=== PATIENT | male | born 1950 | race Caucasian/White ===

== ENCOUNTER 2016-08-21 05:50 | Inpatient (IN) | payer OTHER, MEDICARE ==
[2016-08-21] MEDS ORDERED: LIDOCAINE 1% 5 ML SDV ID PRN ×2 (06:00→06:50)
[2016-08-21] MEDS ORDERED: CITRATE DEXTROSE SOLN 500 ML BAG MISC ONE (06:00)
[2016-08-21] MEDS ORDERED: MUPIROCIN 2% 22 GM OINT NS ONE (06:00)
[2016-08-21] MEDS ORDERED: INSULIN REGULAR HUMAN 100 UNIT in NS 100 ML IV ONE (06:00)
[2016-08-21] MEDS ORDERED: VERAPAMIL 5 MG, NITROGLYCERIN 2.5 MG, HEPARIN 500 UNIT, SODIUM BICARBONATE 0.2 MEQ in L... MISC ONE (06:00)
[2016-08-21] MEDS ORDERED: NS 1,000 ML IV ONE (06:00)
[2016-08-21] MEDS ORDERED: PHENYLEPHRINE HCL 50 MG in NS 250 ML IV ONE (06:00)
[2016-08-21] MEDS ORDERED: AMINOCAPROIC ACID 5 GM/20 ML VIAL IV ONE (06:00)
[2016-08-21] MEDS ORDERED: SODIUM BICARBONATE 20 MEQ, LIDOCAINE 1% 10 ML in NORMOSOL-R 1,000 ML MISC ONE (06:00)
[2016-08-21] MEDS ORDERED: MANNITOL 25% 12.5 GM/50 ML VIAL IV ONE (06:00)
[2016-08-21] MEDS ORDERED: ceFAZolin 2 GM/DEXTROSE 100 ML IV ONE (06:00)
[2016-08-21] MEDS ORDERED: NOREPINEPHRINE BITARTRATE 16 MG in NS 250 ML IV ONE (06:00)
[2016-08-21] MEDS ORDERED: niCARdipine/NACL 200 ML IV SCH (06:00)
[2016-08-21] MEDS ORDERED: LIDOCAINE 1% 5 ML SDV ONE (06:35)
[2016-08-21] MEDS ORDERED: ALBUMIN 5% 250 ML BOTTLE IV ONE (06:36)
[2016-08-21] MEDS ORDERED: MILRINONE/DEXTROSE/100 ML BAG IV ONE (06:36)
[2016-08-21] MEDS ORDERED: CALCIUM CHLORIDE 1 GM/10 ML INJ ONE (06:36)
[2016-08-21] MEDS ORDERED: DOPamine/DEXTROSE/250 ML BAG IV ONE (06:37)
[2016-08-21] MEDS ORDERED: AMINOCAPROIC ACID 5 GM/20 ML VIAL ONE (06:37)
[2016-08-21] MEDS ORDERED: AMIODARONE HCL 150 MG/3 ML VIAL ONE (06:37)
[2016-08-21] MEDS ORDERED: NA BICARBONATE 50 MEQ/50 ML VIAL ONE ×2 (06:37→14:16)
[2016-08-21] MEDS ORDERED: ADENOSINE 6 MG/2 ML VIAL ONE (06:37)
[2016-08-21] MEDS ORDERED: niCARdipine/NACL/200 ML BAG IV ONE (06:37)
[2016-08-21] MEDS ORDERED: LIDOCAINE 2% 100 MG/5 ML SYR IVP ONE (06:37)
[2016-08-21] MEDS ORDERED: POTASSIUM Cl (KCl) 20 MEQ/50 ML BAG IV ONE (06:37)
[2016-08-21] MEDS ORDERED: methylPREDNISolone SOD SUCC 1 GM/8 ML VIAL ONE (06:38)
[2016-08-21] MEDS ORDERED: ceFAZolin 1 GM VIAL ONE (06:38)
[2016-08-21] MEDS ORDERED: PROTAMINE SULFATE 50 MG/5 ML VIAL IVP ONE (06:38)
[2016-08-21] MEDS ORDERED: HEPARIN 10,000 UNIT/10 ML MDV ONE (06:38)
[2016-08-21] MEDS ORDERED: MAGNESIUM SULFATE 1 GM/2 ML VIAL ONE (06:38)
[2016-08-21] MEDS ORDERED: LR 1,000 ML IV ONE (06:50)
[2016-08-21] MEDS ORDERED: PROPOFOL/EMULSION 500 MG/50 ML BOTTLE IV ONE (07:02)
[2016-08-21] MEDS ORDERED: fentaNYL 250 MCG/5 ML INJ ONE ×2 (07:02)
[2016-08-21] MEDS ORDERED: MIDAZOLAM 2 MG/2 ML VIAL ONE (07:05)
[2016-08-21] MEDS ORDERED: VERAPAMIL 5 MG/2 ML VIAL ONE (08:04)
[2016-08-21] MEDS ORDERED: PAPAVERINE HCL 60 MG/2 ML SDV ONE (08:04)
[2016-08-21] MEDS ORDERED: MAGNESIUM SULF 2 GM/WATER 50 ML BAG IV ONE (12:09)
[2016-08-21] MEDS ORDERED: SKIN ADHESIVE (DERMABOND) 1 EACH TP ONE ×2 (12:57→13:10)
[2016-08-21] MEDS ORDERED: HYDROmorphONE/DILAUDID 2 MG/ML SYR ONE (12:59)
[2016-08-21] MEDS ORDERED: ACETAMINOPHEN 325 MG TAB PO PRN (13:12)
[2016-08-21] MEDS ORDERED: PANTOPRAZOLE SODIUM 40 MG in NS 100 ML IV ONE (13:12)
[2016-08-21] MEDS ORDERED: MAGNESIUM HYDROXIDE 30 ML UDCUP PO PRN (13:12)
[2016-08-21] MEDS ORDERED: LACTULOSE 20 GM/30 ML UDCUP PO PRN (13:12)
[2016-08-21] MEDS ORDERED: BISACODYL 10 MG SUPP PR PRN (13:12)
[2016-08-21] MEDS ORDERED: POLYETHYLENE GLYCOL 3350 17 GM PKT PO PRN (13:12)
[2016-08-21] MEDS ORDERED: ONDANSETRON DISINTEGRATING 4 MG TAB PO PRN (13:12)
[2016-08-21] MEDS ORDERED: MEPERIDINE 25 MG/ML SYR IVP PRN (13:12)
[2016-08-21] MEDS ORDERED: fentaNYL 100 MCG/2 ML INJ IVP PRN (13:12)
[2016-08-21] MEDS ORDERED: CEPACOL LOZENGE PO PRN (13:12)
[2016-08-21] MEDS ORDERED: MAGNESIUM SULF 2 GM/WATER 50 ML IV ONE (13:12)
[2016-08-21] MEDS ORDERED: POTASSIUM Cl (KCl) 50 ML IV PRN (13:12)
[2016-08-21] MEDS ORDERED: ACETAMINOPHEN 650 MG SUPP PR PRN (13:12)
[2016-08-21] MEDS ORDERED: SODIUM CL NASAL 45 ML BTL EACHNARE PRN (13:12)
[2016-08-21] MEDS ORDERED: D50W 25 GM/50 ML SYR IVP PRN (13:12)
[2016-08-21] MEDS ORDERED: NS 1,000 ML IV SCH (13:15)
[2016-08-21] MEDS ORDERED: OXYCODONE/APAP 5/325 TAB PO PRN (13:18)
--- NOTE | 2016-08-21 13:21 | POSTOPPROG ---
Post Op Note Date of Operation: 08/21/16 Surgeon: Marv Thayer Paper Machine Tender: Navneet Winn Anesthesiologist: Berhane Anesthesia: GET(General Endotracheal) Pre-op Diagnosis: ASHD LPAF Procedure: CAB 5 Gaspar- Lcx, Keeley=Dg1, Svg LAD<PDAseqPLRCA CMIV Inf/Abcess present in the surg proc area at time of surgery?: No EBL: 100-500 Drains: Other (3 blakes)
[2016-08-21] MEDS ORDERED: INSULIN REGULAR HUMAN 100 UNIT in NS 100 ML IV SCH (13:30)
--- NOTE | 2016-08-21 13:49 | CPEKG ---
Heart Rate: 80 RR Interval: 750 P-R Interval: 162 QRSD Interval: 110 QT Interval: 424 QTC Interval: 490 QRS [place]: 65 T Wave [place]: 20 EKG Severity - ABNORMAL ECG - EKG Impression: ATRIAL-PACED RHYTHM EKG Impression: INCOMPLETE RIGHT BUNDLE BRANCH BLOCK EKG Impression: BORDERLINE INFERIOR Q WAVES Electronically Signed By: Raoul Awad 21-Aug-2016 18:15:07
[2016-08-21] MEDS ORDERED: LORazepam 2 MG/ML INJ ONE ×2 (13:56→14:00)
[2016-08-21] MEDS ORDERED: fentanYL/NACL/100 ML BAG IV ONE (13:59)
[2016-08-21 14:07] LABS: BICARBONATE 18 mEq/L (22-26); MEASURED OXYGEN SATURATION 91 % (92-95); PCO2 51 mmHg (34-38); PO2 76 mmHg (65-75); TCO2 20 mEq/L (23-27)
[2016-08-21] MEDS ORDERED: LORazepam 2 MG/ML INJ IVP ONE (14:30)
[2016-08-21 14:48] LABS: BASE EXCESS -4.2 mEq/L (-2.5-2.5); BICARBONATE 23 mEq/L (22-26); MEASURED OXYGEN SATURATION 96 % (92-95); PCO2 50 mmHg (34-38); PO2 94 mmHg (65-75); TCO2 24 mEq/L (23-27)
--- NOTE | 2016-08-21 14:54 | GOP ---
[f rep st] OPERATIVE REPORT DATE OF OPERATION: 08/21/2016 SURGEON: Marv Thayer DO SITE OPERATIONS MANAGER: FAIZAN Kebede. ANESTHESIOLOGIST: Camilo Last MD. PREOPERATIVE DIAGNOSIS: 1. Crescendo angina with severe 3-vessel disease and moderate left ventricular dysfunction. 2. Longstanding persistent atrial fibrillation. POSTOPERATIVE DIAGNOSIS: 1. Crescendo angina with severe 3-vessel disease and moderate left ventricular dysfunction. 2. Longstanding persistent atrial fibrillation. PROCEDURE PERFORMED: 1. Coronary artery bypass grafting x5 with left internal mammary artery to the lateral circumflex, r ight internal mammary artery via the transverse sinus to the 1st diagonal, saphenous vein graft to th e distal LAD, saphenous vein graft to the PDA, sequential posterolateral right. 2. Padilla-Maze IV utilizing cryo and radiofrequency both left and right sides performed with sensing. 3. Endoscopic vein harvesting, left greater saphenous vein. FINDINGS: Patient presented with crescendo angina with a history of multiple prior stents and noncom pliance with medication. 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 He has also had a history of multiple episodes of paroxysmal atrial fibrillation requiring intervention with a burden on Holter of greater than 50%. DESCRIPTION OF PROCEDURE: He was consented for surgery. He was brought to the operating room, intub ated, and monitoring lines were placed. He was prepped and draped in the sterile classical manner. Transesophageal echo revealed an ejection fraction of about 40% to 45% with inferior wall akinesis. Sternotomy was performed. Both mammaries were harvested. The mammaries had brisk flow but were only 1.25 mm in maximum diameter. Vein graft was harvested endoscopically from the left leg by FAIZAN Jorgensen, without difficulty. It was a good quality 3.5 mm vessel. He was then heparinized, cannulat ed with bicaval cannulas and an aortic cannula, as well as antegrade cardioplegic catheter. We then performed sensing for exit block on superior and inferior pulmonary veins bilaterally, as well as the bifurcation, which showed a conduction of the atrial impulse. We then tested the left side for gang lionic plexus, both left and right sides were tested on pump and none were found. We then went on ca rdiopulmonary bypass and encompassed both pulmonary vein antra and performed 10 multiple placed lesio n sets with radiofrequency on both pulmonary veins. We then used cryoablation on the coronary sinus at the terminus of the left and right vessels and marked it with methylene blue. We then exposed the left atrium through the right superior pulmonary vein, taking care to incise where the radiofrequenc y ablation line was. We then performed the roof and floor lesions, connecting it to the left pulmon tara vein antrum with overlap of 6-7 lesion sets performed at each site. We then used cryoablation to perform the isthmus lesion, making sure that it was in line with the previously placed coronary sinu s lesion. Left atrium was closed. CO2 had been infused throughout the procedure. We then began grafting. Initially we exposed the lateral circumflex, which was a 1.2 mm vessel deep in the AV groove. Because of its small size, I felt that the only conduit that would likely stay ope n would be a mammary, and since the mammary was quite small and the LAD was actually a large vessel, I placed the left internal mammary artery to the lateral circumflex, tacking it to the epicardium. I then brought the right internal mammary artery through a pericardial incision on the right pleura be low the aorta and transverse sinus and grafted that to a 1.5 mm 1st diagonal. Again, the right inter nal mammary artery had brisk flow but I did not think it was suitable for placing on an LAD or a larg e right coronary system. These were tacked to the epicardium. I then performed grafting to the dist al LAD. It was a heavily calcified, diffusely diseased vessel. In the distal 3rd, there was a soft area on the anterior surface measuring 3 mm in diameter once opened. I then grafted a good quality v ein graft to that, bringing it off the ascending aorta with a cross-clamp on. Rewarming was begun wh ile I sequentially grafted a large PDA and a moderate-sized posterolateral branch with good quality v ein, again bringing off the ascending aorta. The patient was then placed in Trendelenburg, cross-clamp was removed, ascending aortic vent suctioni ng was performed, as well as aspiration of the LV apex until no further air was aspirated. With hear t empty, we then secured caval tapes and opened the right atrium longitudinally beginning at the AV g roove, down to the septum. I then performed free wall superior and inferior vena cava lines with 3-4 lesions burned on each 1. We then used cryo to ablate the isthmus lesion connecting it to the verti fredrick incision. The incision was closed in a 2-layer fashion. Patient continued to be de-aired. When no further air was identified, he was easily weaned from bypass. The heparin was reversed with prot amine. Cannula was removed and oversewn. It should be noted that we also did the ablation line with radiofrequency from the left atrial appendage down to the left superior pulmonary vein, overlapping the antrum ablation line. This was closed with an AtriClip without difficulty. Heparin was reversed with protamine. The cannula was removed and oversewn for pacing wires. 2 pleur al and 1 mediastinal drains were placed. The thymic fat and pericardium were closed. Chest was clos ed in standard fashion. The patient was returned to ICU in stable condition. /[id number]/MODL
[2016-08-21] MEDS ORDERED: NA BICARBONATE 50 MEQ/50 ML VIAL IV ONE ×2 (15:00→16:30)
[2016-08-21] MEDS ORDERED: CALCIUM CHLORIDE 1 GM/10 ML INJ IV ONE (15:00)
[2016-08-21] MEDS ORDERED: FUROSEMIDE 20 MG/2 ML VIAL ONE (15:08)
[2016-08-21] MEDS ORDERED: FUROSEMIDE 20 MG/2 ML VIAL IVP ONE (15:14)
[2016-08-21] MEDS: ceFAZolin 2 GM/DEXTROSE 100 ML IV SCH ×2 (15:22→22:10)
--- NOTE | 2016-08-21 15:30 | DX ---
Portable chest x-ray 1515 hours. History: Postop open-heart surgery. Findings: Comparison to August 13, 2016. ET tube, central line, bilateral chest tubes, and mediastinal tube are in place. Sternotomy wires are present along with mediastinal clips. There is a clamp across the left atrial appendage noted. Heart size appears be normal. Pulmonary vasculature is mildly prominent centrally. There is no new co nsolidation, effusion, or pneumothorax. There is mild decreased inspiration. Impression: 1. Postoperative changes related to recent open-heart surgery with interventional tubes in place. 2. Mild prominence of the pulmonary vasculature with mild decreased inspiration. Rule out mild fluid overload.
[2016-08-21 15:50] LABS: BASE EXCESS -5.8 mEq/L (-2.5-2.5); BICARBONATE 21 mEq/L (22-26); MEASURED OXYGEN SATURATION 88 % (92-95); PCO2 48 mmHg (34-38); PO2 67 mmHg (65-75); TCO2 22 mEq/L (23-27)
[2016-08-21 15:52] LABS: O2 CONCENTRATIION 40 % (0-100); P/F RATIO 167 RATIO; SIMV YES
[2016-08-21] MEDS ORDERED: NOREPINEPHRINE BITARTRATE 16 MG in NS 250 ML IV SCH (16:00)
[2016-08-21] MEDS: DEXMEDETOMIDINE HCL 400 MCG in NS 100 ML IV SCH ×3 (16:26→23:38)
[2016-08-21] MEDS ORDERED: SUCCINYLCHOLINE CHLORIDE 200 MG/10 ML VIAL IVP ONE (16:30)
[2016-08-21] MEDS ORDERED: ROCURONIUM 50 MG/5 ML VIAL IVP ONE (16:30)
[2016-08-21] MEDS ORDERED: ALBUMIN 5% 250 ML IV ONE (16:30)
[2016-08-21] MEDS ORDERED: VECURONIUM BROMIDE 10 MG VIAL ONE (17:20)
[2016-08-21] MEDS ORDERED: VECURONIUM BROMIDE 10 MG VIAL IVP PRN (17:25)
[2016-08-21 18:29] LABS: BASE EXCESS -2.8 mEq/L (-2.5-2.5); BICARBONATE 22 mEq/L (22-26); MEASURED OXYGEN SATURATION 94 % (92-95); PCO2 41 mmHg (34-38); PO2 79 mmHg (65-75); TCO2 23 mEq/L (23-27)
[2016-08-21 18:30] LABS: O2 CONCENTRATIION 40 % (0-100); P/F RATIO 197 RATIO; PRESSURE SUPPORT 7; SIMV YES
[2016-08-21] MEDS: fentaNYL/NACL 100 ML IV SCH ×2 (18:45→21:10)
[2016-08-21] MEDS: CHLORHEXIDINE GLUCONATE 15 ML UDL PO SCH (20:11)
[2016-08-21] MEDS: ALBUMIN 5% 250 ML IV PRN ×2 (20:54→23:06)
[2016-08-21] MEDS ORDERED: FAMOTIDINE 20 MG/NACL 50 ML IV SCH (21:00)
[2016-08-21] MEDS: MUPIROCIN 2% 22 GM OINT NS SCH (21:12)
[2016-08-22] MEDS: DEXMEDETOMIDINE HCL 400 MCG in NS 100 ML IV SCH ×3 (03:19→22:06)
[2016-08-22 03:51] LABS: % IMMATURE GRANULYOCYTES 0.4 % (0.0-1.1); ABSOLUTE IMMATURE GRANULOCYTES 0.09 10^3/uL (0.00-0.10); ADD DIFF? NO; ADD MORPH? NO; ADD SCAN? NO; ATYPICAL LYMPHOCYTE FLAG 0 (0-99); BICARBONATE 22 mEq/L (22-26); FRAGMENT RBC FLAG 0 (0-99); HEMATOCRIT 30.3 % (40.0-51.0); HEMOGLOBIN 10.6 g/dL (13.7-17.5); LEFT SHIFT FLG 0 (0-99); LIPEMIA HEMOLYSIS FLAG 90 (0-99); MEAN CELL HEMOGLOBIN 33.7 pg (27.9-34.1); MEAN CELL VOLUME 96.2 fL (81.5-99.8); MEAN PLATELET VOLUME 9.7 fL (8.7-11.7); MEASURED OXYGEN SATURATION 97 % (92-95); PCO2 41 mmHg (34-38); PLATELET CLUMPS FLAG 10 (0-99); PLATELET COUNT 136 10^3/uL (150-400); PO2 101 mmHg (65-75); RED BLOOD CELL COUNT 3.15 10^6/uL (4.40-6.38); RED CELL DISTRIBUTION WIDTH 12.7 % (11.5-15.2); TCO2 23 mEq/L (23-27)
[2016-08-22 03:54] LABS: O2 CONCENTRATIION 40 % (0-100); P/F RATIO 252 RATIO; PATIENT RATE 18; PRESSURE SUPPORT 7; SIMV YES
[2016-08-22 04:02] LABS: ALANINE AMINOTRANSFERASE 114 IU/L (21-72); ALKALINE PHOSPHATASE 24 IU/L (38-126); ANION GAP 12 mEq/L (8-20); ASPARTATE AMINOTRANSFERASE 412 IU/L (17-59); BILIRUBIN,TOTAL 0.9 mg/dL (0.1-1.4); BILIRUBIN-CONJUGATED 0.4 mg/dL (0.0-0.5); BILIRUBIN-UNCONJUGATED 0.5 mg/dL (0.0-1.1); CALCIUM 8.1 mg/dL (8.5-10.4); CARBON DIOXIDE 25 mEq/l (22-31); CHLORIDE 113 mEq/L (97-110); CREATININE 1.1 mg/dL (0.7-1.3); GLOMERULAR FILTRATION RATE > 60; GLUCOSE 80 mg/dL (70-100); SODIUM 145 mEq/L (134-144); TOTAL PROTEIN 4.8 g/dL (6.3-8.2)
[2016-08-22] MEDS: ALBUMIN 5% 250 ML IV PRN ×2 (04:26→04:32)
[2016-08-22] MEDS: ceFAZolin 2 GM/DEXTROSE 100 ML IV SCH ×3 (06:05→22:06)
--- NOTE | 2016-08-22 07:31 | PDINTPN ---
Figure Clerk Progress Note Assessment/Plan: Assessment: #CABG X 5 and MAZE post op day 1. He was reintubated yesterday for agitation but is calm this AM. Hemodynamics generally good with episode of BP into the 70 's on levophed. CVP 9-12 and he had 1,250ml of albumin overnight. Paced. #Respiratory failure, on CPAP with a spontaneous rate of 36. CXR OK. #Agitation, much improved. He is calm and nods and shakes his head Plan: Trial of precedex to see if it calms his RR so he can be extubated. Taper levophed as possible Chest tubes with minimal drainage 08/22/16 07:25 Subjective: Some sternal pain as expected with the chest tubes. Objective: Vital Signs Temp Pulse Resp BP Pulse Ox 37.9 C 86 29 H 83/49 L 98 08/22/16 07:00 08/22/16 07:00 08/22/16 07:00 08/22/16 07:00 08/22/16 07:00 Laboratory Results 08/22/16 03:40 08/22/16 03:40 08/21/16 08/22/16 08/23/16 05:59 05:59 05:59 Intake Total 2638.3 Output Total 2400 55 Balance 238.3 -55 Physical Exam - Physical Exam General Appearance: alert, mild distress EENT: ET tube Neck: non-tender Respiratory: lungs clear Cardiac/Chest: regular rate, rhythm Abdomen: non-tender, soft Back: Normal inspection Skin: warm/dry Lymphatic: no adenopathy Extremities: non-tender, No pedal edema Neuro/Psych: alert ICD10 Worksheet Patient Problems: Problems Problem Status Diagnosed Acute blood loss anemia Acute S/P CABG x 5 Acute S/P Maze operation for atrial fibrillation Acute Coronary arteriosclerosis Acute
--- NOTE | 2016-08-22 07:44 | SOAPPROG ---
SOAP Progress Note Assessment/Plan: POD#1: CABGx5 (GANN-LAD, EBONY-D1, SVG-LAD, Sequential SVG-PDA-PL), Padilla-Maze IV Left/Right lesions Active Drips: - Levophed 9 mcgs Unstable angina, severe 3VD s/p CABGx5 - ASA/Plavix/Statin when taking PO and BB when appropriate - AL/FC to remain Long-standing persistent atrial fibrillation s/p Padilla-Maze IV - Intrinsic SR, will continue to atrial pace as better hemodynamics - Will need long-term anticoagulation but patient has been resistant to treatment in the past - ASA/Plavix may suffice ICM with inferior wall hypokinesis and EF of 40-45% as per ECHO - Lasix prn - ACEi when appropriate Acute blood loss anemia - Initial dump from chest tube auto-transfused with subsequent thin output - No need for blood product transfusions, H/H trend stable Reintubation secondary to combativeness, now calmer - Urine tox screen negative - Will work on weaning vent with Precedex Objective: Vital Signs Temp Pulse Resp BP Pulse Ox 37.9 C 86 29 H 83/49 L 98 08/22/16 07:00 08/22/16 07:00 08/22/16 07:00 08/22/16 07:00 08/22/16 07:00 Laboratory Results 08/22/16 03:40 08/22/16 03:40 08/21/16 08/22/16 08/23/16 05:59 05:59 05:59 Intake Total 2638.3 Output Total 2400 55 Balance 238.3 -55 Physical Exam - Physical Exam General Appearance: mild distress EENT: No scleral icterus (R), No scleral icterus (L) Neck: normal inspection Respiratory: other (tachypneic on CPAP) Cardiac/Chest: other (Paced atrial rhythm ) Abdomen: soft, No distended Skin: normal color, warm/dry Extremities: No pedal edema Neuro/Psych: other (Follows commandsm, moves all 4 extremities ) ICD10 Worksheet Patient Problems: Problems Problem Status Diagnosed Acute blood loss anemia Acute S/P CABG x 5 Acute S/P Maze operation for atrial fibrillation Acute Coronary arteriosclerosis Acute Coronary arteriosclerosis Acute
[2016-08-22] MEDS: CHLORHEXIDINE GLUCONATE 15 ML UDL PO SCH (08:38)
[2016-08-22] MEDS: MUPIROCIN 2% 22 GM OINT NS SCH ×2 (08:43→22:07)
--- NOTE | 2016-08-22 08:45 | DX ---
Portable Chest August 22, 2016 0626 hours History: Multiple tubes and lines. Comparison: August 21, 2016. Findings: Endotracheal tube 4 cm above the becky. Right chest tube in the right midlung field. Chest tube in the left lung base. Median sternotomy wires and mediastinal clips with a clamp across the le ft atrial appendage again noted. Mild enlargement of the cardiac silhouette. Mild pulmonary venous hy pertension. Minimal left apical pneumothorax. Right internal jugular line in the superior vena cava. Impression: 1. Multiple tubes and lines with stable minimal left apical pneumothorax. 2. Mild pulmonary venous hypertension.
[2016-08-22] MEDS: ASPIRIN 81 MG CHEWABLE TAB PO SCH (08:53)
[2016-08-22] MEDS: CLOPIDOGREL BISULFATE 75 MG TAB PO SCH (08:54)
[2016-08-22] MEDS: PANTOPRAZOLE SODIUM 40 MG TAB PO SCH (08:54)
[2016-08-22 09:50] LABS: BASE EXCESS -4.2 mEq/L (-2.5-2.5); BICARBONATE 19 mEq/L (22-26); MEASURED OXYGEN SATURATION 94 % (92-95); PCO2 34 mmHg (34-38); PO2 81 mmHg (65-75); TCO2 20 mEq/L (23-27)
[2016-08-22 09:51] LABS: CPAP YES; O2 CONCENTRATIION 40 % (0-100); P/F RATIO 202 RATIO; PATIENT RATE 45
[2016-08-22 09:52] LABS: PRESSURE SUPPORT 7
[2016-08-22 10:09] LABS: ANION GAP 14 mEq/L (8-20); CALCIUM 7.8 mg/dL (8.5-10.4); CARBON DIOXIDE 23 mEq/l (22-31); CHLORIDE 114 mEq/L (97-110); CREATININE 1.1 mg/dL (0.7-1.3); GLOMERULAR FILTRATION RATE > 60; GLUCOSE 103 mg/dL (70-100); POTASSIUM 4.8 mEq/L (3.5-5.2); SODIUM 146 mEq/L (134-144)
[2016-08-22] MEDS ORDERED: ALBUMIN 5% 500 ML IV ONE (11:12)
[2016-08-22] MEDS ORDERED: ALBUMIN 5% 500 ML BOTTLE IV ONE (11:23)
[2016-08-22] MEDS ORDERED: FLU VACC TS 2016-17(65YR+)/PF 0.5 ML SYR (FLUZONE HIGH DOSE) IM ONE (12:31)
[2016-08-22] MEDS ORDERED: PNEUMOC 13-VAL CONJ-DIP CRM/PF 0.5 ML SYR IM ONE (12:31)
[2016-08-22 18:08] LABS: POTASSIUM 4.6 mEq/L (3.5-5.2)
[2016-08-22] MEDS ORDERED: ALBUMIN 5% 250 ML IV ONE (19:00)
[2016-08-22] MEDS: SENNOSIDES/DOCUSATE SODIUM TAB PO SCH (22:07)
[2016-08-23 05:27] LABS: % IMMATURE GRANULYOCYTES 1.1 % (0.0-1.1); ABSOLUTE IMMATURE GRANULOCYTES 0.24 10^3/uL (0.00-0.10); ADD DIFF? NO; ADD MORPH? NO; ADD SCAN? NO; ATYPICAL LYMPHOCYTE FLAG 0 (0-99); FRAGMENT RBC FLAG 0 (0-99); HEMATOCRIT 28.2 % (40.0-51.0); HEMOGLOBIN 9.9 g/dL (13.7-17.5); LEFT SHIFT FLG 10 (0-99); LIPEMIA HEMOLYSIS FLAG 90 (0-99); MEAN CELL HEMOGLOBIN CONCENTR. 35.1 g/dL (32.4-36.7); MEAN CELL VOLUME 96.9 fL (81.5-99.8); MEAN PLATELET VOLUME 10.8 fL (8.7-11.7); PLATELET CLUMPS FLAG 0 (0-99); PLATELET COUNT 84 10^3/uL (150-400); RED BLOOD CELL COUNT 2.91 10^6/uL (4.40-6.38); RED CELL DISTRIBUTION WIDTH 13.3 % (11.5-15.2)
[2016-08-23 05:41] LABS: ANION GAP 15 mEq/L (8-20); CALCIUM 7.7 mg/dL (8.5-10.4); CARBON DIOXIDE 20 mEq/l (22-31); CHLORIDE 114 mEq/L (97-110); CREATININE 1.7 mg/dL (0.7-1.3); GLOMERULAR FILTRATION RATE 41; GLUCOSE 147 mg/dL (70-100); SODIUM 144 mEq/L (134-144)
[2016-08-23] MEDS: HYDROCODONE/APAP 5/325 TAB PO PRN ×2 (06:35→16:14)
[2016-08-23] MEDS: PANTOPRAZOLE SODIUM 40 MG TAB PO SCH (08:51)
[2016-08-23] MEDS: CLOPIDOGREL BISULFATE 75 MG TAB PO SCH (08:51)
[2016-08-23] MEDS: ASPIRIN 81 MG CHEWABLE TAB PO SCH (08:51)
[2016-08-23] MEDS: SENNOSIDES/DOCUSATE SODIUM TAB PO SCH ×2 (08:51→21:39)
[2016-08-23] MEDS: MUPIROCIN 2% 22 GM OINT NS SCH (08:52)
--- NOTE | 2016-08-23 08:55 | SOAPPROG ---
SOAP Progress Note Assessment/Plan: POD#2: CABGx5 (GANN-LAD, EBONY-D1, SVG-LAD, Sequential SVG-PDA-PL), Padilla-Maze IV Left/Right lesions Active Drips: - Levophed 2 mcgs Unstable angina, severe 3VD s/p CABGx5 - ASA/Plavix/Statin when taking PO and BB when appropriate Long-standing persistent atrial fibrillation s/p Padilla-Maze IV - Intrinsic SR, will continue to atrial pace as better hemodynamics - Will need long-term anticoagulation but patient has been resistant to treatment in the past - ASA/Plavix may suffice ICM with inferior wall hypokinesis and EF of 40-45% as per ECHO - Lasix prn - ACEi when appropriate Acute blood loss anemia - H/H stable Reintubation secondary to combativeness, now calmer - Extubated without incident Subjective: Feels better today. Pain controlled. No CP/SOB. Objective: Vital Signs Temp Pulse Resp BP Pulse Ox 37.8 C 86 34 H 100/55 L 94 08/23/16 08:00 08/23/16 08:00 08/23/16 08:00 08/23/16 08:00 08/23/16 08:00 Laboratory Results 08/23/16 05:14 08/23/16 05:14 08/22/16 08/23/16 08/24/16 05:59 05:59 05:59 Intake Total 2638.3 1932.4 100 Output Total 2400 1675 280 Balance 238.3 257.4 -180 Physical Exam - Physical Exam General Appearance: WD/WN, alert, no apparent distress EENT: No scleral icterus (R), No scleral icterus (L) Neck: normal inspection Respiratory: chest non-tender, lungs clear, normal breath sounds, No crackles, No rhonchi, No stridor, No wheezing Cardiac/Chest: regular rate, rhythm, other (A-Paced) Abdomen: non-tender, soft, No distended Skin: normal color, warm/dry Extremities: No pedal edema, No swelling Neuro/Psych: no motor/sensory deficits, alert, normal mood/affect, oriented x 3 ICD10 Worksheet Patient Problems: Problems Problem Status Diagnosed Acute blood loss anemia Acute S/P CABG x 5 Acute S/P Maze operation for atrial fibrillation Acute Coronary arteriosclerosis Acute
--- NOTE | 2016-08-23 09:26 | DX ---
Portable AP Upright Chest August 23, 2016 6:26 a.m. Clinical History: 66-year-old male in the ICU for postop follow up after open heart surgery. Comparison Study: Chest, dated August 22, 2016, at 6:26 a.m. Findings: In the interim, the endotracheal tube has been removed. The numerous other interventional m onitoring devices are similarly positioned. The cardiac silhouette remains mildly enlarged, with a le ft ventricular configuration. There is patchy alveolar opacity in the left midlung lateral to the hil um, as well as some mild airspace disease at the medial lung bases. There is a suspected tiny residua l left apical pneumothorax, less conspicuous than on yesterday's study. There is also a small right a pical pneumothorax which was not apparent on yesterday's study. Impression: 1. Interval extubation in this patient status post open heart surgery, with otherwise stable position ing of interventional devices. 2. Mild stable cardiomegaly. 3. Reduction in the size of a left apical pneumothorax and development of a small right apical pneumo thorax with stable positioning of bilateral chest tubes. 4. Bilateral areas of mild alveolar consolidation.
[2016-08-23] MEDS ORDERED: FUROSEMIDE 40 MG/4 ML VIAL IVP ONE ×3 (10:36→23:30)
--- NOTE | 2016-08-23 11:23 | PDINTPN ---
Delivery Aide Progress Note Assessment/Plan: Assessment: #CABG X 5 and MAZE post op day 2. He was reintubated for agitation but is extubated and calm this AM. Hemodynamics generally good with episode of BP into the 70's on levophed at 3. CVP 9-12. Paced. #Respiratory failure, resolved. #Agitation, much improved. He is calm and nods and shakes his head Plan: Trial of precedex at 1mcg has helped his agitation. He is very anxious at home according to his , and now is very nervous about getting up to the chair and walking Taper levophed as possible Chest tubes with minimal drainage. His pain will likely decrease a lot when the tube comes out. 08/23/16 11:17 Subjective: Some lower chest pain from the tube Objective: Vital Signs Temp Pulse Resp BP Pulse Ox 37.5 C 72 31 H 96/49 L 95 08/23/16 11:00 08/23/16 11:00 08/23/16 11:00 08/23/16 11:00 08/23/16 11:00 Laboratory Results 08/23/16 05:14 08/23/16 05:14 08/22/16 08/23/16 08/24/16 05:59 05:59 05:59 Intake Total 2638.3 1932.4 100 Output Total 2400 1675 583 Balance 238.3 257.4 -483 Physical Exam - Physical Exam General Appearance: mild distress EENT: normal ENT inspection Neck: non-tender Respiratory: lungs clear Cardiac/Chest: regular rate, rhythm Abdomen: non-tender, soft Back: Normal inspection Skin: warm/dry Lymphatic: no adenopathy Extremities: non-tender, No pedal edema Neuro/Psych: alert, oriented x 3 ICD10 Worksheet Patient Problems: Problems Problem Status Diagnosed Acute blood loss anemia Acute S/P CABG x 5 Acute S/P Maze operation for atrial fibrillation Acute Coronary arteriosclerosis Acute
[2016-08-23] MEDS ORDERED: DOPamine/DEXTROSE/250 ML BAG IV ONE (13:04)
[2016-08-23] MEDS ORDERED: FUROSEMIDE 40 MG/4 ML VIAL ONE ×2 (13:31→23:29)
[2016-08-23 14:02] LABS: ANION GAP 22 mEq/L (8-20); CALCIUM 7.7 mg/dL (8.5-10.4); CARBON DIOXIDE 18 mEq/l (22-31); CHLORIDE 109 mEq/L (97-110); CREATININE 2.3 mg/dL (0.7-1.3); GLOMERULAR FILTRATION RATE 29; GLUCOSE 138 mg/dL (70-100); POTASSIUM 4.8 mEq/L (3.5-5.2); SODIUM 144 mEq/L (134-144)
[2016-08-23] MEDS: ONDANSETRON 4 MG/2 ML VIAL IVP PRN (15:01)
--- NOTE | 2016-08-23 15:33 | ECHO ---
[id number] + + [address] : : [place] [address] : : [phone] + + Adult Echocardiographic Report + + :Name: SANIA SCOTT PStudy Date: 08/23/2016 01:34 PM BP: 97/54 mmHg : : Hospital Admission Number: [id number] L ocation: 256: :: 1950 Gender: Male Height: 7 4 in : :Age: 66 yrs Race: WH Weight: 1 80 lb : :Reason For Study: eval LV/RV in post-op CABG : : BSA: 2.1 meters2 : :History: post-op CABG/peterson-Maze; old VT : + + MMode/2D Measurements & Calculations IVSd: 0.97 cm RVDd: 3.7 cm FS: 20.4 % MV Diam: 3.6 cm LVPWd: 0.76 cm LVIDd: 5.3 cm EDV(Teich): 135.7 ml LVIDs: 4.2 cm ESV(Teich): 79.7 ml EF(Teich): 41.2 % LVOT diam: 2.2 cm LVLd ap4: 9.4 cm SV(MOD-sp4): 68.0 ml LVOT area: 3.8 cm2EDV(MOD-sp4): 163.0 ml LVLs ap4: 7.9 cm ESV(MOD-sp4): 95.0 ml EF(MOD-sp4): 41.7 % Normal Measurement Values: + + :LVIDd (3.5-5.7cm) IVSd (0.6-1.1cm) LVPWd (0.6-1.1cm) Aortic Root (2.0-3.7cm)Left Atrium (1.5-4.0cm): :LV Vol(d) (76-115ml) LV Vol(s) (29-48ml) Ejec Fraction (50-65%)PV Bridger (0.6- 1.2m/s) TV Bridger (0.4-1.0m/s) : :MV E Bridger (0.8-1.0m/s)MV A Bridger (0.3-1.0m/s)LVOT Bridger (0.7-1.2m/s) Asc Ao Bridger ( 0.9-1.8m/s) : + + Doppler Measurements & Calculations MV E max bridger: MV V2 max: Ao mean PG: LV V1 mean P.8 cm/sec 71.1 cm/sec 2.9 mmHg 1.5 mmHg MV A max bridger: MV max P.0 mmHg Ao V2 mean: LV V1 mean: 30.1 cm/sec MV V2 mean: 80.0 cm/sec 57.3 cm/sec MV E/A: 3.0 30.4 cm/sec Ao V2 VTI: 15.2 cm LV V1 VTI: MV mean PG: MARCELINA(I,D): 3.5 cm2 14.1 cm 0.52 mmHg MV V2 VTI: 14.0 cm MV area (1 diam): 10.2 cm2 MVA(VTI): 3.8 cm2 MV Flow area(1diam): 10.2 cm2 MR max bridger: MR(RF 1 diam): SV(MV 1 diam): PA V2 max: 464.8 cm/sec 21.2 % 143.2 ml 70.4 cm/sec MR max PG: SI(MV 1 diam): PA max P.4 mmHg 68.9 ml/m2 2.0 mmHg SV(LVOT): 53.5 ml TR max bridger: RF(MV,LVOT)(1diam): 250.0 cm/sec 0.63 TR max P.0 mmHg RAP systole: 5.0 mmHg RVSP(TR): 30.0 mmHg Left Ventricle The left ventricle is mildly dilated. Septal wall is mildly hypertrophied. Ejection Fraction = 40-45%. Diastolic function is indeterminate. Inferolateral and inferior mcclure are thin and akinetic. Right Ventricle The right ventricle is mildly dilated. The right ventricular systolic function is mildly reduced. Atria The left atrial size is normal. The Left Atrial Volume is 22 ml/m2. Right atrial size is normal. Mitral Valve The mitral valve leaflets appear thickened, but open well. The posterio- medial papillary muscle is brightened and scarred. There is no mitral valve stenosis. There is moderate to severe mitral regurgitation. Tricuspid Valve The tricuspid valve is normal in structure and function. There is no tricuspid stenosis. There is moderate tricuspid regurgitation. Right ventricular systolic pressure is 30mmHg. Aortic Valve The aortic valve is trileaflet. There is no aortic stenosis. Trace to mild aortic regurgitation. Pulmonic Valve The pulmonic valve is normal in structure and function. There is no pulmonic valvular regurgitation. Great Vessels The aortic root is normal size. Pericardium/Pleural There is no pericardial effusion. Conclusion A two-dimensional transthoracic echocardiogram with M-mode and Doppler was performed. The left ventricle is mildly dilated. Septal wall is mildly hypertrophied. Ejection Fraction = 40-45%. Diastolic function is indeterminate. Inferolateral and inferior mcclure are thin and akinetic. The right ventricle is mildly dilated. The right ventricular systolic function is mildly reduced. The posterio-medial papillary muscle is brightened and scarred. There is moderate to severe mitral regurgitation. There is moderate tricuspid regurgitation. Right ventricular systolic pressure is 30mmHg. Trace to mild aortic regurgitation. Final Reading Physician: Meryl Sandoval signed on 08/23/2016 03:31 PM Ordering Physician: Wilfrid Winn Performed By: Tatyana Moctezuma
[2016-08-23] MEDS: ALBUMIN 5% 250 ML IV PRN (15:39)
[2016-08-23 15:55] LABS: ANION GAP 18 mEq/L (8-20); CALCIUM 7.7 mg/dL (8.5-10.4); CARBON DIOXIDE 22 mEq/l (22-31); CHLORIDE 108 mEq/L (97-110); CREATININE 2.2 mg/dL (0.7-1.3); GLOMERULAR FILTRATION RATE 30; GLUCOSE 127 mg/dL (70-100); POTASSIUM 4.7 mEq/L (3.5-5.2); SODIUM 143 mEq/L (134-144)
[2016-08-23] MEDS ORDERED: ALBUMIN 5% 250 ML IV ONE (16:00)
[2016-08-23] MEDS ORDERED: NA BICARBONATE 50 MEQ/50 ML VIAL ONE (16:02)
[2016-08-23] MEDS ORDERED: NA BICARBONATE 50 MEQ/50 ML VIAL IV ONE (16:30)
--- NOTE | 2016-08-23 16:31 | SOAPPROG ---
SOAP Progress Note Assessment/Plan: Assessment: 1. Status post coronary artery bypass grafting. 2. mitral regurgitation: Increased since preoperatively. 3. Renal insufficiency query pre renal azotemia 4. Anxiety /pain. 5. Elevation in white count 6. Postoperative anemia Impression: Clinical examination suggests the patient is volume depleted with elevation in creatinine and BUN. His acidosis is improving. LV function today is normal by echo. Degree of regurgitation is increased but the valve appears to be structurally intact. This may be increased secondary to inotropes and dilatation postoperatively. Recommendations: Hydration. Avoid nephrotoxins. Discontinue inotropes as soon as possible. Aggressive pain management with mobilization. I can see no indications for further surgical evaluation at this time. Discussed findings with patient's . 08/23/16 16:27 08/23/16 16:32 Subjective: Patient is somewhat afraid. He is concerned that the surgery is not going well. He is having no chest pain per se. He does have surgical discomfort and is clearly anxious. Objective: Medications Generic Name Dose Route Start Last Admin Trade Name Freq PRN Reason Stop Dose Admin Aspirin 81 mg 08/22/16 09:00 08/23/16 08:51 Aspirin PO 02/18/17 08:59 81 mg DAILY RUSH Clopidogrel Bisulfate 75 mg 08/22/16 09:00 08/23/16 08:51 Plavix PO 02/18/17 08:59 75 mg DAILY RUSH Vital Signs Temp Pulse Resp BP Pulse Ox 37.3 C 88 31 H 98/53 L 92 08/23/16 16:00 08/23/16 16:00 08/23/16 16:00 08/23/16 16:00 08/23/16 16:00 Laboratory Results 08/23/16 05:14 08/23/16 15:30 08/22/16 08/23/16 08/24/16 05:59 05:59 05:59 Intake Total 2638.3 1932.4 107 Output Total 2400 1675 913 Balance 238.3 257.4 -806 Echocardiogram reviewed revealing no pericardial effusion. Preserved LV function with inferior akinesis. Moderate to severe mitral regurgitation. the valve is intact. There is no left atrial dilatation. The right ventricle is iban normally. Physical Exam - Physical Exam General Appearance: mild distress Neck: supple Respiratory: decreased breath sounds, crackles, pain on movement Cardiac/Chest: regular rate, rhythm Abdomen: soft, distended Skin: pallor Lymphatic: no adenopathy Extremities: non-tender Neuro/Psych: alert ICD10 Worksheet Patient Problems: Problems Problem Status Diagnosed Acute blood loss anemia Acute S/P CABG x 5 Acute S/P Maze operation for atrial fibrillation Acute Coronary arteriosclerosis Acute Review of Systems - Review of Systems Constitutional: denies: chills, fever Respiratory: hurts to breath Cardiac: chest pain. denies: palpitations Gastrointestinal/Abdominal: no symptoms reported Genitourinary: no symptoms
--- NOTE | 2016-08-23 16:57 | DX ---
Abdomen Single View History: Acidosis of uncertain etiology. Findings: Nonspecific bowel gas pattern. Coil from prior hernia repair suggested in the right pelvis. Degenerative change is seen in the lumbar spine. Mild stool is seen in the colon. Impression: Nonobstructive bowel gas pattern.
[2016-08-23 23:23] LABS: ANION GAP 13 mEq/L (8-20); CALCIUM 7.4 mg/dL (8.5-10.4); CARBON DIOXIDE 26 mEq/l (22-31); CHLORIDE 107 mEq/L (97-110); CREATININE 1.9 mg/dL (0.7-1.3); GLOMERULAR FILTRATION RATE 36; GLUCOSE 127 mg/dL (70-100); POTASSIUM 4.6 mEq/L (3.5-5.2); SODIUM 141 mEq/L (134-144)
[2016-08-23] MEDS ORDERED: NS 1,000 ML IV SCH (23:30)
[2016-08-24 03:35] LABS: HEMATOCRIT 26.9 % (40.0-51.0); HEMOGLOBIN 9.3 g/dL (13.7-17.5); MEAN CELL HEMOGLOBIN 33.9 pg (27.9-34.1); MEAN CELL HEMOGLOBIN CONCENTR. 34.6 g/dL (32.4-36.7); MEAN CELL VOLUME 98.2 fL (81.5-99.8); RED BLOOD CELL COUNT 2.74 10^6/uL (4.40-6.38); RED CELL DISTRIBUTION WIDTH 13.6 % (11.5-15.2)
[2016-08-24 03:58] LABS: ANION GAP 14 mEq/L (8-20); CALCIUM 7.5 mg/dL (8.5-10.4); CARBON DIOXIDE 27 mEq/l (22-31); CHLORIDE 109 mEq/L (97-110); CREATININE 1.7 mg/dL (0.7-1.3); GLOMERULAR FILTRATION RATE 41; GLUCOSE 122 mg/dL (70-100); POTASSIUM 4.5 mEq/L (3.5-5.2); SODIUM 145 mEq/L (134-144)
[2016-08-24] MEDS: HYDROCODONE/APAP 5/325 TAB PO PRN ×3 (06:38→22:33)
[2016-08-24] MEDS: SENNOSIDES/DOCUSATE SODIUM TAB PO SCH ×2 (08:39→21:16)
[2016-08-24] MEDS: ASPIRIN 81 MG CHEWABLE TAB PO SCH (08:39)
[2016-08-24] MEDS: CLOPIDOGREL BISULFATE 75 MG TAB PO SCH (08:39)
[2016-08-24] MEDS: PANTOPRAZOLE SODIUM 40 MG TAB PO SCH (08:40)
--- NOTE | 2016-08-24 08:59 | SOAPPROG ---
SOAP Progress Note Assessment/Plan: POD#3: CABGx5 (GANN-LAD, EBONY-D1, SVG-LAD, Sequential SVG-PDA-PL), Padilla-Maze IV Left/Right lesions Unstable angina, severe 3VD s/p CABGx5 - ASA/Plavix/Statin and BB when appropriate Long-standing persistent atrial fibrillation s/p Padilla-Maze IV - Intrinsic JR/SR, will continue to atrial pace as better hemodynamics - Will need long-term anticoagulation but patient has been resistant to treatment in the past - ASA/Plavix as per CABG may suffice RAHEL - Cr trending down - Continue higher perfusion pressures with use of IVF at 50 cc/h and dopamine ( will wean to 3 mcgs this AM) Post-op moderate-severe MR with structurally intact valve - Likely secondarily to post-op dilatation and use of inotropes - No need for surgical repair at this time - Will repeat ECHO friday Acute blood loss anemia - H/H stable Reintubation secondary to combativeness, now calmer - Extubated without incident ICM with inferior wall hypokinesis and EF of 40-45% - Lasix prn - ACEi when appropriate Subjective: Still worried about prognosis. Pain well-controlled. Objective: Vital Signs Temp Pulse Resp BP Pulse Ox 37.2 C 90 28 H 104/62 93 08/24/16 08:00 08/24/16 08:00 08/24/16 08:00 08/24/16 08:00 08/24/16 08:00 Laboratory Results 08/24/16 03:15 08/24/16 03:15 08/23/16 08/24/16 08/25/16 05:59 05:59 05:59 Intake Total 1932.4 3036.4 Output Total 1675 2903 350 Balance 257.4 133.4 -350 Physical Exam - Physical Exam General Appearance: WD/WN, alert, no apparent distress EENT: No scleral icterus (R), No scleral icterus (L) Neck: normal inspection Respiratory: lungs clear, normal breath sounds, No crackles, No rales, No stridor, No wheezing, No retractions Cardiac/Chest: other (JR, A-paced) Abdomen: non-tender, soft, No distended Skin: normal color, warm/dry Neuro/Psych: no motor/sensory deficits, alert, normal mood/affect, oriented x 3 ICD10 Worksheet Patient Problems: Problems Problem Status Diagnosed Acute blood loss anemia Acute S/P CABG x 5 Acute S/P Maze operation for atrial fibrillation Acute Coronary arteriosclerosis Acute
--- NOTE | 2016-08-24 09:06 | DX ---
Portable Chest August 24, 2016 at 0612 Hours History: Status post coronary artery bypass. Chest tubes. Comparison: August 23, 2016. Findings: Mediastinal drain midthoracic region. Chest tubes in the left lung base and in the right mi dlung field. Median sternotomy wires, mediastinal clips, and atrial appendage clip noted. Right inter nal jugular line in the superior vena cava. Small right apical pneumothorax appears smaller since yes terday. Mild pulmonary venous hypertension. Mild atelectasis of bilateral lower lobes again noted. No definite left pneumothorax. Impressions: 1. Multiple tubes and lines. 2. Decreasing small right apical pneumothorax. 3. No definite left apical pneumothorax. 4. Bibasilar patchy atelectasis.
--- NOTE | 2016-08-24 11:56 | PDINTPN ---
Health Science Specialist Progress Note Assessment/Plan: Assessment: #CABG X 5 and MAZE post op day 2. He was reintubated for agitation but is extubated and calm this AM. Hemodynamics generally good with episode of BP into the 70's on levophed at 3. CVP 9-12. Paced. #Respiratory failure, resolved. #Agitation, much improved. He is calm and nods and shakes his head #RAHEL with creatinine 2.3 to 1.7 #Mitral regurg post op, probably from LV dilitation post op, hopefully will resolve Plan: He is very anxious at home according to his , and now is very nervous about getting up to the chair and walking but he did it Taper dopamine as possible APaced 08/24/16 11:53 Subjective: mild sternal pain Objective: Vital Signs Temp Pulse Resp BP Pulse Ox 37.1 C 90 17 103/63 93 08/24/16 11:00 08/24/16 11:00 08/24/16 11:00 08/24/16 11:00 08/24/16 11:00 Laboratory Results 08/24/16 03:15 08/24/16 03:15 08/23/16 08/24/16 08/25/16 05:59 05:59 05:59 Intake Total 1932.4 3036.4 610 Output Total 1675 2903 445 Balance 257.4 133.4 165 Physical Exam - Physical Exam General Appearance: alert, mild distress EENT: normal ENT inspection Neck: non-tender Respiratory: lungs clear Cardiac/Chest: regular rate, rhythm, other (paced) Abdomen: non-tender, soft Back: Normal inspection Skin: warm/dry Lymphatic: no adenopathy Extremities: non-tender Neuro/Psych: alert ICD10 Worksheet Patient Problems: Problems Problem Status Diagnosed Acute blood loss anemia Acute S/P CABG x 5 Acute S/P Maze operation for atrial fibrillation Acute Coronary arteriosclerosis Acute
[2016-08-25 04:29] LABS: ABSOLUTE NRBC COUNT 0.22 10^3/uL (0-0.01); ADD DIFF? YES; ADD MORPH? YES; ADD SCAN? NO; ATYPICAL LYMPHOCYTE FLAG 10 (0-99); FRAGMENT RBC FLAG 0 (0-99); HEMATOCRIT 27.2 % (40.0-51.0); HEMOGLOBIN 8.9 g/dL (13.7-17.5); LEFT SHIFT FLG 10 (0-99); LIPEMIA HEMOLYSIS FLAG 80 (0-99); MEAN CELL HEMOGLOBIN CONCENTR. 32.7 g/dL (32.4-36.7); MEAN CELL VOLUME 97.8 fL (81.5-99.8); MEAN PLATELET VOLUME 12.2 fL (8.7-11.7); PLATELET CLUMPS FLAG 0 (0-99); PLATELET COUNT 71 10^3/uL (150-400); RED BLOOD CELL COUNT 2.78 10^6/uL (4.40-6.38); RED CELL DISTRIBUTION WIDTH 13.5 % (11.5-15.2)
[2016-08-25 04:50] LABS: NRBC-AUTO% 1.2 % (0.0-0.2)
[2016-08-25 04:56] LABS: MACROCYTES 1+; PLATELET ESTIMATE DECREASED (ADEQ)
[2016-08-25 05:11] LABS: ANION GAP 12 mEq/L (8-20); CALCIUM 7.6 mg/dL (8.5-10.4); CARBON DIOXIDE 24 mEq/l (22-31); CHLORIDE 106 mEq/L (97-110); CREATININE 1.2 mg/dL (0.7-1.3); GLOMERULAR FILTRATION RATE > 60; GLUCOSE 116 mg/dL (70-100); POTASSIUM 4.3 mEq/L (3.5-5.2); SODIUM 138 mEq/L (134-144)
[2016-08-25] MEDS ORDERED: ALBUMIN 5% 500 ML BOTTLE IV ONE (05:21)
[2016-08-25] MEDS ORDERED: ALBUMIN 5% 500 ML IV ONE (06:00)
--- NOTE | 2016-08-25 08:06 | PDINTPN ---
Cellular Biologist Progress Note Assessment/Plan: Assessment: #CABG X 5 and MAZE. He was reintubated for agitation but is extubated and calm this AM. Hemodynamics generally good with episode of BP in the low 110's on dopamine at 3. CVP 9-12. Paced. He walked in the [place] this AM. #Respiratory failure, resolved but still with BB rales on exam. #Agitation, much improved. He is calm and nods and shakes his head #RAHEL with creatinine 2.3 to 1.2 #Mitral regurg post op, probably from LV dilitation post op, hopefully will resolve Plan: He is very anxious at home according to his , and now is very nervous about getting up to the chair and walking but he did it Taper dopamine as possible APaced Work on deep coughing 08/25/16 08:05 Subjective: He is tired and groans when he walks Objective: Vital Signs Temp Pulse Resp BP Pulse Ox 36.6 C 90 25 H 111/59 L 93 08/25/16 06:00 08/25/16 06:00 08/25/16 06:00 08/25/16 06:00 08/25/16 06:00 Laboratory Results 08/25/16 04:20 08/25/16 04:20 08/24/16 08/25/16 08/26/16 05:59 05:59 05:59 Intake Total 3036.4 2720 500 Output Total 2903 1975 Balance 133.4 745 500 Physical Exam - Physical Exam General Appearance: alert, mild distress EENT: normal ENT inspection Neck: non-tender Respiratory: crackles Cardiac/Chest: regular rate, rhythm, other (Apaced) Abdomen: non-tender, soft Skin: warm/dry Lymphatic: no adenopathy Extremities: non-tender Neuro/Psych: alert, oriented x 3 ICD10 Worksheet Patient Problems: Problems Problem Status Diagnosed Acute blood loss anemia Acute S/P CABG x 5 Acute S/P Maze operation for atrial fibrillation Acute Coronary arteriosclerosis Acute
--- NOTE | 2016-08-25 09:08 | SOAPPROG ---
SOAP Progress Note Assessment/Plan: POD#4: CABGx5 (GANN-LAD, EBONY-D1, SVG-LAD, Sequential SVG-PDA-PL), Padilla-Maze IV Left/Right lesions Unstable angina, severe 3VD s/p CABGx5 - ASA/Plavix/Statin and BB when appropriate Long-standing persistent atrial fibrillation s/p Padilla-Maze IV - Intrinsic JR, will continue to atrial pace as better hemodynamics - Will need long-term anticoagulation but patient has been resistant to treatment in the past - ASA/Plavix as per CABG may suffice RAHEL - Cr normalized, BUN still elevated (69) - Continue higher perfusion pressures with use of IVF at 50 cc/h and dopamine Post-op moderate-severe MR with structurally intact valve - Likely secondarily to post-op dilatation and use of inotropes - No need for surgical repair at this time - Will repeat ECHO tomorrow Acute blood loss anemia - H/H stable Reintubation secondary to combativeness - Extubated without incident ICM with inferior wall hypokinesis and EF of 40-45% - Lasix prn - ACEi when appropriate 08/25/16 09:00 Subjective: Feels better although still reports not feeling well. Objective: Vital Signs Temp Pulse Resp BP Pulse Ox 36.6 C 90 25 H 106/52 L 93 08/25/16 08:00 08/25/16 08:00 08/25/16 08:00 08/25/16 08:00 08/25/16 08:00 Laboratory Results 08/25/16 04:20 08/25/16 04:20 08/24/16 08/25/16 08/26/16 05:59 05:59 05:59 Intake Total 3036.4 2720 500 Output Total 2903 1975 430 Balance 133.4 745 70 Physical Exam - Physical Exam General Appearance: WD/WN, alert, thin EENT: No scleral icterus (R), No scleral icterus (L) Neck: normal inspection Respiratory: lungs clear, No respiratory distress, No crackles, No rhonchi, No wheezing Cardiac/Chest: other (JR) Abdomen: non-tender, soft, No distended Skin: normal color, warm/dry Extremities: pedal edema (+1 B/L) Neuro/Psych: no motor/sensory deficits, alert, normal mood/affect, oriented x 3 ICD10 Worksheet Patient Problems: Problems Problem Status Diagnosed Acute blood loss anemia Acute S/P CABG x 5 Acute S/P Maze operation for atrial fibrillation Acute Coronary arteriosclerosis Acute
[2016-08-25] MEDS: SENNOSIDES/DOCUSATE SODIUM TAB PO SCH ×2 (09:27→20:49)
[2016-08-25] MEDS: HYDROCODONE/APAP 5/325 TAB PO PRN ×2 (09:27→20:49)
[2016-08-25] MEDS: CLOPIDOGREL BISULFATE 75 MG TAB PO SCH (09:28)
[2016-08-25] MEDS: PANTOPRAZOLE SODIUM 40 MG TAB PO SCH (09:28)
[2016-08-25] MEDS: ASPIRIN 81 MG CHEWABLE TAB PO SCH (09:28)
[2016-08-25] MEDS ORDERED: FUROSEMIDE 20 MG/2 ML VIAL IVP ONE (10:02)
[2016-08-25 13:25] LABS: ALANINE AMINOTRANSFERASE 505 IU/L (21-72); ALBUMIN 3.5 g/dL (3.5-5.0); ALKALINE PHOSPHATASE 153 IU/L (38-126); ANION GAP 18 mEq/L (8-20); ASPARTATE AMINOTRANSFERASE 486 IU/L (17-59); CALCIUM 7.4 mg/dL (8.5-10.4); CARBON DIOXIDE 22 mEq/l (22-31); CHLORIDE 103 mEq/L (97-110); CREATININE 1.4 mg/dL (0.7-1.3); GLOMERULAR FILTRATION RATE 51; GLUCOSE 146 mg/dL (70-100); POTASSIUM 4.1 mEq/L (3.5-5.2); SODIUM 139 mEq/L (134-144); TOTAL PROTEIN 5.3 g/dL (6.3-8.2)
[2016-08-25] MEDS ORDERED: NOREPINEPHRINE BITARTRATE 4 MG in D5W 500 ML IV SCH (13:30)
[2016-08-25] MEDS: ALBUMIN 5% 250 ML IV PRN (14:12)
[2016-08-25] MEDS ORDERED: ALBUTEROL 3 ML DEYVIAL ONE (15:53)
[2016-08-25 16:16] LABS: BASE EXCESS -5.2 mEq/L (-2.5-2.5); BICARBONATE 18 mEq/L (22-26); MEASURED OXYGEN SATURATION 92 % (92-95); PCO2 27 mmHg (34-38); PO2 69 mmHg (65-75); TCO2 19 mEq/L (23-27)
[2016-08-25] MEDS ORDERED: FUROSEMIDE 40 MG/4 ML VIAL ONE (16:43)
[2016-08-25] MEDS ORDERED: LORazepam 2 MG/ML INJ ONE (16:55)
[2016-08-25] MEDS ORDERED: LORazepam 2 MG/ML INJ IVP ONE (17:00)
[2016-08-25] MEDS ORDERED: FUROSEMIDE 40 MG/4 ML VIAL IVP ONE (17:00)
[2016-08-25] MEDS ORDERED: ALBUTEROL 3 ML DEYVIAL IH ONE (17:30)
--- NOTE | 2016-08-25 17:54 | DX ---
Portable Chest August 25, 2016 at 1604 Hours History: Hypoxia. Comparison: August 24, 2016. Findings: Right internal jugular line in the superior vena cava. Mediastinal drain midthoracic region . Median sternotomy wires. Chest tubes in the right midlung field and left lung base. No significant change in minimal right apical pneumothorax. No definite left pneumothorax. Slight improvement in pul monary venous hypertension. Slight worsening in the left lower lobe alveolar opacity. Impressions: 1. Multiple tubes and lines. 2. Minimal residual right apical pneumothorax. 3. Left lower lobe increasing pneumonitis versus atelectasis.
[2016-08-25] MEDS: LORazepam 2 MG/ML INJ IV PRN (20:49)
[2016-08-26] MEDS: LORazepam 2 MG/ML INJ IV PRN (00:05)
[2016-08-26] MEDS ORDERED: DEXMEDETOMIDINE HCL 400 MCG in NS 100 ML IV SCH (01:00)
[2016-08-26] MEDS ORDERED: MIDAZOLAM 2 MG/2 ML VIAL IVP ONE (01:00)
[2016-08-26] MEDS ORDERED: ETOMIDATE 40 MG/20 ML INJ IV ONE (01:00)
[2016-08-26] MEDS ORDERED: VECURONIUM BROMIDE 10 MG VIAL IV ONE (01:00)
[2016-08-26] MEDS ORDERED: PROPOFOL/EMULSION 1,000 MG/100 ML BOTTLE IV ONE (01:04)
[2016-08-26] MEDS ORDERED: fentanYL/NACL/100 ML BAG IV ONE (01:05)
[2016-08-26] MEDS ORDERED: FUROSEMIDE 40 MG/4 ML VIAL IVP ONE ×4 (01:46→08:33)
[2016-08-26 01:52] LABS: BASE EXCESS -4.2 mEq/L (-2.5-2.5); BICARBONATE 20 mEq/L (22-26); MEASURED OXYGEN SATURATION 95 % (92-95); PCO2 34 mmHg (34-38); PO2 87 mmHg (65-75); TCO2 21 mEq/L (23-27)
[2016-08-26] MEDS ORDERED: FUROSEMIDE 40 MG/4 ML VIAL ONE (01:52)
[2016-08-26 01:53] LABS: END TIDAL CO2 24; O2 CONCENTRATIION 100 % (0-100); P/F RATIO 87 RATIO; SIMV YES
[2016-08-26 01:54] LABS: PATIENT RATE 26; PRESSURE SUPPORT 10
[2016-08-26] MEDS ORDERED: MILRINONE/DEXTROSE 100 ML IV SCH (02:00)
--- NOTE | 2016-08-26 02:00 | SOAPPROG ---
[id number] bed saturations good on bipap w good response to lasix again safest to intubate/done by ER phys in my presence CXR with severe bilateral infiltrates despite diuresis suspect MR is underrlying factor but not certain why. post op RENO w same mild MR and recent echo w/o structural change in appearance of MV and PAs normal returning to OR right now seems prohibitive given critical nature but may be only thing to offer at present will try diuresing over night and reconsider options mitraclip seems a bit of a stretch but if oxygenation doesnt improve may be only option advised 08/26/16 09:40 better today but critically ill. Inotropes weaning will get RHC and RENO, IABP possible, reop for new MR possible updated Objective: Vital Signs Temp Pulse Resp BP Pulse Ox 37.1 C 116 H 21 H 121/73 H 99 08/25/16 22:00 08/25/16 23:00 08/25/16 23:00 08/25/16 23:00 08/25/16 23:00 Laboratory Results 08/25/16 04:20 08/25/16 13:00 08/24/16 08/25/16 08/26/16 05:59 05:59 05:59 Intake Total 3036.4 2720 970 Output Total 2903 1975 2960 Balance 133.4 745 -1990 ICD10 Worksheet Patient Problems: Problems Problem Status Diagnosed Acute blood loss anemia Acute S/P CABG x 5 Acute S/P Maze operation for atrial fibrillation Acute Coronary arteriosclerosis Acute
[2016-08-26 02:41] LABS: POTASSIUM 4.4 mEq/L (3.5-5.2)
--- NOTE | 2016-08-26 02:48 | EDPHY ---
Inpatient Procedure Narrative: 1:30am- I was called to the patient's bedside to perform intubation. The patient is hypoxic and delirious. His sats were not improving with face mask. INTUBATION Procedure: Rapid sequence intubation. Indication for the procedure was performed for hypoxia. The patient was preoxygenated with 100% oxygen by face mask. The patient was given the following IV medications: Etomidate, vecuronium. The patient was orally endotracheally intubated using the glide scope with a 8.0 ETT. Tracheal intubation was confirmed with misting on the tube; breath sounds were auscultated equally bilaterally; appropriate color change with [place] Tidal CO2 detector. Chest X-ray shows ETT in good position. The procedure was performed by myself.
[2016-08-26] MEDS ORDERED: NOREPINEPHRINE BITARTRATE 16 MG in NS 250 ML IV SCH (03:00)
[2016-08-26] MEDS ORDERED: VECURONIUM BROMIDE 50 MG in D5W 50 ML IV SCH ×2 (03:30→19:00)
[2016-08-26 05:29] LABS: HEMATOCRIT 29.5 % (40.0-51.0); MEAN CELL HEMOGLOBIN 32.5 pg (27.9-34.1); MEAN CELL HEMOGLOBIN CONCENTR. 33.9 g/dL (32.4-36.7); MEAN CELL VOLUME 95.8 fL (81.5-99.8); RED BLOOD CELL COUNT 3.08 10^6/uL (4.40-6.38); RED CELL DISTRIBUTION WIDTH 13.5 % (11.5-15.2)
[2016-08-26 05:45] LABS: ALANINE AMINOTRANSFERASE 410 IU/L (21-72); ALBUMIN 3.2 g/dL (3.5-5.0); ALKALINE PHOSPHATASE 130 IU/L (38-126); ANION GAP 13 mEq/L (8-20); ASPARTATE AMINOTRANSFERASE 299 IU/L (17-59); BILIRUBIN,TOTAL 1.1 mg/dL (0.1-1.4); CALCIUM 7.1 mg/dL (8.5-10.4); CARBON DIOXIDE 25 mEq/l (22-31); CHLORIDE 105 mEq/L (97-110); CREATININE 1.2 mg/dL (0.7-1.3); GLOMERULAR FILTRATION RATE > 60; GLUCOSE 126 mg/dL (70-100); POTASSIUM 4.3 mEq/L (3.5-5.2); SODIUM 139 mEq/L (134-144)
[2016-08-26] MEDS ORDERED: PETROLAT,WHT/MIN OIL/SOD CHL 3.5 GM OPHT.OINT EACHEYE PRN (05:46)
--- NOTE | 2016-08-26 08:04 | ECHO ---
[id number] + + [address] : : [facility] [id number] : : [phone] + + Adult Echocardiographic Report + + :Name: SANIA SCOTT PStudy Date: 08/25/2016 05:43 PM : : Hospital Admission Number: [id number] L ocation: 256: :: 1950 Gender: Male : :Age: 66 yrs Race: WH : :Reason For Study: Hemodynamic instability post op : :History: S/P CABG/Padilla-maze : + + Left Ventricle Ejection Fraction = 40-45%. Mitral Valve There is severe mitral regurgitation. Pericardium/Pleural There is no pericardial effusion. Conclusion Limited 2-D echo. The study was technically limited. Limited views were obtained. Ejection Fraction = 40-45%. There is severe mitral regurgitation. There is no pericardial effusion. Limited views were obtained. Final Reading Physician: Meryl Curtis signed on 08/26/2016 08:03 AM Ordering Physician: Marv Thayer Performed By: Jessie Boyce, BARBIECS
--- NOTE | 2016-08-26 08:21 | DX ---
Single Portable Chest AP August 26, 2016 0117 hours Clinical Indications: Intubation. Comparison: August 25, 2016, 1604 hours. Findings: The central line, bilateral chest tubes, and mediastinal tube all remain in good position. The small apical pneumothorax on the right has resolved. Mediastinal and sternal wires are unchanged. There is a new endotracheal tube that is 4.8 cm above the becky. Bilateral pulmonary infiltrates ar e slightly worse than prior examination. Impression: 1. Interval intubation. Endotracheal tube appears in good position. Bilateral interstitial infiltrate s are slightly worse than prior examination. 2. Mediastinal tube, chest tubes, central line, mediastinal wires and clips are unchanged in good pos ition.
--- NOTE | 2016-08-26 08:37 | DX ---
Portable Chest, Single View August 26, 2016 8:17 a.m. Indication: ICU patient. Findings: Since 7 hours prior, diffuse mild interstitial edema has improved. The ET tube, right IJ ce ntral venous line, bilateral chest tubes, mediastinal drain, left atrial clip, and midline sternal wi res are unchanged. Small bilateral apical pneumothoraces are partially obscured. Impression: 1. Improving interstitial pulmonary edema. 2. Well-positioned support devices. 3. Tiny bilateral apical pneumothoraces.
[2016-08-26] MEDS: ASPIRIN 81 MG CHEWABLE TAB PO SCH ×2 (09:07→22:03)
[2016-08-26] MEDS: PANTOPRAZOLE SODIUM 40 MG TAB PO SCH ×2 (09:07→22:03)
[2016-08-26] MEDS: SENNOSIDES/DOCUSATE SODIUM TAB PO SCH ×2 (09:07→22:04)
--- NOTE | 2016-08-26 10:00 | PDINTPN ---
Fagot Heater Progress Note Assessment/Plan: Assessment: #CABG X 5 and MAZE. He was reintubated for agitation, respiratory failure likely due to MR. Atrial Paced. #RAHEL with creatinine improved from 2.3 to 1.2. Fairly good urine output with lasix. #Mitral regurg post op, severe. Likely the cause of his acute respiratory failure. Respiratory Failure: Stable on vent. FI02 down to 60%. Hypotension: Improved with norepinephrine. Also on milrinone. Has some evidence of ischemia to feet, but no necrosis/demarcation. Elevated LFTs: Likely due to shock. Improving. Elevated WBC: Up today. No signs of active infection. Afebrile Thrombocytopenia: Improved. Plan: To photofinishing laboratory worker for RENO/RHC, ? IABP. Atrial Paced Continue mechanical vent. Decrease FIO2 as tolerated Diuresis as tolerated and directed by RHC. Follow LFTs D/W Dr. Thayer, RN, RT, family 40 min CC time 08/26/16 12:04 Subjective: Intubated, sedated, unable to respond. Objective: Vital Signs Temp Pulse Resp BP Pulse Ox 37.2 C 90 26 H 120/62 99 08/26/16 09:30 08/26/16 09:30 08/26/16 09:30 08/26/16 09:30 08/26/16 09:30 Laboratory Results 08/26/16 05:20 08/26/16 05:20 08/25/16 08/26/16 08/27/16 05:59 05:59 05:59 Intake Total 2720 1690 Output Total 1975 4015 120 Balance 745 -2325 -120 Laboratory Tests 08/26/16 01:51 pCO2 34 pO2 87 H Total CO2 21 L ABG pH 7.38 O2 Concentration % 100 Actual Respiration Rate 26 SIMV YES Tidal Volume 600 PEEP 10 CXR: Improved interstitial edema, some increased left focal alveolar infiltrate. Laboratory Tests 08/25/16 08/26/16 13:00 05:20 AST 486 H 299 H ALT 505 H 410 H Alkaline Phosphatase 153 H 130 H Physical Exam - Physical Exam General Appearance: alert, no apparent distress EENT: PERRL/EOMI, normal ENT inspection Neck: normal inspection, No carotid bruit Respiratory: lungs clear, normal breath sounds, No respiratory distress Cardiac/Chest: regular rate, rhythm, No edema Abdomen: normal bowel sounds, non-tender, soft Skin: No normal color, No warm/dry (feet cool, mottled) Extremities: other (bilateral feet cool, with some mottleing of the toes/soles of feet) ICD10 Worksheet Patient Problems: Problems Problem Status Diagnosed Acute blood loss anemia Acute S/P CABG x 5 Acute S/P Maze operation for atrial fibrillation Acute Coronary arteriosclerosis Acute
[2016-08-26 11:09] LABS: POTASSIUM 4.4 mEq/L (3.5-5.2)
[2016-08-26] MEDS ORDERED: LIDOCAINE 1% 30 ML SDV ONE (13:49)
[2016-08-26] MEDS ORDERED: IOPAMIDOL (ISOVUE 370) 100 ML BTL IV ONE (13:50)
[2016-08-26] MEDS ORDERED: fentaNYL 100 MCG/2 ML INJ ONE (14:16)
[2016-08-26] MEDS ORDERED: NITROGLYCERIN 0.4 MG BTL SL PRN (15:03)
[2016-08-26] MEDS ORDERED: ATROPINE SULFATE 1 MG/10 ML SYR IVP PRN (15:03)
--- NOTE | 2016-08-26 15:07 | PDDXCAT ---
Diagnostic Cath Note - . Date: 08/26/16 Invoice Clerk: Alessandro Indication: other ( intermittent shock in the setting of recent coronary artery bypass grafting and new mitral regurgitation) - Procedure Access: left groin Procedure: left heart catheterization, coronary angiography, right heart catheterization - Materials Left Heart Cath size: 5F Left Heart Cath materials: JR4.0 Right Heart Cath size: 7F Right Heart Cath materials: PWP catheter - Findings-Left Heart Catheterization RCA: widely patent. - Findings-Right Heart Catheterization RA: 10 mm of mercury RV: 32 /mm of mercury PA: 32/16 mm of mercury PAOP: 15 mm of mercury without V-wave Complications: none Estimated blood loss: <50ml Closure method: manual pressure Assessment: 1. moderate to severe mitral regurgitation with centrally directed jet by transesophageal echo. 2. normal right heart hemodynamics. 3. patent [place] right coronary artery. Plan: Etiology likely secondary to metabolic causes possibly from medications. Discussed with . Pharmacy consultation with continued critical care. Patient Problems: Problems Problem Status Diagnosed Acute blood loss anemia Acute S/P CABG x 5 Acute S/P Maze operation for atrial fibrillation Acute Coronary arteriosclerosis Acute
[2016-08-26] MEDS ORDERED: fentaNYL/NACL 100 ML IV SCH (15:11)
[2016-08-26 17:05] LABS: MIXED VENOUS O2 SATURATION 52 % (65-75)
[2016-08-26 17:15] LABS: PLATELET COUNT 112 10^3/uL (150-400)
[2016-08-26 17:21] LABS: INR 1.52 (0.83-1.16); PROTIME(PATIENT) 18.3 SEC (12.0-15.0)
[2016-08-26 17:27] LABS: APTT 34.3 SEC (23.0-38.0)
[2016-08-26] MEDS ORDERED: HALOPERIDOL LACT 5 MG/ML INJ ONE (17:50)
[2016-08-26] MEDS: HALOPERIDOL LACT 5 MG/ML INJ IVP PRN (18:02)
[2016-08-26 18:12] LABS: POTASSIUM 4.1 mEq/L (3.5-5.2)
[2016-08-26] MEDS ORDERED: ALBUMIN 5% 250 ML IV ONE (19:00)
[2016-08-26] MEDS ORDERED: PROPOFOL/EMULSION 50 ML IV SCH (19:00)
[2016-08-26 19:33] LABS: FIBRINOGEN 388 mg/dL (214-456)
[2016-08-26 20:29] LABS: BASE EXCESS -1.2 mEq/L (-2.5-2.5); BICARBONATE 23 mEq/L (22-26); IONIZED CALCIUM 1.11 MMOL/L (1.12-1.30); MEASURED OXYGEN SATURATION 96 % (92-95); PCO2 39 mmHg (34-38); PO2 97 mmHg (65-75); TCO2 24 mEq/L (23-27)
[2016-08-26 20:30] LABS: O2 CONCENTRATIION 60 % (0-100); P/F RATIO 161 RATIO; PATIENT RATE 24; PRESSURE SUPPORT 10
[2016-08-26 20:34] LABS: HEMATOCRIT 28.2 % (40.0-51.0); HEMOGLOBIN 9.7 g/dL (13.7-17.5)
[2016-08-26] MEDS: HYDROCODONE/APAP 5/325 TAB PO PRN (22:03)
[2016-08-26] MEDS: PROPOFOL/EMULSION 100 ML IV SCH (22:04)
[2016-08-26] MEDS: ALBUMIN 5% 250 ML IV PRN (22:24)
[2016-08-27] MEDS: ALBUMIN 5% 250 ML IV PRN ×2 (00:41→05:18)
[2016-08-27 01:19] LABS: POTASSIUM 4.8 mEq/L (3.5-5.2)
[2016-08-27] MEDS: HYDROCODONE/APAP 5/325 TAB PO PRN (03:18)
[2016-08-27 04:20] LABS: BASE EXCESS -1.2 mEq/L (-2.5-2.5); BICARBONATE 22 mEq/L (22-26); END TIDAL CO2 29; MEASURED OXYGEN SATURATION 95 % (92-95); O2 CONCENTRATIION 40 % (0-100); P/F RATIO 207 RATIO; PATIENT RATE 25; PCO2 35 mmHg (34-38); PO2 83 mmHg (65-75); PRESSURE SUPPORT 10; SIMV YES; TCO2 23 mEq/L (23-27)
[2016-08-27 04:24] LABS: HEMATOCRIT 26.3 % (40.0-51.0); HEMOGLOBIN 8.8 g/dL (13.7-17.5); MEAN CELL HEMOGLOBIN 33.2 pg (27.9-34.1); MEAN CELL HEMOGLOBIN CONCENTR. 33.5 g/dL (32.4-36.7); MEAN CELL VOLUME 99.2 fL (81.5-99.8); RED BLOOD CELL COUNT 2.65 10^6/uL (4.40-6.38); RED CELL DISTRIBUTION WIDTH 14.5 % (11.5-15.2)
[2016-08-27 04:29] LABS: MIXED VENOUS O2 SATURATION 82 % (65-75)
[2016-08-27] MEDS: PROPOFOL/EMULSION 100 ML IV SCH (04:32)
[2016-08-27 04:51] LABS: ANION GAP 12 mEq/L (8-20); CALCIUM 8.2 mg/dL (8.5-10.4); CARBON DIOXIDE 26 mEq/l (22-31); CHLORIDE 108 mEq/L (97-110); CREATININE 1.3 mg/dL (0.7-1.3); GLOMERULAR FILTRATION RATE 55; GLUCOSE 107 mg/dL (70-100); POTASSIUM 4.9 mEq/L (3.5-5.2); SODIUM 141 mEq/L (134-144)
--- NOTE | 2016-08-27 08:06 | SOAPPROG ---
SOAP Progress Note Assessment/Plan: Assessment: POD#6 CABGx5 (GANN-LCX, EBONY-D1, SVG-LAD, Sequential SVG-PDA-PLR), Padilla-Maze IV Left/Right lesions Sx CAD with ISCM (EF 40-45%) - s/p CABGx5 with bilateral mammaries. Small and diffusely diseased target vessels. Early postop course complicated by cardiogenic shock with multi-organ dysfx, severe MR, and peripheral vasoconstriction. Hemodynamics stabilized on vasoactive support w gradual improvement in hepatorenal and respiratory function. Recovery of foot perfusion as pressor support lightened. Secondary prevention with DAPT, statin and BB when appropriate. ACEI if sufficient BP and stable renal fx. Long-standing persistent atrial fibrillation - s/p Padilla-Maze IV. Intrinsic rhythm junctional 40s and Apaced for optimized hemodynamics. Antithrombotic prophylaxis with DAPT vs coumadin once further along into recovery. Postoperative respiratory failure - Reintubated twice. Initially for agitation/ combativeness with metabolic acidosis; more recently for pulm edema assoc w MR. Currently stable on vent w/out paralytics. Sedation and wean trials per pulm. Postoperative RAHEL - Secondary to shock. Peak Cr 2.3 on POD#2. Resolving with improved perfusion pressures and careful fluid management. Post-op moderate-severe MR - Functional. Valve structurally intact by serial echos. Cath neg for compromised paras flow or RHF. Surg repair deferred. Congestive hepatopathy - Transaminitis and coagulopathy +/- met acidosis. LFTs normalizing with improved rt heart fx. Care with anticoagulation/sedation. Acute expected blood loss anemia with thrombocytopenia and coagulopathy - Stable s/p 1u PRBC. No evidence active bleeding. Heme to see. No VTE prophylaxis for now. Plan: Supportive care as per multidisciplinary team. Lighten sedation. Vent wean per pulm. Cont Apacing. Levo wean pending extubation progress. 08/27/16 08:05 Subjective: Deeply sedated on vent. Objective: Vital Signs Temp Pulse Resp BP Pulse Ox 37.9 C 90 24 H 103/62 99 08/27/16 07:54 08/27/16 07:54 08/27/16 07:54 08/27/16 07:54 08/27/16 07:54 Laboratory Results 08/27/16 04:12 08/27/16 04:12 08/26/16 08/27/16 08/28/16 05:59 05:59 05:59 Intake Total 1690 1513.8 Output Total 4015 2100 35 Balance -2325 -586.2 -35 PT 18.3 SEC (12.0-15.0) H 08/26/16 17:00 INR 1.52 (0.83-1.16) H 08/26/16 17:00 Milrinone off. Levo stable at 3 mcg. Apaced 90 (underlying remains junct 40s-50s). MAPs > 70. CVP 11-13, PAD 16-19, CI 2.1, SVO2 80s. Vigorous UOP yest, tailing off somewhat but still neg. Cr unchanged. CXR-> improved aeration with decr bilat interstitial infiltrates and well drained pl spaces. CTOP serous. Bulbs holding suction despite tiny apical PTXs. DIC panel yest mildly abnl. AST/ALT cont to fall. Physical Exam - Physical Exam General Appearance: no apparent distress, unresponsive Respiratory: lungs clear (vent), other (Blakes x 3 to bulb suction, clear serous drainage) Cardiac/Chest: regular rate, rhythm (Apaced), other (Sternum grossly stable. Sternotomy and LLE venotomy ok.) Peripheral Pulses: 0: dorsalis-pedis (R) (readily dopplerable PT), dorsalis- pedis (L) (dopplerable DP,PT) Abdomen: soft Skin: warm/dry, other (feet barely mottled) Extremities: swelling (1+ gen) ICD10 Worksheet Patient Problems: Problems Problem Status Diagnosed Acute blood loss anemia Acute S/P CABG x 5 Acute S/P Maze operation for atrial fibrillation Acute Coronary arteriosclerosis Acute
--- NOTE | 2016-08-27 08:42 | DX ---
Portable AP Chest August 27, 2016 6:01 a.m. Clinical History: 66-year-old male in the ICU with respiratory failure and leukocytosis. Follow up ef fusion and atelectasis. Comparison Study: Chest, dated August 26, 2016. Findings: The numerous interventional and monitoring devices are stable in position, with the excepti on that a [place] catheter has been placed (from the groin) and terminates over the proximal left m ain pulmonary artery. The cardiac silhouette remains enlarged. There are small biapical pneumothorace s which are stable, and chest tubes are unchanged in position. There is less pronounced alveolar cons olidation in the left perihilar distribution. A nodular opacity in the left mid-lung near the termina l portion of the left second anterior rib is stable. Impression: Interval placement of [place] catheter and slightly less pronounced left perihilar alve olar consolidation than on August 26, 2016; otherwise, no interval change.
[2016-08-27] MEDS ORDERED: FUROSEMIDE 40 MG/4 ML VIAL ONE ×2 (09:28→22:18)
--- NOTE | 2016-08-27 09:38 | PDINTPN ---
Refueling Rampman Progress Note Assessment/Plan: Assessment: #CABG X 5 and MAZE. Atrial Paced. #RAHEL: Cr Improved Fairly good urine output with lasix. #Mitral regurg post op, moderate-severe. Hemodynamics OK. Likely contributes to his acute respiratory failure. Respiratory Failure: Stable on vent. FI02 down to 40%. He was reintubated for agitation, respiratory failure likely due to MR/agitation. His oxygenation has improved, but his minute ventilation is still quite high. Hypotension: Improved, off pressors. Elevated LFTs: Likely due to shock. Improving. Elevated WBC: Down today. No signs of active infection. Afebrile Thrombocytopenia: Improved. Plan: Dose of lasix. Follow hemodynamics. Try to extubate Haldol, Precedex, Zyprexa, perhaps clonazepam as needed for agitation. Follow LFTs D/W Dr. Thayer, RN, RT, family 50 min CC time 08/27/16 09:50 Subjective: Intubated, sedated, agitated. Objective: Vital Signs Temp Pulse Resp BP Pulse Ox 37.9 C 90 22 H 105/53 L 94 08/27/16 09:00 08/27/16 09:00 08/27/16 09:00 08/27/16 09:00 08/27/16 09:00 Laboratory Results 08/27/16 04:12 08/27/16 04:12 08/26/16 08/27/16 08/28/16 05:59 05:59 05:59 Intake Total 1690 1513.8 Output Total 4015 2100 140 Balance -2325 -586.2 -140 PT 18.3 SEC (12.0-15.0) H 08/26/16 17:00 INR 1.52 (0.83-1.16) H 08/26/16 17:00 Laboratory Tests 08/27/16 04:12 pCO2 35 pO2 83 H Total CO2 23 ABG pH 7.42 O2 Concentration % 40 Actual Respiration Rate 25 SIMV YES Tidal Volume 600 CXR: Improved alveolar infiltrates. Images reviewed Physical Exam - Physical Exam General Appearance: alert, no apparent distress EENT: normal ENT inspection, ET tube Neck: normal inspection Respiratory: lungs clear, normal breath sounds Cardiac/Chest: regular rate, rhythm Abdomen: normal bowel sounds, non-tender, soft Skin: normal color, warm/dry Extremities: normal inspection Neuro/Psych: alert, normal mood/affect, oriented x 3 ICD10 Worksheet Patient Problems: Problems Problem Status Diagnosed Acute blood loss anemia Acute S/P CABG x 5 Acute S/P Maze operation for atrial fibrillation Acute Coronary arteriosclerosis Acute
[2016-08-27] MEDS: SENNOSIDES/DOCUSATE SODIUM TAB PO SCH (09:41)
[2016-08-27] MEDS: PANTOPRAZOLE SODIUM 40 MG TAB PO SCH (09:41)
[2016-08-27] MEDS: ASPIRIN 81 MG CHEWABLE TAB PO SCH (09:41)
[2016-08-27 10:13] LABS: PCO2 VENOUS 30 mmHg (40-44); PH VENOUS BLOOD 7.45 (7.31-7.42); PO2 VENOUS 83 mmHg (35-40); TCO2 VENOUS 21 mEq/L (23-27); VEN MEASURED OXYGEN SATURATION 96 % (65-75)
[2016-08-27] MEDS ORDERED: FUROSEMIDE 40 MG/4 ML VIAL IVP ONE (11:00)
[2016-08-27] MEDS ORDERED: LACTULOSE 20 GM/30 ML UDCUP TUBE PRN (11:06)
[2016-08-27] MEDS ORDERED: HYDROCODONE/APAP 5/325 TAB TUBE PRN (11:06)
[2016-08-27] MEDS ORDERED: ONDANSETRON DISINTEGRATING 4 MG TAB TUBE PRN (11:07)
[2016-08-27] MEDS ORDERED: OXYCODONE/APAP 5/325 TAB TUBE PRN (11:08)
[2016-08-27] MEDS: LANSOPRAZOLE SUSP 30MG/10ML UDSYR (Adult) TUBE SCH (11:10)
--- NOTE | 2016-08-27 12:20 | ECHO ---
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 Mitral Valve There are two jets of moderate mitral regurgitation. No evidence of mitral valve prolapse, ruptured chordae or partially torn valve leaflets. Conclusion A 2D transesophageal echocardiogram with color flow Doppler was performed. Ejection Fraction = 45%. There are two jets of moderate mitral regurgitation. No evidence of mitral valve prolapse, ruptured chordae or partially torn valve leaflets. Final Reading Physician: Meryl Mcfadden signed on 08/27/2016 12:19 PM Ordering Physician: Marv Thayer Performed By: Tomás Francois MD
--- NOTE | 2016-08-27 13:31 | GCON ---
[f rep st] CONSULTATION HEMATOLOGY CONSULTATION. DATE OF CONSULTATION: 08/27/2016 REFERRING PHYSICIAN: Marv Thayer DO REASON FOR CONSULTATION: Thrombocytopenia. RECOMMENDATIONS: 1. At this time, I would monitor his platelet count. In the absence of acute bleeding or a platelet count less than 30,000 in someone who has multiple lines. I would not attempt to transfuse platelet s or take any other interventions. 2. We will check his HIT antibody panel when it is available. 3. I would not use heparin on the patient until his HIT antibody is available. 4. I do not believe he needs a bone marrow biopsy at this time. ASSESSMENT: This 66-year-old white male is currently in the intensive care unit. He has multiple un derlying medical issues. He was just extubated this morning after having a couple episodes of acute respiratory failure. He also has mitral regurgitation and has a history of recent hypotension, altho ugh he is now off pressors. He has also had acute kidney injury. In addition, he has had atrial fib rillation of longstanding duration and had a recent coronary bypass graft x5 and maze procedure. His mild thrombocytopenia has been present only during this recent episode. His platelet count prior to the current multiple medical issues was normal. The likely explanation for his mild thrombocytopenia is underproduction of platelets in the face of i ncreased demand. He could certainly have a heparin-induced antibody but I think this is most likely. I think diagnoses such as ITP and TTP are also less likely. He does not appear to have DIC since h is fibrinogen is normal. His elevated D-dimer is not surprising based on his liver injury, kidney in jury, and overall medical status. We will follow along with you and intervene if appropriate for his low platelets. HISTORY OF PRESENT ILLNESS: Please see Assessment. PAST MEDICAL HISTORY: Remarkable for atrial fibrillation and atrial flutter, congestive heart failur e, coronary artery disease, depression, hypercholesterolemia, hyperlipidemia, hypertension, myocardia l infarction, and prostate cancer. PAST SURGICAL HISTORY: Remarkable for coronary artery stents in addition to the above mentioned surg eries. MEDICATIONS: Prior to admission included baby aspirin 81 mg per day, metoprolol 25 mg, Plavix, simva statin. REVIEW OF SYSTEMS: Not reliably or obtainable at this time. PHYSICAL EXAMINATION: GENERAL: Reveals a critically ill-appearing, white male who has just been ext ubated. He is arousable to voice but is not able to answer questions. SKIN: Shows pallor. He does not appear to have petechiae. His IV sites and areas of venipuncture do not appear to be oozing blo od. Thank you very much for allowing us to follow along with you during this hospitalization and comment on his platelet count. /[id number]/MODL
[2016-08-27 20:20] LABS: HEPARIN INDUCED ANTIBODY Negative (Negative); REACTIVITY 8 % (<20)
[2016-08-27] MEDS: SENNOSIDES 17.6 MG/10 ML UDL TUBE SCH (21:31)
[2016-08-27] MEDS: METOCLOPRAMIDE 10 MG/2 ML VIAL IVP PRN (21:33)
[2016-08-27] MEDS: ONDANSETRON 4 MG/2 ML VIAL IVP PRN (21:33)
[2016-08-27] MEDS: HALOPERIDOL LACT 5 MG/ML INJ IVP PRN (21:49)
--- NOTE | 2016-08-27 22:18 | SOAPPROG ---
SOAP Progress Note Assessment/Plan: Assessment: 1. Status post coronary artery bypass grafting. 2. mitral regurgitation: Increased since preoperatively. 3. Renal insufficiency query pre renal azotemia 4. Anxiety /pain. 5. Elevation in white count 6. Postoperative anemia 08/23/16 16:27 Impression: Clinical examination suggests the patient is volume depleted with elevation in creatinine and BUN. His acidosis is improving. LV function today is normal by echo. Degree of regurgitation is increased but the valve appears to be structurally intact. This may be increased secondary to inotropes and dilatation postoperatively. Recommendations: Hydration. Avoid nephrotoxins. Discontinue inotropes as soon as possible. Aggressive pain management with mobilization. I can see no indications for further surgical evaluation at this time. Discussed findings with patient's . 08/27/16 22:14 Impression: Slowly improving with improved mental status. CV status stable s/p invasive evaluation yesterday with two jets of moderate MR, normal right heart hemodynamics and moapa RCA flow. Continue supportive care. Discussed with Yakov Temple. Discussed with and son. Subjective: Extubated this morning. Responsive. No chest pain. "Thirsty" Objective: Vital Signs Temp Pulse Resp BP Pulse Ox 38 C 90 18 110/59 L 96 08/27/16 22:00 08/27/16 22:00 08/27/16 22:00 08/27/16 22:00 08/27/16 22:00 Laboratory Results 08/27/16 04:12 08/27/16 04:12 08/26/16 08/27/16 08/28/16 05:59 05:59 05:59 Intake Total 1690 1513.8 200 Output Total 4015 2100 1245 Balance -2325 -586.2 -1045 PT 18.3 SEC (12.0-15.0) H 08/26/16 17:00 INR 1.52 (0.83-1.16) H 08/26/16 17:00 - Time Spent With Patient Time Spent With Patient: 30 minutes over the day Physical Exam - Physical Exam General Appearance: mild distress EENT: pale conjunctiva (R), pale conjunctiva (L) Neck: non-tender Respiratory: accessory muscle use, decreased breath sounds, rhonchi Cardiac/Chest: normal peripheral pulses, systolic murmur Abdomen: normal bowel sounds, non-tender Skin: other (mottled feet, improved from yesterday with intact PT) ICD10 Worksheet Patient Problems: Problems Problem Status Diagnosed Acute blood loss anemia Acute S/P CABG x 5 Acute S/P Maze operation for atrial fibrillation Acute Coronary arteriosclerosis Acute
[2016-08-27] MEDS: LORazepam 2 MG/ML INJ IV PRN (22:47)
[2016-08-28 04:50] LABS: HEMATOCRIT 26.8 % (40.0-51.0); HEMOGLOBIN 8.9 g/dL (13.7-17.5); MEAN CELL HEMOGLOBIN 32.7 pg (27.9-34.1); MEAN CELL HEMOGLOBIN CONCENTR. 33.2 g/dL (32.4-36.7); MEAN CELL VOLUME 98.5 fL (81.5-99.8); RED BLOOD CELL COUNT 2.72 10^6/uL (4.40-6.38); RED CELL DISTRIBUTION WIDTH 14.7 % (11.5-15.2)
[2016-08-28 05:17] LABS: ALANINE AMINOTRANSFERASE 305 IU/L (21-72); ALBUMIN 3.3 g/dL (3.5-5.0); ALKALINE PHOSPHATASE 111 IU/L (38-126); ANION GAP 17 mEq/L (8-20); ASPARTATE AMINOTRANSFERASE 230 IU/L (17-59); BILIRUBIN,TOTAL 2.6 mg/dL (0.1-1.4); CARBON DIOXIDE 25 mEq/l (22-31); CHLORIDE 109 mEq/L (97-110); CREATININE 1.8 mg/dL (0.7-1.3); GLOMERULAR FILTRATION RATE 38; GLUCOSE 120 mg/dL (70-100); POTASSIUM 4.7 mEq/L (3.5-5.2); SODIUM 146 mEq/L (134-144); TOTAL PROTEIN 5.4 g/dL (6.3-8.2)
[2016-08-28] MEDS: HALOPERIDOL LACT 5 MG/ML INJ IVP PRN ×2 (05:37→21:16)
[2016-08-28 06:30] LABS: BILIRUBIN-CONJUGATED 1.8 mg/dL (0.0-0.5); BILIRUBIN-UNCONJUGATED 0.8 mg/dL (0.0-1.1)
--- NOTE | 2016-08-28 07:22 | SOAPPROG ---
[id number], EBONY-D1, SVG-LAD, Sequential [id number]), Padilla-Maze IV Left/ Right lesions Unstable angina, severe 3VD s/p CABGx5 with post-operative cardiac shock requiring pressors/inotropes, currently weaned off - LHC on 08/26 showed patent RCA, stable LV function - ASA/Plavix Long-standing persistent atrial fibrillation s/p Padilla-Maze IV - Intrinsic JR, will continue to atrial pace, possible PPM in future - Will need long-term anticoagulation but patient has been resistant to treatment in the past - ASA/Plavix as per CABG may suffice RAHEL with BUN/Cr trending higher - BUN/Cr (87/1.8) this AM - will monitor Post-op moderate-severe MR with structurally intact valve - No need for surgical repair at this time Acute blood loss anemia - H/H drifting lower without signs of bleeding - will continue to monitor Reintubation x2 secondary to combativeness, extubated 08/27 - Continue Haldol prn ICM with inferior wall hypokinesis and EF of 40-45% - Fluids/Lasix prn - ACEi when appropriate Thrombocytopenia - Platelets trending higher - HIT panel pending - will hold heparin SQ as per Hematology Dysphagia - Will start tube feeds today and plan for future swallow study Subjective: Too sedated to communicate Objective: Vital Signs Temp Pulse Resp BP Pulse Ox 38.6 C H 90 15 108/57 L 95 08/28/16 07:00 08/28/16 07:00 08/28/16 07:00 08/28/16 07:00 08/28/16 07:00 Laboratory Results 08/28/16 04:40 08/28/16 04:40 08/27/16 08/28/16 08/29/16 05:59 05:59 05:59 Intake Total 1513.8 200 Output Total 2100 1980 Balance -586.2 -1780 PT 18.3 SEC (12.0-15.0) H 08/26/16 17:00 INR 1.52 (0.83-1.16) H 08/26/16 17:00 Physical Exam - Physical Exam General Appearance: no apparent distress, obtunded EENT: No scleral icterus (R), No scleral icterus (L) Neck: normal inspection Respiratory: other (Mouth breathing / on 100% Hi Flow NC) Cardiac/Chest: other (Intrinsic JR ) Abdomen: non-tender, soft Skin: normal color Extremities: swelling (Trace) ICD10 Worksheet Patient Problems: Problems Problem Status Diagnosed Acute blood loss anemia Acute S/P CABG x 5 Acute S/P Maze operation for atrial fibrillation Acute Coronary arteriosclerosis Acute <JeovanyStephenMarv - Last Filed: 08/28/16 11:48> SOAP Progress Note Assessment/Plan: Assessment: somnolent, back off sedation Plan: 08/28/16 11:45 d/w wfe and son all questions addressed asked "is it possible the surgery was succesful but the pt ", responded that is possible but no where near that discussion and it will be lead by myself and dr yoder Objective: Vital Signs Temp Pulse Resp BP Pulse Ox 38.1 C 90 15 107/60 93 08/28/16 11:00 08/28/16 11:00 08/28/16 11:00 08/28/16 11:00 08/28/16 11:00 Laboratory Results 08/28/16 04:40 08/28/16 04:40 08/27/16 08/28/16 08/29/16 05:59 05:59 05:59 Intake Total 1513.8 200 Output Total 2100 1980 140 Balance -586.2 -1780 -140 PT 18.3 SEC (12.0-15.0) H 08/26/16 17:00 INR 1.52 (0.83-1.16) H 08/26/16 17:00
[2016-08-28] MEDS ORDERED: NS 500 ML IV ONE (09:06)
--- NOTE | 2016-08-28 09:11 | PDINTPN ---
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 Atrial Paced. #RAHEL: Cr Improved Fairly good urine output with lasix. #Mitral regurg post op, moderate-severe. Hemodynamics OK. Likely contributes to his acute respiratory failure. Respiratory Failure: Extubated, on high-flow oxygen. CXR looks worse, Febrile. ? cardiogenic edema vs. pneumonia vs. aspiration Hypotension: Improved, off pressors. CI still a bit low. Filling pressures OK Elevated LFTs: Likely due to shock. Improving. Elevated WBC: Down today. No signs of active infection. Afebrile Thrombocytopenia: Improved. Renal: Cr and Na up, suggesting volume contraction. I+O negative last several days. Right foot ischemia: Plan: Start IVF Reduce morphine D/W Dr. Francois RN, RT, family Check blood cultures, Start InvNicola kelly 40 min CC time 08/28/16 09:23 Subjective: Slept OK. Had some pain for which he received morphine. Currently sedated and denies pain or dyspnea Objective: Vital Signs Temp Pulse Resp BP Pulse Ox 38.6 C H 90 19 107/56 L 95 08/28/16 07:15 08/28/16 07:15 08/28/16 07:15 08/28/16 07:15 08/28/16 07:15 Laboratory Results 08/28/16 04:40 08/28/16 04:40 08/27/16 08/28/16 08/29/16 05:59 05:59 05:59 Intake Total 1513.8 200 Output Total 2100 1980 Balance -586.2 -1780 PT 18.3 SEC (12.0-15.0) H 08/26/16 17:00 INR 1.52 (0.83-1.16) H 08/26/16 17:00 CXR: increased bilateral infiltrates. Images reviewed Laboratory Tests 08/28/16 04:40 AST 230 H ALT 305 H Alkaline Phosphatase 111 Physical Exam - Physical Exam General Appearance: alert, no apparent distress EENT: normal ENT inspection Neck: normal inspection Respiratory: lungs clear, normal breath sounds Cardiac/Chest: regular rate, rhythm, edema Abdomen: normal bowel sounds, non-tender Skin: normal color, warm/dry Extremities: other ( right forefoot cyanotic. Absent DP pulse) Neuro/Psych: alert, normal mood/affect, oriented x 3 ICD10 Worksheet Patient Problems: Problems Problem Status Diagnosed Acute blood loss anemia Acute S/P CABG x 5 Acute S/P Maze operation for atrial fibrillation Acute Coronary arteriosclerosis Acute
[2016-08-28] MEDS ORDERED: 1/2 NS 1,000 ML IV SCH (09:30)
[2016-08-28] MEDS: ERTAPENEM 1 GM in NS 100 ML IV SCH (09:46)
--- NOTE | 2016-08-28 10:31 | DX ---
Portable Chest August 28, 2016 0905 hours Clinical Indications: Weighted feeding tube placement. Findings: Examination is centered over the lower chest to evaluate the feeding tube. Bilateral chest tubes are present. Mediastinal tube is present. The upper lungs are not visualized. There is basilar consolidation. The weighted feeding tube terminates in the upper abdomen and takes a normal course. C entral line is in the mid SVC. A [place] from the groin is seen in the left main pulmonary artery. Multi ple overlying lines and leads are present. Impression: 1. New weighted feeding tube in the upper abdomen in good position. This was discussed with the ICU jameson marin at 10:25 a.m. on August 28, 2016. 2. Multiple other lines and tubes unchanged. 3. Bilateral alveolar consolidation, worse on the left than on the right.
[2016-08-28] MEDS ORDERED: VANCOMYCIN HCL/NORMAL SALINE 250 ML IV SCH (11:00)
--- NOTE | 2016-08-28 11:31 | DX ---
Portal AP Upright Chest - August 28, 2016, at 4:37 a.m. Clinical History: 66-year-old male with pulmonary edema. Comparison Study: Chest, dated August 27, 2016 at 6:01 a.m. Findings: Again noted are small biapical pneumothoraces. There has been interval removal of an esoph agogastric tube since the previous study. The numerous other interventional and monitoring devices ar e similarly-positioned. Postoperative changes following median sternotomy, CABG, and left atrial appe ndage clamping are noted. The cardiac silhouette remains enlarged. There has been some progression in the bilateral interstitial/alveolar infiltrates. The cardiac size remains stable, given the AP techn ique. Impression: Progressive bilateral infiltrates since yesterday morning.
[2016-08-28] MEDS: SENNOSIDES 17.6 MG/10 ML UDL TUBE SCH ×2 (12:33→21:17)
[2016-08-28] MEDS: ASPIRIN 81 MG CHEWABLE TAB TUBE SCH (12:40)
[2016-08-28] MEDS: CLOPIDOGREL BISULFATE 75 MG TAB TUBE SCH (12:40)
[2016-08-28] MEDS: LANSOPRAZOLE SUSP 30MG/10ML UDSYR (Adult) TUBE SCH (12:41)
--- NOTE | 2016-08-28 13:03 | DX ---
Portable Semiupright AP Chest, August 28, 2016, 1205 hours History: Assess new peripherally inserted central catheter. ( The 51 cm long catheter was pulled back 3 cm before obtaining this chest radiograph. ) Findings: Compare August 28, August 27, and August 26, 2016. The new peripherally inserted central catheter of the left arm terminates at the junction of superior vena cava and right atrium. Esophago -enteric tube and transfemoral pulmonary arterial catheter are unchanged. Three chest tubes are prese nt. Sternotomy wires, surgical clips, and left atrial clamp device are unchanged. Epicardial pacer wi res are present. Heart size is unchanged. Lungs are diffusely consolidated, similar to radiographs fr om earlier today, but worse than August 27 and August 26. Impression: 1. New left peripherally inserted central catheter is in good position, and ready to use. 2. No change in other support lines and tubes. 3. Bilateral pulmonary consolidation.
--- NOTE | 2016-08-28 13:18 | IR ---
Ultrasound-Guided Peripherally Inserted Central Catheter History: Coronary bypass grafts, MAZE procedure, history of hypotension. Acute kidney injury. Technique: Procedure was performed with the patient in the hospital bed. Following informed consent, the left arm was prepped and draped in sterile fashion. 1% Xylocaine was used for local anesthetic. All elements of maximal sterile barrier technique including cap, mask, sterile gown, sterile gloves, large sterile sheet, hand hygiene, and 2% chlorhexidine for cutaneous antisepsis, followed. Ultrasou nd transducer was placed in sterile sleeve and used for real-time imaging guidance to enter the basil ic vein. Sterile coupling gel was used. 0.018 measuring wire was passed centrally , and the events intern al jugular vein was assessed sonographically to exclude retrograde malposition . A skin mara with s calpel blade was followed by removing the access needle. A 6.5 Macanese peel-away sheath was followed by a 6 Macanese triple-lumen central catheter, trimmed to 51 cm length. The length of catheter was e stimated from external measurements. The hub of the catheter was fixed to the skin using a sterile St atLock adhesive device, and a sterile dressing was applied. The catheter irrigated easily. A portable chest radiograph was requested and will be reported separately. The catheter was pulled ba ck 3 cm after the initial unprocessed image. A final portable chest x-ray was obtained and placed int o PACS archive. Findings: No sonographic evidence of malposition in the internal jugular vein. Impression: Ultrasound-guided 6 Macanese triple lumen peripherally inserted central catheter; radiogr aphic confirmation is pending. - - - - - - - - - - - - - - - - - - - - - - - - - - - - - - - - - - - - - - - - - - - (Cross-cutting measures: Current medications, including all known prescriptions, [id number] me dications, herbal medications, and nutritional supplements are listed in the medical record. The pat ient does not smoke. )
[2016-08-28] MEDS ORDERED: ALBUMIN 5% 250 ML BOTTLE IV ONE (13:38)
[2016-08-28] MEDS ORDERED: HEPARIN 10,000 UNIT/10 ML MDV IVP ONE (13:40)
[2016-08-28 14:40] LABS: ABSOLUTE NRBC COUNT 0.98 10^3/uL (0-0.01); ADD DIFF? YES; ADD MORPH? YES; ADD SCAN? NO; ATYPICAL LYMPHOCYTE FLAG 40 (0-99); FRAGMENT RBC FLAG 0 (0-99); HEMATOCRIT 27.4 % (40.0-51.0); HEMOGLOBIN 8.9 g/dL (13.7-17.5); LEFT SHIFT FLG 40 (0-99); LIPEMIA HEMOLYSIS FLAG 80 (0-99); MEAN CELL HEMOGLOBIN 32.7 pg (27.9-34.1); MEAN CELL HEMOGLOBIN CONCENTR. 32.5 g/dL (32.4-36.7); MEAN CELL VOLUME 100.7 fL (81.5-99.8); MEAN PLATELET VOLUME 12.7 fL (8.7-11.7); PLATELET CLUMPS FLAG 0 (0-99); PLATELET COUNT 104 10^3/uL (150-400); RED BLOOD CELL COUNT 2.72 10^6/uL (4.40-6.38); RED CELL DISTRIBUTION WIDTH 15.2 % (11.5-15.2)
[2016-08-28 14:50] LABS: INR 1.74 (0.83-1.16); PROTIME(PATIENT) 20.4 SEC (12.0-15.0)
[2016-08-28 14:51] LABS: APTT 36.2 SEC (23.0-38.0)
[2016-08-28 15:42] LABS: POTASSIUM 4.3 mEq/L (3.5-5.2)
[2016-08-28 15:43] LABS: LARGE PLATELETS PRESENT; MACROCYTES 1+; PLATELET ESTIMATE DECREASED (ADEQ); POLYCHROMASIA 3+
[2016-08-28] MEDS ORDERED: ALBUMIN 5% 250 ML IV ONE (16:30)
--- NOTE | 2016-08-28 16:31 | SOAPPROG ---
SOAP Progress Note Assessment/Plan: Assessment: - Thrombocytopenia - stable in the low 100's. HIT antibody is negative. I think it is ok to rechallenge him with heparin if need for his other underlying conditions. Antibody has 90% accuracy. Discussed with patient and family at bedside. Plan: I'll follow with you intermittently. Subjective: Sitting up. Not intubated. Objective: Vital Signs Temp Pulse Resp BP Pulse Ox 38.1 C 90 15 100/60 95 08/28/16 15:01 08/28/16 15:01 08/28/16 15:01 08/28/16 15:01 08/28/16 15:01 Laboratory Results 08/28/16 14:20 08/28/16 14:00 08/26/16 08/27/16 08/28/16 23:59 23:59 23:59 Intake Total 1533.8 900 Output Total 2690 1710 1540 Balance -1156.2 -810 -1540 PT 20.4 SEC (12.0-15.0) H 08/28/16 14:20 INR 1.74 (0.83-1.16) H 08/28/16 14:20 Physical Exam - Physical Exam General Appearance: moderate distress Respiratory: rhonchi (bilateral) Skin: pallor ICD10 Worksheet Patient Problems: Problems Problem Status Diagnosed Acute blood loss anemia Acute S/P CABG x 5 Acute S/P Maze operation for atrial fibrillation Acute Coronary arteriosclerosis Acute
--- NOTE | 2016-08-28 17:37 | SOAPPROG ---
SOAP Progress Note Assessment/Plan: Assessment: 66 MALE WITH SEVERE PEDAL VASOSPASM 2/2 HEART SURGERY AND PRESSORS/ NONDIABETIC FULL MOTOR FUNCTION BUT DECREASED SENSATION BILAT CREAT 1.6 LIMITING OUR ABILITY TO DO ANGIO PROCARDIA MAY NOT BE TOLERATED EITHER BOUNDING POPLITEAL PULSES BILAT Plan: ART STUDIES/ CONSIDER NITROPASTE/ MAY EVENTUALLY NEED ANGIO 08/28/16 17:33 Objective: Vital Signs Temp Pulse Resp BP Pulse Ox 38.1 C 90 17 103/64 92 08/28/16 16:57 08/28/16 16:57 08/28/16 16:57 08/28/16 16:57 08/28/16 16:57 Laboratory Results 08/28/16 14:20 08/28/16 14:00 08/27/16 08/28/16 08/29/16 05:59 05:59 05:59 Intake Total 1513.8 200 Output Total 2100 1980 875 Balance -586.2 -1780 -875 PT 20.4 SEC (12.0-15.0) H 08/28/16 14:20 INR 1.74 (0.83-1.16) H 08/28/16 14:20 ICD10 Worksheet Patient Problems: Problems Problem Status Diagnosed Acute blood loss anemia Acute S/P CABG x 5 Acute S/P Maze operation for atrial fibrillation Acute Coronary arteriosclerosis Acute
[2016-08-28] MEDS ORDERED: LIDOCAINE 2% JELLY 5 ML TUBE ONE (19:21)
[2016-08-28] MEDS ORDERED: BENZOCAINE UNIT DOSE SPRAY HURRICAINE MM ONE (19:21)
[2016-08-28] MEDS ORDERED: PHENYLEPHRINE 1% EACHNARE ONE (19:30)
[2016-08-28] MEDS ORDERED: MELATONIN 3 MG TAB PO SCH (21:00)
[2016-08-28] MEDS: METOCLOPRAMIDE 10 MG/2 ML VIAL IVP PRN (21:16)
[2016-08-28] MEDS: ONDANSETRON 4 MG/2 ML VIAL IVP PRN (21:16)
[2016-08-28] MEDS: ACETAMINOPHEN 325 MG TAB TUBE PRN (21:53)
[2016-08-28] MEDS: HEPARIN 10,000 UNIT/10 ML MDV IVP PRN (22:48)
[2016-08-29] MEDS ORDERED: DOPamine/DEXTROSE/250 ML BAG IV ONE (01:52)
[2016-08-29] MEDS ORDERED: CALCIUM GLUCONATE 50 ML IV ONE (02:00)
[2016-08-29] MEDS ORDERED: FUROSEMIDE 40 MG/4 ML VIAL IVP ONE ×2 (02:30→05:20)
[2016-08-29 04:23] LABS: HEMATOCRIT 28.9 % (40.0-51.0); HEMOGLOBIN 9.6 g/dL (13.7-17.5); MEAN CELL HEMOGLOBIN 33.2 pg (27.9-34.1); MEAN CELL HEMOGLOBIN CONCENTR. 33.2 g/dL (32.4-36.7); RED BLOOD CELL COUNT 2.89 10^6/uL (4.40-6.38); RED CELL DISTRIBUTION WIDTH 15.2 % (11.5-15.2)
[2016-08-29 04:37] LABS: ANION GAP 17 mEq/L (8-20); CALCIUM 8.5 mg/dL (8.5-10.4); CARBON DIOXIDE 23 mEq/l (22-31); CHLORIDE 111 mEq/L (97-110); CREATININE 2.4 mg/dL (0.7-1.3); GLOMERULAR FILTRATION RATE 27; GLUCOSE 142 mg/dL (70-100); MAGNESIUM 3.5 mg/dL (1.6-2.3); POTASSIUM 4.3 mEq/L (3.5-5.2); SODIUM 147 mEq/L (134-144)
[2016-08-29] MEDS: ACETAMINOPHEN 325 MG TAB TUBE PRN ×2 (04:37→22:24)
[2016-08-29 05:09] LABS: BASE EXCESS -4.4 mEq/L (-2.5-2.5); BICARBONATE 19 mEq/L (22-26); MEASURED OXYGEN SATURATION 73 % (92-95); PCO2 32 mmHg (34-38); PO2 47 mmHg (65-75); TCO2 20 mEq/L (23-27)
[2016-08-29 05:12] LABS: O2 CONCENTRATIION 100 % (0-100); P/F RATIO 47 RATIO
[2016-08-29 06:16] LABS: COLOR AMBER; LEUKOCYTE ESTERASE,URINE NEGATIVE (NEGATIVE); NITRITE,URINE NEGATIVE (NEGATIVE)
[2016-08-29 06:18] LABS: BACTERIA TRACE /hpf (NONE SEEN); HYALINE CASTS 25-50 /lpf (0-1); MUCUS TRACE /lpf (NONE-1+); RBC,URINE 15-25 /hpf (0-3)
[2016-08-29] MEDS ORDERED: FUROSEMIDE 100 MG in D5W 100 ML IV SCH (07:00)
[2016-08-29] MEDS: HEPARIN/DEXTROSE 500 ML IV SCH ×2 (08:03→21:57)
--- NOTE | 2016-08-29 08:12 | DX ---
Portable Chest, 7:00 a.m. Clinical Indications: Respiratory distress , followup alveolar infiltrates Findings: Bilateral alveolar infiltrates remain, increasing in the right lower lung zone. The lung a pices remain spared. The costophrenic gutters remain sharp. There is no pneumothorax. Bilateral chest tubes remain in place. A feeding tube is seen coursing through the esophagus into the upper abdomen. A Bernie-Maria Esther catheter from an inferior vena cava approach is seen with tip overlying the proximal le ft pulmonary artery. Median sternotomy wires, CABG clips, an atrial appendage clip and a mediastinal drain remain in place. Impression: Worsening pulmonary edema.
--- NOTE | 2016-08-29 08:22 | PDINTPN ---
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 Atrial Paced. #RAHEL: Cr trending worse, urine output marginal and requiring higher-dose lasix. Suspect ATN. Near baseline weight. Na remains high #Mitral regurg post op, moderate-severe. Hemodynamics OK. Likely contributes to his acute respiratory failure. Respiratory Failure: Extubated, on high-flow oxygen. CXR looks worse, Febrile. ? cardiogenic edema vs. pneumonia vs. aspiration vs. non-cardiogenic edema from SIRS. Hypotension: A bit worse, on DA at 3. CI a bit higher. Filling pressures high- normal Elevated LFTs: Likely due to shock. Improving. Elevated WBC: Down today. No signs of active infection. Continues to have low- grade fever Thrombocytopenia: Improved. Right foot ischemia: Likely due to spasm/embolism/thrombosis at the ankle. On Heparin Plan: Start lasix gtt, stop IVF Stop Vanco (received 1g) Continue BiPAP. Check ABG this afternoon. (Later)- ABG with good acid-base and oxygenation. CXR in AM Intubate if respiratory status deteriorating D/W Dr. Thayer, Dr. Francois, Dr. Moore, RN, RT, family during multiple discussions. 125 min CC time 08/29/16 16:52 Subjective: On BiPAP, not able to converse. Feels dyspneic Objective: Vital Signs Temp Pulse Resp BP Pulse Ox 37.9 C 86 23 H 93/57 L 89 L 08/29/16 06:00 08/29/16 07:00 08/29/16 07:00 08/29/16 07:00 08/29/16 07:00 Laboratory Results 08/29/16 04:15 08/29/16 04:15 08/28/16 08/29/16 08/30/16 05:59 05:59 05:59 Intake Total 200 3590 Output Total 1979 2054 60 Balance -1780 1535 -60 PT 20.4 SEC (12.0-15.0) H 08/28/16 14:20 INR 1.74 (0.83-1.16) H 08/28/16 14:20 Laboratory Tests 08/29/16 05:00 pCO2 32 L pO2 47 L Total CO2 20 L ABG pH 7.40 Total O2 Concentration 40.0 O2 Concentration % 100 CXR: Increased bilateral infiltrates. PAP 30/17, CVP 15, CI 2.4 Laboratory Tests 08/29/16 14:55 pCO2 37 pO2 63 L Total CO2 23 ABG pH 7.39 O2 Concentration % 100 Expiratory Pressure 8 Inspiratory Pressure 16 Mode BiPAP YES ICD10 Worksheet Patient Problems: Problems Problem Status Diagnosed Acute blood loss anemia Acute S/P CABG x 5 Acute S/P Maze operation for atrial fibrillation Acute Coronary arteriosclerosis Acute
--- NOTE | 2016-08-29 09:25 | SOAPPROG ---
SOAP Progress Note Assessment/Plan: Assessment: POD#6 CABGx5 (GANN-LCX, EBONY-D1, SVG-LAD, Sequential SVG-PDA-PLR), Padilla-Maze IV Left/Right lesions Sx CAD with ISCM (EF 40-45%) - s/p CABGx5 with bilateral mammaries. Small and diffusely diseased target vessels. Early postop course complicated by cardiogenic shock with multi-organ dysfx, severe MR, and peripheral vasoconstriction. Hemodynamics stabilized on vasoactive support w temporary improvement in hepatorenal and respiratory function as well as transient recovery of foot perfusion as pressor support lightened. Now appears to be deteriorating w worsening pulm edema, renal fx and pedal ischemia. Long-standing persistent atrial fibrillation - s/p Padilla-Maze IV. Intrinsic rhythm accl junctional 70s-80s and Apaced for optimized hemodynamics. Surgical antithrombotic prophylaxis with IV heparin (for foot ischemia) as of yest. Postoperative respiratory failure - Reintubated twice. Initially for agitation/ combativeness with metabolic acidosis; more recently for pulm edema assoc w MR. Re-extubated 12/. Covered with broad spectrum Abx. Aspiration precautions instituted. Initially stable on high flow O2. BiPAP added last noc for inc WOB with desats. This morning's CXR w worsened interstitial infiltrates. ? SIRS. Avoidance re-intubation unlikely. Postoperative RAHEL - Secondary to shock. Recurrent bump in Cr today w decr UOP. ? ATN (rhabdo) as hemodynamics preserved. Abx adjusted. Renal consult obtained. Post-op moderate-severe MR - Functional. Valve structurally intact by serial echos. Cath neg for compromised paras flow or RHF. Surg repair deferred. Congestive hepatopathy - Transaminitis and coagulopathy +/- met acidosis. LFTs better with improved rt heart fx. Care with anticoagulation/sedation. Acute expected blood loss anemia with thrombocytopenia and coagulopathy - Stable s/p 2u PRBC. No evidence active bleeding. HIT Ab neg. IV hep initiated for worsened foot perfusion, suggestion of thrombosis below ankle level. Heme following. Postoperative pedal ischemia - Vasospasm vs sm vessel thrombosis. IV hep for now. Plan: Supportive care as per multidisciplinary team. Ongoing family counseling per Yakov Mckeon and Alessandro. Limited echo per cards. 08/29/16 08:20 Subjective: Sedated on BiPAP. Groggy opening of eyes. Weak purposeful mvmt of arms. Objective: Vital Signs Temp Pulse Resp BP Pulse Ox 38.0 C 90 24 H 87/54 L 92 08/29/16 08:00 08/29/16 08:00 08/29/16 08:00 08/29/16 08:33 08/29/16 08:00 Laboratory Results 08/29/16 04:15 08/29/16 04:15 08/28/16 08/29/16 08/30/16 05:59 05:59 05:59 Intake Total 200 3590 Output Total 1979 2054 160 Balance -1780 1535 -160 PT 20.4 SEC (12.0-15.0) H 08/28/16 14:20 INR 1.74 (0.83-1.16) H 08/28/16 14:20 Stable PAs, CI, SVO2 on dopa 3mcg. 1 addtl unit PRBC transfused for volume. Intrinsic rhythm junct 70s-80s. Improved BP Apaced 90. CXR -> diffuse bilat interstitial infiltrates. No pl effusions. CTOP serous, quantity remains elev. Physical Exam - Physical Exam General Appearance: mild distress Respiratory: other (BiPAP) Cardiac/Chest: regular rate, rhythm (paced) Abdomen: soft Skin: warm/dry Extremities: swelling (1-2+ dependent), other (Cool mottled feet ) ICD10 Worksheet Patient Problems: Problems Problem Status Diagnosed Acute blood loss anemia Acute S/P CABG x 5 Acute S/P Maze operation for atrial fibrillation Acute Coronary arteriosclerosis Acute
[2016-08-29] MEDS ORDERED: fentaNYL 100 MCG/2 ML INJ ONE (09:33)
[2016-08-29] MEDS ORDERED: fentaNYL 100 MCG/2 ML INJ IVP ONE (10:00)
--- NOTE | 2016-08-29 10:00 | US ---
Bilateral Lower Extremity Duplex Indication: Mottled and cyanotic feet. Technique: Grayscale color and duplex imaging was performed of the bilateral lower extremity arterial system. Findings: Right side: The right common femoral artery exhibits some atherosclerotic disease and mild ectasia to 9.8 mm. There is a multiphasic waveform in the common femoral artery, profunda femoral artery, super ficial femoral artery, popliteal artery, posterior tibial artery, anterior tibial artery, and peronea l artery. The anterior tibial artery and posterior tibial arteries occlude at the level of the ankle. Left side: There is multiphasic waveforms in the left superficial femoral artery. The common femoral artery was not visualized due to bandages. There is multiphasic waveforms with normal velocities in t he popliteal artery, posterior tibial artery proximal and mid, peroneal artery proximal mid and dista l, and anterior tibial artery proximal mid and distal. The posterior tibial and anterior tibial arter ies occlude at the level of the ankle. Impression: Bilateral occlusions of the posterior tibial and anterior tibial arteries at the level of the ankle. Differential is embolic versus thrombotic in a patient with significant PVD. The findings were discussed with Dr. Levy on August 28, 2016 at 2015 hours, and Dr. Thayer on [facility] 2015 at 2045 hours.
--- NOTE | 2016-08-29 10:26 | SOAPPROG ---
IVANA Progress Note Assessment/Plan: Assessment:Plan: ARF-most likely ATN given hospital course -non-oliguric -azotemic -likely will need dialysis if no improvement in the next 24 hours -discussed with Dr. Nagy -D51/2 stopped last night -pulmonary status impaired with increased CHF based on CXR and oxygen requirements -limit fluids at this time -continue with lasix -add zaroxolyn -plan to have dialysis catheter placed today to permit for Hd or CRRT if needed -discussed with CV surgery -they will ask Dr. Levy to place this at bedside today if possible, if unable, will ask IR to place -BP may limit ability to remove fluid easily with dialysis 08/29/16 10:21 Objective: Vital Signs Temp Pulse Resp BP Pulse Ox 37.8 C 90 30 H 96/58 L 91 L 08/29/16 10:00 08/29/16 10:00 08/29/16 10:00 08/29/16 10:00 08/29/16 10:00 Laboratory Results 08/29/16 04:15 08/29/16 04:15 08/28/16 08/29/16 08/30/16 05:59 05:59 05:59 Intake Total 200 3590 Output Total 1979 2054 395 Balance -1780 1535 -395 PT 20.4 SEC (12.0-15.0) H 08/28/16 14:20 INR 1.74 (0.83-1.16) H 08/28/16 14:20 ICD10 Worksheet Patient Problems: Problems Problem Status Diagnosed Acute blood loss anemia Acute S/P CABG x 5 Acute S/P Maze operation for atrial fibrillation Acute Coronary arteriosclerosis Acute
[2016-08-29] MEDS ORDERED: METOLAZONE 5 MG TAB PO SCH (10:30)
[2016-08-29] MEDS: CLOPIDOGREL BISULFATE 75 MG TAB TUBE SCH (11:15)
[2016-08-29] MEDS: ERTAPENEM 1 GM in NS 100 ML IV SCH (11:15)
[2016-08-29] MEDS: ASPIRIN 81 MG CHEWABLE TAB TUBE SCH (11:15)
[2016-08-29] MEDS: LANSOPRAZOLE SUSP 30MG/10ML UDSYR (Adult) TUBE SCH (11:16)
[2016-08-29] MEDS: SENNOSIDES 17.6 MG/10 ML UDL TUBE SCH ×2 (11:16→22:12)
--- NOTE | 2016-08-29 11:23 | GCON ---
[f rep st] CONSULTATION DATE OF CONSULTATION: 08/29/2016 REASON FOR CONSULTATION: Acute renal failure. ASSESSMENT: Acute tubular necrosis. RECOMMENDATIONS: 1. Check urine studies. 2. Check renal ultrasound. 3. Limit IV fluids. 4. Continue IV Lasix. 5. Add Zaroxolyn. 6. Place temporary hemodialysis catheter today in anticipation of need for acute dialysis in the nex t 24-48 hours. 7. Consider CRRT depending on the patient's hemodynamic status. HISTORY: The patient is a 66-year-old gentleman whom I have been asked to consult on by Dr. Nagy. He underwent 5-vessel bypass by Dr. Thayer on 08/21/2016. His immediate postoperative course was comp licated by a need for reintubation and pressors. He was noted to have increased mitral regurgitation postoperatively. His baseline creatinine prior to surgery was at a level of 0.6 to 0.8. His creati nine increased from 1.1 on 08/22 to 1.7 on 08/23. During this time, he had trouble with both blood p ressure and oxygenation. His creatinine peaked at 2.3 later on 08/23, and then went down to 1.2 on 10/26. On 08/26, he continues to have trouble requiring reintubation and he underwent angiography to evaluate his bypass grafts. Minimal amount of contrast was used. The following day, his creatinine remained relatively stable at 1.3, but then has increased from 1.8 yesterday to a level of 2.4 today. With this, he has become increasingly azotemic with a current BUN of 105. The patient since 08/26 has been successfully extubated. He currently is on BiPAP with 100% oxygen. He has been on a Lasix drip to try to manage his fluid status. Because of hypernatremia, he was kristy efly on D5 half normal saline. He has received a dose of vancomycin. He currently is on imipenem. He has received albumin. He is currently receiving blood products. He currently is being maintained on low dose dopamine to help him with his blood pressure. He has developed ischemic changes in his feet bilaterally and has been seen by Dr. Levy. He has not received any additional nephrotoxic agen ts except for a very small volume of contrast associated with his left heart cath. His blood pressure currently has been between 87 and 101 systolic. He is paced. PAST MEDICAL HISTORY: Paroxysmal atrial fibrillation, crescendo angina, congestive heart failure, co ronary artery disease, depression, hypercholesterolemia, hyperlipidemia, hypertension, myocardial inf arction, and history of prostate cancer. He has had previous OH with stents placed in 2006 and 2007. History of tobacco use, now quit about 5 years. No alcohol for last month. PAST SURGICAL HISTORY: Colonoscopy, coronary stent, EGD, hernia repair, prostatectomy and skin graft ing. OUTPATIENT MEDICATIONS: Aspirin 81 mg daily, metoprolol tartrate 25 mg taking 1/2 tablet daily, Plav ix 75 mg daily, simvastatin 40 mg daily. ALLERGIES: No known documented allergies. CURRENT MEDICATIONS: Bisacodyl, metoclopramide, ondansetron, Tylenol, aspirin, Plavix 75 mg daily, d opamine, ertapenem 1 g daily (going to be changed to 500 mg daily), Lasix continuous infusion, Haldol , subcutaneous heparin, lactulose, Prevacid 30 mg daily, melatonin 1.5 mg at bedtime, and Senna. FAMILY HISTORY: Noncontributory. SOCIAL HISTORY: Noncontributory. REVIEW OF SYSTEMS: Limited due to the patient's current level of illness. PHYSICAL EXAMINATION: VITAL SIGNS: Temperature is 38, pulse 90, respirations 24, blood pressure 101 /59. APPEARANCE: Thin, white male, appearing older than his stated age, sitting upright in bed with a BiPAP mask in place. He responds to questions. CVP running between 15 and 18. HEENT: Unremarka ble. NECK: Unremarkable. HEART: Regular, paced. Difficult to auscultate any other heart sounds. LUNGS: Rhonchorous with rales scattered throughout. CHEST: Remarkable for chest tubes in place. ABDOMEN: Positive bowel sounds, nontender, soft. EXTREMITIES: Zero to trace edema. He has ischemi c changes affecting the distal portions of his feet, more prominent on the right than the left with t he right affecting all his toes across the distal ends of the metatarsal with cyanosis. LABORATORY DATA: Sodium 147, potassium 4.3, BUN 105, creatinine 2.4. Blood gas: pH 7.4, pCO2 32, p O2 47. Hematocrit 28. Left heart cath on 08/26 was done with minimal contrast. RCA bypass grafts were open. MR has been n oted to be any where from moderate to severe based on echocardiogram. ASSESSMENT: Acute renal failure. This most likely represents ATN. He looks like he experienced 1 e pisode earlier on in the hospital course and now he has had a repeat episode. He recovered fairly we ll from the initial event with his creatinine coming down to that 1.2 level. Now his creatinine has gone back up in the setting of ongoing difficult postoperative course. At the present, there are no emergency needs for dialysis but I would prepare for that in case he does not improve over the next 2 4-48 hours. I have asked that a temporary dialysis catheter be placed. We may need to use CRRT to a ffectively manage this patient given his tenuous blood pressures. I suspect the same hypoperfusion t hat has affected his feet is affecting his kidneys resulting in the ATN that we see. We will try and improve his lung status gently with diuretics. We will add Zaroxolyn on top of his current and cont inuous Lasix infusion. I would limit IV fluids given his respiratory status. He may require intubat ion. Currently with a CVP of 15 to 18, I think this looks pretty good. His in's and out's showed 3590 in and 2055 out over the last 24 hours with 905 of that being urine output. Intermittent hemodialysis m ay not be well tolerated in the setting. We will have to make that judgment if and when he needs ini tiation of dialysis. He will have blood gases drawn again later this evening. We will check a repeat renal function panel later today in order to be able to make an easier decision with regard to potentially needing dialys is tomorrow or the next day. I think it is unlikely he will need dialysis this evening. His family has stated that he would want intervention with dialysis if needed. I discussed the same concept wit h the patient today and he is in agreement with regard to adding any intervention that may help him r ecover more quickly from this hospital stay. Copy requested to: Dr. Nagy /[id number]/MODL
--- NOTE | 2016-08-29 11:36 | ECHO ---
[id number] + + [address] : : [facility] [address] : : [phone] + + Adult Echocardiographic Report + + :Name: SANIA SCOTT PStudy Date: 08/29/2016 10:59 AM : : Hospital Admission Number: [id number] L ocation: 256: :: 1950 Gender: Male : :Age: 66 yrs Race: WH : :Reason For Study: Follow up MR and LV function : + + Doppler Measurements & Calculations TR max myah: 262.0 cm/sec TR max P.5 mmHg RAP systole: 10.0 mmHg RVSP(TR): 37.5 mmHg Left Ventricle Ejection Fraction = 40-45%. LV mid/basal nferolateral and basal inferior mcclure are akinetic. Right Ventricle There is a pacemaker lead in the right ventricle. Atria The left atrium is severely dilated. Mitral Valve There is severe mitral regurgitation. Conclusion Limited 2-D echo. No change since echo of 08/25/16. Ejection Fraction = 40-45%. There is severe mitral regurgitation. LV mid/basal nferolateral and basal inferior mcclure are akinetic. The left atrium is severely dilated. Final Reading Physician: Meryl Mcfadden signed on 08/29/2016 11:35 AM Ordering Physician: ALEJANDRO CARREON Performed By: Jessie Byoce RDCS
--- NOTE | 2016-08-29 12:10 | SOAPPROG ---
IVANA Progress Note Assessment/Plan: Assessment: - Thrombocytopenia - plts up to 131. No HIT. Assessment is secondary thrombocytopenia. I'll sign off for now. Plan: Please re-consult if we may be of further assistance. Objective: Vital Signs Temp Pulse Resp BP Pulse Ox 37.7 C 10 L 34 H 107/63 98 08/29/16 11:00 08/29/16 11:25 08/29/16 11:00 08/29/16 11:00 08/29/16 11:25 Laboratory Results 08/29/16 04:15 08/29/16 04:15 08/27/16 08/28/16 08/29/16 23:59 23:59 23:59 Intake Total 900 1633 1965 Output Total 1710 2185 1175 Balance -810 -552 790 PT 20.4 SEC (12.0-15.0) H 08/28/16 14:20 INR 1.74 (0.83-1.16) H 08/28/16 14:20 ICD10 Worksheet Patient Problems: Problems Problem Status Diagnosed Acute blood loss anemia Acute S/P CABG x 5 Acute S/P Maze operation for atrial fibrillation Acute Coronary arteriosclerosis Acute
--- NOTE | 2016-08-29 13:11 | SOAPPROG ---
IVANA Progress Note Assessment/Plan: Assessment: somnolent, back off sedation Plan: 08/28/16 11:45 d/w wfe and son all questions addressed asked "is it possible the surgery was succesful but the pt ", responded that is possible but no where near that discussion and it will be lead by myself and dr yoder 08/29/16 13:08 d/w and son not sure reason for poor outcome'reviewed itraop perfusion and anesthesia, saw nothing out of ordinary could be MR as problem but CO and PAs suggested non-hemodynamic, too critically ill to consider repeat MVR at this time poor outcome likely but full support for now all questions addressed Objective: Vital Signs Temp Pulse Resp BP Pulse Ox 37.6 C 104 H 29 H 104/60 90 L 08/29/16 12:00 08/29/16 12:00 08/29/16 12:00 08/29/16 12:00 08/29/16 12:00 Laboratory Results 08/29/16 04:15 08/29/16 04:15 08/28/16 08/29/16 08/30/16 05:59 05:59 05:59 Intake Total 200 3590 8 Output Total 19795 895 Balance -1780 1535 -887 PT 20.4 SEC (12.0-15.0) H 08/28/16 14:20 INR 1.74 (0.83-1.16) H 08/28/16 14:20 ICD10 Worksheet Patient Problems: Problems Problem Status Diagnosed Acute blood loss anemia Acute S/P CABG x 5 Acute S/P Maze operation for atrial fibrillation Acute Coronary arteriosclerosis Acute
--- NOTE | 2016-08-29 13:50 | SOAPPROG ---
SOAP Progress Note Assessment/Plan: Assessment: 1. Status post coronary artery bypass grafting. 2. mitral regurgitation: Increased since preoperatively. Two jets of moderate MR 3. Anxiety /pain. 4. Elevation in white count 5. Postoperative anemia s/p transfusion today ( 2 units) 6. ATN (creat. 2.4 with BUN>100) 08/29/16 13:47 Impression: Critically ill with ATN. Echo today reveals stable LV function. [place] suggests adequate filling pressures. CHest xray with worsening infiltrates. Ventilating adequately. 1. Will increase basal heart rate to 105. 2. Agree with plans for aggressive renal consultation/support. 3. Re-intubation if need be. 08/27/16 22:14 Impression: Slowly improving with improved mental status. CV status stable s/p invasive evaluation yesterday with two jets of moderate MR, normal right heart hemodynamics and [place] RCA flow. Continue supportive care. Discussed with Yakov Temple. Discussed with and son. 08/23/16 16:27 Impression: Clinical examination suggests the patient is volume depleted with elevation in creatinine and BUN. His acidosis is improving. LV function today is normal by echo. Degree of regurgitation is increased but the valve appears to be structurally intact. This may be increased secondary to inotropes and dilatation postoperatively. Recommendations: Hydration. Avoid nephrotoxins. Discontinue inotropes as soon as possible. Aggressive pain management with mobilization. I can see no indications for further surgical evaluation at this time. Discussed findings with patient's . 08/29/16 13:51 Subjective: No pain. Objective: Vital Signs Temp Pulse Resp BP Pulse Ox 37.5 C 104 H 28 H 110/68 91 L 08/29/16 13:00 08/29/16 13:00 08/29/16 13:00 08/29/16 13:00 08/29/16 13:00 Laboratory Results 08/29/16 04:15 08/29/16 04:15 08/28/16 08/29/16 08/30/16 05:59 05:59 05:59 Intake Total 200 3590 14 Output Total 1979 2054 116 Balance -1780 1535 -1146 PT 20.4 SEC (12.0-15.0) H 08/28/16 14:20 INR 1.74 (0.83-1.16) H 08/28/16 14:20 Physical Exam - Physical Exam General Appearance: mild distress, other (sedated) Respiratory: accessory muscle use, decreased breath sounds Cardiac/Chest: regular rate, rhythm Abdomen: soft Skin: other (blue forefoot on right) Neuro/Psych: motor weakness, depressed affect ICD10 Worksheet Patient Problems: Problems Problem Status Diagnosed Acute blood loss anemia Acute S/P CABG x 5 Acute S/P Maze operation for atrial fibrillation Acute Coronary arteriosclerosis Acute
--- NOTE | 2016-08-29 14:20 | US ---
Renal Sonogram Clinical Indications: Acute renal failure. Findings: The right kidney measures 5.2 x 5.4 x 10.4 cm with the cortex measuring 1.1 cm. No masses are identified, and there is no hydronephrosis. There are no pararenal lesions. The left kidney me asures 5.4 x 6.0 x 11.0 cm with the cortex measuring 1.0 cm. No masses are identified, and there is no hydronephrosis. There are no pararenal lesions. The bladder with the Estrada clamped had a volume of 148 mL. With the Estrada unclamped, the bladder was emptied. The bladder is sonographically unremarkable. Trace free fluid is present in the pelvis. Impression: Normal renal sonogram.
[2016-08-29 15:02] LABS: BASE EXCESS -1.9 mEq/L (-2.5-2.5); BICARBONATE 22 mEq/L (22-26); BIPAP YES; EXP PRESSURE 8; INSP PRESSURE 16; MEASURED OXYGEN SATURATION 89 % (92-95); PCO2 37 mmHg (34-38); PO2 63 mmHg (65-75); TCO2 23 mEq/L (23-27)
[2016-08-29 15:03] LABS: O2 CONCENTRATIION 100 % (0-100); P/F RATIO 63 RATIO
[2016-08-29] MEDS ORDERED: LIDOCAINE 1% 30 ML SDV MISC ONE (18:30)
[2016-08-29] MEDS ORDERED: LIDOCAINE 1% 30 ML SDV ONE (18:35)
[2016-08-29] MEDS ORDERED: HEPARIN 50,000 UNIT/10 ML VIAL ONE (18:55)
[2016-08-29 20:36] LABS: ALBUMIN 3.1 g/dL (3.5-5.0); ANION GAP 18 mEq/L (8-20); CALCIUM 7.9 mg/dL (8.5-10.4); CARBON DIOXIDE 26 mEq/l (22-31); CHLORIDE 113 mEq/L (97-110); CREATININE 2.3 mg/dL (0.7-1.3); GLOMERULAR FILTRATION RATE 29; GLUCOSE 126 mg/dL (70-100); SODIUM 153 mEq/L (134-144)
[2016-08-29] MEDS: MELATONIN 3 MG TAB TUBE SCH (21:50)
[2016-08-29] MEDS: ONDANSETRON 4 MG/2 ML VIAL IVP PRN (21:51)
[2016-08-29] MEDS: METOCLOPRAMIDE 10 MG/2 ML VIAL IVP PRN (21:51)
[2016-08-29] MEDS: HALOPERIDOL LACT 5 MG/ML INJ IVP PRN (21:51)
--- NOTE | 2016-08-29 22:28 | POSTOPPROG ---
Post Op Note Date of Operation: 08/29/16 Surgeon: Madi Levy Anesthesia: Local (Specify) Pre-op Diagnosis: renal failure Post-op Diagnosis: same Indication: pending dialysis Procedure: left femoral markurar temp dialysis cath Findings: good flow Inf/Abcess present in the surg proc area at time of surgery?: No Depth: Deep Incisional (Fascial) EBL: Minimal Complications: 0 Specimen(s): 0
--- NOTE | 2016-08-29 22:30 | SOAPPROG ---
SOAP Progress Note Assessment/Plan: Assessment: 66 MALE WITH SEVERE PEDAL VASOSPASM 2/2 HEART SURGERY AND PRESSORS/ NONDIABETIC FULL MOTOR FUNCTION BUT DECREASED SENSATION BILAT CREAT 1.6 LIMITING OUR ABILITY TO DO ANGIO PROCARDIA MAY NOT BE TOLERATED EITHER BOUNDING POPLITEAL PULSES BILAT Plan: ART STUDIES/ CONSIDER NITROPASTE/ MAY EVENTUALLY NEED ANGIO 08/28/16 17:33 08/29/16 22:28 seen this am/ toes still purple with no pedal pulses/ on pressors / creat upto 2.4 prognosis guarded Objective: Vital Signs Temp Pulse Resp BP Pulse Ox 37.9 C 108 H 22 H 99/56 L 99 08/29/16 22:00 08/29/16 22:00 08/29/16 22:00 08/29/16 22:00 08/29/16 22:00 Laboratory Results 08/29/16 04:15 08/29/16 19:25 08/28/16 08/29/16 08/30/16 05:59 05:59 05:59 Intake Total 200 3590 3228 Output Total 1979 2054 3760 Balance -1780 1535 -532 PT 20.4 SEC (12.0-15.0) H 08/28/16 14:20 INR 1.74 (0.83-1.16) H 08/28/16 14:20 ICD10 Worksheet Patient Problems: Problems Problem Status Diagnosed Acute blood loss anemia Acute S/P CABG x 5 Acute S/P Maze operation for atrial fibrillation Acute Coronary arteriosclerosis Acute
[2016-08-30] MEDS ORDERED: FUROSEMIDE 100 MG in D5W 100 ML IV SCH (01:30)
[2016-08-30] MEDS: HALOPERIDOL LACT 5 MG/ML INJ IVP PRN ×2 (02:13→21:43)
[2016-08-30 04:10] LABS: BICARBONATE 24 mEq/L (22-26); MEASURED OXYGEN SATURATION 93 % (92-95); PCO2 38 mmHg (34-38); PO2 74 mmHg (65-75); TCO2 25 mEq/L (23-27)
[2016-08-30 04:14] LABS: BIPAP YES; EXP PRESSURE 8; INSP PRESSURE 16; O2 CONCENTRATIION 65 % (0-100); P/F RATIO 113 RATIO; PATIENT RATE 40
[2016-08-30 05:29] LABS: % IMMATURE GRANULYOCYTES 1.8 % (0.0-1.1); ABSOLUTE NRBC COUNT 0.35 10^3/uL (0-0.01); ADD DIFF? NO; ADD MORPH? YES; ADD SCAN? YES; ATYPICAL LYMPHOCYTE FLAG 20 (0-99); FRAGMENT RBC FLAG 0 (0-99); HEMATOCRIT 33.6 % (40.0-51.0); HEMOGLOBIN 11.2 g/dL (13.7-17.5); LIPEMIA HEMOLYSIS FLAG 80 (0-99); MEAN CELL HEMOGLOBIN 32.4 pg (27.9-34.1); MEAN CELL HEMOGLOBIN CONCENTR. 33.3 g/dL (32.4-36.7); MEAN CELL VOLUME 97.1 fL (81.5-99.8); MEAN PLATELET VOLUME 11.3 fL (8.7-11.7); PLATELET CLUMPS FLAG 10 (0-99); PLATELET COUNT 184 10^3/uL (150-400); RED BLOOD CELL COUNT 3.46 10^6/uL (4.40-6.38); RED CELL DISTRIBUTION WIDTH 16.6 % (11.5-15.2)
[2016-08-30 05:45] LABS: LEFT SHIFT FLG 120 (0-99); NRBC-AUTO% 2.1 % (0.0-0.2)
[2016-08-30 06:12] LABS: ALANINE AMINOTRANSFERASE 205 IU/L (21-72); ALBUMIN 3.1 g/dL (3.5-5.0); ALKALINE PHOSPHATASE 84 IU/L (38-126); ANION GAP 19 mEq/L (8-20); ASPARTATE AMINOTRANSFERASE 135 IU/L (17-59); BILIRUBIN,TOTAL 4.1 mg/dL (0.1-1.4); BILIRUBIN-CONJUGATED 3.3 mg/dL (0.0-0.5); BILIRUBIN-UNCONJUGATED 0.8 mg/dL (0.0-1.1); CALCIUM 7.9 mg/dL (8.5-10.4); CARBON DIOXIDE 28 mEq/l (22-31); CHLORIDE 111 mEq/L (97-110); CREATININE 2.3 mg/dL (0.7-1.3); GLOMERULAR FILTRATION RATE 29; GLUCOSE 154 mg/dL (70-100); MAGNESIUM 3.6 mg/dL (1.6-2.3); POTASSIUM 3.6 mEq/L (3.5-5.2); SODIUM 154 mEq/L (134-144)
[2016-08-30] MEDS: HEPARIN 10,000 UNIT/10 ML MDV IVP PRN (06:35)
[2016-08-30 07:13] LABS: SCAN POSITIVE
[2016-08-30 07:19] LABS: MACROCYTES 1+; PLATELET ESTIMATE ADEQUATE (ADEQ); POLYCHROMASIA 2+
--- NOTE | 2016-08-30 07:22 | SOAPPROG ---
SOAP Progress Note Assessment/Plan: POD#8: CABGx5 (GANN-LAD, EBONY-D1, SVG-LAD, Sequential SVG-PDA-PL), Padilla-Maze IV Left/Right lesions Unstable angina, severe 3VD s/p CABGx5 with post-operative cardiac shock requiring pressors/inotropes - Wean dopamine as tolerated - LHC on 08/26 showed patent RCA, stable LV function - ASA/Plavix when taking PO Long-standing persistent atrial fibrillation s/p Padilla-Maze IV - Intrinsic JR, will continue to atrial pace, possible PPM in future - On heparin gtt for B/L arterial occlusions ARF - Groin HD catheter placed 08/29 for expected HD need - Continue Lasix gtt for now as responding well - Monitor renal function - Minimize intake by concentrating gtts Post-op moderate-severe MR with structurally intact valve - No need for surgical repair at this time Anemia secondary to critical illness - H/H drifting lower without signs of bleeding - will continue to monitor and transfuse as needed Reintubation x2 secondary to combativeness, extubated 08/27, now on BiPAP with reduction in O2 needs - Wean as tolerated ICM with inferior wall hypokinesis and EF of 40-45% - Continue dopamine for inotropic support - Fluids/Lasix prn - ACEi when appropriate Thrombocytopenia - Platelets trending higher - HIT panel negative Dysphagia - Tube feeds / plan for future swallow study Acute B/L anterior and posterior tibial artery occlusions - Continue heparin gtt - Angiogram limited by renal failure 08/30/16 07:33 Subjective: Follows commands. Objective: Vital Signs Temp Pulse Resp BP Pulse Ox 37.8 C 90 30 H 105/61 95 08/30/16 07:00 08/30/16 07:00 08/30/16 07:00 08/30/16 07:00 08/30/16 07:00 Laboratory Results 08/30/16 05:20 08/30/16 05:20 08/29/16 08/30/16 08/31/16 05:59 05:59 05:59 Intake Total 3590 4263 Output Total 4886 2163 125 Balance 1535 -527 -125 PT 20.4 SEC (12.0-15.0) H 08/28/16 14:20 INR 1.74 (0.83-1.16) H 08/28/16 14:20 Physical Exam - Physical Exam General Appearance: mild distress, obtunded Respiratory: respiratory distress Cardiac/Chest: other (JR ) Abdomen: soft Skin: mottled (B/L Feet ) Neuro/Psych: other (Moves all extremities ) ICD10 Worksheet Patient Problems: Problems Problem Status Diagnosed Acute blood loss anemia Acute S/P CABG x 5 Acute S/P Maze operation for atrial fibrillation Acute Coronary arteriosclerosis Acute
--- NOTE | 2016-08-30 08:04 | DX ---
Portable Chest August 30, 2016 0710 hours History: Respiratory distress. Comparison: August 29, 2016. Findings: Bilateral diffuse alveolar opacities with slight improvement in both lungs especially left upper lobe. Heart is normal in size. Feeding tube in the gastric fundus. Chest tube in the right mid thorax. Mediastinal drain mid thoracic region. Left arm PICC in the superior vena cava. Atrial append age clip noted. Mediastinal clips. Median sternotomy wires. Chest tube left lung base. Impression: 1. Multiple tubes and lines without pneumothorax. 2. Improving pulmonary edema pattern.
[2016-08-30] MEDS ORDERED: D5W 1,000 ML IV SCH (08:45)
--- NOTE | 2016-08-30 09:07 | PDINTPN ---
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 Atrial Paced. #RAHEL: Cr stable, urine output improved on lasix gtt. Suspect ATN. Near baseline weight. Na climbing #Mitral regurg post op, moderate-severe. Hemodynamics OK. Likely contributes to his acute respiratory failure. Respiratory Failure: Extubated, on BiPAP for over 24 hours. CXR looks better, Febrile. ? cardiogenic edema vs. pneumonia vs. aspiration vs. non-cardiogenic edema from SIRS. Hypotension: Stable, on DA at 6. CI a bit higher. Filling pressures high-normal Elevated LFTs: Likely due to shock. Improving. Elevated WBC: Back up today. No signs of active infection. Continues to have low -grade fever Thrombocytopenia: Improved. Right foot ischemia: Likely due to spasm/embolism/thrombosis at the ankle. On Heparin Plan: Continue lasix gtt. Started D5 Stop Vanco (received 1g) Continue BiPAP, try Vapotherm. CXR in AM Intubate if respiratory status deteriorating D/W Dr. Thayer, Dr. Francois, Dr. Moore, RN, RT, family during multiple discussions. 45 min CC time 08/30/16 09:16 Subjective: Feels OK on BiPAP, denies pain. Objective: Vital Signs Temp Pulse Resp BP Pulse Ox 37.9 C 90 28 H 99/55 L 95 08/30/16 08:00 08/30/16 08:33 08/30/16 08:33 08/30/16 08:33 08/30/16 08:33 Laboratory Results 08/30/16 05:20 08/30/16 05:20 08/29/16 08/30/16 08/31/16 05:59 05:59 05:59 Intake Total 3590 2140.8 Output Total 2055 4790 225 Balance 1535 -2649.2 -225 PT 20.4 SEC (12.0-15.0) H 08/28/16 14:20 INR 1.74 (0.83-1.16) H 08/28/16 14:20 Laboratory Tests 08/30/16 04:00 pCO2 38 pO2 74 Total CO2 25 ABG pH 7.41 O2 Concentration % 65 Actual Respiration Rate 40 Set Respiration Rate 16 Expiratory Pressure 8 Inspiratory Pressure 16 Mode BiPAP YES CXR: Improved infiltrates. Images reviewed Physical Exam - Physical Exam General Appearance: alert EENT: normal ENT inspection Neck: normal inspection Respiratory: lungs clear, normal breath sounds Cardiac/Chest: regular rate, rhythm, No edema Abdomen: normal bowel sounds, non-tender, soft Skin: normal color, warm/dry Extremities: other (R foot cyanotic, cool) Neuro/Psych: alert, normal mood/affect, oriented x 3 ICD10 Worksheet Patient Problems: Problems Problem Status Diagnosed Acute blood loss anemia Acute S/P CABG x 5 Acute S/P Maze operation for atrial fibrillation Acute Coronary arteriosclerosis Acute
[2016-08-30] MEDS: LANSOPRAZOLE SUSP 30MG/10ML UDSYR (Adult) TUBE SCH (09:09)
[2016-08-30] MEDS: ASPIRIN 81 MG CHEWABLE TAB TUBE SCH (09:09)
[2016-08-30] MEDS: METOLAZONE 5 MG TAB TUBE SCH (09:13)
[2016-08-30] MEDS: CLOPIDOGREL BISULFATE 75 MG TAB TUBE SCH (09:13)
[2016-08-30] MEDS: SENNOSIDES 17.6 MG/10 ML UDL TUBE SCH ×2 (09:13→21:43)
[2016-08-30] MEDS ORDERED: POTASSIUM Cl (KCl) 20 MEQ/50 ML BAG IV ONE (09:23)
[2016-08-30] MEDS ORDERED: ALBUMIN 25% 50 ML IV ONE ×2 (09:26→16:30)
--- NOTE | 2016-08-30 09:33 | SOAPPROG ---
SOAP Progress Note Assessment/Plan: Assessment:Plan: ARF-most likely ATN given hospital course -non-oliguric -urine output increased overnite -suspect this represent a post-ATN diuresis as opposed to some response to his current therapies -I would continue current diuretic therapies -try to keep volume status stable the next 24 hours CV-still on Dopamine -will give albumin 25% x 1 -back off on diuretic therapy if CVP falls too low or if BP does not remain stable -will cap dopamine dose at 6mcg as guide to adjust diuretic or fluid management -discussed wit Dr. Nagy Hypernatremia-add back D5W -repeat labs at 2 pm Potassium-3.6 -will give 20mEq IV and recheck Hypermagnesemia Pulmonary-improved Access-leave lynnette in until it is clear that he will not need dialysis -he is still quite azotemic 08/30/16 09:27 Subjective: improved overnite Objective: Vital Signs Temp Pulse Resp BP Pulse Ox 38 C 90 28 H 103/62 94 08/30/16 09:00 08/30/16 09:00 08/30/16 09:00 08/30/16 09:00 08/30/16 09:00 Laboratory Results 08/30/16 05:20 08/30/16 05:20 08/29/16 08/30/16 08/31/16 05:59 05:59 05:59 Intake Total 3590 2140.8 Output Total 2055 4790 325 Balance 1535 -2649.2 -325 PT 20.4 SEC (12.0-15.0) H 08/28/16 14:20 INR 1.74 (0.83-1.16) H 08/28/16 14:20 Physical Exam - Physical Exam General Appearance: alert, no apparent distress, thin EENT: normal ENT inspection, other (BiPap) Neck: normal inspection Respiratory: decreased breath sounds, crackles, rales Cardiac/Chest: regular rate, rhythm, systolic murmur, friction rub Abdomen: normal bowel sounds Extremities: swelling (trace to 1+) ICD10 Worksheet Patient Problems: Problems Problem Status Diagnosed Acute blood loss anemia Acute S/P CABG x 5 Acute S/P Maze operation for atrial fibrillation Acute Coronary arteriosclerosis Acute
[2016-08-30] MEDS: POTASSIUM Cl (KCl) 100 ML IV SCH ×2 (10:36→23:27)
[2016-08-30] MEDS ORDERED: POTASSIUM Cl (KCl) 50 ML IV ONE (11:00)
--- NOTE | 2016-08-30 11:32 | SOAPPROG ---
SOAP Progress Note Assessment/Plan: Assessment: 66 MALE WITH SEVERE PEDAL VASOSPASM 2/2 HEART SURGERY AND PRESSORS/ NONDIABETIC FULL MOTOR FUNCTION BUT DECREASED SENSATION BILAT CREAT 1.6 LIMITING OUR ABILITY TO DO ANGIO PROCARDIA MAY NOT BE TOLERATED EITHER BOUNDING POPLITEAL PULSES BILAT Plan: ART STUDIES/ CONSIDER NITROPASTE/ MAY EVENTUALLY NEED ANGIO 08/28/16 17:33 08/29/16 22:28 seen this am/ toes still purple with no pedal pulses/ on pressors / creat upto 2.4 prognosis guarded 08/30/16 11:31 STILL WITH PURPLE TOES AND NO DOPPLER PEDAL FLOW/ CXR STILL PULMONARY EDEMA/ NO REAL OPTIONS FOR TOES/ CREAT 2.3 Objective: Vital Signs Temp Pulse Resp BP Pulse Ox 38.1 C 90 24 H 106/59 L 89 L 08/30/16 11:00 08/30/16 11:00 08/30/16 11:00 08/30/16 11:00 08/30/16 11:00 Laboratory Results 08/30/16 05:20 08/30/16 05:20 08/29/16 08/30/16 08/31/16 05:59 05:59 05:59 Intake Total 3590 2140.8 Output Total 3312 0848 655 Balance 1535 -2649.2 -655 PT 20.4 SEC (12.0-15.0) H 08/28/16 14:20 INR 1.74 (0.83-1.16) H 08/28/16 14:20 ICD10 Worksheet Patient Problems: Problems Problem Status Diagnosed Acute blood loss anemia Acute S/P CABG x 5 Acute S/P Maze operation for atrial fibrillation Acute Coronary arteriosclerosis Acute
[2016-08-30] MEDS: ERTAPENEM 0.5 GM in NS 100 ML IV SCH (14:49)
[2016-08-30 15:50] LABS: ANION GAP 19 mEq/L (8-20); CALCIUM 7.7 mg/dL (8.5-10.4); CARBON DIOXIDE 27 mEq/l (22-31); CHLORIDE 110 mEq/L (97-110); CREATININE 2.1 mg/dL (0.7-1.3); GLOMERULAR FILTRATION RATE 32; GLUCOSE 168 mg/dL (70-100); POTASSIUM 3.4 mEq/L (3.5-5.2); SODIUM 153 mEq/L (134-144)
[2016-08-30] MEDS ORDERED: ALBUMIN 25% 50 ML SOLN IV ONE (16:06)
[2016-08-30] MEDS: POTASSIUM Cl (KCl) 50 ML IV SCH (16:25)
[2016-08-30] MEDS: HEPARIN/DEXTROSE 500 ML IV SCH (17:36)
[2016-08-30 21:02] LABS: ALBUMIN 3.1 g/dL (3.5-5.0); ANION GAP 17 mEq/L (8-20); CALCIUM 7.7 mg/dL (8.5-10.4); CARBON DIOXIDE 29 mEq/l (22-31); CHLORIDE 109 mEq/L (97-110); CREATININE 2.2 mg/dL (0.7-1.3); GLOMERULAR FILTRATION RATE 30; GLUCOSE 152 mg/dL (70-100); POTASSIUM 3.6 mEq/L (3.5-5.2); SODIUM 151 mEq/L (134-144)
[2016-08-30 21:37] LABS: BASE EXCESS -0.2 mEq/L (-2.5-2.5); BICARBONATE 23 mEq/L (22-26); BIPAP YES; INSP PRESSURE 16; MEASURED OXYGEN SATURATION 89 % (92-95); PCO2 35 mmHg (34-38); PO2 63 mmHg (65-75); TCO2 24 mEq/L (23-27)
[2016-08-30 21:38] LABS: EXP PRESSURE 8; O2 CONCENTRATIION 100 % (0-100); P/F RATIO 63 RATIO
[2016-08-30] MEDS: MELATONIN 3 MG TAB TUBE SCH (21:44)
[2016-08-30] MEDS: ACETAMINOPHEN 325 MG TAB TUBE PRN (22:00)
[2016-08-30] MEDS: ALBUTEROL 3 ML DEYVIAL IH PRN (23:20)
[2016-08-31 06:05] LABS: ABSOLUTE NRBC COUNT 0.15 10^3/uL (0-0.01); ADD DIFF? YES; ADD MORPH? NO; ADD SCAN? NO; ATYPICAL LYMPHOCYTE FLAG 0 (0-99); FRAGMENT RBC FLAG 0 (0-99); HEMATOCRIT 33.2 % (40.0-51.0); HEMOGLOBIN 11.1 g/dL (13.7-17.5); LEFT SHIFT FLG 20 (0-99); LIPEMIA HEMOLYSIS FLAG 80 (0-99); MEAN CELL HEMOGLOBIN CONCENTR. 33.4 g/dL (32.4-36.7); MEAN CELL VOLUME 95.7 fL (81.5-99.8); MEAN PLATELET VOLUME 11.1 fL (8.7-11.7); NRBC-AUTO% 0.6 % (0.0-0.2); PLATELET CLUMPS FLAG 0 (0-99); PLATELET COUNT 223 10^3/uL (150-400); RED BLOOD CELL COUNT 3.47 10^6/uL (4.40-6.38); RED CELL DISTRIBUTION WIDTH 16.3 % (11.5-15.2)
[2016-08-31 06:17] LABS: ALBUMIN 3.1 g/dL (3.5-5.0); ANION GAP 16 mEq/L (8-20); CALCIUM 7.5 mg/dL (8.5-10.4); CARBON DIOXIDE 30 mEq/l (22-31); CHLORIDE 108 mEq/L (97-110); CREATININE 2.1 mg/dL (0.7-1.3); GLOMERULAR FILTRATION RATE 32; GLUCOSE 163 mg/dL (70-100); MAGNESIUM 3.5 mg/dL (1.6-2.3); POTASSIUM 3.3 mEq/L (3.5-5.2); SODIUM 151 mEq/L (134-144)
[2016-08-31 07:33] LABS: MACROCYTES 1+; MICROCYTES 1+; POLYCHROMASIA 2+
[2016-08-31 07:34] LABS: GIANT PLATELETS PRESENT; PLATELET ESTIMATE ADEQUATE (ADEQ)
--- NOTE | 2016-08-31 08:37 | SOAPPROG ---
SOAP Progress Note Assessment/Plan: Assessment: POD#10 CABGx5 (GANN-LCX, EBONY-D1, SVG-LAD, Sequential SVG-PDA-PLR), Padilla-Maze IV Left/Right lesions. Nutrition per DHT. IV access per LUE PICC. Temp dialysis cath LFV Sx CAD with ISCM (EF 40-45%) - s/p CABGx5 with bilateral mammaries. Small and diffusely diseased target vessels. Early postop course complicated by cardiogenic shock with multi-organ dysfx, severe MR, and peripheral vasoconstriction. Hemodynamics stabilized on vasoactive support w temporary improvement in hepatorenal and respiratory function as well as transient recovery of foot perfusion as pressor support lightened. Remains on low dose dopa with tenuous pulm and renal fx, deterioration in rt foot ischemia. Chest tubes out. A&V wires intact. Long-standing persistent atrial fibrillation - s/p Padilla-Maze IV. Intrinsic rhythm accl junctional 70s-80s and Apaced for optimized hemodynamics. Surgical antithrombotic prophylaxis with DAPT as BOONE excluded. Postoperative respiratory failure - Reintubated twice. Initially for agitation/ combativeness with metabolic acidosis; more recently for pulm edema assoc w MR. Re-extubated /. Covered with broad spectrum Abx. Aspiration precautions instituted. ? SIRS. Low grade temp and elev WBC persist. Remains on high flow O2 with BiPAP. Postoperative RAHEL - Secondary to shock and ATN. Nephrology following. Post-op moderate-severe MR - Functional. Valve structurally intact by serial echos. Cath neg for compromised paras flow or RHF. Surg repair deferred. Congestive hepatopathy - Transaminitis and coagulopathy +/- met acidosis. LFTs better with improved rt heart fx. Care with anticoagulation/sedation. Acute expected blood loss anemia with thrombocytopenia and coagulopathy - Stable s/p 3u PRBC. No evidence active bleeding. HIT Ab neg. IV hep initiated for worsened foot perfusion, suggestion of thrombosis below ankle level. Heme no longer following. Postoperative pedal ischemia - Vasospasm vs sm vessel thrombosis. Angiogram as allowed by renal fx. Vasodilator as allowed by BP. IV hep + DAPT for now. Gen surg following. Plan: Supportive care as per multidisciplinary team. Adjustments in fluid balance per ICU and nephrology. 08/31/16 08:32 Subjective: Awake, alert, calm on BiPAP. Responsive to simple questions. Eye contact. Nods head. Thumbs up sign. Objective: Vital Signs Temp Pulse Resp BP Pulse Ox 37.7 C 90 26 H 117/70 95 08/31/16 06:00 08/31/16 06:00 08/31/16 06:00 08/31/16 06:00 08/31/16 06:00 Laboratory Results 08/31/16 05:50 08/31/16 05:50 08/30/16 08/31/16 09/01/16 05:59 05:59 05:59 Intake Total 2140.8 4907 Output Total 4790 3415 250 Balance -2649.2 1492 -250 PT 20.4 SEC (12.0-15.0) H 08/28/16 14:20 INR 1.74 (0.83-1.16) H 08/28/16 14:20 CXR -> worsened interstitial infiltrates. 4L in despite concentrated drips. Physical Exam - Physical Exam General Appearance: alert, no apparent distress Respiratory: other (CT sites clean and moist) Cardiac/Chest: regular rate, rhythm, other (Sternum grossly stable. Sternotomy and LLE venotomy CDI) Peripheral Pulses: 0: dorsalis-pedis (L) (PT palpable) Abdomen: normal bowel sounds, non-tender, soft Skin: warm/dry, mottled (cool swollen feet; purpuric rt toes) Extremities: swelling (1+ dep) ICD10 Worksheet Patient Problems: Problems Problem Status Diagnosed Acute blood loss anemia Acute S/P CABG x 5 Acute S/P Maze operation for atrial fibrillation Acute Coronary arteriosclerosis Acute
--- NOTE | 2016-08-31 08:59 | PDINTPN ---
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 Atrial Paced. #RAHEL: BIN, Cr, urine output improved on lasix gtt. Suspect ATN. Near baseline weight. Na down a bit with D5 #Mitral regurg post op, moderate-severe. Hemodynamics OK. Likely contributes to his acute respiratory failure. Respiratory Failure: Extubated, on BiPAP for over 48 hours, briefly tolerated Vapotherm. CXR looks a bit worse, Febrile. ? cardiogenic edema vs. pneumonia vs. aspiration vs. non-cardiogenic edema from SIRS. Hypotension: Stable, on DA at 3. CVP 15 Elevated LFTs: Likely due to shock. Improving. Elevated WBC: Back up today. No signs of active infection. Continues to have low -grade fever Thrombocytopenia: Improved. Right foot ischemia: Likely due to spasm/embolism/thrombosis at the ankle. On Heparin/ASA/Plavix Plan: Continue lasix gtt. Started D5. Goal is negative fluid balance. Continue BiPAP, try Vapotherm. CXR in AM Intubate if respiratory status deteriorating 40 min CC time 08/31/16 09:01 Subjective: Breathing feels OK this AM on BiPAP. Denies pain. Objective: Vital Signs Temp Pulse Resp BP Pulse Ox 37.7 C 90 26 H 117/70 95 08/31/16 06:00 08/31/16 06:00 08/31/16 06:00 08/31/16 06:00 08/31/16 06:00 Laboratory Results 08/31/16 05:50 08/31/16 05:50 08/30/16 08/31/16 09/01/16 05:59 05:59 05:59 Intake Total 2140.8 4907 Output Total 4790 3415 250 Balance -2649.2 1492 -250 PT 20.4 SEC (12.0-15.0) H 08/28/16 14:20 INR 1.74 (0.83-1.16) H 08/28/16 14:20 CXR: Increased bilateral infiltrates Physical Exam - Physical Exam General Appearance: alert, no apparent distress EENT: normal ENT inspection Neck: normal inspection Respiratory: crackles Cardiac/Chest: regular rate, rhythm, No edema Abdomen: normal bowel sounds, non-tender Skin: normal color, warm/dry Extremities: No normal inspection (little change in cool, mottled right forefoot ) Neuro/Psych: alert, normal mood/affect ICD10 Worksheet Patient Problems: Problems Problem Status Diagnosed Acute blood loss anemia Acute S/P CABG x 5 Acute S/P Maze operation for atrial fibrillation Acute Coronary arteriosclerosis Acute
--- NOTE | 2016-08-31 09:15 | SOAPPROG ---
IVANA Progress Note Assessment/Plan: Assessment/Plan: 66 Y M s/p CABG x 5, multiple issues, now with severe pedal vasospasm while on pressors and B R>L LE ischemia. R foot looks worse today according to previous markings on dorsum of foot. No R PT or DP pulses found on doppler exam. He will eventually need some kind of amputation--toes, vs TMA, vs BKA unclear now. Will need to watch and allow to further demarcate. L foot with audible PT and DP pulses on doppler. Still with some ischemic changes of distal foot and toes, but not as severe as R foot. So far this appears viable. Both sides continue to have excellent popliteal pulses. Angiography options are limited 2/2 renal function. Long discussion with pt, his , Dr. Alvarez and myself. 08/31/16 09:10 Objective: Vital Signs Temp Pulse Resp BP Pulse Ox 37.7 C 90 26 H 117/70 95 08/31/16 06:00 08/31/16 06:00 08/31/16 06:00 08/31/16 06:00 08/31/16 06:00 Laboratory Results 08/31/16 05:50 08/31/16 05:50 08/30/16 08/31/16 09/01/16 05:59 05:59 05:59 Intake Total 2140.8 4907 Output Total 4790 3415 250 Balance -2649.2 1492 -250 PT 20.4 SEC (12.0-15.0) H 08/28/16 14:20 INR 1.74 (0.83-1.16) H 08/28/16 14:20 ICD10 Worksheet Patient Problems: Problems Problem Status Diagnosed Acute blood loss anemia Acute S/P CABG x 5 Acute S/P Maze operation for atrial fibrillation Acute Coronary arteriosclerosis Acute
[2016-08-31] MEDS: ASPIRIN 81 MG CHEWABLE TAB TUBE SCH (09:36)
[2016-08-31] MEDS: METOLAZONE 5 MG TAB TUBE SCH (09:37)
[2016-08-31] MEDS: SENNOSIDES 17.6 MG/10 ML UDL TUBE SCH ×3 (09:37→21:38)
[2016-08-31] MEDS: LANSOPRAZOLE SUSP 30MG/10ML UDSYR (Adult) TUBE SCH (09:37)
[2016-08-31] MEDS: CLOPIDOGREL BISULFATE 75 MG TAB TUBE SCH (09:37)
[2016-08-31] MEDS: POTASSIUM Cl (KCl) 100 ML IV SCH ×4 (09:43→12:43)
--- NOTE | 2016-08-31 10:03 | SOAPPROG ---
SOAP Progress Note Assessment/Plan: Assessment/Plan: RAHEL: Cr down to 2.1, has abundant UOP, electrolytes ok. - No emergent need for HD at this time. - Would keep temp cath in through the weekend in case he requires HD. - Will continue to monitor. Hypokalemia: in setting of getting Lasix and with renal recovery. - Will give KCl 40meq today. - Will continue to monitor. Hypernatremia: free water deficit is appx 3.9L. - Will continue D5W at about 150ml/hr (when combining D5W and heparin ggt). - Will recheck this afternoon and adjust free water replacement as needed. Hypervolemia: Pt on Lasix ggt and responding well. Subjective: Pt remains on BiPAP as O2 sats remained marginal last night. He is having abundant UOP, over 3L, with Lasix. He denies having any pain, but stomach is a bit upset. Objective: Vital Signs Temp Pulse Resp BP Pulse Ox 37.7 C 90 26 H 117/70 95 08/31/16 06:00 08/31/16 06:00 08/31/16 06:00 08/31/16 06:00 08/31/16 06:00 Laboratory Results 08/31/16 05:50 08/31/16 05:50 08/30/16 08/31/16 09/01/16 05:59 05:59 05:59 Intake Total 2140.8 4907 Output Total 4790 3415 250 Balance -2649.2 1492 -250 PT 20.4 SEC (12.0-15.0) H 08/28/16 14:20 INR 1.74 (0.83-1.16) H 08/28/16 14:20 General: awake, alert, no acute distress Eyes: EOMI, PERRL CV: RRR Resp: bronchial breath sounds throughout, on BIPAP Abd: Soft, NT/ND Ext: +2 edema BLE Neuro: CN II-XII grossly intact, no asterixis Psych: cooperative, appropriate mood and affect ICD10 Worksheet Patient Problems: Problems Problem Status Diagnosed Acute blood loss anemia Acute S/P CABG x 5 Acute S/P Maze operation for atrial fibrillation Acute Coronary arteriosclerosis Acute
--- NOTE | 2016-08-31 10:13 | DX ---
Portable Chest August 31, 2016 0625 hours History: Follow up diffuse opacities. Comparison: Portable chest August 30, 2016 and August 29, 2016. Findings: Chest tubes have been removed. Right PICC tip is at the cavoatrial junction. Feeding tube tip extends off the inferior margin of the study. There is slight increase in diffuse bilateral conso lidation with sparing of the periphery. No visible pneumothorax. Sternotomy wires and left atrial candido endage clip are noted. The bones are stable. Impression: Slight increase in diffuse bilateral consolidation, which could be related to pulmonary edema or less likely pneumonia.
[2016-08-31] MEDS: ERTAPENEM 0.5 GM in NS 100 ML IV SCH (13:28)
[2016-08-31 16:45] LABS: ANION GAP 19 mEq/L (8-20); CALCIUM 7.4 mg/dL (8.5-10.4); CARBON DIOXIDE 30 mEq/l (22-31); CHLORIDE 107 mEq/L (97-110); CREATININE 1.8 mg/dL (0.7-1.3); GLOMERULAR FILTRATION RATE 38; GLUCOSE 123 mg/dL (70-100); POTASSIUM 3.6 mEq/L (3.5-5.2); SODIUM 152 mEq/L (134-144)
[2016-08-31] MEDS: MELATONIN 3 MG TAB TUBE SCH ×2 (20:58→21:39)
[2016-08-31] MEDS: ACETAMINOPHEN 325 MG TAB TUBE PRN (21:16)
[2016-08-31] MEDS: HALOPERIDOL LACT 5 MG/ML INJ IVP PRN (21:39)
[2016-09-01] MEDS: HALOPERIDOL LACT 5 MG/ML INJ IVP PRN ×2 (01:15→13:53)
[2016-09-01] MEDS: HEPARIN/DEXTROSE 500 ML IV SCH ×2 (04:14→15:47)
[2016-09-01 04:23] LABS: ABSOLUTE NRBC COUNT 0.06 10^3/uL (0-0.01); ADD DIFF? YES; ADD MORPH? NO; ADD SCAN? NO; ATYPICAL LYMPHOCYTE FLAG 0 (0-99); FRAGMENT RBC FLAG 0 (0-99); HEMATOCRIT 33.3 % (40.0-51.0); HEMOGLOBIN 11.2 g/dL (13.7-17.5); LEFT SHIFT FLG 10 (0-99); LIPEMIA HEMOLYSIS FLAG 80 (0-99); MEAN CELL HEMOGLOBIN 32.5 pg (27.9-34.1); MEAN CELL HEMOGLOBIN CONCENTR. 33.6 g/dL (32.4-36.7); MEAN CELL VOLUME 96.5 fL (81.5-99.8); MEAN PLATELET VOLUME 11.4 fL (8.7-11.7); NRBC-AUTO% 0.2 % (0.0-0.2); PLATELET CLUMPS FLAG 0 (0-99); PLATELET COUNT 252 10^3/uL (150-400); RED BLOOD CELL COUNT 3.45 10^6/uL (4.40-6.38); RED CELL DISTRIBUTION WIDTH 15.9 % (11.5-15.2)
[2016-09-01 04:53] LABS: ALBUMIN 2.9 g/dL (3.5-5.0); ANION GAP 17 mEq/L (8-20); CALCIUM 7.5 mg/dL (8.5-10.4); CARBON DIOXIDE 32 mEq/l (22-31); CHLORIDE 104 mEq/L (97-110); CREATININE 1.8 mg/dL (0.7-1.3); GLOMERULAR FILTRATION RATE 38; GLUCOSE 143 mg/dL (70-100); MAGNESIUM 3.3 mg/dL (1.6-2.3); POTASSIUM 3.3 mEq/L (3.5-5.2); SODIUM 150 mEq/L (134-144)
[2016-09-01 05:37] LABS: GIANT PLATELETS PRESENT; LARGE PLATELETS PRESENT; PLATELET ESTIMATE ADEQUATE (ADEQ)
[2016-09-01 05:38] LABS: HYPOCHROMIA 1+; MACROCYTES 1+; POLYCHROMASIA 1+
--- NOTE | 2016-09-01 08:19 | DX ---
Portable chest x-ray 0707 hours. History: Change in respiratory status. Findings: Comparison to August 31, 2016. Heart size remains mildly enlarged. Pulmonary vasculature is prominent centrally. Moderate bilateral alveolar infiltrates are stable. There are no significant effusions. Feeding tube tip is in the gastr ic body. PICC line remains in place from left arm approach. Impression: 1. Stable moderate bilateral alveolar infiltrates compatible with pulmonary edema or possibly drug re action, pneumonia, hypersensitivity pneumonitis, or diffuse alveolar hemorrhage.
--- NOTE | 2016-09-01 08:51 | SOAPPROG ---
SOAP Progress Note Assessment/Plan: Assessment: POD#11 CABGx5 (GANN-LCX, EBONY-D1, SVG-LAD, Sequential SVG-PDA-PLR), Padilla-Maze IV Left/Right lesions. Nutrition per DHT. IV access per LUE PICC. D3 Temp dialysis cath LFV. Sx CAD with ISCM (EF 40-45%) - s/p CABGx5 with bilateral mammaries. Small and diffusely diseased target vessels. Early postop course complicated by cardiogenic shock with multi-organ dysfx, severe MR, and peripheral vasoconstriction. Hemodynamics stabilized on vasoactive support w temporary improvement in hepatorenal and respiratory function as well as transient recovery of foot perfusion as pressor support lightened. Remains on low dose dopa with tenuous pulm and renal fx as well as deterioration in rt foot ischemia. Chest tubes out. A&V wires intact. Long-standing persistent atrial fibrillation - s/p Padilla-Maze IV. Intrinsic rhythm progression from junct to accl junctional to sinus. No longer Apaced. Surgical antithrombotic prophylaxis with DAPT as BOONE excluded. Postoperative respiratory failure - Reintubated twice. Initially for agitation/ combativeness with metabolic acidosis; more recently for pulm edema assoc w Re-extubated 12/6. Maintained on BiPAP. Covered with broad spectrum Abx. Aspiration precautions instituted. ? SIRS. Low grade temp and elev WBC persist. Postoperative RAHEL - Secondary to shock and ATN. Nephrology following and assisting with lasix gtt and fluid/electrolyte management. HD not yet needed. Post-op moderate-severe MR - Functional. Valve structurally intact by serial echos. Cath neg for compromised paras flow or RHF. Surg repair deferred. Congestive hepatopathy - Transaminitis and coagulopathy +/- met acidosis. LFTs better with improved rt heart fx. Care with anticoagulation/sedation. Acute expected blood loss anemia with thrombocytopenia and coagulopathy - Stable s/p 3u PRBC. No evidence active bleeding. HIT Ab neg. IV hep initiated for worsened foot perfusion, suggestion of thrombosis below ankle level. Heme no longer following. Postoperative pedal ischemia - Vasospasm compl by sm vessel thrombosis. Appears to be demarcating rt forefoot and left toes. Contrast imaging as allowed by renal fx. Vasodilator as allowed by BP. IV hep + DAPT for now. Gen surg following. Plan: TCPWs removed. Supportive care as per multidisciplinary team. Adjustments in fluid balance per ICU and nephrology. 09/01/16 08:47 Subjective: On BiPAP. Sleepy but arousable and cooperative. "Flipped on night and day" per . Wide awake and agitated last evening, calming down in the truant officer and now wanting to sleep. Objective: Vital Signs Temp Pulse Resp BP Pulse Ox 37.5 C 89 24 H 117/68 91 L 09/01/16 08:00 09/01/16 08:00 09/01/16 08:00 09/01/16 08:00 09/01/16 08:00 Laboratory Results 09/01/16 04:00 09/01/16 04:00 08/31/16 09/01/16 09/02/16 05:59 05:59 05:59 Intake Total 4907 3793 Output Total 3415 5300 360 Balance 1492 -1507 -360 PT 20.4 SEC (12.0-15.0) H 08/28/16 14:20 INR 1.74 (0.83-1.16) H 08/28/16 14:20 Lasix, dopa, heparin, D5W drips. Ertapenem. Cessation of backup pacing last noc. Holding rates upper 80s. Improved fluid balance. CXR->unchanged. Improved pulses left foot. Physical Exam - Physical Exam General Appearance: no apparent distress Respiratory: other (coarse BS) Cardiac/Chest: regular rate, rhythm, other (Sternum grossly stable. Sternotomy and LLE venotomy CDI. A&V wires removed without difficulty) Peripheral Pulses: 0: dorsalis-pedis (L) (dopplerable DP, bounding PT) Abdomen: distended (flatus with palpation) Skin: warm/dry (except for rt foot), mottled (feet) Extremities: swelling (1+ low legs) ICD10 Worksheet Patient Problems: Problems Problem Status Diagnosed Acute blood loss anemia Acute S/P CABG x 5 Acute S/P Maze operation for atrial fibrillation Acute Coronary arteriosclerosis Acute
--- NOTE | 2016-09-01 08:54 | PDINTPN ---
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 Suspect ATN. Near baseline weight. Na down a bit with D5+heparin #Mitral regurg post op, moderate-severe. Hemodynamics OK. Likely contributes to his acute respiratory failure. Respiratory Failure: Extubated, on BiPAP with just brief breaks since 08/29, briefly tolerates Vapotherm. CXR looks about the same. Still with low grade fevers. ? cardiogenic edema vs. pneumonia vs. aspiration vs. non-cardiogenic edema from SIRS. Hypotension: Stable, on DA at 3. CVP 14 Elevated LFTs: Likely due to shock. Improving. Elevated WBC: Back up today. No signs of active infection. Continues to have low -grade fever Thrombocytopenia: Improved. Right foot ischemia: Likely due to spasm/embolism/thrombosis at the ankle. On Heparin/ASA/Plavix Plan: Continue lasix gtt. Started D5. Goal is negative fluid balance. Probably can take dialysis line out. Will stop Ertapenam. Continue BiPAP, try Vapotherm. CXR in AM Intubate if respiratory status deteriorating 45 min CC time 09/01/16 08:57 Subjective: Dyspneic with taking off the BiPAP mask. Denies pain. Objective: Vital Signs Temp Pulse Resp BP Pulse Ox 37.5 C 89 24 H 117/68 91 L 09/01/16 08:00 09/01/16 08:00 09/01/16 08:00 09/01/16 08:00 09/01/16 08:00 Laboratory Results 09/01/16 04:00 09/01/16 04:00 08/31/16 09/01/16 09/02/16 05:59 05:59 05:59 Intake Total 4907 3793 Output Total 3415 5300 360 Balance 1492 -1507 -360 PT 20.4 SEC (12.0-15.0) H 08/28/16 14:20 INR 1.74 (0.83-1.16) H 08/28/16 14:20 CXR: Stable infiltrates. Images reviewed Physical Exam - Physical Exam General Appearance: alert, no apparent distress EENT: normal ENT inspection Neck: normal inspection Respiratory: rales Cardiac/Chest: regular rate, rhythm, edema Abdomen: normal bowel sounds, non-tender Skin: normal color, warm/dry Extremities: other (no change in R>L foot ischemia) Neuro/Psych: alert, normal mood/affect, oriented x 3 ICD10 Worksheet Patient Problems: Problems Problem Status Diagnosed Acute blood loss anemia Acute S/P CABG x 5 Acute S/P Maze operation for atrial fibrillation Acute Coronary arteriosclerosis Acute
--- NOTE | 2016-09-01 09:22 | SOAPPROG ---
SOAP Progress Note Assessment/Plan: Assessment/Plan: RAHEL: Cr down to 1.8, has abundant UOP, electrolytes ok. - No emergent need for HD at this time, unlikely to need it. - Ok to remove dialysis catheter. - Will continue to monitor. Hypokalemia: in setting of getting Lasix and with renal recovery. - Will give KCl 40meq today. - Will continue to monitor. Hypernatremia: Na slowly downtrending to 150 today, free water deficit is appx 3.6L. - Will continue D5W at about 125ml/hr (when combining D5W and heparin ggt). - Will recheck this afternoon and adjust free water replacement as needed. Hypervolemia: Pt on Lasix ggt and responding well. Subjective: No acute events overnight. Pt was mostly restless last night, did not sleep well. He is off pacer since yesterday evening. Objective: Vital Signs Temp Pulse Resp BP Pulse Ox 37.5 C 87 24 H 111/67 91 L 09/01/16 09:00 09/01/16 09:00 09/01/16 09:00 09/01/16 09:00 09/01/16 09:00 Laboratory Results 09/01/16 04:00 09/01/16 04:00 08/31/16 09/01/16 09/02/16 05:59 05:59 05:59 Intake Total 4907 3793 Output Total 3415 5300 360 Balance 1492 -1507 -360 PT 20.4 SEC (12.0-15.0) H 08/28/16 14:20 INR 1.74 (0.83-1.16) H 08/28/16 14:20 General: awake, alert, no acute distress Eyes: EOMI, PERRL CV: RRR Resp: on BiPAP Abd: Soft, NT Ext: +2 edema BLE Neuro: CN II-XII grossly intact, no asterixis ICD10 Worksheet Patient Problems: Problems Problem Status Diagnosed Acute blood loss anemia Acute S/P CABG x 5 Acute S/P Maze operation for atrial fibrillation Acute Coronary arteriosclerosis Acute
--- NOTE | 2016-09-01 09:39 | SOAPPROG ---
SOAP Progress Note Assessment/Plan: Assessment: 66 y/o man with multivessel CAD POD #11 for CABG with respiratory failure multifactorial, LVEF 43%, new moderate to severe MR, anxiety and ARF. He is slowly improving. CVP 17>>13. Pt feels a little stronger but still significant weakness and shortness of breath at rest. PLAN: 1)no change in current meds. 2)eventually try ACEI and/or Coreg once off IV Dopamine and renal function better. 3)anxiety, sleep deprivation and respiratory effort all being managed closely. 4)discussed with Pulm/ICU-Dr. Nagy and CVS team. 09/01/16 09:36 Subjective: feels a little better than yesterday. Still on BIPAP. Denies chest pressure or nausea. Short of breath at rest. Objective: Vital Signs Temp Pulse Resp BP Pulse Ox 37.5 C 87 24 H 111/67 91 L 09/01/16 09:00 09/01/16 09:00 09/01/16 09:00 09/01/16 09:00 09/01/16 09:00 Laboratory Results 09/01/16 04:00 09/01/16 04:00 08/31/16 09/01/16 09/02/16 05:59 05:59 05:59 Intake Total 4907 3793 Output Total 3415 5300 360 Balance 1492 -1507 -360 PT 20.4 SEC (12.0-15.0) H 08/28/16 14:20 INR 1.74 (0.83-1.16) H 08/28/16 14:20 Physical Exam - Physical Exam General Appearance: moderate distress EENT: PERRL/EOMI Neck: non-tender Respiratory: rales Cardiac/Chest: regular rate, rhythm, gallop, systolic murmur Abdomen: non-tender Skin: warm/dry Extremities: pedal edema Neuro/Psych: alert ICD10 Worksheet Patient Problems: Problems Problem Status Diagnosed Acute blood loss anemia Acute S/P CABG x 5 Acute S/P Maze operation for atrial fibrillation Acute Coronary arteriosclerosis Acute
[2016-09-01] MEDS: FUROSEMIDE 100 MG in D5W 100 ML IV SCH ×2 (10:40→22:16)
[2016-09-01] MEDS: POTASSIUM Cl (KCl) 100 ML IV SCH ×2 (10:42→10:53)
[2016-09-01] MEDS: ALBUMIN 25% 100 ML IV SCH ×3 (10:44→17:14)
--- NOTE | 2016-09-01 10:49 | SOAPPROG ---
IVANA Progress Note Assessment/Plan: Assessment/Plan: 66 Y M s/p CABG x 5, multiple issues, now with severe pedal vasospasm while on pressors and B R>L LE ischemia. Also seen and examined by Dr. Levy earlier this am. Not much change in pedal ischemia from yesterday. Dr. Levy reviewed arterial studies which show good flow down to the ankle, then flatten. Suspect eventual need for amputation on the R--unclear at what level at this time. Will continue to allow this to demarcate. 09/01/16 10:47 Objective: Vital Signs Temp Pulse Resp BP Pulse Ox 37.7 C 89 28 H 114/69 93 09/01/16 10:00 09/01/16 10:00 09/01/16 10:00 09/01/16 10:00 09/01/16 10:00 Laboratory Results 09/01/16 04:00 09/01/16 04:00 08/31/16 09/01/16 09/02/16 05:59 05:59 05:59 Intake Total 4907 3793 Output Total 3415 5300 660 Balance 1492 -1507 -660 PT 20.4 SEC (12.0-15.0) H 08/28/16 14:20 INR 1.74 (0.83-1.16) H 08/28/16 14:20 ICD10 Worksheet Patient Problems: Problems Problem Status Diagnosed Acute blood loss anemia Acute S/P CABG x 5 Acute S/P Maze operation for atrial fibrillation Acute Coronary arteriosclerosis Acute
[2016-09-01] MEDS: LANSOPRAZOLE SUSP 30MG/10ML UDSYR (Adult) TUBE SCH (10:51)
[2016-09-01] MEDS: METOLAZONE 5 MG TAB TUBE SCH (10:51)
[2016-09-01] MEDS: ASPIRIN 81 MG CHEWABLE TAB TUBE SCH (10:52)
[2016-09-01] MEDS: SENNOSIDES 17.6 MG/10 ML UDL TUBE SCH ×2 (10:52→21:31)
[2016-09-01] MEDS: CLOPIDOGREL BISULFATE 75 MG TAB TUBE SCH (10:52)
[2016-09-01] MEDS: ALBUTEROL 3 ML DEYVIAL IH PRN (15:24)
[2016-09-01] MEDS ORDERED: HALOPERIDOL LACT 5 MG/ML INJ IVP ONE (15:30)
[2016-09-01 16:27] LABS: ALBUMIN 3.1 g/dL (3.5-5.0); ASPARTATE AMINOTRANSFERASE 102 IU/L (17-59); BILIRUBIN,TOTAL 2.8 mg/dL (0.1-1.4); CARBON DIOXIDE 32 mEq/l (22-31); CREATININE 1.5 mg/dL (0.7-1.3); GLOMERULAR FILTRATION RATE 47; GLUCOSE 133 mg/dL (70-100); TOTAL PROTEIN 5.6 g/dL (6.3-8.2)
[2016-09-01 16:53] LABS: ALKALINE PHOSPHATASE 131 IU/L (38-126); ANION GAP 19 mEq/L (8-20); CALCIUM 7.7 mg/dL (8.5-10.4); CHLORIDE 102 mEq/L (97-110); POTASSIUM 3.4 mEq/L (3.5-5.2); SODIUM 150 mEq/L (134-144)
[2016-09-01] MEDS: ACETAMINOPHEN 325 MG TAB TUBE PRN (17:13)
[2016-09-01] MEDS: RISPERIDONE 1 MG/1 ML PO SCH (17:14)
[2016-09-01 17:15] LABS: ALANINE AMINOTRANSFERASE 101 IU/L (21-72); BILIRUBIN-CONJUGATED 1.9 mg/dL (0.0-0.5); BILIRUBIN-UNCONJUGATED 0.9 mg/dL (0.0-1.1)
[2016-09-01] MEDS ORDERED: POTASSIUM Cl (KCl) 20 MEQ/50 ML BAG IV ONE ×2 (17:58→22:38)
[2016-09-01] MEDS ORDERED: POTASSIUM Cl (KCl) 50 ML IV ONE ×2 (18:00)
[2016-09-01 20:40] LABS: POTASSIUM 3.8 mEq/L (3.5-5.2)
[2016-09-01] MEDS: MELATONIN 3 MG TAB TUBE SCH (21:30)
[2016-09-01] MEDS: ACETAMINOPHEN 650 MG/20.3 ML UDCUP TUBE PRN (23:00)
[2016-09-02 03:49] LABS: % IMMATURE GRANULYOCYTES 0.8 % (0.0-1.1); ABSOLUTE NRBC COUNT 0.02 10^3/uL (0-0.01); ADD DIFF? NO; ADD MORPH? NO; ADD SCAN? NO; ATYPICAL LYMPHOCYTE FLAG 0 (0-99); FRAGMENT RBC FLAG 0 (0-99); HEMOGLOBIN 9.3 g/dL (13.7-17.5); LEFT SHIFT FLG 10 (0-99); LIPEMIA HEMOLYSIS FLAG 80 (0-99); MEAN CELL HEMOGLOBIN 30.6 pg (27.9-34.1); MEAN CELL HEMOGLOBIN CONCENTR. 32.1 g/dL (32.4-36.7); MEAN CELL VOLUME 95.4 fL (81.5-99.8); MEAN PLATELET VOLUME 11.8 fL (8.7-11.7); NRBC-AUTO% 0.1 % (0.0-0.2); PLATELET CLUMPS FLAG 10 (0-99); PLATELET COUNT 264 10^3/uL (150-400); RED BLOOD CELL COUNT 3.04 10^6/uL (4.40-6.38); RED CELL DISTRIBUTION WIDTH 15.7 % (11.5-15.2)
[2016-09-02 04:11] LABS: ANION GAP 18 mEq/L (8-20); CALCIUM 7.1 mg/dL (8.5-10.4); CARBON DIOXIDE 32 mEq/l (22-31); CHLORIDE 98 mEq/L (97-110); CREATININE 1.6 mg/dL (0.7-1.3); GLOMERULAR FILTRATION RATE 44; GLUCOSE 344 mg/dL (70-100); MAGNESIUM 2.9 mg/dL (1.6-2.3); POTASSIUM 3.6 mEq/L (3.5-5.2); SODIUM 144 mEq/L (134-144)
[2016-09-02] MEDS: CLOPIDOGREL BISULFATE 75 MG TAB TUBE SCH (08:22)
[2016-09-02] MEDS: SENNOSIDES 17.6 MG/10 ML UDL TUBE SCH ×2 (08:22→21:50)
[2016-09-02] MEDS: ASPIRIN 81 MG CHEWABLE TAB TUBE SCH (08:22)
[2016-09-02] MEDS: METOLAZONE 5 MG TAB TUBE SCH (08:22)
[2016-09-02] MEDS: RISPERIDONE 1 MG/1 ML PO SCH ×2 (08:23→20:41)
--- NOTE | 2016-09-02 08:33 | SOAPPROG ---
SOAP Progress Note Assessment/Plan: POD#11: CABGx5 (GANN-LAD, EBONY-D1, SVG-LAD, Sequential SVG-PDA-PL), Padilla-Maze IV Left/Right lesions Drips: Dopamine 3 mcg/kg/min, Lasix 7 mg/h, heparin as per protocol Lines: LUE PICC (DAY 6), LFV HD catheter (Day 5), NGT Unstable angina, severe 3VD s/p CABGx5 with post-operative cardiac shock - Continue dopamine at 3 mcgs - LHC on 08/26 showed patent RCA, stable LV function - Continue ASA/Plavix Long-standing persistent atrial fibrillation s/p Padilla-Maze IV - SR - Antithrombotic therapy as per heparin gtt for B/L arterial occlusions ARF, recovering - Groin HD catheter placed 08/29 without ever being used - plan for removal - Continue Lasix gtt at 7 mg/h - Minimize intake by concentrating gtts Post-op moderate-severe MR with structurally intact valve - Deemed non-operative and stable as per multiple f/u ECHOs Anemia secondary to critical illness - Monitor and transfuse prn Reintubation x2 secondary to combativeness, extubated 08/27, now on BiPAP - Wean as tolerated ICM with inferior wall hypokinesis and EF of 40-45% - Continue dopamine for inotropic support - Fluids/Lasix as needed Thrombocytopenia - Platelets recovered, HIT negative -- heparin OK Dysphagia - Tube feeds / plan for future swallow study Acute B/L anterior and posterior tibial artery occlusions - Continue heparin gtt - Angiogram limited by renal failure - Eventual amputation plan determined by demarcation Subjective: Denies pain. Feeling OK. Objective: Vital Signs Temp Pulse Resp BP Pulse Ox 37.3 C 91 24 H 102/58 L 97 09/02/16 07:00 09/02/16 07:00 09/02/16 07:00 09/02/16 07:00 09/02/16 07:00 Laboratory Results 09/02/16 03:40 09/02/16 03:40 09/01/16 09/02/16 09/03/16 05:59 05:59 05:59 Intake Total 3793 3803 Output Total 5300 2860 65 Balance -1507 943 -65 PT 20.4 SEC (12.0-15.0) H 08/28/16 14:20 INR 1.74 (0.83-1.16) H 08/28/16 14:20 Physical Exam - Physical Exam General Appearance: alert, thin EENT: No scleral icterus (R), No scleral icterus (L) Neck: normal inspection Respiratory: lungs clear, respiratory distress, accessory muscle use, No crackles, No rhonchi, No wheezing Cardiac/Chest: regular rate, rhythm Abdomen: non-tender, soft, No distended Skin: normal color, warm/dry Extremities: other (R foot with ischemia up to mid-foot / L foot with ischemic toes ), No pedal edema, No swelling Neuro/Psych: alert, other (Moves all extremities ) ICD10 Worksheet Patient Problems: Problems Problem Status Diagnosed Acute blood loss anemia Acute S/P CABG x 5 Acute S/P Maze operation for atrial fibrillation Acute Coronary arteriosclerosis Acute
--- NOTE | 2016-09-02 09:03 | DX ---
Portable Chest, 8:52 a.m. Clinical Indications: Followup infiltrates Comparison: yesterday Findings: Bilateral alveolar type density with air bronchograms remain, consistent with pneumonia. Pr ogressive indistinctness of the diaphragms indicates worsening basilar aeration. Density at the later al bases suggests pleural effusion formation. The feeding tube remains in place with tip in the abdom en. A left arm PICC line remains in place with tip at the caval atrial junction. Median sternotomy wi res, CABG clips and an atrial appendage clip remain in place. EKG leads again overlie the chest. Impression: Progressive basilar density is likely a combination of atelectasis and pleural fluid.
--- NOTE | 2016-09-02 10:07 | SOAPPROG ---
IVANA Progress Note Assessment/Plan: Assessment: 66yo male s/p CABG, severe pedal vasospasm PE awake, follows basic motor commands LE Right worse than left ischemic changes over distal foot toes Left palpable PT, doppler DP, no palpable or doppler pulses on right, no signs of TTP Plan: continue to follow, will eventually need right foot toe amputation but will allow demarcation to occur which could take 1-3 weeks. If pt becomes septic or more pain in feet then surgery sooner. 09/02/16 10:03 Objective: Vital Signs Temp Pulse Resp BP Pulse Ox 37.9 C 92 27 H 113/52 L 99 09/02/16 09:00 09/02/16 09:00 09/02/16 09:00 09/02/16 09:00 09/02/16 09:00 Laboratory Results 09/02/16 03:40 09/02/16 03:40 09/01/16 09/02/16 09/03/16 05:59 05:59 05:59 Intake Total 3793 3803 Output Total 5300 2860 365 Balance -1507 943 -365 PT 20.4 SEC (12.0-15.0) H 08/28/16 14:20 INR 1.74 (0.83-1.16) H 08/28/16 14:20 ICD10 Worksheet Patient Problems: Problems Problem Status Diagnosed Acute blood loss anemia Acute S/P CABG x 5 Acute S/P Maze operation for atrial fibrillation Acute Coronary arteriosclerosis Acute
[2016-09-02] MEDS ORDERED: POTASSIUM Cl (KCl) 20 MEQ/100 ML BAG IV ONE (11:00)
[2016-09-02] MEDS ORDERED: POTASSIUM Cl (KCl) 20 MEQ/50 ML BAG IV ONE (11:22)
[2016-09-02] MEDS ORDERED: DILTIAZEM 25 MG/5 ML VIAL IVP ONE (11:34)
[2016-09-02] MEDS ORDERED: AMIODARONE HCL 150 MG/100 ML BAG (1.5 MG/ML) IV ONE (11:36)
[2016-09-02] MEDS ORDERED: ALBUMIN 5% 250 ML BOTTLE IV ONE ×2 (11:42→20:39)
[2016-09-02 11:47] LABS: BASE EXCESS 2.8 mEq/L (-2.5-2.5); BICARBONATE 30 mEq/L (22-26); MEASURED OXYGEN SATURATION 91 % (92-95); PCO2 67 mmHg (34-38); PO2 76 mmHg (65-75); TCO2 32 mEq/L (23-27)
[2016-09-02 11:49] LABS: BIPAP YES; EXP PRESSURE 12; INSP PRESSURE 18; O2 CONCENTRATIION 100 % (0-100); P/F RATIO 76 RATIO
[2016-09-02] MEDS ORDERED: LIDOCAINE 1% 30 ML SDV ONE (12:00)
[2016-09-02] MEDS ORDERED: AMIODARONE A.FIB-LOAD DOSE(ORDER 1/3) IV ONE ×2 (12:00)
[2016-09-02] MEDS ORDERED: LIDOCAINE 2% JELLY 5 ML TUBE ONE (12:00)
[2016-09-02] MEDS ORDERED: POTASSIUM Cl (KCl) 50 ML IV ONE (12:00)
[2016-09-02] MEDS ORDERED: AMIODARONE A.FIB-18HR INFSN (ORDER 3/3) IV ONE ×2 (12:00→17:00)
[2016-09-02] MEDS ORDERED: LIDOCAINE 1% 30 ML SDV IF ONE (12:00)
[2016-09-02] MEDS ORDERED: LIDOCAINE 2% 100 MG/5 ML SYR IVP ONE (12:00)
[2016-09-02] MEDS ORDERED: AMIODARONE A.FIB-6HR INFSN (ORDER 2/3) IV ONE (12:00)
[2016-09-02] MEDS ORDERED: ALBUMIN 5% 500 ML BOTTLE IV ONE (12:01)
[2016-09-02] MEDS ORDERED: LIDOCAINE 1% 5 ML SDV ONE (12:03)
[2016-09-02] MEDS ORDERED: LIDOCAINE 1% 2 ML INJ ONE (12:03)
--- NOTE | 2016-09-02 12:05 | CPIP ---
[f rep st] INVASIVE CARDIAC PROCEDURE DATE OF PROCEDURE: 08/29/2016 REPORT TITLE: Arterial noninvasive study. BODY AFTER REPORT TITLE: The patient is seen for noninvasive arterial studies. He demonstrates good Doppler waveforms down to the ankle area on the left with diminution at the ankle area on the right. However, his PVR tracings are excellent down to the ankle level bilaterally, with flatter tracings at the metatarsal and digital levels bilaterally. His TABATHA's are 0.54 on the right side and 1.1 on the left side. IMPRESSION: Significant distal tibial peroneal occlusions with bilateral feet ischemia, right worse than left. These tracings are consistent with the arterial ultrasound study he had previously. /[id number]/MODL MTDD
[2016-09-02] MEDS ORDERED: EPINEPHrine 1 MG/10 ML SYR IVP ONE (12:14)
[2016-09-02 13:08] LABS: BASE EXCESS -3.4 mEq/L (-2.5-2.5); BICARBONATE 24 mEq/L (22-26); HEMATOCRIT 27.4 % (40.0-51.0); MEAN CELL HEMOGLOBIN 32.4 pg (27.9-34.1); MEAN CELL HEMOGLOBIN CONCENTR. 32.8 g/dL (32.4-36.7); MEAN CELL VOLUME 98.6 fL (81.5-99.8); MEASURED OXYGEN SATURATION 90 % (92-95); PCO2 64 mmHg (34-38); PO2 79 mmHg (65-75); RED BLOOD CELL COUNT 2.78 10^6/uL (4.40-6.38); TCO2 26 mEq/L (23-27)
--- NOTE | 2016-09-02 13:08 | SOAPPROG ---
SOTRISTEN Progress Note Assessment/Plan: Assessment: somnolent, back off sedation Plan: 08/28/16 11:45 d/w wfe and son all questions addressed asked "is it possible the surgery was succesful but the pt ", responded that is possible but no where near that discussion and it will be lead by myself and dr yoder 08/29/16 13:08 d/w and son not sure reason for poor outcome'reviewed itraop perfusion and anesthesia, saw nothing out of ordinary could be MR as problem but CO and PAs suggested non-hemodynamic, too critically ill to consider repeat MVR at this time poor outcome likely but full support for now all questions addressed 09/02/16 13:04 pt w AFRVR, became hypotensive w Amio and attempted intubation w prolonged hypoxia w asystole/CPR now NSR, intubated neuro uncertain family present, updated will d/w me re future need to change DNR status, agree to full support for now. Living will/wishes w I will lead those discussions Objective: Vital Signs Temp Pulse Resp BP Pulse Ox 37.9 C 92 27 H 113/52 L 99 09/02/16 09:00 09/02/16 09:00 09/02/16 09:00 09/02/16 09:00 09/02/16 09:00 Laboratory Results 09/02/16 03:40 09/02/16 03:40 09/01/16 09/02/16 09/03/16 05:59 05:59 05:59 Intake Total 3793 3803 Output Total 5300 2860 365 Balance -1507 943 -365 PT 20.4 SEC (12.0-15.0) H 08/28/16 14:20 INR 1.74 (0.83-1.16) H 08/28/16 14:20 ICD10 Worksheet Patient Problems: Problems Problem Status Diagnosed Acute blood loss anemia Acute S/P CABG x 5 Acute S/P Maze operation for atrial fibrillation Acute Coronary arteriosclerosis Acute
[2016-09-02 13:09] LABS: O2 CONCENTRATIION 100 % (0-100); P/F RATIO 79 RATIO; PRESSURE SUPPORT 7; SIMV YES
[2016-09-02] MEDS: LANSOPRAZOLE SUSP 30MG/10ML UDSYR (Adult) TUBE SCH (13:27)
[2016-09-02] MEDS: POTASSIUM Cl (KCl) 100 ML IV SCH ×2 (13:27→13:37)
[2016-09-02] MEDS: ALBUMIN 25% 100 ML IV SCH (13:35)
[2016-09-02] MEDS: ALBUMIN 5% 250 ML IV PRN (13:35)
--- NOTE | 2016-09-02 13:35 | CPIP ---
[f rep st] INVASIVE CARDIAC PROCEDURE DATE OF PROCEDURE: 09/02/2016 CRITICAL CARE NOTE DATE OF CRITICAL CARE TIME: 09/02/2016. SUMMARY OF CRITICAL CARE: The patient is a 66-year-old gentleman who was admitted on 08/21/2016, with coronary artery disease. He underwent coronary artery bypass grafting x5 with a GANN to LAD graft, a EBONY to diagonal graft, a saphenous vein graft to diagonal, and a sequential saphenous vein graft to the PDA and posterolateral branches. His postoperative course was complicated by acute renal insufficiency, respiratory insufficiency, and mitral regurgitation. On 09/02/2016, patient went into atrial fibrillation with rapid ventricular response. I was called to help in the further management of this patient. Upon arrival in the room, patient was in atrial fibrillation with rapid ventricular response. He had been treated with IV amiodarone and had heart rates in the 150s. The patient was also noted to be hypoxemic with decreased mental status. It was decided to intubate the patient and perform direct current cardioversion. During intubation of the patient, the patient developed sinus bradycardia and was treated with dopamine as well as temporary pacing. The sinus bradycardia subsequently degraded to pulseless electrical activity and asystole. ACLS algorithm was initiated and the patient was treated with chest compression, oxygenation, as well as 4 mg of epinephrine. Once the patient was successfully intubated, a perfusing sinus rhythm was obtained. The patient's dopamine was discontinued and he was started on Levophed for pressure support. An arterial line was placed. /[id number]/MODL MTDD
[2016-09-02 13:36] LABS: ANION GAP 26 mEq/L (8-20); CALCIUM 8.4 mg/dL (8.5-10.4); CARBON DIOXIDE 25 mEq/l (22-31); CHLORIDE 104 mEq/L (97-110); CREATININE 1.9 mg/dL (0.7-1.3); GLOMERULAR FILTRATION RATE 36; GLUCOSE 212 mg/dL (70-100); POTASSIUM 3.6 mEq/L (3.5-5.2); SODIUM 151 mEq/L (134-144)
--- NOTE | 2016-09-02 13:40 | PDINTPN ---
Warp Tying Machine Knotter Progress Note Assessment/Plan: Assessment: Status post cardiopulmonary arrest: rapid atrial fibrillation, hypoxia, asystole , CPR, intubation, eventual return of spontaneous circulation. CABG X 5 and MAZE Rapid atrial fibrillation. On amiodarone RAHEL: BUN, Cr, urine output improved. Cr 1.6. Suspect ATN. Anticipate this will worsen with hypotension from arrest today. Mitral regurg post op, moderate-severe. Hemodynamics OK. Likely contributes to his acute respiratory failure. Respiratory Failure: Extubated, now reintubated. Was on BiPAP with just brief breaks since 08/29, briefly tolerates Vapotherm. CXR without significant change. Still with low grade fevers. ? cardiogenic edema vs. pneumonia vs. aspiration vs. non-cardiogenic edema from SIRS. Hypotension: Stable, on DA at 3, now Levophed. Elevated WBC: 24 today. Starting ertapenem for possible aspiration today associated with his arrest Right foot ischemia: Likely due to spasm/embolism/thrombosis at the ankle. On Heparin/ASA/Plavix. Dr. Levy following Plan: Vent support. Supportive care. Continue amiodarone drip. Follow ABG, lab chest x-ray, obtain sputum culture. Support pressure with Plasmanate, Levophed... Re-add ertapenem. Cont Heparin for now No compressions again per wishes of the patient's family Prognosis guarded. 1.5 hours of critical care time spent directly with the patient, including attempt at intubation with bronchoscope, eventual intubation, CPR, etc. Discussed with the patient's family, cardiovascular surgery, respiratory, nursing, and the ICU multi disciplinary team. Subjective: Was alert, on BiPAP earlier today, then arrested. Please see the dictation. On ventilator, unresponsive currently. Objective: Vital Signs Temp Pulse Resp BP Pulse Ox 37.9 C 92 27 H 113/52 L 99 09/02/16 09:00 09/02/16 09:00 09/02/16 09:00 09/02/16 09:00 09/02/16 09:00 Laboratory Results 09/02/16 13:00 09/01/16 09/02/16 09/03/16 05:59 05:59 05:59 Intake Total 3793 3803 Output Total 5300 2860 365 Balance -1507 943 -365 PT 20.4 SEC (12.0-15.0) H 08/28/16 14:20 INR 1.74 (0.83-1.16) H 08/28/16 14:20 Laboratory Tests 09/02/16 09/02/16 09/02/16 03:40 04:30 13:00 Heparin Anti-Xa, Unfract 0.32 pCO2 64 H pO2 79 H ABG pH 7.21 L ABG O2 Saturation 90 L O2 Concentration % 100 Set Respiration Rate 30 SIMV YES Tidal Volume 550 PEEP 10 Pressure Support 7 Calcium 7.1 L Phosphorus 6.5 H D Magnesium 2.9 H Albumin 3.0 L CXR: Post intubation. ET tube about 2 cm above the main becky. Other lines and tubes okay. Bilateral pulmonary infiltrates persist. 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 Prior to his arrest was very weak, but moving all extremities, responding) ICD10 Worksheet Patient Problems: Problems Problem Status Diagnosed Acute blood loss anemia Acute S/P CABG x 5 Acute S/P Maze operation for atrial fibrillation Acute Coronary arteriosclerosis Acute
--- NOTE | 2016-09-02 13:46 | DX ---
Portable AP Supine Chest, 2 Views - September 02, 2016, at 1:10 p.m. Clinical History: 66-year-old male in the ICU, status post intubation. Comparison Study: Chest from early this morning at 6:07 a.m. Findings: In the interim, an endotracheal tube has been placed, which terminates 2.8 cm above the ca reginaldo. There is a Dobbhoff feeding tube, which terminates in the gastric fundus. There is a left-sided PICC line, which terminates at the SVC/right atrial junction. Median sternotomy wires, mediastinal s urgical clips, and a left atrial appendage ligature are present. Numerous telemetry monitoring lead l deep are noted. The cardiac size is stable. There are progressive bilateral interstitial/alveolar inf iltrates. There is no pneumothorax. Impression: Postoperative change with progressive interstitial/alveolar infiltrates, particularly pr onounced in the right [id number] lung zones, with interim intubation, compared to 6:07 a.m. today.
--- NOTE | 2016-09-02 14:54 | WOCRNPDOC ---
WOCRN Advanced Assessment Note - Skin Integrity Problem, Advanced Assess Nose Dressing Type: Open to Air Exudate Amount: None Wound Bed Color: Black, Purple Site Measurement - Head-to-Toe Length X Width X Depth (cm): 2.5x2.1x0 Pressure Injury Stage: Deep Tissue Injury (DTI), Grooming Assistant Related Pressure Injury (Bipap) Pressure Injury Present on Admit: No Skin Integrity Problem Comment: Severe Deep Tissue Pressure Injury. Will monitor evolution closely. Will round again 09/04.
[2016-09-02] MEDS ORDERED: ERTAPENEM 1 GM in NS 100 ML IV ONE (15:00)
[2016-09-02 16:01] LABS: BASE EXCESS 1.5 mEq/L (-2.5-2.5); BICARBONATE 28 mEq/L (22-26); MEASURED OXYGEN SATURATION 97 % (92-95); PCO2 56 mmHg (34-38); PO2 101 mmHg (65-75); TCO2 29 mEq/L (23-27)
[2016-09-02 16:02] LABS: SIMV YES
[2016-09-02 16:03] LABS: O2 CONCENTRATIION 100 % (0-100); P/F RATIO 101 RATIO; PRESSURE SUPPORT 7
--- NOTE | 2016-09-02 16:09 | SOAPPROG ---
SOAP Progress Note Assessment/Plan: Assessment: 1. ARF. ATN. Now with additional ischemic event. Oligoanuric. I had an extensive talk with his /daughter. Pt has previously stated he would not want dialysis. Family torn by this event but sounds like they would follow this wish. Line removed, would need to replace. Will follow closely. No acute indication for HD but on 100% FiO2 and with sig daily fluid intake. 2. Hypernatremia. Na back to 151 this a.m. Will resume small amount of D5W and ask pharm to deliver meds with D5W as able. 3. Respiratory fx. CHF/aspiration/other? 4. AF/RVR. Now in NSR, on amio gtt. Plan: 09/02/16 16:03 09/02/16 16:09 09/02/16 16:15 Subjective: Events of this am reviewed. AF/RVR. INtubated for DCCV, asystolic arrest, cpr, epi given. Now on levophed, 100% FiO2. UOP has been minimal since event per RN. Objective: Vital Signs Temp Pulse Resp BP Pulse Ox 37.5 C 88 34 H 107/50 L 100 09/02/16 15:00 09/02/16 15:42 09/02/16 15:42 09/02/16 15:00 09/02/16 15:42 Laboratory Results 09/02/16 13:00 09/02/16 13:00 09/01/16 09/02/16 09/03/16 05:59 05:59 05:59 Intake Total 3793 3803 Output Total 5300 2860 555 Balance -1507 943 -555 PT 20.4 SEC (12.0-15.0) H 08/28/16 14:20 INR 1.74 (0.83-1.16) H 08/28/16 14:20 Intubated, Fio2 100%; cachectic, ill appearing male RRR, no m/g/r CTAB Abdom soft, nt No LE edema; R foot with dry gangrene/purple/black toes/forefoot; icy; L foot icy cold, purple discoloration, no gangrene ICD10 Worksheet Patient Problems: Problems Problem Status Diagnosed Acute blood loss anemia Acute S/P CABG x 5 Acute S/P Maze operation for atrial fibrillation Acute Coronary arteriosclerosis Acute
[2016-09-02] MEDS ORDERED: FUROSEMIDE 100 MG/10 ML VIAL ONE (16:15)
[2016-09-02] MEDS ORDERED: FUROSEMIDE 100 MG in D5W 50 ML IV ONE (16:17)
[2016-09-02] MEDS ORDERED: FUROSEMIDE 100 MG/10 ML VIAL IVP ONE (16:30)
[2016-09-02] MEDS ORDERED: D5W 1,000 ML IV SCH (16:30)
--- NOTE | 2016-09-02 16:45 | GPN ---
[f rep st] PROCEDURE NOTE DATE OF PROCEDURE: 09/02/2016 PROCEDURE: Intubation. REASON FOR PROCEDURE: Acute respiratory failure. The patient required emergent intubation. He deve loped a rapid supraventricular tachycardia, probably atrial fibrillation, that slowed briefly with ad enosine. He was given amiodarone but with his supraventricular tachycardia, began to have episodes o f ventricular tachycardia. He dropped his pressure. Saturations on BiPAP were approximately 89%. DESCRIPTION OF PROCEDURE: He was placed in bed emergently and intubation over the bronchoscope was a ttempted. At this time his pressure dropped into the 50s and he became more hypoxemic. He had a bra dycardic/asystolic arrest. CPR was initiated. The initial attempt to intubate him over the bronchos cope was unsuccessful secondary to dried secretions and blood in his mouth and hypopharynx/larynx. H e was bagged. Two attempts to intubate him with a laryngoscope were unsuccessful with the endotrache al tube ending up briefly in the esophagus. This was promptly removed and he was again bagged. On t he third attempt with a different laryngoscope blade and good suctioning, the vocal cords were seen a nd cannulated with a 7.5 endotracheal tube. The tube was documented to be in good position by CO2 mo nitoring and by auscultation. Saturations came up from the 50s to 100% on 100% FiO2. He had spontan eous return of circulation with a pulse and blood pressure. He did require Levophed as well as album in to maintain his blood pressure. Dopamine was stopped. CPR report is dictated by others. An art line was placed by Cardiology. ASSESSMENT: Difficult but eventual successful intubation. /[id number]/MODL
[2016-09-02 20:23] LABS: BICARBONATE 28 mEq/L (22-26); MEASURED OXYGEN SATURATION 96 % (92-95); PCO2 64 mmHg (34-38); PO2 98 mmHg (65-75); TCO2 30 mEq/L (23-27)
[2016-09-02 20:24] LABS: END TIDAL CO2 39; O2 CONCENTRATIION 80 % (0-100); P/F RATIO 122 RATIO; SIMV YES
[2016-09-02 20:25] LABS: PATIENT RATE 34; PRESSURE SUPPORT 10
[2016-09-02 20:27] LABS: HEMATOCRIT 27.6 % (40.0-51.0)
[2016-09-02] MEDS: MELATONIN 3 MG TAB TUBE SCH (20:41)
[2016-09-02] MEDS: HEPARIN/DEXTROSE 500 ML IV SCH (20:48)
[2016-09-02] MEDS ORDERED: ALBUMIN 5% 250 ML IV ONE (21:00)
[2016-09-02 21:28] LABS: POTASSIUM 4.6 mEq/L (3.5-5.2)
[2016-09-02 22:40] LABS: BASE EXCESS 1.2 mEq/L (-2.5-2.5); BICARBONATE 27 mEq/L (22-26); MEASURED OXYGEN SATURATION 99 % (92-95); PCO2 49 mmHg (34-38); PO2 148 mmHg (65-75); TCO2 28 mEq/L (23-27)
[2016-09-02 22:41] LABS: ASSIST CONTROL YES; O2 CONCENTRATIION 80 % (0-100); P/F RATIO 185 RATIO
[2016-09-02 22:42] LABS: TOTAL RATE 34
[2016-09-03] MEDS: HALOPERIDOL LACT 5 MG/ML INJ IVP PRN ×2 (02:47→22:14)
[2016-09-03 04:19] LABS: BICARBONATE 24 mEq/L (22-26); MEASURED OXYGEN SATURATION 94 % (92-95); PCO2 45 mmHg (34-38); PO2 82 mmHg (65-75); TCO2 26 mEq/L (23-27)
[2016-09-03 04:20] LABS: ASSIST CONTROL YES; END TIDAL CO2 24; O2 CONCENTRATIION 50 % (0-100); P/F RATIO 164 RATIO; TOTAL RATE 34
[2016-09-03 04:24] LABS: % IMMATURE GRANULYOCYTES 0.6 % (0.0-1.1); ABSOLUTE IMMATURE GRANULOCYTES 0.12 10^3/uL (0.00-0.10); ABSOLUTE NRBC COUNT 0.02 10^3/uL (0-0.01); ADD DIFF? NO; ADD MORPH? NO; ADD SCAN? NO; ATYPICAL LYMPHOCYTE FLAG 0 (0-99); FRAGMENT RBC FLAG 20 (0-99); HEMATOCRIT 26.1 % (40.0-51.0); HEMOGLOBIN 8.7 g/dL (13.7-17.5); LEFT SHIFT FLG 10 (0-99); LIPEMIA HEMOLYSIS FLAG 80 (0-99); MEAN CELL HEMOGLOBIN 32.1 pg (27.9-34.1); MEAN CELL HEMOGLOBIN CONCENTR. 33.3 g/dL (32.4-36.7); MEAN CELL VOLUME 96.3 fL (81.5-99.8); MEAN PLATELET VOLUME 12.1 fL (8.7-11.7); NRBC-AUTO% 0.1 % (0.0-0.2); PLATELET CLUMPS FLAG 0 (0-99); PLATELET COUNT 282 10^3/uL (150-400); RED BLOOD CELL COUNT 2.71 10^6/uL (4.40-6.38); RED CELL DISTRIBUTION WIDTH 15.9 % (11.5-15.2)
[2016-09-03 04:35] LABS: ALANINE AMINOTRANSFERASE 180 IU/L (21-72); ALBUMIN 3.6 g/dL (3.5-5.0); ALKALINE PHOSPHATASE 97 IU/L (38-126); ANION GAP 21 mEq/L (8-20); ASPARTATE AMINOTRANSFERASE 332 IU/L (17-59); BILIRUBIN,TOTAL 1.8 mg/dL (0.1-1.4); BILIRUBIN-CONJUGATED 1.5 mg/dL (0.0-0.5); BILIRUBIN-UNCONJUGATED 0.3 mg/dL (0.0-1.1); CALCIUM 7.5 mg/dL (8.5-10.4); CARBON DIOXIDE 29 mEq/l (22-31); CHLORIDE 103 mEq/L (97-110); CREATININE 2.5 mg/dL (0.7-1.3); GLOMERULAR FILTRATION RATE 26; GLUCOSE 183 mg/dL (70-100); MAGNESIUM 3.2 mg/dL (1.6-2.3); POTASSIUM 4.1 mEq/L (3.5-5.2); SODIUM 149 mEq/L (134-144); TOTAL PROTEIN 6.3 g/dL (6.3-8.2)
--- NOTE | 2016-09-03 07:20 | SOAPPROG ---
SOAP Progress Note Assessment/Plan: POD#12: CABGx5 (GANN-LAD, EBONY-D1, SVG-LAD, Sequential SVG-PDA-PL), Padilla-Maze IV Left/Right lesions 12 events: TONY, hypotension, hypoxemia, CPR, intubation Drips: Levophed 2 mcg, D5W 50 cc/h, heparin as per protocol Lines: LUE PICC (DAY 7), LFV HD catheter (Day 6), NGT, RFA Celestine (Day 2) Problem list: Unstable angina, severe 3VD s/p CABGx5 with post-operative cardiac shock - LHC on 08/26 showed patent RCA, stable LV function - Continue ASA/Plavix Long-standing persistent atrial fibrillation s/p Padilla-Maze IV - SR - Antithrombotic therapy as per heparin gtt for B/L arterial occlusions ARF - BUN/CR rising with low UOP - Possible HD as per renal Post-op moderate-severe MR with structurally intact valve - Deemed non-operative and stable as per multiple f/u ECHOs Anemia secondary to critical illness - Monitor and transfuse prn Ventilator dependent respiratory failure - Intubated 09/02 for hypoxemia ICM with inferior wall hypokinesis and EF of 40-45% - Continue dopamine for inotropic support - Fluids/Lasix as needed Thrombocytopenia - Platelets recovered, HIT negative -- heparin OK Dysphagia - Tube feeds / plan for future swallow study Acute B/L anterior and posterior tibial artery occlusions - Continue heparin gtt - Angiogram limited by renal failure - Eventual amputation plan determined by demarcation 09/03/16 07:30 Subjective: Intubated/Sedated Objective: Vital Signs Temp Pulse Resp BP Pulse Ox 37.3 C 82 34 H 113/68 97 09/03/16 06:00 09/03/16 06:00 09/03/16 06:00 09/03/16 06:00 09/03/16 06:00 Microbiology 08/28/16 10:00 Blood Culture - Final Blood 08/28/16 10:00 Blood Culture - Final Blood Laboratory Results 09/03/16 04:00 09/03/16 04:00 09/02/16 09/03/16 09/04/16 05:59 05:59 05:59 Intake Total 3803 2951.2 Output Total 2860 895 Balance 943 2056.2 PT 20.4 SEC (12.0-15.0) H 08/28/16 14:20 INR 1.74 (0.83-1.16) H 08/28/16 14:20 Physical Exam - Physical Exam General Appearance: no apparent distress, obtunded Neck: normal inspection Respiratory: lungs clear, No respiratory distress Cardiac/Chest: regular rate, rhythm Abdomen: non-tender, soft, distended Skin: normal color Neuro/Psych: other (Currently sedated / As per RN follows and moves all extremeites ) ICD10 Worksheet Patient Problems: Problems Problem Status Diagnosed Acute blood loss anemia Acute S/P CABG x 5 Acute S/P Maze operation for atrial fibrillation Acute Coronary arteriosclerosis Acute
[2016-09-03] MEDS: CLOPIDOGREL BISULFATE 75 MG TAB TUBE SCH (07:40)
[2016-09-03] MEDS: ASPIRIN 81 MG CHEWABLE TAB TUBE SCH (07:40)
[2016-09-03] MEDS: LANSOPRAZOLE SUSP 30MG/10ML UDSYR (Adult) TUBE SCH (07:42)
[2016-09-03] MEDS: SENNOSIDES 17.6 MG/10 ML UDL TUBE SCH ×2 (07:42→20:03)
[2016-09-03] MEDS: METOLAZONE 5 MG TAB TUBE SCH (07:51)
[2016-09-03] MEDS: RISPERIDONE 1 MG/1 ML PO SCH ×2 (07:52→20:03)
--- NOTE | 2016-09-03 09:03 | DX ---
Portable Chest, Single View September 03, 2016, at 6:23 a.m. Indication: ICU patient. Assess pulmonary status. Findings: Since one day prior, the ET tube, feeding tube, and left PICC are all unchanged in position s. The feeding tube tip overlies the stomach. Diffuse ground-glass airspace consolidation has minimal ly improved given differences in technique. Small bilateral pleural effusions are unchanged. Impressions 1. Support devices in good positions. Feeding tube in stomach. 2. Minimally improved diffuse airspace disease.
--- NOTE | 2016-09-03 09:38 | SOAPPROG ---
SOAP Progress Note Assessment/Plan: Assessment: 1. RAHEL Cr inc'd after arrest yesterday. Cr climbing, BUN quite high. K, acid base status, and volume ok (looks peripherally dry in spite of elevated CVP). No urgent indication for HD, and family at present is unsure if they wish to add this. I did advise that I do ultimately expect renal recovery. We will recheck labs later today. Would pursue IJ catheter later today if Cr continuing to rise, and family requests aggressive care. 2. GI bleeding On heparin. Repeat HG midday 3. Hyperglycemia Convert D5W to SBFT water 4. High BUN RD may wish to decrease protein intake temporarily. Plan: 09/03/16 09:34 Subjective: Responds Objective: Vital Signs Temp Pulse Resp BP Pulse Ox 37.4 C 82 34 H 115/64 97 09/03/16 09:00 09/03/16 09:00 09/03/16 09:00 09/03/16 09:00 09/03/16 09:00 Microbiology 08/28/16 10:00 Blood Culture - Final Blood 08/28/16 10:00 Blood Culture - Final Blood Laboratory Results 09/03/16 04:00 09/03/16 04:00 09/02/16 09/03/16 09/04/16 05:59 05:59 05:59 Intake Total 3803 2951.2 Output Total 2860 895 80 Balance 943 2056.2 -80 PT 20.4 SEC (12.0-15.0) H 08/28/16 14:20 INR 1.74 (0.83-1.16) H 08/28/16 14:20 Physical Exam - Physical Exam General Appearance: cachetic Neck: other (JVD) Respiratory: lungs clear Cardiac/Chest: irregularly irregular Abdomen: soft Male Genitalia: other (fall) Extremities: other (no ankle edema) Neuro/Psych: other (arouses) ICD10 Worksheet Patient Problems: Problems Problem Status Diagnosed Acute blood loss anemia Acute S/P CABG x 5 Acute S/P Maze operation for atrial fibrillation Acute Coronary arteriosclerosis Acute
--- NOTE | 2016-09-03 10:30 | PDINTPN ---
Holistic Health Practitioner Progress Note Assessment/Plan: Assessment: Status post cardiopulmonary arrest: rapid atrial fibrillation, hypoxia, asystole , CPR, intubation, eventual return of spontaneous circulation. CABG X 5 and MAZE Rapid atrial fibrillation. On amiodarone RAHEL: BUN, Cr, urine output improved. Cr 1.6. Suspect ATN. Anticipate this will worsen with hypotension from arrest today. Mitral regurg post op, moderate-severe. Hemodynamics OK. Likely contributes to his acute respiratory failure. Respiratory Failure: Extubated, now reintubated. Was on BiPAP with just brief breaks since 08/29, briefly tolerates Vapotherm. CXR without significant change. Still with low grade fevers. ? cardiogenic edema vs. pneumonia vs. aspiration vs. non-cardiogenic edema from SIRS. Hypotension: Stable, on DA at 3, now Levophed. Elevated WBC: 24 today. Starting ertapenem for possible aspiration today associated with his arrest Right foot ischemia: Likely due to spasm/embolism/thrombosis at the ankle. On Heparin/ASA/Plavix. Dr. Levy following Plan: Vent support. Supportive care. Continue amiodarone drip. Follow ABG, lab chest x-ray, obtain sputum culture. Support pressure with Plasmanate, Levophed... Re-add ertapenem. Cont Heparin for now No compressions again per wishes of the patient's family Prognosis guarded. 1.5 hours of critical care time spent directly with the patient, including attempt at intubation with bronchoscope, eventual intubation, CPR, etc. Discussed with the patient's family, cardiovascular surgery, respiratory, nursing, and the ICU multi disciplinary team. Objective: Vital Signs Temp Pulse Resp BP Pulse Ox 37.5 C 74 34 H 107/59 L 97 09/03/16 10:00 09/03/16 10:00 09/03/16 10:00 09/03/16 10:00 09/03/16 10:00 Microbiology 08/28/16 10:00 Blood Culture - Final Blood 08/28/16 10:00 Blood Culture - Final Blood Laboratory Results 09/03/16 04:00 09/03/16 04:00 09/02/16 09/03/16 09/04/16 05:59 05:59 05:59 Intake Total 3803 2951.2 Output Total 2860 895 105 Balance 943 2056.2 -105 PT 20.4 SEC (12.0-15.0) H 08/28/16 14:20 INR 1.74 (0.83-1.16) H 08/28/16 14:20 Laboratory Tests 09/03/16 04:00 Calcium 7.5 L Phosphorus 8.4 H D Magnesium 3.2 H Total Bilirubin 1.8 H Conjugated Bilirubin 1.5 H AST 332 H ALT 180 H Albumin 3.6 CXR; ICD10 Worksheet Patient Problems: Problems Problem Status Diagnosed Acute blood loss anemia Acute S/P CABG x 5 Acute S/P Maze operation for atrial fibrillation Acute Coronary arteriosclerosis Acute
[2016-09-03 12:30] LABS: HEMOGLOBIN 8.7 g/dL (13.7-17.5)
[2016-09-03 13:01] LABS: ALBUMIN 3.6 g/dL (3.5-5.0); ANION GAP 22 mEq/L (8-16); CALCIUM 7.4 mg/dL (8.5-10.4); CARBON DIOXIDE 27 mEq/l (22-31); CHLORIDE 99 mEq/L (97-110); CREATININE 2.8 mg/dL (0.7-1.3); GLOMERULAR FILTRATION RATE 23; GLUCOSE 158 mg/dL (70-100); POTASSIUM 3.8 mEq/L (3.5-5.2); SODIUM 148 mEq/L (134-144)
--- NOTE | 2016-09-03 14:13 | SOAPPROG ---
SOAP Progress Note Assessment/Plan: Assessment/Plan: 66 Y M s/p CABG x 5, multiple issues, now with severe pedal vasospasm while on pressors and B R>L LE ischemia. Respiratory arrest yesterday. Prognosis guarded. On vent. Cr elevated. We can be available for catheter placement as needed--understand that family may be hesitant to pursue dialysis. No change in pedal pulse status. Foot ischemia slightly worse bilaterally. Heparin held for rectal bleeding. D/w'ed Dr. Levy. 09/03/16 14:10 Objective: Vital Signs Temp Pulse Resp BP Pulse Ox 37.5 C 77 34 H 105/60 100 09/03/16 13:00 09/03/16 13:00 09/03/16 13:00 09/03/16 13:00 09/03/16 13:00 Microbiology 08/28/16 10:00 Blood Culture - Final Blood 08/28/16 10:00 Blood Culture - Final Blood Laboratory Results 09/03/16 12:20 09/03/16 12:20 09/02/16 09/03/16 09/04/16 05:59 05:59 05:59 Intake Total 3803 2951.2 Output Total 2860 895 150 Balance 943 2056.2 -150 PT 20.4 SEC (12.0-15.0) H 08/28/16 14:20 INR 1.74 (0.83-1.16) H 08/28/16 14:20 ICD10 Worksheet Patient Problems: Problems Problem Status Diagnosed Acute blood loss anemia Acute Acute renal failure Acute Arterial occlusion, lower extremity Acute Leukocytosis Acute Respiratory failure with hypoxia Acute S/P CABG x 5 Acute S/P Maze operation for atrial fibrillation Acute Coronary arteriosclerosis Acute
[2016-09-03 14:26] LABS: CALCULATED OXYGEN SATURATION 98 % (92-95)
--- NOTE | 2016-09-03 14:58 | PDINTPN ---
Manager Video Progress Note Assessment/Plan: Assessment: Status post cardiopulmonary arrest 09/02: rapid atrial fibrillation, hypoxia, asystole, CPR, intubation, eventual return of spontaneous circulation. CABG X 5 and MAZE Rapid atrial fibrillation. On amiodarone RAHEL: Worsening, Cr 2.8 2/2 ATN. Renal following. No indication for dialysis currently. May need this in the next day or 2.. Mitral regurg post op, moderate-severe. Hemodynamics OK. Likely contributes to his acute respiratory failure and infiltrates. Respiratory Failure: Extubated, now reintubated. Was on BiPAP with just brief breaks since 08/29, briefly tolerates Vapotherm. CXR somewhat better today. Still with low grade fevers. ? cardiogenic edema vs. pneumonia vs. aspiration vs. non-cardiogenic edema from SIRS. Hypotension: Stable, off DA, Levophed on hold currently as pressures have improved. Elevated WBC: Improved, 19 today. On ertapenem for possible aspiration associated with his arrest Right foot ischemia: Likely due to spasm/embolism/thrombosis at the ankle. On Heparin/ASA/Plavix, but on hold currently. Dr. Levy following. Lower GI bleed. Some blood today per rectum, mild to moderate amount. Heparin on hold. Will hold Plavix and aspirin however anti-platelet affects will be on board for several days. May reinitiate all tomorrow? Plan: Vent support. Supportive care. Consider tracheostomy, will discuss with [facility]. Family is in support of this Continue amiodarone. Follow ABG, lab chest x-ray. Support pressure with Plasmanate, Levophed as needed Continue ertapenem. Hold heparin Heparin for now along with anti-platelet agents secondary to bleeding. No compressions again per wishes of the patient's family Prognosis remains guarded but somewhat better today . 55 minutes of critical care time spent directly with the patient. Discussed with the patient's family, cardiovascular surgery, respiratory, nursing, and the ICU multi disciplinary team. Subjective: Up in chair, arousable, responsive. Mildly agitated at times. Objective: Vital Signs Temp Pulse Resp BP Pulse Ox 37.5 C 77 34 H 105/60 100 09/03/16 13:00 09/03/16 13:00 09/03/16 13:00 09/03/16 13:00 09/03/16 13:00 Microbiology 08/28/16 10:00 Blood Culture - Final Blood 08/28/16 10:00 Blood Culture - Final Blood Laboratory Results 09/03/16 12:20 09/03/16 12:20 09/02/16 09/03/16 09/04/16 05:59 05:59 05:59 Intake Total 3803 2951.2 Output Total 2860 895 150 Balance 943 2056.2 -150 PT 20.4 SEC (12.0-15.0) H 08/28/16 14:20 INR 1.74 (0.83-1.16) H 08/28/16 14:20 Laboratory Tests 09/03/16 09/03/16 09/03/16 04:00 09:45 12:20 Heparin Anti-Xa, Unfract 0.48 pCO2 pO2 ABG pH O2 Concentration % 50 Respiration Rate 34 Assist Control YES Tidal Volume 650 End Tidal CO2 24 PEEP 10 Calcium 7.4 L Phosphorus 8.5 H Magnesium 3.2 H Total Bilirubin 1.8 H Conjugated Bilirubin 1.5 H AST 332 H ALT 180 H Albumin 3.6 09/03/16 14:12 Heparin Anti-Xa, Unfract pCO2 33 L pO2 93 H ABG pH 7.47 H O2 Concentration % Respiration Rate Assist Control Tidal Volume End Tidal CO2 PEEP Calcium Phosphorus Magnesium Total Bilirubin Conjugated Bilirubin AST ALT Albumin CXR: Bilateral infiltrates appear to be somewhat better. Lines and tubes in good position, although tip of NG may be a little bit high in the stomach Physical Exam - Physical Exam General Appearance: obtunded (Observed ended, arouses weekly, responds at times. ), thin, other (Intubated, on ventilator) EENT: PERRL/EOMI, ET tube, other (Karrie in place.) Neck: normal inspection Respiratory: decreased breath sounds (Decreased excursions), rales (At bases), No normal breath sounds, No rhonchi, No wheezing, No pleural rub Cardiac/Chest: regular rate, rhythm (Distant heart tones) Abdomen: normal bowel sounds, non-tender, soft Male Genitalia: other (Estrada catheter in place,) Skin: warm/dry, pallor, other (See lower extremity comments below.) Lymphatic: no adenopathy Extremities: pedal edema (1+ bilaterally), other (Lower extremities cool, or decreased pulses, poor color) Neuro/Psych: no motor/sensory deficits (Moves all extremities), No cognition abnormalities (Responds) ICD10 Worksheet Patient Problems: Problems Problem Status Diagnosed Acute blood loss anemia Acute Acute renal failure Acute Arterial occlusion, lower extremity Acute Leukocytosis Acute Respiratory failure with hypoxia Acute S/P CABG x 5 Acute S/P Maze operation for atrial fibrillation Acute Coronary arteriosclerosis Acute
[2016-09-03] MEDS: ERTAPENEM 0.5 GM in NS 100 ML IV SCH (17:21)
[2016-09-03] MEDS ORDERED: POTASSIUM Cl (KCl) 20 MEQ/50 ML BAG IV ONE (17:45)
[2016-09-03] MEDS ORDERED: POTASSIUM Cl (KCl) 50 ML IV ONE ×2 (17:49→18:30)
--- NOTE | 2016-09-03 20:02 | SOAPPROG ---
SOAP Progress Note Assessment/Plan: Assessment: Long talk with daughter and mother this pm. Family wishes to meet tomorrow and discuss further the indications for dialysis, and whether it is consistent with his wishes. I will ask Dr. Levy to hold off on catheter placement, and will await word from care team as to family's decision. 09/03/16 09:34 09/03/16 20:00 Objective: Vital Signs Temp Pulse Resp BP Pulse Ox 37.6 C 79 29 H 116/59 L 97 09/03/16 19:00 09/03/16 19:00 09/03/16 19:00 09/03/16 19:00 09/03/16 19:00 Microbiology 08/28/16 10:00 Blood Culture - Final Blood 08/28/16 10:00 Blood Culture - Final Blood Laboratory Results 09/03/16 12:20 09/03/16 12:20 09/02/16 09/03/16 09/04/16 05:59 05:59 05:59 Intake Total 3803 2951.2 1052.4 Output Total 2860 895 250 Balance 943 2056.2 802.4 PT 20.4 SEC (12.0-15.0) H 08/28/16 14:20 INR 1.74 (0.83-1.16) H 08/28/16 14:20 ICD10 Worksheet Patient Problems: Problems Problem Status Diagnosed Acute blood loss anemia Acute Acute renal failure Acute Arterial occlusion, lower extremity Acute Leukocytosis Acute Respiratory failure with hypoxia Acute S/P CABG x 5 Acute S/P Maze operation for atrial fibrillation Acute Coronary arteriosclerosis Acute
[2016-09-03] MEDS: MELATONIN 3 MG TAB TUBE SCH (20:03)
[2016-09-04 04:25] LABS: BASE EXCESS -1.8 mEq/L (-2.5-2.5); BICARBONATE 22 mEq/L (22-26); MEASURED OXYGEN SATURATION 97 % (92-95); PCO2 38 mmHg (34-38); PO2 100 mmHg (65-75); TCO2 23 mEq/L (23-27)
[2016-09-04 04:28] LABS: % IMMATURE GRANULYOCYTES 1.3 % (0.0-1.1); ABSOLUTE IMMATURE GRANULOCYTES 0.23 10^3/uL (0.00-0.10); ABSOLUTE NRBC COUNT 0.05 10^3/uL (0-0.01); ADD DIFF? NO; ADD MORPH? NO; ADD SCAN? NO; ATYPICAL LYMPHOCYTE FLAG 0 (0-99); FRAGMENT RBC FLAG 20 (0-99); HEMATOCRIT 24.2 % (40.0-51.0); HEMOGLOBIN 8.2 g/dL (13.7-17.5); LEFT SHIFT FLG 10 (0-99); LIPEMIA HEMOLYSIS FLAG 90 (0-99); MEAN CELL HEMOGLOBIN 31.5 pg (27.9-34.1); MEAN CELL HEMOGLOBIN CONCENTR. 33.9 g/dL (32.4-36.7); MEAN CELL VOLUME 93.1 fL (81.5-99.8); MEAN PLATELET VOLUME 12.4 fL (8.7-11.7); NRBC-AUTO% 0.3 % (0.0-0.2); PLATELET CLUMPS FLAG 10 (0-99); PLATELET COUNT 319 10^3/uL (150-400); RED CELL DISTRIBUTION WIDTH 15.6 % (11.5-15.2)
[2016-09-04 04:29] LABS: ASSIST CONTROL YES; O2 CONCENTRATIION 50 % (0-100); P/F RATIO 200 RATIO
[2016-09-04 04:30] LABS: END TIDAL CO2 24; TOTAL RATE 28
[2016-09-04 04:40] LABS: INR 1.64 (0.83-1.16); PROTIME(PATIENT) 19.5 SEC (12.0-15.0)
[2016-09-04 04:41] LABS: APTT 30.5 SEC (23.0-38.0)
[2016-09-04 05:05] LABS: ALANINE AMINOTRANSFERASE 382 IU/L (21-72); ALBUMIN 3.2 g/dL (3.5-5.0); ALKALINE PHOSPHATASE 120 IU/L (38-126); ANION GAP 21 mEq/L (8-16); ASPARTATE AMINOTRANSFERASE 498 IU/L (17-59); BILIRUBIN,TOTAL 1.3 mg/dL (0.1-1.4); BILIRUBIN-CONJUGATED 1.1 mg/dL (0.0-0.5); BILIRUBIN-UNCONJUGATED 0.2 mg/dL (0.0-1.1); CALCIUM 7.2 mg/dL (8.5-10.4); CARBON DIOXIDE 24 mEq/l (22-31); CHLORIDE 102 mEq/L (97-110); CREATININE 3.7 mg/dL (0.7-1.3); GLOMERULAR FILTRATION RATE 17; GLUCOSE 168 mg/dL (70-100); MAGNESIUM 3.6 mg/dL (1.6-2.3); POTASSIUM 4.2 mEq/L (3.5-5.2); SODIUM 147 mEq/L (134-144); TOTAL PROTEIN 5.6 g/dL (6.3-8.2)
--- NOTE | 2016-09-04 07:48 | SOAPPROG ---
SOAP Progress Note Assessment/Plan: POD#13: CABGx5 (GANN-LAD, EBONY-D1, SVG-LAD, Sequential SVG-PDA-PL), Padilla-Maze IV Left/Right lesions Lines: LUE PICC (DAY 8), NGT, RFA Corie (Day 3) Unstable angina, severe 3VD s/p CABGx5 with post-operative cardiac shock - LHC on 08/26 showed patent RCA, stable LV function - ASA/Plavix (held) Long-standing persistent atrial fibrillation s/p Padilla-Maze IV - Currently in rate-controlled AF - Antithrombotic therapy as per heparin gtt for B/L arterial occlusions ARF - BUN/CR rising - Possible HD catheter placement today as per family meeting today Post-op moderate-severe MR with structurally intact valve - Deemed non-operative and stable as per multiple f/u ECHOs Anemia secondary to critical illness/?lower GI bleed - Pt with BRBPR yesterday without continued bleeding - Monitor and transfuse prn Ventilator dependent respiratory failure - Trachesotomy today ICM with inferior wall hypokinesis and EF of 40-45% - Fluids/Lasix as needed Thrombocytopenia - Platelets recovered, HIT negative Dysphagia - Tube feeds Acute B/L anterior and posterior tibial artery occlusions - Heparin gtt on hold for concerns of bleeding - Angiogram limited by renal failure - Eventual amputation plan determined by demarcation 09/03/16 07:30 09/04/16 07:41 Subjective: Comfortable Objective: Vital Signs Temp Pulse Resp BP Pulse Ox 37.5 C 79 28 H 110/58 L 95 09/04/16 06:00 09/04/16 06:00 09/04/16 06:00 09/04/16 06:00 09/04/16 06:00 Laboratory Results 09/04/16 04:15 09/04/16 04:15 09/03/16 09/04/16 09/05/16 05:59 05:59 05:59 Intake Total 2951.2 2169.4 Output Total 895 650 Balance 2056.2 1519.4 PT 19.5 SEC (12.0-15.0) H 09/04/16 04:15 INR 1.64 (0.83-1.16) H 09/04/16 04:15 Physical Exam - Physical Exam General Appearance: alert, no apparent distress EENT: No scleral icterus (R), No scleral icterus (L) Neck: normal inspection Respiratory: lungs clear, No respiratory distress Cardiac/Chest: irregularly irregular Abdomen: non-tender, soft, No distended Skin: warm/dry Extremities: pedal edema (+1 B/L ) Neuro/Psych: other (Follows commands / Moves all extremities ) ICD10 Worksheet Patient Problems: Problems Problem Status Diagnosed Acute blood loss anemia Acute Acute renal failure Acute Arterial occlusion, lower extremity Acute Leukocytosis Acute Respiratory failure with hypoxia Acute S/P CABG x 5 Acute S/P Maze operation for atrial fibrillation Acute Coronary arteriosclerosis Acute
--- NOTE | 2016-09-04 08:28 | DX ---
Portable Chest, Single View September 04, 2016 6:05 a.m. Indication: Follow up airspace consolidation. Comparison: Portable chest September 03, 2016. Findings: The ET tube, feeding tube, left PICC, left atrial appendage clip, midline sternal wires, an d surgical clips in the mediastinum are all unchanged. Diffuse groundglass pulmonary opacities sparin g the subpleural distribution have equivocally improved given differences in technique. Heart remains minimally enlarged. Trace bilateral pleural effusions unchanged. Impression: 1. Support devices remain in good position. 2. Equivocal improvement of diffuse confluent airspace consolidation.
[2016-09-04] MEDS: SENNOSIDES 17.6 MG/10 ML UDL TUBE SCH ×2 (09:05→21:03)
[2016-09-04] MEDS: LANSOPRAZOLE SUSP 30MG/10ML UDSYR (Adult) TUBE SCH (09:05)
[2016-09-04] MEDS: METOLAZONE 5 MG TAB TUBE SCH (09:05)
[2016-09-04] MEDS: RISPERIDONE 1 MG/1 ML PO SCH ×2 (09:30→20:36)
[2016-09-04] MEDS ORDERED: SODIUM BICARBONATE 10 MEQ/10 ML SYR IVP ONE ×2 (09:38→13:24)
[2016-09-04] MEDS ORDERED: LIDOCAINE 1% 30 ML SDV ONE ×2 (09:38→13:24)
[2016-09-04] MEDS: ORAL BALANCE GEL TUBE PO PRN ×2 (10:15→15:28)
[2016-09-04] MEDS ORDERED: fentaNYL 100 MCG/2 ML INJ ONE (13:37)
[2016-09-04] MEDS ORDERED: PROPOFOL/EMULSION 500 MG/50 ML BOTTLE IV ONE (13:37)
[2016-09-04] MEDS ORDERED: REMIFENTANIL HCL 1 MG VIAL ONE (13:37)
[2016-09-04] MEDS ORDERED: CISATRACURIUM BESYLATE 20 MG/10 ML VIAL IV ONE (13:39)
--- NOTE | 2016-09-04 13:44 | SOAPPROG ---
SOAP Progress Note Assessment/Plan: Assessment: 1. arf due to atn: making urine but creat still rising without obvious evidence of plateau. Lytes and volume status stable but extremely azotemic. Long talk with pt's family, they are quite nervous about hd due to his perceived history of complications with other procedures. They are agreeable to having dialysis access placed in OR today but would like to hold off on hd today and re- evaluate tomorrow. I think this is reasonable, will re-eval in am but I anticipate dialyzing him tomorrow barring dramatic turn around overnight. 2. s/p arrest: off pressors but remains a bit tenuous hemodynamically. Would likely attempt conventional hd without uf, could use pressor support if needed. Low threshold to convert to crrt if hemodynamically unstable on hd. Plan: 09/04/16 13:26 Subjective: Intubated, off pressors. Family present, I d/w them and Dr. Thayer. Objective: Vital Signs Temp Pulse Resp BP Pulse Ox 37.4 C 78 28 H 113/64 96 09/04/16 12:00 09/04/16 12:14 09/04/16 12:14 09/04/16 12:00 09/04/16 12:14 Laboratory Results 09/04/16 04:15 09/04/16 04:15 09/03/16 09/04/16 09/05/16 05:59 05:59 05:59 Intake Total 2951.2 2169.4 Output Total 895 650 75 Balance 2056.2 1519.4 -75 PT 19.5 SEC (12.0-15.0) H 09/04/16 04:15 INR 1.64 (0.83-1.16) H 09/04/16 04:15 Physical Exam - Physical Exam General Appearance: other (intubated, sedated) Respiratory: lungs clear (anteriorly) Cardiac/Chest: regular rate, rhythm Extremities: other (+dependent edema) ICD10 Worksheet Patient Problems: Problems Problem Status Diagnosed Acute blood loss anemia Acute Acute renal failure Acute Arterial occlusion, lower extremity Acute Leukocytosis Acute Respiratory failure with hypoxia Acute S/P CABG x 5 Acute S/P Maze operation for atrial fibrillation Acute Coronary arteriosclerosis Acute
--- NOTE | 2016-09-04 14:57 | POSTOPPROG ---
Post Op Note Date of Operation: 09/04/16 Surgeon: Marv Thayer Console Operator: Pa Anesthesiologist: Estuardo Anesthesia: GET(General Endotracheal) Pre-op Diagnosis: respiratory failure, renal failure Procedure: trach, R IJ dialysis catheter Inf/Abcess present in the surg proc area at time of surgery?: No EBL: Minimal
--- NOTE | 2016-09-04 15:24 | DX ---
Intraoperative Fluoroscopy of the Chest Clinical History: 66-year-old male presenting for central line placement in surgery. Findings: Dr. Marv Thayer used 2.3 seconds of fluoroscopy time, and a single spot matrix intraoperat alyssa image was acquired at 2:14 p.m. which is coned-down at the level of the median sternotomy wires, with catheter tubing in place. Impression: Intraoperative fluoroscopy provided for Dr. Thayer.
--- NOTE | 2016-09-04 16:07 | GOP ---
[f rep st] OPERATIVE REPORT DATE OF OPERATION: 09/04/2016 SURGEON: Marv Thayer DO HEEL TURNER: Wilfrid Winn PA-C ANESTHESIA: Sedation ANESTHESIOLOGIST: Lacey Martinez MD PREOPERATIVE DIAGNOSIS: Respiratory and renal failure. POSTOPERATIVE DIAGNOSIS: Respiratory and renal failure. PROCEDURE PERFORMED: 1. Tracheostomy with #8-Syriac nonfenestrated cuffed endotracheal tube. 2. Right internal jugular dialysis catheter. FINDINGS: DESCRIPTION OF PROCEDURE: Patient was consented via his for trach and dialysis catheter. He was brought to the operating room, placed supine on the operating table. Sedation was provided by Anesthesia. The neck was prepped. Anesthesia placed a wire in the right IJ. We confirmed its presence in the superior vena cava with fluoro. I then passed a dilating sheath and subsequently, a dialysis catheter over the wire and sutured it in place without difficulty. Heparinized saline was used to infiltrate the 3 ports. We then proceeded with re-prepping the neck and draping it. I then placed a horizontal incision approximately 2 cm long at the base of the neck. A Bovie was used to go down through the subcutaneous tissue and the platysmal muscle. Pretracheal fascia was opened. Individual veins were bovied and ligated. We then identified the cricoid cartilage. We then went to the 2nd tracheal ring , and grasping it with a hook we opened the muscular septum beneath that and divided the 3rd ring. We then grasped the edge of that and placed an 8-Syriac cuffed nonfenestrated endotracheal tube while the previously placed oropharyngeal tube had been removed. No bleeding was encountered. It was sutured to the skin. Bacitracin ointment was placed. He was sent to the recovery room in stable condition. /[id number]/MODL MTDD
--- NOTE | 2016-09-04 16:35 | WOCRNPDOC ---
WOCRN Advanced Assessment Note - Skin Integrity Problem, Advanced Assess Nose Dressing Type: Hydrocolloid Dressing Description: Intact Exudate Amount: Scant Exudate Color: Reddish/Yellow Exudate Characteristic(s): Serosanguinous Integumentary Issue Intervention: Visualized Under Dressing Rosa Wound Tissue: Intact Rosa Wound Swelling: None Wound Bed Color: Black, Purple Wound Bed Constitution: Unstable Eschar Site Measurement - Head-to-Toe Length X Width X Depth (cm): 2.4cmx2.2cmx eschar Pressure Injury Stage: Unstageable Pressure Injury Present on Admit: No (r/t bi-pap) Skin Integrity Problem Comment: Previous suspected DTI is evolving into an unstageable pressure injury, w/ loose eschar throughout wound bed. Rosa-wound tissue is intact and blanching. Continue w/ hydrocolloid to facilitate autolytic debridement. patient received a trach this afternoon, which will alleviate pressure to site. Coccyx Pressure Injury Dressing Type: Allevyn Life Dressing Description: Not Intact, Soiled (patient has frequent loose stools; nurse in the process of changing dressing when I assessed.) Exudate Amount: None Exudate Characteristic(s): None Integumentary Issue Intervention: Dressing Applied Rosa Wound Tissue: Blanching, Erythema Rosa Wound Swelling: None Wound Bed Color: Red Site Odor: None Site Measurement - Head-to-Toe Length X Width X Depth (cm): [id number] Pressure Injury Stage: Stage 1 Pressure Injury Present on Admit: No Skin Integrity Problem Comment: Non-blanching erythema noted on coccyx, consistent is appearence w/ stage I pressure injury. Skin is presently intact. Patient is currently on a Sport bed w/ TAPS and turns q 2. Allevyn Life sacral dressing placed.
--- NOTE | 2016-09-04 17:13 | PDINTPN ---
Reading Recovery Teacher Progress Note Assessment/Plan: Assessment: Status post cardiopulmonary arrest 09/02: rapid atrial fibrillation, hypoxia, asystole, CPR, intubation, eventual return of spontaneous circulation. CABG X 5 and MAZE Rapid atrial fibrillation. On amiodarone. In normal sinus rhythm set afternoon RAHEL: Worsening, Cr 4.2, BUN 180 2/2 ATN. Renal following. Hopefully family will agree to dialysis by tomorrow. Mitral regurg post op, moderate-severe. Hemodynamics OK. Likely contributes to his acute respiratory failure and infiltrates. Respiratory Failure: Extubated, now reintubated, with tracheostomy tube placed today. CXR somewhat better today. Still with low grade fevers. ? cardiogenic edema vs. pneumonia vs. aspiration vs. non-cardiogenic edema from SIRS. Hypotension: Stable, off DA, Levophed on hold currently as pressures have improved. Elevated WBC: Improved, 18 today. On ertapenem for possible aspiration associated with his arrest Right foot ischemia: Likely due to spasm/embolism/thrombosis at the ankle. On Heparin/ASA/Plavix, but on hold currently. Dr. Levy following. Lower GI bleed. Some blood today per rectum, mild to moderate amount. Heparin on hold. Will hold Plavix and aspirin however anti-platelet affects will be on board for several days. Acute blood-loss anemia: Multifactorial. Getting blood today. Plan: Vent support. Supportive care. Consider tracheostomy, will discuss with [facility]. Family is in support of this Continue amiodarone. Follow ABG, lab chest x-ray. Support pressure with Plasmanate, Levophed as needed Continue ertapenem. Hold heparin Heparin for now along with anti-platelet agents secondary to bleeding. No compressions again per wishes of the patient's family Prognosis remains guarded, will need HD . 50 minutes of critical care time spent directly with the patient. Discussed with the patient's family, cardiovascular surgery, respiratory, nursing, and the ICU multi disciplinary team. Subjective: Sedated, on ventilator. Status post tracheostomy and Booker catheter placement. Arousals weekly. Looks to voice. Objective: Vital Signs Temp Pulse Resp BP Pulse Ox 37 C 75 30 H 112/58 L 92 09/04/16 16:00 09/04/16 16:00 09/04/16 16:00 09/04/16 16:00 09/04/16 16:00 Microbiology 09/02/16 13:38 - Final Sputum, Induced/Suctioned Sputum Culture - Final Laboratory Results 09/04/16 04:15 09/04/16 04:15 09/03/16 09/04/16 09/05/16 05:59 05:59 05:59 Intake Total 2951.2 2169.4 Output Total 895 650 150 Balance 2056.2 1519.4 -150 PT 19.5 SEC (12.0-15.0) H 09/04/16 04:15 INR 1.64 (0.83-1.16) H 09/04/16 04:15 Laboratory Tests 09/04/16 04:15 PT 19.5 H INR 1.64 H APTT 30.5 pCO2 38 pO2 100 H ABG pH 7.39 O2 Concentration % 50 Respiration Rate 28 Assist Control YES Tidal Volume 650 Calcium 7.2 L Phosphorus 8.7 H Magnesium 3.6 H Total Bilirubin 1.3 AST 498 H ALT 382 H Albumin 3.2 L CXR: Bilateral diffuse infiltrates are better compared in last 24-48 hours. Tracheostomy tube in good position. Physical Exam - Physical Exam General Appearance: mild distress, other (Sedated, arouses weekly) EENT: PERRL/EOMI, other (Karrie to), No ET tube (Tracheostomy tube now in place) Neck: normal inspection, other (Booker on the right side) Respiratory: decreased breath sounds (Bilaterally), rales (Some at the right base), rhonchi (Coarse breath sounds with some rhonchi at the right base), other (On 40% FiO2, saturations 92%), No normal breath sounds Cardiac/Chest: regular rate, rhythm (Alternating with rate controlled atrial fibrillation.) Abdomen: non-tender, distended, other (Diarrhea, with some blood.), No normal bowel sounds (Present, decreased), No soft Male Genitalia: other Skin: warm/dry, pallor Lymphatic: no adenopathy Extremities: pedal edema Neuro/Psych: no motor/sensory deficits, motor weakness (Generalized weakness), No cognition abnormalities (Hard to assess) ICD10 Worksheet Patient Problems: Problems Problem Status Diagnosed Acute blood loss anemia Acute Acute renal failure Acute Arterial occlusion, lower extremity Acute Leukocytosis Acute Respiratory failure with hypoxia Acute S/P CABG x 5 Acute S/P Maze operation for atrial fibrillation Acute Coronary arteriosclerosis Acute
[2016-09-04 18:06] LABS: HEMATOCRIT 30.3 % (40.0-51.0); HEMOGLOBIN 10.5 g/dL (13.7-17.5)
[2016-09-04] MEDS: ERTAPENEM 0.5 GM in NS 100 ML IV SCH (19:01)
[2016-09-04] MEDS: HALOPERIDOL LACT 5 MG/ML INJ IVP PRN (19:16)
[2016-09-04] MEDS: MELATONIN 3 MG TAB TUBE SCH (20:36)
[2016-09-04] MEDS ORDERED: DESMOPRESSIN ACETATE 4 MCG/ML INJ IVP SCH (21:00)
[2016-09-05 04:43] LABS: BASE EXCESS -5.2 mEq/L (-2.5-2.5); BICARBONATE 20 mEq/L (22-26); MEASURED OXYGEN SATURATION 89 % (92-95); PCO2 43 mmHg (34-38); PO2 69 mmHg (65-75); TCO2 22 mEq/L (23-27)
[2016-09-05 04:45] LABS: % IMMATURE GRANULYOCYTES 0.3 % (0.0-1.1); ABSOLUTE IMMATURE GRANULOCYTES 0.05 10^3/uL (0.00-0.10); ABSOLUTE NRBC COUNT 0.08 10^3/uL (0-0.01); ADD DIFF? NO; ADD MORPH? NO; ADD SCAN? NO; ATYPICAL LYMPHOCYTE FLAG 10 (0-99); FRAGMENT RBC FLAG 20 (0-99); HEMATOCRIT 30.1 % (40.0-51.0); HEMOGLOBIN 10.4 g/dL (13.7-17.5); LEFT SHIFT FLG 80 (0-99); LIPEMIA HEMOLYSIS FLAG 90 (0-99); MEAN CELL HEMOGLOBIN 32.6 pg (27.9-34.1); MEAN CELL HEMOGLOBIN CONCENTR. 34.6 g/dL (32.4-36.7); MEAN CELL VOLUME 94.4 fL (81.5-99.8); NRBC-AUTO% 0.5 % (0.0-0.2); PLATELET CLUMPS FLAG 10 (0-99); PLATELET COUNT 341 10^3/uL (150-400); RED BLOOD CELL COUNT 3.19 10^6/uL (4.40-6.38); RED CELL DISTRIBUTION WIDTH 15.9 % (11.5-15.2)
[2016-09-05 04:46] LABS: ASSIST CONTROL YES
[2016-09-05 04:47] LABS: END TIDAL CO2 29; O2 CONCENTRATIION 60 % (0-100); P/F RATIO 115 RATIO; TOTAL RATE 28
[2016-09-05 05:03] LABS: ALANINE AMINOTRANSFERASE 294 IU/L (21-72); ALBUMIN 3.1 g/dL (3.5-5.0); ALKALINE PHOSPHATASE 140 IU/L (38-126); ANION GAP 24 mEq/L (8-16); ASPARTATE AMINOTRANSFERASE 202 IU/L (17-59); BILIRUBIN,TOTAL 1.6 mg/dL (0.1-1.4); BILIRUBIN-CONJUGATED 1.4 mg/dL (0.0-0.5); BILIRUBIN-UNCONJUGATED 0.2 mg/dL (0.0-1.1); CALCIUM 7.6 mg/dL (8.5-10.4); CARBON DIOXIDE 22 mEq/l (22-31); CHLORIDE 103 mEq/L (97-110); CREATININE 4.7 mg/dL (0.7-1.3); GLOMERULAR FILTRATION RATE 13; GLUCOSE 173 mg/dL (70-100); MAGNESIUM 3.8 mg/dL (1.6-2.3); POTASSIUM 4.9 mEq/L (3.5-5.2); SODIUM 149 mEq/L (134-144); TOTAL PROTEIN 5.7 g/dL (6.3-8.2)
--- NOTE | 2016-09-05 07:42 | SOAPPROG ---
SOAP Progress Note Assessment/Plan: POD #14: CABGx5 (GANN-LAD, EBONY-D1, SVG-LAD, Sequential SVG-PDA-PL), Padilla-Maze IV Left/Right lesions POD #1: Tracheostomy, RIJ HD catheter ARF with metabolic derangements - HD today Possible GI bleed - Melena yesterday with some BRBPR this morning - s/p 2U PRBCs transfused yesterday. Post-tranfusion Hct 34, today Hct 30. - Continue to hold anti-coagulation Unstable angina, severe 3VD s/p CABGx5 with post-operative cardiac shock - ASA/Plavix held Acute B/L anterior and posterior tibial artery occlusions - Heparin gtt on hold for bleeding concerns - Angiogram limited by renal failure - Eventual amputation plan determined by demarcation Ventilator dependent respiratory failure - s/p tracheostomy - Pulmonary toilet Malnutrition - Continue tube feeds, plan for eventual PEG Unstable angina, severe 3VD s/p CABGx5 with post-operative cardiac shock - LHC on 08/26 showed patent RCA, stable LV function - Continue ASA/Plavix Long-standing persistent atrial fibrillation s/p Padilla-Maze IV - Currently in rate-controlled AF - Antithrombotic therapy held Post-op moderate-severe MR with structurally intact valve - Stable as per multiple f/u ECHOs, non-operative ICM with inferior wall hypokinesis and EF of 40-45% - Fluids/Lasix as needed Thrombocytopenia, resolved - HIT negative 09/05/16 08:24 Subjective: Comfortable Objective: Vital Signs Temp Pulse Resp BP Pulse Ox 37.5 C 80 15 104/51 L 91 L 09/05/16 06:00 09/05/16 07:00 09/05/16 07:00 09/05/16 07:00 09/05/16 07:00 Microbiology 09/02/16 13:38 - Final Sputum, Induced/Suctioned Sputum Culture - Final Laboratory Results 09/05/16 04:25 09/05/16 04:25 09/04/16 09/05/16 09/06/16 05:59 05:59 05:59 Intake Total 2169.4 2242 Output Total 650 585 Balance 1519.4 1657 PT 19.5 SEC (12.0-15.0) H 09/04/16 04:15 INR 1.64 (0.83-1.16) H 09/04/16 04:15 Physical Exam - Physical Exam General Appearance: no apparent distress, obtunded Neck: normal inspection Respiratory: lungs clear, No respiratory distress, No accessory muscle use Cardiac/Chest: irregularly irregular Abdomen: non-tender, soft, No distended Skin: warm/dry Extremities: pedal edema (+1 B/L ) Neuro/Psych: other (Follows commands) ICD10 Worksheet Patient Problems: Problems Problem Status Diagnosed Acute blood loss anemia Acute Acute renal failure Acute Arterial occlusion, lower extremity Acute Leukocytosis Acute Respiratory failure with hypoxia Acute S/P CABG x 5 Acute S/P Maze operation for atrial fibrillation Acute Coronary arteriosclerosis Acute
--- NOTE | 2016-09-05 08:23 | DX ---
Portable Chest, 5:30 a.m., 2 views Clinical Indications: Followup infiltrates Comparison: yesterday Findings: The patient's NG tube tip is at the esophagogastric junction. A new right external jugular venous catheter is present without pneumothorax. There is a stable left arm PICC line. An ET tube wolfe s been replaced with a tracheostomy. Bilateral pulmonary infiltrates remain and may represent pneumon ia, pulmonary edema or ARDS. More focal consolidation in the lateral right midlung is unchanged. Ther e is no pneumothorax. Mild costophrenic gutter blunting is stable . No obvious change in heart size. Stable evidence of previous CABG surgery and atrial appendage clipping. EKG leads overlie the chest. Impression: 1. Feeding tube tip at the esophagogastric junction. 2. New tracheostomy, in good position 3. Stable lung disease, possibly ARDS. A message was left with marisabel Garcia the patient's ICU nurse, at 8:18 am.
[2016-09-05] MEDS: SENNOSIDES 17.6 MG/10 ML UDL TUBE SCH ×2 (09:03→20:44)
--- NOTE | 2016-09-05 09:24 | SOAPPROG ---
SOAP Progress Note Assessment/Plan: Assessment/Plan: RAHEL: Cr continues to uptrend and pt has some significant azotemia, BUN >200 today. - Will plan on HD today, no fluid removal today. - Will repeat HD tomorrow. Hyperkalemia: K 4.9, will modulate on HD. Hypernatremia: Will modulate on HD. - Will d/c desmopressin as HD will help. - Ok to continue free water flushes. - Will continue to monitor. Acidemia: pt with respiratory and metabolic acidosis, will help modulate with HD. Subjective: No acute events overnight. Pt was partially disimpacted with some BRBPR, but Hgb stable after 2 units PRBCs given yesterday. He went to OR yesterday for trach and got a dialysis catheter placed at the same time. Objective: Vital Signs Temp Pulse Resp BP Pulse Ox 37.5 C 80 15 104/51 L 91 L 09/05/16 06:00 09/05/16 07:00 09/05/16 07:00 09/05/16 07:00 09/05/16 07:00 Microbiology 09/02/16 13:38 - Final Sputum, Induced/Suctioned Sputum Culture - Final Laboratory Results 09/05/16 04:25 09/05/16 04:25 09/04/16 09/05/16 09/06/16 05:59 05:59 05:59 Intake Total 2169.4 2242 Output Total 650 585 Balance 1519.4 1657 PT 19.5 SEC (12.0-15.0) H 09/04/16 04:15 INR 1.64 (0.83-1.16) H 09/04/16 04:15 General: awake, no acute distress, delirious Eyes: PERRL Neck: trached CV: RRR Resp: trached and on ventilator Abd: Soft, NT Ext: +2 edema BLE Skin: toes bilaterally cold and dusky Access: R IJ temporary catheter placed 09/04/16 ICD10 Worksheet Patient Problems: Problems Problem Status Diagnosed Acute blood loss anemia Acute Acute renal failure Acute Arterial occlusion, lower extremity Acute Leukocytosis Acute Respiratory failure with hypoxia Acute S/P CABG x 5 Acute S/P Maze operation for atrial fibrillation Acute Coronary arteriosclerosis Acute
[2016-09-05] MEDS: LANSOPRAZOLE SUSP 30MG/10ML UDSYR (Adult) TUBE SCH (10:19)
[2016-09-05] MEDS: RISPERIDONE 1 MG/1 ML PO SCH ×2 (11:00→20:44)
[2016-09-05] MEDS: METOLAZONE 5 MG TAB TUBE SCH (11:17)
--- NOTE | 2016-09-05 11:29 | SOAPPROG ---
SOAP Progress Note Assessment/Plan: Assessment: BRIEF CONSULT NOTE (full note dictated) Asked to see patient with rectal bleeding and fall in H/H. On exam, brown stool in bed. RN reports bleeding occurred after vigorous disimpaction. No bleeding noted overnight IMPRESSION/RECs Suspect local trauma to hemorrhoid or perhaps fissure with disimpaction. Given frequent brown stool, without additional BRBPR or melena, since doubt active GI blood loss. H/H changes likely multifactorial (acute illness, ischmic extremety, etc). Elevated BUN more likely due to ARF than bleeding in gut. OK to resume anticoagulation and to follow stool output. Concern for aggressive GI bleed source is low, and it would seem need for anticoagulant or antiplatelt agent is high. - will sign off, call with questions. 09/05/16 11:25 Objective: Vital Signs Temp Pulse Resp BP Pulse Ox 38 C 77 32 H 94/50 L 94 09/05/16 10:00 09/05/16 11:00 09/05/16 11:00 09/05/16 11:00 09/05/16 11:00 Microbiology 09/02/16 13:38 - Final Sputum, Induced/Suctioned Sputum Culture - Final Laboratory Results 09/05/16 04:25 09/05/16 04:25 09/04/16 09/05/16 09/06/16 05:59 05:59 05:59 Intake Total 2169.4 2242 Output Total 650 585 Balance 1519.4 1657 PT 19.5 SEC (12.0-15.0) H 09/04/16 04:15 INR 1.64 (0.83-1.16) H 09/04/16 04:15 ICD10 Worksheet Patient Problems: Problems Problem Status Diagnosed Acute blood loss anemia Acute Acute renal failure Acute Arterial occlusion, lower extremity Acute Leukocytosis Acute Respiratory failure with hypoxia Acute S/P CABG x 5 Acute S/P Maze operation for atrial fibrillation Acute Coronary arteriosclerosis Acute
--- NOTE | 2016-09-05 12:10 | GCON ---
[f rep st] CONSULTATION INPATIENT CONSULTATION NOTE. REFERRING PHYSICIAN: Marv Thayer DO REASON FOR CONSULTATION: Blood in stool. HISTORY OF PRESENT ILLNESS: The patient 66-year-old male, who was admitted to the hospital to undergo CABG with maze. Postop he has had multiple complications - changes in mental status, respiratory failure, acute renal failure, limb ischemia. Yesterday, while undergoing manual disimpaction, it was noted that he had bright red blood per rectum. At that time, his antiplatelets and anticoagulants were discontinued. Overnight, he has had frequent, loose, and brown bowel movements without melena or recurrent bleeding. There is no known history of gastric malignancy, colon malignancy, colon polyps , etc., although the patient in his current critical status is unable to give history. ALLERGIES: None. PAST MEDICAL HISTORY: Complicated and includes cardiac disease atrial fibrillation, hyperlipidemia, hypertension, UT, prostate cancer, coronary artery disease, depression. He has also had thrombocytopenia as an inpatient. FAMILY HISTORY: Could not be elicited from the patient due to his inability to take part in history. REVIEW OF SYSTEMS: Could not be elicited due to the patient's critical illness. SOCIAL HISTORY: Could not be elicited due to the patient's critical illness. PHYSICAL EXAM: GENERAL: This is a critically ill-appearing male in no apparent distress. HEENT: His pupils are equal, round, reactive to light and accommodation. His sclerae are nonicteric. His oropharynx is clear but dry. NECK: Supple. Trach tube is in place. He tracks to voice, and attempts to answer questions, but is difficult to understand. HEART: Regular rate and rhythm. RESPIRATORY: Trached on the ventilator. ABDOMEN: Soft, nontender. RECTAL: Reveals copious liquid brown stool without blood or melena. SKIN: Bilateral cold and dusky toes. EXTREMITIES: Swollen. LABORATORY TESTING: Shows a white count of 15.1, hemoglobin of 10.4, hematocrit of 30.1, platelet count of 341. INR of 1.6. C diff testing today was negative. IMPRESSION AND RECOMMENDATIONS: The patient has had temporary occurrence of bright red blood in his stools after a manual disimpaction. This was coincident with a fall in hematocrit. Since discontinuing antiplatelet therapies and anticoagulation he has had no further bleeding. Since, in fact, he has had multiple bowel movements that are brown but loose. I suspect he had localized injury during disimpaction. Perhaps to hemorrhoid or stasis ulceration, or perhaps fissure. At this time, his clincal status is guarded and I do not recommend endoscopic evaluation to evaluate his rectal bleeding. Given his normal brown bowel movements, I doubt that he is having active GI blood loss. I suspect that his fall in hematocrit is multifactorial. From the standpoint of GI bleeding, I believe it is safe to resume his antiplatelet therapies. Anticoagulation could be considered as well. My concern for a reason for GI blood loss is low, and in the setting of his recent cardiac status and lower extremity clotting, it would seem that anticoagulation and antiplatelet therapy may be important to resume if possible. At this time, I will sign off the patient's care. Please call for any further questions. /[id number]/MODL MTDD
--- NOTE | 2016-09-05 13:44 | PDINTPN ---
Lead Medical Technologist Progress Note Assessment/Plan: Assessment: Status post cardiopulmonary arrest 09/02: rapid atrial fibrillation, hypoxia, asystole, CPR, intubation, eventual return of spontaneous circulation. CABG X 5 and MAZE Rapid atrial fibrillation. On amiodarone. In normal sinus rhythm currently. RAHEL: Worsening, Cr 4.7, BUN>200 2/2 ATN. Renal following. To start HD today.. Mitral regurg post op, moderate-severe. Hemodynamics OK. Likely contributes to his acute respiratory failure and infiltrates. Respiratory Failure: Extubated, now reintubated, with tracheostomy tube in place. CXR with persistent diffuse infiltrates, oxygen requirement increased to 60% today: ? cardiogenic edema vs. pneumonia vs. aspiration vs. non-cardiogenic edema from SIRS. Hypotension: Stable, but borderline. Levophed on hold currently as pressures have improved. Elevated WBC: Improved, 15 today. On ertapenem for possible aspiration associated with his arrest Right foot ischemia greater than left: Likely due to spasm/embolism/thrombosis at the ankle. On Heparin/ASA/Plavix, but on hold currently. Dr. Levy following. Lower GI bleed. Some blood today per rectum, no evidence of significant bleeding farther up. GI consult duration appreciated.. Heparin, Plavix and aspirin on hold. On DDAVP for uremic bleeding. Acute blood-loss anemia: Multifactorial. Status post 2Us yesterday Plan: To start hemodialysis today. Vent support. Supportive care. Continue amiodarone. Follow ABG, lab chest x-ray. Support pressure with Plasmanate, Levophed as needed Continue ertapenem. Hold heparin Heparin for now along with anti-platelet agents secondary to bleeding. No compressions again per wishes of the patient's family Prognosis remains guarded, will need HD . 45 minutes of critical care time spent directly with the patient. Discussed with the patient's family, cardiovascular surgery, respiratory, nursing, and the ICU multi disciplinary team. Subjective: Sedated, on ventilator. Looks to voice. Appears uncomfortable Objective: Vital Signs Temp Pulse Resp BP Pulse Ox 38 C 78 28 H 101/55 L 91 L 09/05/16 11:59 09/05/16 13:00 09/05/16 13:00 09/05/16 13:00 09/05/16 13:00 Microbiology 09/02/16 13:38 - Final Sputum, Induced/Suctioned Sputum Culture - Final Laboratory Results 09/05/16 04:25 09/05/16 04:25 09/04/16 09/05/16 09/06/16 05:59 05:59 05:59 Intake Total 2169.4 2242 Output Total 650 585 Balance 1519.4 1657 PT 19.5 SEC (12.0-15.0) H 09/04/16 04:15 INR 1.64 (0.83-1.16) H 09/04/16 04:15 Laboratory Tests 09/05/16 09/05/16 04:25 09:45 pCO2 43 H pO2 69 Total CO2 22 L ABG pH 7.30 L O2 Concentration % 60 Respiration Rate 28 Assist Control YES Tidal Volume 650 Calcium 7.6 L Phosphorus 11.0 H D Magnesium 3.8 H Total Bilirubin 1.6 H Conjugated Bilirubin 1.4 H AST 202 H ALT 294 H Albumin 3.1 L C. difficile Tox (PCR) NEGATIVE CXR: No change in diffuse bilateral pulmonary infiltrates. Lines and tubes appear to be in good position. Physical Exam - Physical Exam General Appearance: mild distress, thin, No alert EENT: PERRL/EOMI, other (Tracheostomy tube in place) Neck: normal inspection (Trach tube) Respiratory: lungs clear (Anteriorly), decreased breath sounds, rales (At lateral bases), rhonchi (Few) Cardiac/Chest: regular rate, rhythm, systolic murmur Abdomen: normal bowel sounds (Present, decreased), non-tender (Difficult to assess), soft (Somewhat firm), distended (Mild distention present) Male Genitalia: other Skin: warm/dry, pallor Extremities: pedal edema, other (Ischemic toes/forefoot on the right, several toes on the left) Neuro/Psych: cognition abnormalities (Cannot assess), No no motor/sensory deficits (Cannot assess) ICD10 Worksheet Patient Problems: Problems Problem Status Diagnosed Acute blood loss anemia Acute Acute renal failure Acute Arterial occlusion, lower extremity Acute Leukocytosis Acute Respiratory failure with hypoxia Acute S/P CABG x 5 Acute S/P Maze operation for atrial fibrillation Acute Coronary arteriosclerosis Acute
--- NOTE | 2016-09-05 15:42 | DX ---
Portable Chest, Single View September 05, 2016, 1442 Hours Indication: Assess feeding tube. Comparison: Portable chest dated September 05, 2016. Findings: The feeding tube has been advanced. The tip now resides in the mid stomach along the expect ed course of the greater curvature of the stomach left of midline. The tracheostomy tube, left PICC, right IJ central venous line, midline sternal wires, and left atrial appendage clip are unchanged. Diffuse ground-glass pulmonary opacities are minimally worse, particularly in the right midlung. Mild cardiomegaly and small bilateral pleural effusions, larger right than left, are unchanged. No pneumo thorax. Impression: 1. Feeding tube in stomach. 2. Support devices in good positions. 3. Confluent airspace consolidation is equivocally worse in the periphery of the right midlung since 9 hours prior. Otherwise no significant change.
[2016-09-05] MEDS ORDERED: NS 100 ML IV PRN (17:07)
[2016-09-05] MEDS ORDERED: SODIUM CITRATE 4% 5 ML in SYRINGE 0 ML DIAL ONE (17:30)
[2016-09-05] MEDS ORDERED: PETROLAT,WHT/MIN OIL/SOD CHL 3.5 GM OPHT.OINT EACHEYE PRN (19:37)
[2016-09-05] MEDS: ERTAPENEM 0.5 GM in NS 100 ML IV SCH (20:22)
[2016-09-05] MEDS: MELATONIN 3 MG TAB TUBE SCH (20:44)
[2016-09-05] MEDS: ACETAMINOPHEN 650 MG/20.3 ML UDCUP TUBE PRN (20:44)
[2016-09-05] MEDS: HALOPERIDOL LACT 5 MG/ML INJ IVP PRN (22:31)
[2016-09-05] MEDS ORDERED: ALBUTEROL 60 PUFFS/8 GM MDI IH PRN (23:51)
[2016-09-06 04:52] LABS: BICARBONATE 22 mEq/L (22-26); MEASURED OXYGEN SATURATION 94 % (92-95); PCO2 39 mmHg (34-38); PO2 82 mmHg (65-75); TCO2 23 mEq/L (23-27)
[2016-09-06 04:53] LABS: ASSIST CONTROL YES; END TIDAL CO2 25; O2 CONCENTRATIION 60 % (0-100); P/F RATIO 136 RATIO
[2016-09-06 04:54] LABS: % IMMATURE GRANULYOCYTES 0.6 % (0.0-1.1); ABSOLUTE IMMATURE GRANULOCYTES 0.11 10^3/uL (0.00-0.10); ADD DIFF? NO; ADD MORPH? NO; ADD SCAN? YES; ATYPICAL LYMPHOCYTE FLAG 20 (0-99); FRAGMENT RBC FLAG 10 (0-99); HEMATOCRIT 27.6 % (40.0-51.0); HEMOGLOBIN 9.3 g/dL (13.7-17.5); LIPEMIA HEMOLYSIS FLAG 80 (0-99); MEAN CELL HEMOGLOBIN 31.3 pg (27.9-34.1); MEAN CELL HEMOGLOBIN CONCENTR. 33.7 g/dL (32.4-36.7); MEAN CELL VOLUME 92.9 fL (81.5-99.8); MEAN PLATELET VOLUME 11.8 fL (8.7-11.7); NRBC-AUTO% 0.5 % (0.0-0.2); PLATELET CLUMPS FLAG 20 (0-99); PLATELET COUNT 283 10^3/uL (150-400); RED BLOOD CELL COUNT 2.97 10^6/uL (4.40-6.38); RED CELL DISTRIBUTION WIDTH 15.7 % (11.5-15.2); TOTAL RATE 28
[2016-09-06 05:02] LABS: LEFT SHIFT FLG 110 (0-99)
[2016-09-06 05:13] LABS: ALANINE AMINOTRANSFERASE 203 IU/L (21-72); ALBUMIN 2.8 g/dL (3.5-5.0); ALKALINE PHOSPHATASE 160 IU/L (38-126); ANION GAP 20 mEq/L (8-16); ASPARTATE AMINOTRANSFERASE 109 IU/L (17-59); BILIRUBIN,TOTAL 1.6 mg/dL (0.1-1.4); CALCIUM 7.5 mg/dL (8.5-10.4); CARBON DIOXIDE 24 mEq/l (22-31); CHLORIDE 102 mEq/L (97-110); CREATININE 4.4 mg/dL (0.7-1.3); GLOMERULAR FILTRATION RATE 14; GLUCOSE 155 mg/dL (70-100); POTASSIUM 4.7 mEq/L (3.5-5.2); SODIUM 146 mEq/L (134-144); TOTAL PROTEIN 5.3 g/dL (6.3-8.2)
[2016-09-06 05:46] LABS: SCAN POSITIVE
[2016-09-06 06:08] LABS: POLYCHROMASIA 1+
[2016-09-06 06:09] LABS: GIANT PLATELETS PRESENT; PLATELET ESTIMATE ADEQUATE (ADEQ)
--- NOTE | 2016-09-06 07:19 | DX ---
Portable Chest, 6:17 a.m. Clinical Indications: Followup infiltrates Comparison: yesterday Findings: A tracheostomy, feeding tube an left arm PICC line remain in place. Little if any change i n bilateral infiltrate consult more focal consolidation in the lateral right midlung. No pneumothorax . Mild costophrenic gutter blunting is unchanged. Impression: Stable since yesterday.
[2016-09-06] MEDS: LANSOPRAZOLE SUSP 30MG/10ML UDSYR (Adult) TUBE SCH (09:44)
[2016-09-06] MEDS: SENNOSIDES 17.6 MG/10 ML UDL TUBE SCH ×2 (09:44→21:18)
[2016-09-06] MEDS: RISPERIDONE 1 MG/1 ML PO SCH ×2 (09:44→21:18)
[2016-09-06] MEDS: METOLAZONE 5 MG TAB TUBE SCH (10:16)
[2016-09-06] MEDS: ACETAMINOPHEN 650 MG/20.3 ML UDCUP TUBE PRN ×2 (11:47→19:58)
--- NOTE | 2016-09-06 12:32 | SOAPPROG ---
SOAP Progress Note Assessment/Plan: Assessment: 1. ARF. ATN. Oligoanuric. First dialysis done yesterday. Will give albumin at start today to prevent hypotension. Continue levophed support. No UF today. Saline flushes to prevent clotting. Dialysis daily for now. 2. Respiratory fx. CHF/aspiration/ARDS? FiO2 down to 60%. Supportive cares. UF when more stable. 4. AF/RVR. Now in NSR, s/p amio loading. 5. s/p CABG/MAZE Plan: 09/02/16 16:03 09/02/16 16:09 09/02/16 16:15 09/06/16 12:33 09/06/16 12:35 Subjective: First dialysis yesterday, 2h. Clotted filter 3 times. No UF. BP still requiring levophed support. Note has had some BPR, drop in h/h. Objective: Vital Signs Temp Pulse Resp BP Pulse Ox 38.8 C H 85 28 H 113/57 L 94 09/06/16 11:00 09/06/16 11:00 09/06/16 11:34 09/06/16 11:00 09/06/16 11:34 Laboratory Results 09/06/16 04:45 09/06/16 04:45 09/05/16 09/06/16 09/07/16 05:59 05:59 05:59 Intake Total 2242 2490 60 Output Total 585 575 135 Balance 1657 1915 -75 PT 19.5 SEC (12.0-15.0) H 09/04/16 04:15 INR 1.64 (0.83-1.16) H 09/04/16 04:15 critically ill appearing male with trach, on vent. FiO2 60% RRR, no m/g/r Coarse breath sounds Abdom soft, nt 2+ sacral edema R toes gangrenous, purple to black. Left toes dark ICD10 Worksheet Patient Problems: Problems Problem Status Diagnosed Acute blood loss anemia Acute Acute renal failure Acute Arterial occlusion, lower extremity Acute Leukocytosis Acute Respiratory failure with hypoxia Acute S/P CABG x 5 Acute S/P Maze operation for atrial fibrillation Acute Coronary arteriosclerosis Acute
[2016-09-06] MEDS ORDERED: ALBUMIN 25% 100 ML IV ONE (13:00)
--- NOTE | 2016-09-06 13:21 | PDINTPN ---
Construction Person Progress Note Assessment/Plan: Assessment: Status post cardiopulmonary arrest 09/02: rapid atrial fibrillation, hypoxia, asystole, CPR, intubation, eventual return of spontaneous circulation. CABG X 5 and MAZE 08/21 Rapid atrial fibrillation. On amiodarone. In normal sinus rhythm currently. RAHEL: On hemodialysis. Creatinine 4.7, BUN still approximately 200 Mitral regurg post op, moderate-severe. Hemodynamics OK. Likely contributes to his acute respiratory failure and infiltrates. Respiratory Failure: Extubated, reintubated x 3, now with tracheostomy tube in place. CXR with persistent diffuse infiltrates, oxygen requirement at 60%. ? cardiogenic edema vs. pneumonia vs. aspiration vs. non-cardiogenic edema from SIRS. Hypotension: Stable, but borderline. On low-dose Levophed. Elevated WBC: Improved, 159today. On ertapenem for possible aspiration associated with his arrest. Intermittent fevers. Right foot ischemia greater than left: Likely due to spasm/embolism/thrombosis at the ankle. On Heparin/ASA/Plavix, but on hold currently. These did not appear to be successful for prevent Ing lower extremity ischemia. Dr. Levy following. Lower GI bleed. Some blood per rectal bleeding intermittently, no evidence of significant bleeding farther up. GI consult duration appreciated.. Heparin, Plavix and aspirin on hold. Acute blood-loss anemia: Multifactorial. Status post 2Us 09/04 Plan: Cont hemodialysis daily. Vent support. Supportive care. Continue amiodarone. Follow ABG, lab, chest x-ray. Support pressure with Plasmanate, Levophed as needed Continue ertapenem. Hold Heparin for now along with anti-platelet agents secondary to bleeding. No compressions per wishes of the patient's family Prognosis remains guarded . 55 minutes of critical care time spent directly with the patient. Discussed with the cardiovascular surgery, respiratory, nursing, and the ICU multi disciplinary team. Patient's family not hear initially this morning. Subjective: Sedated, on the ventilator. Arouses weakly at times Objective: Vital Signs Temp Pulse Resp BP Pulse Ox 38.7 C H 83 28 H 97/46 L 95 09/06/16 13:00 09/06/16 13:00 09/06/16 13:00 09/06/16 13:00 09/06/16 13:00 Laboratory Results 09/06/16 04:45 09/06/16 04:45 09/05/16 09/06/16 09/07/16 05:59 05:59 05:59 Intake Total 2242 2490 60 Output Total 585 575 135 Balance 1657 1915 -75 PT 19.5 SEC (12.0-15.0) H 09/04/16 04:15 INR 1.64 (0.83-1.16) H 09/04/16 04:15 Laboratory Tests 09/06/16 04:45 pCO2 39 H pO2 82 H ABG pH 7.38 O2 Concentration % 60 Respiration Rate 28 Assist Control YES Tidal Volume 650 End Tidal CO2 25 PEEP 8 Total Bilirubin 1.6 H AST 109 H ALT 203 H Albumin 2.8 L CXR: No change in bilateral pulmonary infiltrates. Lines and tubes in good position. Physical Exam - Physical Exam General Appearance: mild distress, thin, No alert EENT: PERRL/EOMI, ET tube (Tracheostomy tube in place), other (Karrie to) Neck: normal inspection Respiratory: lungs clear (Anteriorly), decreased breath sounds (At bases, with some rales, no rhonchi. Course), rales, No rhonchi, No wheezing Cardiac/Chest: regular rate, rhythm Abdomen: distended, No normal bowel sounds (Present, decreased), No soft Male Genitalia: other (Estrada catheter in place.) Skin: warm/dry, pallor Lymphatic: no adenopathy Extremities: pedal edema, other (Ischemic toes/feet, right greater than left, no change. Decreased pulses.) Neuro/Psych: no motor/sensory deficits (Moves all extremities weakly), cognition abnormalities (Can't assess) ICD10 Worksheet Patient Problems: Problems Problem Status Diagnosed Acute blood loss anemia Acute Acute renal failure Acute Arterial occlusion, lower extremity Acute Leukocytosis Acute Respiratory failure with hypoxia Acute S/P CABG x 5 Acute S/P Maze operation for atrial fibrillation Acute Coronary arteriosclerosis Acute
[2016-09-06] MEDS ORDERED: fentaNYL 100 MCG/2 ML INJ ONE (15:30)
[2016-09-06] MEDS: fentaNYL 100 MCG/2 ML INJ IVP PRN (15:35)
--- NOTE | 2016-09-06 17:11 | SOAPPROG ---
SOAP Progress Note Assessment/Plan: Assessment: POD#15 CABGx5 (GANN-LCX, EBONY-D1, SVG-LAD, Sequential SVG-PDA-PLR), Padilla-Maze IV Left/Right lesions. POD#2 Tracheostomy, RIJ dialysis cath Nutrition per [facility]. IV access per LUE PICC. Sx CAD with ISCM (EF 40-45%) - s/p CABGx5 with bilateral mammaries. Small and diffusely diseased target vessels. Early postop course complicated by cardiogenic shock with multi-organ dysfx, severe MR, and peripheral vasoconstriction. Hemodynamics stabilized on vasoactive support w temporary improvement in hepatorenal and respiratory function as well as transient recovery of foot perfusion as pressor support lightened. Now with MOF secondary to resp arrest on 12/12 precipitated by AF/RVR with hypotension. Condition guarded, vent dependent and on dialysis. Code status adjusted to no CPR per family wishes. Long-standing persistent atrial fibrillation - SR temporarily restored s/p Padilla- Maze IV. Recurrent PAF as of POD#11. Surgical antithrombotic prophylaxis on hold for suspected GIB. Postoperative respiratory failure - Reintubated 3x. Most recently for arrest post AF treatment. Trach placed. Vent management per ICU. Postoperative renal failure - Secondary to shock and ATN. Nephrology following and directing dialysis. Postoperative melena - Intermittent w episode of BRBPR following manual disimpaction. GIB vs mesenteric ischemia. GI consulted. Local trauma from disimpaction suspected. Endoscopic eval deferred. No further active bleeding s/ p 2u PRBC and cessation of AC. Post-op moderate-severe MR - Functional. Valve structurally intact by serial echos. Cath neg for compromised paras flow or RHF. Surg repair deferred. Congestive hepatopathy - Transaminitis, hyperbilirubinemia and coagulopathy +/- met acidosis. Care with anticoagulation/sedation. Acute expected blood loss anemia with thrombocytopenia and coagulopathy - Re- exacerbated by BRBPR. Additional 4u PRBC transfused. Serial H/H monitored. Postoperative pedal ischemia - Vasospasm compl by sm vessel thrombosis below ankle level. Appears to be demarcating rt forefoot and left toes. Contrast imaging as allowed by renal fx. Vasodilator as allowed by BP. All anticoagulants on hold for GI concerns. Gen surg following. Plan: Supportive care as per multidisciplinary team. 09/06/ 15:07 Subjective: All assessments, orders and family interaction by Dr Thayer Objective: Vital Signs Temp Pulse Resp BP Pulse Ox 37.7 C 88 28 H 105/53 L 98 09/06/16 16:00 09/06/16 16:48 09/06/16 16:48 09/06/16 16:00 09/06/16 16:48 Laboratory Results 09/06/16 04:45 09/06/16 04:45 09/05/16 09/06/16 09/07/16 05:59 05:59 05:59 Intake Total 2242 2490 60 Output Total 585 575 135 Balance 1657 1915 -75 PT 19.5 SEC (12.0-15.0) H 09/04/16 04:15 INR 1.64 (0.83-1.16) H 09/04/16 04:15 Critically ill Physical Exam - Physical Exam General Appearance: no apparent distress Respiratory: other (vent) Cardiac/Chest: regular rate, rhythm ICD10 Worksheet Patient Problems: Problems Problem Status Diagnosed Acute blood loss anemia Acute Acute renal failure Acute Arterial occlusion, lower extremity Acute Leukocytosis Acute Respiratory failure with hypoxia Acute S/P CABG x 5 Acute S/P Maze operation for atrial fibrillation Acute Coronary arteriosclerosis Acute
[2016-09-06] MEDS: ERTAPENEM 0.5 GM in NS 100 ML IV SCH (18:12)
[2016-09-06] MEDS: MELATONIN 3 MG TAB TUBE SCH (21:18)
[2016-09-06] MEDS: HALOPERIDOL LACT 5 MG/ML INJ IVP PRN (21:25)
[2016-09-06] MEDS ORDERED: HEPARIN 50,000 UNIT/10 ML VIAL ONE (21:46)
[2016-09-07] MEDS: fentaNYL 100 MCG/2 ML INJ IVP PRN ×4 (00:11→19:41)
[2016-09-07] MEDS: HALOPERIDOL LACT 5 MG/ML INJ IVP PRN ×2 (02:37→09:48)
[2016-09-07] MEDS: ALTEPLASE 2 MG VIAL IVP PRN (02:54)
[2016-09-07 06:20] LABS: ASSIST CONTROL YES; BASE EXCESS -2.8 mEq/L (-2.5-2.5); BICARBONATE 22 mEq/L (22-26); MEASURED OXYGEN SATURATION 94 % (92-95); O2 CONCENTRATIION 60 % (0-100); P/F RATIO 135 RATIO; PCO2 41 mmHg (34-38); PO2 81 mmHg (65-75); TCO2 23 mEq/L (23-27)
[2016-09-07 06:21] LABS: TOTAL RATE 28
[2016-09-07 06:24] LABS: ABSOLUTE NRBC COUNT 0.09 10^3/uL (0-0.01); ADD MORPH? NO; ADD SCAN? YES; ATYPICAL LYMPHOCYTE FLAG 20 (0-99); FRAGMENT RBC FLAG 10 (0-99); HEMATOCRIT 26.2 % (40.0-51.0); HEMOGLOBIN 8.9 g/dL (13.7-17.5); LEFT SHIFT FLG 60 (0-99); LIPEMIA HEMOLYSIS FLAG 90 (0-99); MEAN CELL HEMOGLOBIN 32.1 pg (27.9-34.1); MEAN CELL VOLUME 94.6 fL (81.5-99.8); MEAN PLATELET VOLUME 11.9 fL (8.7-11.7); NRBC-AUTO% 0.4 % (0.0-0.2); PLATELET CLUMPS FLAG 40 (0-99); PLATELET COUNT 236 10^3/uL (150-400); RED BLOOD CELL COUNT 2.77 10^6/uL (4.40-6.38); RED CELL DISTRIBUTION WIDTH 15.6 % (11.5-15.2)
[2016-09-07 06:36] LABS: ALANINE AMINOTRANSFERASE 130 IU/L (21-72); ALBUMIN 2.6 g/dL (3.5-5.0); ALKALINE PHOSPHATASE 150 IU/L (38-126); ANION GAP 15 mEq/L (8-16); ASPARTATE AMINOTRANSFERASE 60 IU/L (17-59); BILIRUBIN,TOTAL 1.7 mg/dL (0.1-1.4); CALCIUM 7.6 mg/dL (8.5-10.4); CARBON DIOXIDE 24 mEq/l (22-31); CHLORIDE 102 mEq/L (97-110); CREATININE 3.8 mg/dL (0.7-1.3); GLOMERULAR FILTRATION RATE 16; GLUCOSE 153 mg/dL (70-100); POTASSIUM 4.4 mEq/L (3.5-5.2); SODIUM 141 mEq/L (134-144); TOTAL PROTEIN 5.1 g/dL (6.3-8.2)
[2016-09-07] MEDS ORDERED: ALBUMIN 25% 100 ML SOLN IV ONE ×2 (07:19→12:13)
[2016-09-07 07:36] LABS: ADD DIFF? YES; SCAN POSITIVE
[2016-09-07 07:40] LABS: LARGE PLATELETS PRESENT; PLATELET ESTIMATE ADEQUATE (ADEQ)
--- NOTE | 2016-09-07 08:06 | DX ---
Portable Chest, 6:18 a.m., 2 views Clinical Indications: Followup infiltrates Comparison: yesterday 6:17 a.m. Findings: Feeding tube tip in the upper stomach. Little if any change in bilateral infiltrates, most consolidated in the right midlung. Right external jugular venous catheter, left arm PICC line and tr acheostomy appliance remain in place. EKG leads and oxygen apparatus overlies the chest. Impression: Little if any change.
[2016-09-07] MEDS: RISPERIDONE 1 MG/1 ML PO SCH ×2 (09:47→21:26)
[2016-09-07] MEDS: LANSOPRAZOLE SUSP 30MG/10ML UDSYR (Adult) TUBE SCH (09:47)
[2016-09-07] MEDS: CLOPIDOGREL BISULFATE 75 MG TAB TUBE SCH (09:48)
[2016-09-07] MEDS: SENNOSIDES 17.6 MG/10 ML UDL TUBE SCH ×2 (09:48→21:26)
[2016-09-07] MEDS: ASPIRIN 81 MG CHEWABLE TAB TUBE SCH (09:48)
--- NOTE | 2016-09-07 10:39 | PDINTPN ---
Hide Dropper Progress Note Assessment/Plan: Assessment: Status post cardiopulmonary arrest 09/02: rapid atrial fibrillation, hypoxia, asystole, CPR, intubation, eventual return of spontaneous circulation. CABG X 5 and MAZE 08/21 Atrial fibrillation. On amiodarone. In normal sinus rhythm currently. RAHEL: On hemodialysis. Creatinine 3.8, BUN approximately 150. Fluid was able to be removed during hemodialysis today: Approximately 0.5 L Mitral regurg post op, moderate-severe. Hemodynamics OK. Likely contributes to his acute respiratory failure and infiltrates. Respiratory Failure: Extubated, reintubated x 3, now with tracheostomy tube in place. CXR with persistent diffuse infiltrates, oxygen requirement at 60%. ? cardiogenic edema vs. pneumonia vs. aspiration vs. non-cardiogenic edema from SIRS. Hypotension: Stable, but borderline. On low-dose Levophed. Elevated WBC: Improved, 159today. On ertapenem for possible aspiration associated with his arrest. Intermittent fevers. Right foot ischemia greater than left: Likely due to spasm/embolism/thrombosis at the ankle. On Heparin/ASA/Plavix previously, on hold currently secondary to GI bleeding. These did not appear to be successful for preventing lower extremity ischemia. Dr. Levy following. Lower GI bleed. Some blood per rectal bleeding intermittently, no evidence of significant bleeding farther up. GI consult duration appreciated. Full dose Heparin, Plavix and aspirin on hold. Acute blood-loss anemia: Multifactorial. Status post 2Us 09/04 Plan: Cont hemodialysis daily. Vent support. Supportive care. Continue amiodarone. Follow ABG, lab, chest x-ray. Support pressure with Levophed as needed. Continue ertapenem. Restart prophylactic heparin. No compressions per wishes of the patient's family Prognosis remains guarded 45 minutes of critical care time spent directly with the patient. Discussed with the cardiovascular surgery, respiratory, Renal, and the ICU multi disciplinary team. Patient's family not hear initially this morning. Subjective: On ventilator. Arouses weakly. Appears to look to voice. On hemodialysis. Objective: Vital Signs Temp Pulse Resp BP Pulse Ox 37.4 C 88 26 H 106/60 88 L 09/07/16 08:00 09/07/16 08:10 09/07/16 08:00 09/07/16 08:00 09/07/16 08:10 Laboratory Results 09/07/16 06:10 09/07/16 06:10 09/06/16 09/07/16 09/08/16 05:59 05:59 05:59 Intake Total 2490 2076 Output Total 575 650 Balance 1915 1426 PT 19.5 SEC (12.0-15.0) H 09/04/16 04:15 INR 1.64 (0.83-1.16) H 09/04/16 04:15 Laboratory Tests 09/07/16 06:10 pCO2 41 H pO2 81 H ABG pH 7.35 ABG O2 Saturation 94 O2 Concentration % 60 Assist Control YES Tidal Volume 650 PEEP 8 Calcium 7.6 L Total Bilirubin 1.7 H ALT 130 H Alkaline Phosphatase 150 H Albumin 2.6 L CXR : No changes. Bilateral infiltrates persist. Lines and tubes in good position Physical Exam - Physical Exam General Appearance: mild distress, thin EENT: ET tube ( tracheostomy), other Neck: No normal inspection (y) Respiratory: lungs clear ( anteriorly), decreased breath sounds ( at bases, coarse breath sounds), rales ( at bases), No rhonchi, No wheezing Cardiac/Chest: regular rate, rhythm, systolic murmur Abdomen: normal bowel sounds, non-tender, soft, distended, other ( tolerating tube feeding) Male Genitalia: other ( Estrada catheter in place. 650 out last 24 hours.) Skin: warm/dry, pallor Lymphatic: no adenopathy Extremities: pedal edema, other ( Ischemic toes/ feet, without change. Right greater than left) Neuro/Psych: no motor/sensory deficits ( moves extremities, hard to assess), cognition abnormalities ( can't assess) ICD10 Worksheet Patient Problems: Problems Problem Status Diagnosed Acute blood loss anemia Acute Acute renal failure Acute Arterial occlusion, lower extremity Acute Leukocytosis Acute Respiratory failure with hypoxia Acute S/P CABG x 5 Acute S/P Maze operation for atrial fibrillation Acute Coronary arteriosclerosis Acute
--- NOTE | 2016-09-07 12:25 | SOAPPROG ---
SOAP Progress Note Assessment/Plan: Assessment: 1. ARF. ATN. Borderline oliguric. Able to tolerate w/o clotting with low dose heparin today. Will continue as long as no bleeding issues. Dialysis daily for now, UF as able. 2. Respiratory fx. CHF/aspiration/ARDS? FiO2 down to 60%. Supportive cares. 4. AF/RVR. Now in NSR, s/p amio loading. 5. s/p CABG/MAZE Plan: 09/02/16 16:03 09/02/16 16:09 09/02/16 16:15 09/06/16 12:33 09/06/16 12:35 09/07/16 12:24 Subjective: Had problems with very high venous pressures, clotted system again yesterday. Dialyzed this am with low dose heparin, able to UF net ~0.5 L with stable BP. Objective: Vital Signs Temp Pulse Resp BP Pulse Ox 37.4 C 88 26 H 106/60 98 09/07/16 08:00 09/07/16 11:40 09/07/16 08:00 09/07/16 08:00 09/07/16 11:40 Laboratory Results 09/07/16 06:10 09/07/16 06:10 09/06/16 09/07/16 09/08/16 05:59 05:59 05:59 Intake Total 2490 2076 Output Total 575 650 Balance 1915 1426 PT 19.5 SEC (12.0-15.0) H 09/04/16 04:15 INR 1.64 (0.83-1.16) H 09/04/16 04:15 Critically ill wm on vent through trach Awake, squeezes hands on command rrr, no m/g/r Coarse br sounds throughout Abdom soft, nt 2-3+ LE edema L/R forefoot ischemia/dry gangrene. Starting to demarcate on L Estrada - 200 cc urine ICD10 Worksheet Patient Problems: Problems Problem Status Diagnosed Acute blood loss anemia Acute Acute renal failure Acute Arterial occlusion, lower extremity Acute Leukocytosis Acute Respiratory failure with hypoxia Acute S/P CABG x 5 Acute S/P Maze operation for atrial fibrillation Acute Coronary arteriosclerosis Acute
--- NOTE | 2016-09-07 12:36 | SOAPPROG ---
SOAP Progress Note Assessment/Plan: Assessment: POD#16 CABGx5 (GANN-LCX, EBONY-D1, SVG-LAD, Sequential SVG-PDA-PLR), Padilla-Maze IV Left/Right lesions. POD#3 Tracheostomy, RIJ dialysis cath Nutrition per [facility]. IV access per LUE PICC. Sx CAD with ISCM (EF 40-45%) - s/p CABGx5 with bilateral mammaries. Small and diffusely diseased target vessels. Early postop course complicated by cardiogenic shock with multi-organ dysfx, severe MR, and peripheral vasoconstriction. Hemodynamics stabilized on vasoactive support w temporary improvement in hepatorenal and respiratory function as well as transient recovery of foot perfusion as pressor support lightened. Now with MOF secondary to resp arrest on 12/12 precipitated by AF/RVR with hypotension. Condition guarded, vent dependent and on dialysis. Code status adjusted to no CPR per family wishes. Long-standing persistent atrial fibrillation - SR temporarily restored s/p Padilla- Maze IV. Recurrent PAF/PSVT as of POD#11. Surgical antithrombotic prophylaxis on hold for suspected GIB. Postoperative respiratory failure - Reintubated 3x. Most recently for arrest post AF treatment. Trach placed. Vent management per ICU. Postoperative renal failure - Secondary to shock and ATN. Nephrology following and directing dialysis. Postoperative melena - Intermittent w episode of BRBPR following manual disimpaction. GIB vs mesenteric ischemia. GI consulted. Local trauma from disimpaction suspected. Endoscopic eval deferred. No further active bleeding s/ p 2u PRBC and cessation of AC. Post-op moderate-severe MR - Functional. Valve structurally intact by serial echos. Cath neg for compromised paras flow or RHF. Surg repair deferred. Congestive hepatopathy - Transaminitis, hyperbilirubinemia and coagulopathy +/- met acidosis. Care with anticoagulation/sedation. Acute expected blood loss anemia with thrombocytopenia and coagulopathy - Re- exacerbated by BRBPR. Additional 2u PRBC transfused. Serial H/H monitored. Postoperative pedal ischemia - Vasospasm compl by sm vessel thrombosis below ankle level. Appears to be demarcating rt forefoot and left toes. Contrast imaging as allowed by renal fx. Vasodilator as allowed by BP. All anticoagulants on hold for GI concerns. Gen surg following. Plan: Supportive care as per multidisciplinary team. 12/17/16 12:32 Subjective: Sedated on vent Objective: Vital Signs Temp Pulse Resp BP Pulse Ox 37.4 C 88 26 H 106/60 98 09/07/16 08:00 09/07/16 11:40 09/07/16 08:00 09/07/16 08:00 09/07/16 11:40 Laboratory Results 09/07/16 06:10 09/07/16 06:10 09/06/16 09/07/16 09/08/16 05:59 05:59 05:59 Intake Total 2490 2076 Output Total 575 650 Balance 1915 1426 PT 19.5 SEC (12.0-15.0) H 09/04/16 04:15 INR 1.64 (0.83-1.16) H 09/04/16 04:15 Levo 3 mcg. Vent FIO2 60%. TFs at 45ml/hr. Daily dialysis w UF as tolerated. CXR -> unchanged bilat interstitial infiltrates and uppermost sternal wire fx. Physical Exam - Physical Exam General Appearance: no apparent distress Respiratory: lungs clear (vent) Cardiac/Chest: regular rate, rhythm, other (Sternum grossly stable, some upper/ mid paradoxical motion. Sternotomy and LLE ventomy CDI) Abdomen: soft Skin: normal color (except feet) Extremities: other (no visible edema) ICD10 Worksheet Patient Problems: Problems Problem Status Diagnosed Acute blood loss anemia Acute Acute renal failure Acute Arterial occlusion, lower extremity Acute Leukocytosis Acute Respiratory failure with hypoxia Acute S/P CABG x 5 Acute S/P Maze operation for atrial fibrillation Acute Coronary arteriosclerosis Acute
[2016-09-07] MEDS ORDERED: ALBUMIN 25% 100 ML IV ONE ×2 (13:00→13:30)
[2016-09-07] MEDS: ACETAMINOPHEN 650 MG/20.3 ML UDCUP TUBE PRN (14:21)
[2016-09-07] MEDS: ERTAPENEM 0.5 GM in NS 100 ML IV SCH (18:19)
[2016-09-07] MEDS: MELATONIN 3 MG TAB TUBE SCH (21:26)
[2016-09-07] MEDS: HEPARIN 5,000 UNIT/0.5 ML SYR SC SCH (22:29)
[2016-09-07] MEDS: NOREPINEPHRINE BITARTRATE 16 MG in D5W 250 ML IV SCH (23:49)
[2016-09-08 04:46] LABS: ADD DIFF? YES; ADD MORPH? NO; ATYPICAL LYMPHOCYTE FLAG 30 (0-99); FRAGMENT RBC FLAG 20 (0-99); HEMATOCRIT 24.9 % (40.0-51.0); HEMOGLOBIN 8.2 g/dL (13.7-17.5); LIPEMIA HEMOLYSIS FLAG 80 (0-99); MEAN CELL HEMOGLOBIN 31.4 pg (27.9-34.1); MEAN CELL HEMOGLOBIN CONCENTR. 32.9 g/dL (32.4-36.7); MEAN CELL VOLUME 95.4 fL (81.5-99.8); MEAN PLATELET VOLUME 12.2 fL (8.7-11.7); NRBC-AUTO% 0.5 % (0.0-0.2); PLATELET CLUMPS FLAG 20 (0-99); PLATELET COUNT 183 10^3/uL (150-400); RED BLOOD CELL COUNT 2.61 10^6/uL (4.40-6.38); RED CELL DISTRIBUTION WIDTH 15.6 % (11.5-15.2)
[2016-09-08 04:47] LABS: BASE EXCESS -1.9 mEq/L (-2.5-2.5); BICARBONATE 23 mEq/L (22-26); MEASURED OXYGEN SATURATION 93 % (92-95); PCO2 43 mmHg (34-38); PO2 77 mmHg (65-75); TCO2 24 mEq/L (23-27)
[2016-09-08 04:49] LABS: ASSIST CONTROL YES; O2 CONCENTRATIION 65 % (0-100); P/F RATIO 118 RATIO; TOTAL RATE 28
[2016-09-08 04:50] LABS: ADD SCAN? NO; LEFT SHIFT FLG 100 (0-99)
[2016-09-08 05:07] LABS: ALANINE AMINOTRANSFERASE 95 IU/L (21-72); ALBUMIN 3.2 g/dL (3.5-5.0); ALKALINE PHOSPHATASE 160 IU/L (38-126); ANION GAP 17 mEq/L (8-16); ASPARTATE AMINOTRANSFERASE 44 IU/L (17-59); BILIRUBIN,TOTAL 1.7 mg/dL (0.1-1.4); CARBON DIOXIDE 24 mEq/l (22-31); CHLORIDE 100 mEq/L (97-110); CREATININE 3.4 mg/dL (0.7-1.3); GLOMERULAR FILTRATION RATE 18; GLUCOSE 137 mg/dL (70-100); POTASSIUM 4.9 mEq/L (3.5-5.2); SODIUM 141 mEq/L (134-144); TOTAL PROTEIN 5.6 g/dL (6.3-8.2)
[2016-09-08 05:21] LABS: GIANT PLATELETS PRESENT; MICROCYTES 1+; PLATELET ESTIMATE ADEQUATE (ADEQ); POLYCHROMASIA 1+; TOXIC VACUOLIZATION PRESENT
[2016-09-08] MEDS: HEPARIN 5,000 UNIT/0.5 ML SYR SC SCH ×3 (05:29→21:32)
[2016-09-08] MEDS: ASPIRIN 81 MG CHEWABLE TAB TUBE SCH (08:57)
[2016-09-08] MEDS: SENNOSIDES 17.6 MG/10 ML UDL TUBE SCH ×2 (08:57→21:33)
[2016-09-08] MEDS: RISPERIDONE 1 MG/1 ML PO SCH ×2 (08:57→21:36)
[2016-09-08] MEDS: CLOPIDOGREL BISULFATE 75 MG TAB TUBE SCH (08:57)
[2016-09-08] MEDS: LANSOPRAZOLE SUSP 30MG/10ML UDSYR (Adult) TUBE SCH (08:58)
--- NOTE | 2016-09-08 09:23 | DX ---
Portable Chest, Single View September 08, 2016 History: Follow-up pulmonary status. Status post open heart surgery. Findings: Heart size is mildly enlarged and stable. Postsurgical changes are seen of open heart surge ry. Bilateral airspace consolidation is visualized with a stable pattern. This is most predominant in the right midlung laterally. Tracheostomy tube, feeding tube, right IJ central line, and left PIC li ne are in stable position. Impression: Stable chest x-ray.
--- NOTE | 2016-09-08 10:12 | SOAPPROG ---
IVANA Progress Note Assessment/Plan: Assessment: Mr. Garber remains critically ill. Our service is on standby regarding his feet. Please do not hesitate to contact us with concerns Plan: 09/08/16 10:11 Objective: Vital Signs Temp Pulse Resp BP Pulse Ox 37.8 C 89 28 H 112/56 L 94 09/08/16 10:00 09/08/16 10:00 09/08/16 10:00 09/08/16 10:00 09/08/16 10:00 Laboratory Results 09/08/16 04:35 09/08/16 04:35 09/07/16 09/08/16 09/09/16 05:59 05:59 05:59 Intake Total 2076 2147.5 Output Total 650 506 Balance 1426 1641.5 PT 19.5 SEC (12.0-15.0) H 09/04/16 04:15 INR 1.64 (0.83-1.16) H 09/04/16 04:15 ICD10 Worksheet Patient Problems: Problems Problem Status Diagnosed Acute blood loss anemia Acute Acute renal failure Acute Arterial occlusion, lower extremity Acute Leukocytosis Acute Respiratory failure with hypoxia Acute S/P CABG x 5 Acute S/P Maze operation for atrial fibrillation Acute Coronary arteriosclerosis Acute
--- NOTE | 2016-09-08 10:32 | PDINTPN ---
Writer Producer Progress Note Assessment/Plan: Assessment: Status post cardiopulmonary arrest 09/02: rapid atrial fibrillation, hypoxia, asystole, CPR, intubation, eventual return of spontaneous circulation. CABG X 5 and MAZE 08/21 Atrial fibrillation. On amiodarone. In normal sinus rhythm currently. Mitral regurg post op, moderate-severe. Hemodynamics OK. Likely contributes to his acute respiratory failure and infiltrates. RAHEL: On hemodialysis. Creatinine 3.4. Fluid was able to be removed during hemodialysis yesterday, will do so again today. Respiratory Failure: Extubated, reintubated x 3, now with tracheostomy tube in place. CXR with persistent diffuse infiltrates, oxygen requirement at 65%. ? cardiogenic edema/volume overload vs. pneumonia/aspiration vs. non- cardiogenic edema from SIRS, vs a combination of these. Hypotension: Stable, but borderline. On low-dose Levophed. Elevated WBC: Improved, 20 today. On ertapenem for possible aspiration associated with his arrest. Intermittent fevers. Right foot ischemia greater than left: Likely due to spasm/embolism/thrombosis at the ankle. On Heparin/ASA/Plavix previously, on hold currently secondary to GI bleeding. These did not appear to be successful for preventing lower extremity ischemia. Dr. Levy following. Lower GI bleed. Some blood per rectal bleeding intermittently, no evidence of significant bleeding farther up. GI consult duration appreciated. Full dose Heparin, Plavix and aspirin on hold. Anemia: Multifactorial: Acute blood-loss, illness, renal failure, etc. Hematocrit 25 today. To get 2 units of blood with hemodialysis. Plan: Cont hemodialysis daily, remove fluid if possible. Continue vent support and supportive care. Continue amiodarone. Follow ABG, lab, chest x-ray. Support pressure with Levophed as needed. Continue ertapenem. Prophylactic heparin. No compressions per wishes of the patient's family Prognosis remains guarded 50 minutes of critical care time spent directly with the patient. Discussed with the cardiovascular surgery, respiratory, Renal, and the ICU multi disciplinary team. Subjective: On ventilator. Appears somewhat uncomfortable/mild distress with tachypnea. Denies pain. Looks to voice. Answers simple questions. Objective: Vital Signs Temp Pulse Resp BP Pulse Ox 37.8 C 89 28 H 112/56 L 94 09/08/16 10:00 09/08/16 10:00 09/08/16 10:00 09/08/16 10:00 09/08/16 10:00 Laboratory Results 09/08/16 04:35 09/08/16 04:35 09/07/16 09/08/16 09/09/16 05:59 05:59 05:59 Intake Total 2076 2147.5 Output Total 650 506 Balance 1426 1641.5 PT 19.5 SEC (12.0-15.0) H 09/04/16 04:15 INR 1.64 (0.83-1.16) H 09/04/16 04:15 Laboratory Tests 09/08/16 04:35 pCO2 43 H pO2 77 H ABG pH 7.35 ABG O2 Saturation 93 O2 Concentration % 65 Assist Control YES Tidal Volume 650 Calcium 8.0 L Total Bilirubin 1.7 H AST 44 ALT 95 H Albumin 3.2 L CXR: Bilat infiltrates, sl worse on the R. Lines and tubes in good position. Physical Exam - Physical Exam General Appearance: mild distress, thin, other (On ventilator) EENT: ET tube (Tracheostomy tube in place), other (Feeding tube in place) Neck: normal inspection (No JVD) Respiratory: lungs clear (Anteriorly), decreased breath sounds (As well as excursions), rales (By basilar) Cardiac/Chest: regular rate, rhythm Abdomen: normal bowel sounds, non-tender, soft, distended (Mild) Male Genitalia: other (Estrada catheter in place) Skin: warm/dry, pallor Extremities: pedal edema, other (Ischemic changes regarding feet and toes remain present) Neuro/Psych: no motor/sensory deficits (Moves all extremities), cognition abnormalities (Difficult to assess, seems intact) ICD10 Worksheet Patient Problems: Problems Problem Status Diagnosed Acute blood loss anemia Acute Acute renal failure Acute Arterial occlusion, lower extremity Acute Leukocytosis Acute Respiratory failure with hypoxia Acute S/P CABG x 5 Acute S/P Maze operation for atrial fibrillation Acute Coronary arteriosclerosis Acute
--- NOTE | 2016-09-08 10:50 | SOAPPROG ---
SOAP Progress Note Assessment/Plan: Assessment: POD#17 CABGx5 (GANN-LCX, EBONY-D1, SVG-LAD, Sequential SVG-PDA-PLR), Padilla-Maze IV Left/Right lesions. POD#4 Tracheostomy, RIJ dialysis cath Nutrition per [facility]. IV access per LUE PICC. Sx CAD with ISCM (EF 40-45%) - s/p CABGx5 with bilateral mammaries. Small and diffusely diseased target vessels. Early postop course complicated by cardiogenic shock with multi-organ dysfx, severe MR, and peripheral vasoconstriction. Hemodynamics stabilized on vasoactive support w temporary improvement in hepatorenal and respiratory function as well as transient recovery of foot perfusion as pressor support lightened. Now with MOF secondary to resp arrest on 12/12 precipitated by AF/RVR with hypotension. Condition guarded, vent dependent and on dialysis. Code status adjusted to no CPR per family wishes. Long-standing persistent atrial fibrillation - SR temporarily restored s/p Padilla- Maze IV. Recurrent PAF/PSVT as of POD#11. Use of antinodals limited by pressor support. Amio stopped after arrest. Surgical antithrombotic prophylaxis on hold for suspected GIB. Postoperative respiratory failure - Reintubated 3x. Most recently for arrest post AF treatment. Trach placed. Vent management per ICU. Postoperative renal failure - Secondary to shock and ATN. Nephrology following and directing dialysis. Postoperative melena - Intermittent w episode of BRBPR following manual disimpaction. GIB vs mesenteric ischemia. GI consulted. Local trauma from disimpaction suspected. Endoscopic eval deferred. No further active bleeding s/ p 2u PRBC and cessation of AC. Post-op moderate-severe MR - Functional. Valve structurally intact by serial echos. Cath neg for compromised paras flow or RHF. Surg repair deferred. Congestive hepatopathy - Transaminitis, hyperbilirubinemia and coagulopathy +/- met acidosis. Care with anticoagulation/sedation. Acute expected blood loss anemia with thrombocytopenia and coagulopathy - Re- exacerbated by BRBPR. Additional 2u PRBC transfused. Serial H/H monitored. Postoperative pedal ischemia - Vasospasm compl by sm vessel thrombosis below ankle level. Appears to be demarcating rt forefoot and left toes. Contrast imaging as allowed by renal fx. Vasodilator as allowed by BP. All anticoagulants on hold for GI concerns. Gen surg following peripherally. Plan: Supportive care as per multidisciplinary team. Transfuse 2u PRBC on dialysis. Family conference w Dr Thayer tomorrow. 09/08/16 10:45 Subjective: Sedated on vent. Responsive to voice. Able to follow simple commands, incl wiggling feet and toes. Objective: Vital Signs Temp Pulse Resp BP Pulse Ox 37.8 C 89 28 H 112/56 L 94 09/08/16 10:00 09/08/16 10:00 09/08/16 10:00 09/08/16 10:00 09/08/16 10:00 Laboratory Results 09/08/16 04:35 09/08/16 04:35 09/07/16 09/08/16 09/09/16 05:59 05:59 05:59 Intake Total 2076 2147.5 Output Total 650 506 Balance 1426 1641.5 PT 19.5 SEC (12.0-15.0) H 09/04/16 04:15 INR 1.64 (0.83-1.16) H 09/04/16 04:15 Levo 3 mcg. TFs @ 45ml/h. Vent FIO2 65%. Daily dialysis. UF as tolerated. CXR -> stable. Physical Exam - Physical Exam General Appearance: no apparent distress Respiratory: lungs clear (vent) Cardiac/Chest: regular rate, rhythm, other (Sternotomy and LLE venotomy CDI) Abdomen: non-tender, soft Skin: warm/dry, other (cool purpuric rt foot/left forefoot, blackened toes bilat ) ICD10 Worksheet Patient Problems: Problems Problem Status Diagnosed Acute blood loss anemia Acute Acute renal failure Acute Arterial occlusion, lower extremity Acute Leukocytosis Acute Respiratory failure with hypoxia Acute S/P CABG x 5 Acute S/P Maze operation for atrial fibrillation Acute Coronary arteriosclerosis Acute
[2016-09-08] MEDS: HALOPERIDOL LACT 5 MG/ML INJ IVP PRN (12:17)
[2016-09-08] MEDS ORDERED: ALBUMIN 25% 100 ML SOLN IV ONE (13:45)
--- NOTE | 2016-09-08 16:39 | SOAPPROG ---
SOAP Progress Note Assessment/Plan: Assessment: 1. ARF. ATN. Borderline oliguric. Able to tolerate HD w/o clotting with low dose heparin. Will continue to use as long as no bleeding issues. Dialysis daily for now, UF as able. Chk P, Mg in am. 2. Respiratory fx. CHF/aspiration/ARDS? Supportive cares. 3. AF/RVR. Now in NSR, s/p amio loading. 4. s/p CABG/MAZE Plan: 09/02/16 16:03 09/02/16 16:09 09/02/16 16:15 09/06/16 12:33 09/06/16 12:35 09/07/16 12:24 09/08/16 16:38 Subjective: Pt seen and examined on hemodialysis. Dialyzed yesterday, 1 L removed. Objective: Vital Signs Temp Pulse Resp BP Pulse Ox 37.6 C 91 31 H 108/55 L 93 09/08/16 14:00 09/08/16 14:00 09/08/16 14:00 09/08/16 14:00 09/08/16 14:00 Laboratory Results 09/08/16 04:35 09/08/16 04:35 09/07/16 09/08/16 09/09/16 05:59 05:59 05:59 Intake Total 2076 2147.5 Output Total 650 506 Balance 1426 1641.5 PT 19.5 SEC (12.0-15.0) H 09/04/16 04:15 INR 1.64 (0.83-1.16) H 09/04/16 04:15 On hemodialysis Awake, responsive, follows commands. On vent. Cachectic, critically ill appearing RRR, no m/g/r Coarse breath sounds Abdom soft, nontender 2+ sacral edema. Dry gangrene of toes R/L foot. ICD10 Worksheet Patient Problems: Problems Problem Status Diagnosed Acute blood loss anemia Acute Acute renal failure Acute Arterial occlusion, lower extremity Acute Leukocytosis Acute Respiratory failure with hypoxia Acute S/P CABG x 5 Acute S/P Maze operation for atrial fibrillation Acute Coronary arteriosclerosis Acute
[2016-09-08] MEDS: ERTAPENEM 0.5 GM in NS 100 ML IV SCH (17:51)
[2016-09-08] MEDS ORDERED: HEPARIN 10,000 UNIT/10 ML MDV ONE (21:03)
[2016-09-08] MEDS ORDERED: HEPARIN 50,000 UNIT/10 ML VIAL ONE (21:03)
[2016-09-08] MEDS: MELATONIN 3 MG TAB TUBE SCH (21:32)
[2016-09-08] MEDS: ACETAMINOPHEN 650 MG/20.3 ML UDCUP TUBE PRN (21:39)
[2016-09-08] MEDS ORDERED: ALBUMIN 5% 250 ML BOTTLE IV ONE (22:53)
[2016-09-08] MEDS ORDERED: ALBUMIN 5% 250 ML IV SCH (23:00)
[2016-09-09] MEDS: NOREPINEPHRINE BITARTRATE 16 MG in D5W 250 ML IV SCH (00:38)
[2016-09-09] MEDS: HALOPERIDOL LACT 5 MG/ML INJ IVP PRN (03:11)
[2016-09-09 04:56] LABS: BASE EXCESS -2.2 mEq/L (-2.5-2.5); BICARBONATE 22 mEq/L (22-26); MEASURED OXYGEN SATURATION 89 % (92-95); PCO2 39 mmHg (34-38); PO2 62 mmHg (65-75); TCO2 23 mEq/L (23-27)
[2016-09-09 04:58] LABS: ASSIST CONTROL YES; O2 CONCENTRATIION 55 % (0-100); P/F RATIO 112 RATIO
[2016-09-09 04:59] LABS: END TIDAL CO2 24; TOTAL RATE 32
[2016-09-09 05:01] LABS: ABSOLUTE NRBC COUNT 0.14 10^3/uL (0-0.01); ADD DIFF? YES; ADD MORPH? NO; ATYPICAL LYMPHOCYTE FLAG 40 (0-99); FRAGMENT RBC FLAG 0 (0-99); HEMATOCRIT 28.4 % (40.0-51.0); HEMOGLOBIN 9.8 g/dL (13.7-17.5); LEFT SHIFT FLG 50 (0-99); LIPEMIA HEMOLYSIS FLAG 90 (0-99); MEAN CELL HEMOGLOBIN 32.1 pg (27.9-34.1); MEAN CELL HEMOGLOBIN CONCENTR. 34.5 g/dL (32.4-36.7); MEAN CELL VOLUME 93.1 fL (81.5-99.8); MEAN PLATELET VOLUME 12.4 fL (8.7-11.7); NRBC-AUTO% 0.7 % (0.0-0.2); PLATELET CLUMPS FLAG 0 (0-99); PLATELET COUNT 108 10^3/uL (150-400); RED BLOOD CELL COUNT 3.05 10^6/uL (4.40-6.38); RED CELL DISTRIBUTION WIDTH 15.4 % (11.5-15.2)
[2016-09-09 05:07] LABS: ADD SCAN? NO
[2016-09-09] MEDS: HEPARIN 5,000 UNIT/0.5 ML SYR SC SCH ×3 (05:19→21:29)
[2016-09-09 05:34] LABS: ANION GAP 16 mEq/L (8-16); CALCIUM 7.9 mg/dL (8.5-10.4); CARBON DIOXIDE 23 mEq/l (22-31); CHLORIDE 99 mEq/L (97-110); CREATININE 2.9 mg/dL (0.7-1.3); GLOMERULAR FILTRATION RATE 22; GLUCOSE 140 mg/dL (70-100); MAGNESIUM 2.6 mg/dL (1.6-2.3); POTASSIUM 4.8 mEq/L (3.5-5.2); SODIUM 138 mEq/L (134-144)
[2016-09-09 05:41] LABS: GIANT PLATELETS PRESENT; LARGE PLATELETS PRESENT; PLATELET ESTIMATE DECREASED (ADEQ); TOXIC VACUOLIZATION PRESENT
[2016-09-09 05:43] LABS: HYPOCHROMIA 2+; MACROCYTES 1+; MICROCYTES 1+; POLYCHROMASIA 1+
[2016-09-09] MEDS ORDERED: HEPARIN 10,000 UNIT/10 ML MDV ONE (08:30)
[2016-09-09] MEDS ORDERED: HEPARIN 50,000 UNIT/10 ML VIAL ONE (08:30)
[2016-09-09] MEDS: SENNOSIDES 17.6 MG/10 ML UDL TUBE SCH ×2 (09:19→21:30)
[2016-09-09] MEDS: LANSOPRAZOLE SUSP 30MG/10ML UDSYR (Adult) TUBE SCH (09:19)
[2016-09-09] MEDS: ASPIRIN 81 MG CHEWABLE TAB TUBE SCH (09:19)
[2016-09-09] MEDS: RISPERIDONE 1 MG/1 ML TUBE SCH ×2 (09:19→21:30)
[2016-09-09] MEDS: CLOPIDOGREL BISULFATE 75 MG TAB TUBE SCH (09:19)
--- NOTE | 2016-09-09 09:20 | PDINTPN ---
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 Atrial fibrillation. On amiodarone. In normal sinus rhythm currently. Mitral regurg post op, moderate-severe. Hemodynamics OK. Likely contributes to his acute respiratory failure and infiltrates. RAHEL: On hemodialysis. Respiratory Failure: Extubated, reintubated x 3, now with tracheostomy tube in place. CXR with persistent diffuse infiltrates, oxygen requirement at 60%. ? cardiogenic edema/volume overload vs. pneumonia/aspiration vs. non- cardiogenic edema from SIRS, vs a combination of these. Hypotension: Stable, but borderline. On low-dose Levophed. Elevated WBC: Improved, 20 today. On ertapenem for possible aspiration associated with his arrest. Intermittent fevers. Right foot ischemia greater than left: Likely due to spasm/embolism/thrombosis at the ankle. On Heparin/ASA/Plavix previously, on hold currently secondary to GI bleeding. These did not appear to be successful for preventing lower extremity ischemia. Dr. Levy following. Lower GI bleed. Some blood per rectal bleeding intermittently, no evidence of significant bleeding farther up. GI consult duration appreciated. SQ heparin, Plavix and aspirin resumed Anemia: Multifactorial: Acute blood-loss, illness, renal failure, etc. S/P transfusion yesterday Plan: Cont hemodialysis daily, remove fluid if possible. Continue vent support and supportive care. Bronch today to determine if secretions could be playing a role and to get cultures. Continue amiodarone. Follow ABG, lab, chest x-ray. Support pressure with Levophed as needed. Continue ertapenem. Prophylactic heparin. No compressions per wishes of the patient's family 40 minutes of CC time exclusive of bronchoscopy 09/09/16 15:25 09/09/16 15:25 Subjective: Trached, resting on vent, weakly arouses. Objective: Vital Signs Temp Pulse Resp BP Pulse Ox 37.8 C 85 28 H 105/50 L 94 09/09/16 09:00 09/09/16 09:00 09/09/16 09:00 09/09/16 09:00 09/09/16 09:00 Laboratory Results 09/09/16 04:50 09/09/16 04:50 1209/09/16 09/10/16 05:59 05:59 05:59 Intake Total 2147.5 3325.1 Output Total 1006 1574 Balance 1141.5 1751.1 PT 19.5 SEC (12.0-15.0) H 09/04/16 04:15 INR 1.64 (0.83-1.16) H 09/04/16 04:15 Laboratory Tests 09/09/16 04:50 pCO2 39 H pO2 62 L Total CO2 23 ABG pH 7.38 O2 Concentration % 55 Respiration Rate 32 Set Respiration Rate 28 Assist Control YES CXR: Increased right effusion. Images reviewed. Physical Exam - Physical Exam General Appearance: alert, no apparent distress EENT: normal ENT inspection Neck: normal inspection Respiratory: rhonchi Cardiac/Chest: regular rate, rhythm, No edema Abdomen: normal bowel sounds, non-tender Skin: other (ischemia/necrosis right>left toes) Extremities: normal inspection Neuro/Psych: motor weakness, No alert, No normal mood/affect, No oriented x 3 ICD10 Worksheet Patient Problems: Problems Problem Status Diagnosed Acute blood loss anemia Acute Acute renal failure Acute Arterial occlusion, lower extremity Acute Leukocytosis Acute Respiratory failure with hypoxia Acute S/P CABG x 5 Acute S/P Maze operation for atrial fibrillation Acute Coronary arteriosclerosis Acute
[2016-09-09 10:23] LABS: HEPATITIS Bs Ab QUANT <5.0 mIU/mL (())
--- NOTE | 2016-09-09 11:15 | SOAPPROG ---
SOAP Progress Note Assessment/Plan: Assessment/Plan: RAHEL: likely 2/2 ATN, nonoliguric, high BUN in setting or TPN. - Will continue daily HD, plan for HD later today. - Will continue to monitor. - Using low dose heparin on HD only to keep from clotting, he is tolerating this well thus far. Hyperkalemia: modulate on HD. Anemia: hgb improved to 9.8 s/p 2 units PRBCs given yesterday, will continue to monitor. Subjective: No acute events overnight. Pt remains on 60% FiO2 on vent, still has 500+ml UOP daily. He was febrile yesterday but not today, remains on 1.5 of Levophed. Objective: Vital Signs Temp Pulse Resp BP Pulse Ox 37.7 C 89 32 H 106/53 L 97 09/09/16 10:00 09/09/16 10:00 09/09/16 10:00 09/09/16 10:00 09/09/16 10:00 Laboratory Results 09/09/16 04:50 09/09/16 04:50 09/08/16 09/09/16 09/10/16 05:59 05:59 05:59 Intake Total 2147.5 3325.1 Output Total 1006 1574 Balance 1141.5 1751.1 PT 19.5 SEC (12.0-15.0) H 09/04/16 04:15 INR 1.64 (0.83-1.16) H 09/04/16 04:15 General: somnolent but arousable Eyes: PERRL OP: NG in place CV: RRR Resp: trached and on vent Abd: Soft, NT Ext: trace edema BLE, +scrotal edema, cold and dusky feet bilaterally Access: R IJ temp cath ICD10 Worksheet Patient Problems: Problems Problem Status Diagnosed Acute blood loss anemia Acute Acute renal failure Acute Arterial occlusion, lower extremity Acute Leukocytosis Acute Respiratory failure with hypoxia Acute S/P CABG x 5 Acute S/P Maze operation for atrial fibrillation Acute Coronary arteriosclerosis Acute
--- NOTE | 2016-09-09 11:17 | SOAPPROG ---
SOAP Progress Note Assessment/Plan: Assessment: POD#18 CABGx5 (GANN-LCX, EBONY-D1, SVG-LAD, Sequential SVG-PDA-PLR), Padilla-Maze IV Left/Right lesions. POD#5 Tracheostomy, RIJ dialysis cath Nutrition per [facility]. IV access per LUE PICC. Sx CAD with ISCM (EF 40-45%) - s/p CABGx5 with bilateral mammaries. Small and diffusely diseased target vessels. Early postop course complicated by cardiogenic shock with multi-organ dysfx, severe MR, and peripheral vasoconstriction. Hemodynamics stabilized on vasoactive support w temporary improvement in hepatorenal and respiratory function as well as transient recovery of foot perfusion as pressor support lightened. Now with MOF secondary to resp arrest on 12/12 precipitated by AF/RVR with hypotension. Condition guarded, vent dependent and on dialysis. Code status adjusted to no CPR per family wishes. Long-standing persistent atrial fibrillation - SR temporarily restored s/p Padilla- Maze IV. Recurrent PAF/PSVT as of POD#11. Use of antinodals limited by pressor support. Amio stopped after arrest. Surgical antithrombotic prophylaxis w DAPT as BOONE excluded. Postoperative respiratory failure - Reintubated 3x, most recently for arrest post AF treatment. Trach placed. Vent management, Abx and therapeutic bronchs per Pulm. Postoperative renal failure - Secondary to shock and ATN. Nephrology following and directing dialysis. UOP 500-600 ml daily. Postoperative melena - Intermittent w episode of BRBPR following manual disimpaction. GIB vs mesenteric ischemia. GI consulted. Local trauma from disimpaction suspected. Endoscopic eval deferred. No further active bleeding s/ p 2u PRBC. Back on VTE prophylaxis and DAPT. Post-op moderate-severe MR - Functional. Valve structurally intact by serial echos. Cath neg for compromised paras flow or RHF. Surg repair deferred. Congestive hepatopathy - Transaminitis, hyperbilirubinemia and coagulopathy +/- met acidosis. Care with anticoagulation/sedation. Acute expected blood loss anemia with thrombocytopenia and coagulopathy - Re- exacerbated by BRBPR. Additional 2u PRBC transfused. Serial H/H monitored. Postoperative pedal ischemia - Vasospasm compl by sm vessel thrombosis below ankle level. Appears to be demarcating rt forefoot and left toes. Contrast imaging as allowed by renal fx. Vasodilator as allowed by BP. IV hep on hold for GI concerns. Gen surg following peripherally. Plan: Supportive care as per multidisciplinary team. Family conference w Dr Thayer today or tomorrow. 09/09/16 11:10 Subjective: Not seen, being cleaned after BM. Objective: Vital Signs Temp Pulse Resp BP Pulse Ox 37.7 C 89 32 H 106/53 L 97 09/09/16 10:00 09/09/16 10:00 09/09/16 10:00 09/09/16 10:00 09/09/16 10:00 Laboratory Results 09/09/16 04:50 09/09/16 04:50 09/08/16 09/09/16 09/10/16 05:59 05:59 05:59 Intake Total 2147.5 3325.1 Output Total 1006 1574 Balance 1141.5 1751.1 PT 19.5 SEC (12.0-15.0) H 09/04/16 04:15 INR 1.64 (0.83-1.16) H 09/04/16 04:15 Levo down to 1.5 mcg. TFs @ 45ml/h. Vent FIO2 60%. Daily dialysis. UF as tolerated. BM formed, nl color. Physical Exam - Physical Exam General Appearance: no apparent distress, other (not examined) ICD10 Worksheet Patient Problems: Problems Problem Status Diagnosed Acute blood loss anemia Acute Acute renal failure Acute Arterial occlusion, lower extremity Acute Leukocytosis Acute Respiratory failure with hypoxia Acute S/P CABG x 5 Acute S/P Maze operation for atrial fibrillation Acute Coronary arteriosclerosis Acute
[2016-09-09] MEDS ORDERED: ALBUMIN 25% 100 ML IV ONE (11:29)
[2016-09-09] MEDS ORDERED: LIDOCAINE 1% 30 ML SDV MISC ONE (11:39)
[2016-09-09] MEDS ORDERED: LIDOCAINE 2% JELLY 5 ML TUBE TP ONE (11:39)
[2016-09-09] MEDS ORDERED: ALBUMIN 25% 100 ML SOLN IV ONE (14:00)
[2016-09-09] MEDS: fentaNYL 100 MCG/2 ML INJ IVP PRN (14:03)
--- NOTE | 2016-09-09 14:28 | GPN ---
[f rep st] PROCEDURE NOTE DATE OF PROCEDURE: 09/09/2016 PROCEDURE: Flexible fiberoptic bronchoscopy. REASON FOR PROCEDURE: Respiratory failure with retained secretions. Procedure, and the risks and be nefits of the procedure, were explained to the patient's , who agreed to proceed. The entire pro cedure was performed in the in the intensive care unit, with the patient under blood pressure, EKG, a nd oximetry monitoring. It was my assessment that there was no risk of airborne infection from the p rocedure. DESCRIPTION OF PROCEDURE: 2 cc of 1% lidocaine was instilled into the patient's endotracheal tube. The bronchoscope was advanced through the endotracheal tube into the main trachea, where minimal bloo dy purulent secretions were encountered. I then proceeded with the left-sided airways, where in the left lower lobe superior and basal segments, I encountered a moderate amount of bloody purulent secre tions, which were easily suctioned. There was a smaller amount of secretions in the upper lobe/lingu la, also easily suctioned. I then turned to the right-sided airways, where the right upper lobe was clear of secretions but in the middle lobe there was a small amount of secretions, and in the superio r segment and basal segments of the lower lobe there was a moderate amount of bloody mucopurulent sec retions. These were all suctioned, and small volume lavage was performed until clear. There was no endobronchial lesion or ongoing hemorrhage during the procedure. The patient tolerated the procedure well with good oxygen saturations and stable vital signs throughout. He received 50 mcg of fentanyl intravenously for analgesia and sedation. A specimen will be sent for Gram stain and culture. /[id number]/MODL
--- NOTE | 2016-09-09 14:29 | DX ---
Portable Chest, 13:56 Clinical Indications: Followup pneumonia and CHF Comparison: yesterday 6:23 a.m., September 07 6:18 a.m. Findings: There is little if any change in bilateral alveolar type densities , consistent with pneum onia and/or pulmonary edema. Bilateral pleural effusions are increasing, right larger than left. Stil l air bronchograms in the retrocardiac lung. A tracheostomy appliance, feeding tube, right external j ugular venous catheter and left arm PICC line remain in place. Median sternotomy wires, CABG clips, a n atrial appendage clip and EKG leads are again present. Impression: 1.Increasing pleural effusions, right greater than left. 2. Little if any change in pulmonary edema/pneumonia.
[2016-09-09] MEDS: ERTAPENEM 0.5 GM in NS 100 ML IV SCH (17:56)
[2016-09-09] MEDS: MELATONIN 3 MG TAB TUBE SCH (21:30)
[2016-09-10] MEDS: NOREPINEPHRINE BITARTRATE 16 MG in D5W 250 ML IV SCH (00:25)
[2016-09-10 04:45] LABS: BASE EXCESS -2.2 mEq/L (-2.5-2.5); BICARBONATE 22 mEq/L (22-26); MEASURED OXYGEN SATURATION 93 % (92-95); PCO2 40 mmHg (34-38); PO2 76 mmHg (65-75); TCO2 23 mEq/L (23-27)
[2016-09-10 04:47] LABS: ASSIST CONTROL YES; END TIDAL CO2 24; O2 CONCENTRATIION 60 % (0-100); P/F RATIO 126 RATIO; TOTAL RATE 29
[2016-09-10 05:09] LABS: ANION GAP 18 mEq/L (8-16); CARBON DIOXIDE 23 mEq/l (22-31); CHLORIDE 97 mEq/L (97-110); CREATININE 2.9 mg/dL (0.7-1.3); GLOMERULAR FILTRATION RATE 22; GLUCOSE 126 mg/dL (70-100); POTASSIUM 4.7 mEq/L (3.5-5.2); SODIUM 138 mEq/L (134-144)
[2016-09-10] MEDS: HEPARIN 5,000 UNIT/0.5 ML SYR SC SCH ×3 (05:49→21:23)
--- NOTE | 2016-09-10 09:03 | SOAPPROG ---
SOAP Progress Note Assessment/Plan: Assessment: POD#19 CABGx5 (GANN-LCX, EBONY-D1, SVG-LAD, Sequential SVG-PDA-PLR), Padilla-Maze IV Left/Right lesions. POD#6 Tracheostomy, RIJ dialysis cath Nutrition per [facility]. IV access per LUE PICC. Sx CAD with ISCM (EF 40-45%) - s/p CABGx5 with bilateral mammaries. Small and diffusely diseased target vessels. Early postop course complicated by cardiogenic shock with multi-organ dysfx, severe MR, and peripheral vasoconstriction. Hemodynamics stabilized on vasoactive support w temporary improvement in hepatorenal and respiratory function as well as transient recovery of foot perfusion as pressor support lightened. Now with MOF secondary to resp arrest on 12/12 precipitated by AF/RVR with hypotension. Condition guarded, vent dependent and on dialysis. Code status adjusted to no CPR per family wishes. Long-standing persistent atrial fibrillation - SR temporarily restored s/p Padilla- Maze IV. Recurrent PAF/PSVT as of POD#11. Use of antinodals limited by pressor support. Amio stopped after arrest. Surgical antithrombotic prophylaxis w DAPT as BOONE excluded. Postoperative respiratory failure - Reintubated 3x, most recently for arrest post AF treatment. Trach placed. Vent management, Abx and therapeutic bronchs per Pulm. Postoperative renal failure - Secondary to shock and ATN. Nephrology following and directing dialysis. Postoperative melena - Intermittent w episode of BRBPR following manual disimpaction. GIB vs mesenteric ischemia. GI consulted. Local trauma from disimpaction suspected. Endoscopic eval deferred. No further active bleeding s/ p 2u PRBC. Back on VTE prophylaxis and DAPT. Post-op moderate-severe MR - Functional. Valve structurally intact by serial echos. Cath neg for compromised paras flow or RHF. Surg repair deferred. Congestive hepatopathy - Transaminitis, hyperbilirubinemia and coagulopathy +/- met acidosis. Care with anticoagulation/sedation. Acute expected blood loss anemia with thrombocytopenia and coagulopathy - Re- exacerbated by BRBPR. Serial H/H monitored. Postoperative pedal ischemia - Vasospasm compl by sm vessel thrombosis below ankle level. Appears to be demarcating rt forefoot and left toes. Contrast imaging as allowed by renal fx. Vasodilator as allowed by BP. IV hep on hold for GI concerns. Gen surg following peripherally. Subjective: Unable to speak but states he's comfortable. Objective: Vital Signs Temp Pulse Resp BP Pulse Ox 37.4 C 87 28 H 107/58 L 93 09/10/16 08:27 09/10/16 08:27 09/10/16 08:27 09/10/16 08:27 09/10/16 08:27 Microbiology 09/09/16 14:15 - Final Sputum, Induced/Suctioned Laboratory Results 09/09/16 04:50 09/10/16 04:35 09/09/16 09/10/16 09/11/16 05:59 05:59 05:59 Intake Total 3325.1 2219.7 Output Total 1574 2424 Balance 1751.1 -204.3 PT 19.5 SEC (12.0-15.0) H 09/04/16 04:15 INR 1.64 (0.83-1.16) H 09/04/16 04:15 Physical Exam - Physical Exam General Appearance: alert, no apparent distress EENT: No scleral icterus (R), No scleral icterus (L) Neck: normal inspection, other (Tracheostomy in place) Respiratory: chest non-tender, decreased breath sounds Cardiac/Chest: regular rate, rhythm Abdomen: non-tender, soft, No distended Skin: normal color, warm/dry Extremities: pedal edema (Trace B/L ), other (B/L feet with ischemic changes ) Neuro/Psych: alert, other (Follows commands, moves all extremities ) ICD10 Worksheet Patient Problems: Problems Problem Status Diagnosed Acute blood loss anemia Acute Acute renal failure Acute Arterial occlusion, lower extremity Acute Leukocytosis Acute Respiratory failure with hypoxia Acute S/P CABG x 5 Acute S/P Maze operation for atrial fibrillation Acute Coronary arteriosclerosis Acute
[2016-09-10] MEDS: ASPIRIN 81 MG CHEWABLE TAB TUBE SCH (09:14)
[2016-09-10] MEDS: CLOPIDOGREL BISULFATE 75 MG TAB TUBE SCH (09:14)
[2016-09-10] MEDS: RISPERIDONE 1 MG/1 ML TUBE SCH ×2 (09:14→20:28)
[2016-09-10] MEDS: SENNOSIDES 17.6 MG/10 ML UDL TUBE SCH ×2 (09:14→20:27)
[2016-09-10] MEDS: LANSOPRAZOLE SUSP 30MG/10ML UDSYR (Adult) TUBE SCH (09:15)
--- NOTE | 2016-09-10 09:51 | PDINTPN ---
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 Atrial fibrillation. On amiodarone. In normal sinus rhythm currently. Mitral regurg post op, moderate-severe. Hemodynamics OK. Likely contributes to his acute respiratory failure and infiltrates. RAHEL: On hemodialysis. Respiratory Failure: Extubated, reintubated x 3, now with tracheostomy tube in place. CXR with persistent diffuse infiltrates, oxygen requirement at 60%. ? cardiogenic edema/volume overload vs. pneumonia/aspiration vs. non- cardiogenic edema from SIRS, vs a combination of these. Hypotension: Stable, but borderline. On low-dose Levophed. Elevated WBC: Improved, 20 today. On ertapenem for possible aspiration associated with his arrest. Intermittent fevers. Right foot ischemia greater than left: Likely due to spasm/embolism/thrombosis at the ankle. On Heparin/ASA/Plavix previously, on hold currently secondary to GI bleeding. These did not appear to be successful for preventing lower extremity ischemia. Dr. Levy following. Lower GI bleed. Some blood per rectal bleeding intermittently, no evidence of significant bleeding farther up. GI consult duration appreciated. SQ heparin, Plavix and aspirin resumed Anemia: Multifactorial: Acute blood-loss, illness, renal failure, etc. S/P transfusion yesterday Plan: Cont hemodialysis daily, remove fluid if possible. Continue vent support and supportive care. Continue amiodarone. Follow ABG, lab, chest x-ray. Support pressure with Levophed as needed. Continue ertapenem. Prophylactic heparin. Will try to get into chair, increase activity as tolerated No compressions per wishes of the patient's family 45 minutes of CC time 09/10/16 09:56 Subjective: No complaints, follows simple commands. Denies pain Objective: Vital Signs Temp Pulse Resp BP Pulse Ox 37.4 C 82 29 H 98/52 L 98 09/10/16 08:27 09/10/16 09:00 09/10/16 09:00 09/10/16 09:00 09/10/16 09:00 Microbiology 09/09/16 14:15 - Final Sputum, Induced/Suctioned Laboratory Results 09/09/16 04:50 09/10/16 04:35 1209/10/16 09/11/16 05:59 05:59 05:59 Intake Total 3325.1 2219.7 Output Total 1574 2424 Balance 1751.1 -204.3 PT 19.5 SEC (12.0-15.0) H 09/04/16 04:15 INR 1.64 (0.83-1.16) H 09/04/16 04:15 Laboratory Tests 09/10/16 04:35 pCO2 40 H pO2 76 H ABG pH 7.37 ABG O2 Saturation 93 O2 Concentration % 60 Set Respiration Rate 28 Assist Control YES Physical Exam - Physical Exam General Appearance: alert, mild distress EENT: normal ENT inspection Neck: other (trach OK) Respiratory: lungs clear, normal breath sounds Cardiac/Chest: regular rate, rhythm, No edema Abdomen: normal bowel sounds, non-tender, soft Skin: cyanosis (unchanged) Extremities: other (LE ischemia unchanged), No normal inspection Neuro/Psych: alert, motor weakness (diffuse, able to squeeze weakly symmetrically), No normal mood/affect ICD10 Worksheet Patient Problems: Problems Problem Status Diagnosed Acute blood loss anemia Acute Acute renal failure Acute Arterial occlusion, lower extremity Acute Leukocytosis Acute Respiratory failure with hypoxia Acute S/P CABG x 5 Acute S/P Maze operation for atrial fibrillation Acute Coronary arteriosclerosis Acute
--- NOTE | 2016-09-10 11:24 | SOAPPROG ---
SOAP Progress Note Assessment/Plan: Assessment: 1. RAHEL/MOD Slow improvement. Now off pressors. LE digital ischemic changes notes. CXR shows mainly a RML pneumonitis. He has some hip edema, but IV volume is likely euvolemic. Cr, Bicarb, and K all fine. BUN remains high. Pt's UO is averaging near 15-20ml/hr. Will dialyze today, then go to qod schedule. 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 He is getting about 81g/day. BS are better, but still a bit high. He might need further reduction in protein administration. I reviewed my thoughts and plan with the son at bedside. Subjective: arouses Objective: Vital Signs Temp Pulse Resp BP Pulse Ox 37.4 C 87 28 H 105/53 L 95 09/10/16 08:27 09/10/16 10:00 09/10/16 10:00 09/10/16 10:00 09/10/16 10:00 Microbiology 09/09/16 14:15 - Final Sputum, Induced/Suctioned Laboratory Results 09/09/16 04:50 09/10/16 04:35 09/09/16 09/10/16 09/11/16 05:59 05:59 05:59 Intake Total 3325.1 2219.7 Output Total 1574 2424 Balance 1751.1 -204.3 PT 19.5 SEC (12.0-15.0) H 09/04/16 04:15 INR 1.64 (0.83-1.16) H 09/04/16 04:15 Physical Exam - Physical Exam General Appearance: cachetic Respiratory: rhonchi Cardiac/Chest: regular rate, rhythm Abdomen: normal bowel sounds, distended Extremities: other (1+ presacral edema) ICD10 Worksheet Patient Problems: Problems Problem Status Diagnosed Acute blood loss anemia Acute Acute renal failure Acute Arterial occlusion, lower extremity Acute Leukocytosis Acute Respiratory failure with hypoxia Acute S/P CABG x 5 Acute S/P Maze operation for atrial fibrillation Acute Coronary arteriosclerosis Acute
--- NOTE | 2016-09-10 14:18 | WOCRNPDOC ---
[facility]IM[facility] Advanced Assessment Note - Skin Integrity Problem, Advanced Assess Nose Dressing Type: Telfa Dressing Description: Clean/Dry, Intact Exudate Amount: None Integumentary Issue Intervention: Visualized Under Dressing Wound Bed Color: Black Wound Bed Constitution: Stable Eschar Site Measurement - Head-to-Toe Length X Width X Depth (cm): 2x2x0.3 Pressure Injury Stage: Unstageable Skin Integrity Problem Comment: No change. Continue with treatment plan. Betadine BID. Coccyx Pressure Injury Dressing Type: Allevyn Life Dressing Description: Clean/Dry, Intact Exudate Amount: Scant Exudate Characteristic(s): Serosanguinous Integumentary Issue Intervention: Visualized Under Dressing Site Measurement - Head-to-Toe Length X Width X Depth (cm): 0.5x0.5x0.1 Pressure Injury Stage: Stage 2 Skin Integrity Problem Comment: Small partial thickness opening. Dark area of 2x1 running from 3-9 oclock through partial thickness opening may be a mild DTI but it does not have a typical presentation. Will monitor.
[2016-09-10] MEDS ORDERED: ALBUMIN 25% 50 ML SOLN IV ONE ×4 (17:18→17:51)
[2016-09-10] MEDS: ERTAPENEM 0.5 GM in NS 100 ML IV SCH (19:50)
[2016-09-10] MEDS: MELATONIN 3 MG TAB TUBE SCH (20:27)
[2016-09-10] MEDS: fentaNYL 100 MCG/2 ML INJ IVP PRN (20:28)
[2016-09-10] MEDS ORDERED: HEPARIN 50,000 UNIT/10 ML VIAL ONE (22:06)
[2016-09-10] MEDS ORDERED: HEPARIN 10,000 UNIT/10 ML MDV ONE (22:06)
[2016-09-10] MEDS: HALOPERIDOL LACT 5 MG/ML INJ IVP PRN (22:21)
[2016-09-11] MEDS: fentaNYL 100 MCG/2 ML INJ IVP PRN (00:12)
[2016-09-11 05:15] LABS: ABSOLUTE NRBC COUNT 0.04 10^3/uL (0-0.01); ADD DIFF? YES; ADD MORPH? NO; ADD SCAN? NO; ATYPICAL LYMPHOCYTE FLAG 30 (0-99); FRAGMENT RBC FLAG 0 (0-99); HEMATOCRIT 24.5 % (40.0-51.0); HEMOGLOBIN 8.4 g/dL (13.7-17.5); LEFT SHIFT FLG 60 (0-99); LIPEMIA HEMOLYSIS FLAG 90 (0-99); MEAN CELL HEMOGLOBIN 31.9 pg (27.9-34.1); MEAN CELL HEMOGLOBIN CONCENTR. 34.3 g/dL (32.4-36.7); MEAN CELL VOLUME 93.2 fL (81.5-99.8); NRBC-AUTO% 0.2 % (0.0-0.2); PLATELET CLUMPS FLAG 20 (0-99); RED BLOOD CELL COUNT 2.63 10^6/uL (4.40-6.38); RED CELL DISTRIBUTION WIDTH 15.4 % (11.5-15.2)
[2016-09-11 05:20] LABS: PLATELET COUNT 34 10^3/uL (150-400)
[2016-09-11 05:33] LABS: ALANINE AMINOTRANSFERASE 55 IU/L (21-72); ALBUMIN 3.1 g/dL (3.5-5.0); ALKALINE PHOSPHATASE 185 IU/L (38-126); ANION GAP 16 mEq/L (8-16); ASPARTATE AMINOTRANSFERASE 48 IU/L (17-59); BILIRUBIN,TOTAL 1.9 mg/dL (0.1-1.4); CALCIUM 8.1 mg/dL (8.5-10.4); CARBON DIOXIDE 25 mEq/l (22-31); CHLORIDE 96 mEq/L (97-110); CREATININE 2.9 mg/dL (0.7-1.3); GLOMERULAR FILTRATION RATE 22; GLUCOSE 132 mg/dL (70-100); POTASSIUM 4.9 mEq/L (3.5-5.2); SODIUM 137 mEq/L (134-144); TOTAL PROTEIN 6.2 g/dL (6.3-8.2)
[2016-09-11 06:17] LABS: HYPOCHROMIA 1+; POLYCHROMASIA 1+
[2016-09-11 06:18] LABS: PLATELET ESTIMATE DECREASED (ADEQ); TARGET CELLS 1+
[2016-09-11] MEDS: HEPARIN 5,000 UNIT/0.5 ML SYR SC SCH (06:30)
--- NOTE | 2016-09-11 09:12 | PDINTPN ---
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 Atrial fibrillation. On amiodarone. In normal sinus rhythm currently. Mitral regurg post op, moderate-severe. Hemodynamics OK. Likely contributes to his acute respiratory failure and infiltrates. RAHEL: On hemodialysis. Respiratory Failure: Extubated, reintubated x 3, now with tracheostomy tube in place. CXR with persistent diffuse infiltrates, oxygen requirement at 60%. ? cardiogenic edema/volume overload vs. pneumonia/aspiration vs. non- cardiogenic edema from SIRS, vs a combination of these. Hypotension: Stable, but borderline. On low-dose Levophed. Elevated WBC: Stable at 20 today, % bands down. On ertapenem for possible aspiration associated with his arrest. Intermittent fevers persist. Right foot ischemia greater than left: Likely due to spasm/embolism/thrombosis at the ankle. On Heparin/ASA/Plavix. Dr. Levy following. Lower GI bleed. Some blood per rectal bleeding intermittently, no evidence of significant bleeding farther up. GI consult duration appreciated. SQ heparin, Plavix and aspirin resumed Anemia: Multifactorial: Acute blood-loss, illness, renal failure, etc. S/P transfusion, now Hgb back down Thrombocytopenia: Platelets dropped significantly today. 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 Continue vent support and supportive care. Continue amiodarone. Follow ABG, lab, chest x-ray. Support pressure with Levophed as needed. Continue ertapenem. Repeat CBC. If platelets low, will hold Heparin, start argatroban, check HIT test again. Prophylactic heparin. Will try to get into chair, increase activity as tolerated No compressions per wishes of the patient's family. THe ywould like to continue current aggressive support. 40 minutes of CC time 09/11/16 15:49 Subjective: Tracheostomy, responds weekly to commands. Objective: Vital Signs Temp Pulse Resp BP Pulse Ox 38.1 C 90 29 H 102/55 L 91 L 09/11/16 08:32 09/11/16 08:32 09/11/16 08:32 09/11/16 08:32 09/11/16 08:32 Microbiology 09/09/16 14:15 - Final Sputum, Induced/Suctioned Laboratory Results 09/11/16 05:00 09/11/16 05:00 09/10/16 09/11/16 09/12/16 05:59 05:59 05:59 Intake Total 2219.7 2866 Output Total 2424 435 Balance -204.3 2431 PT 19.5 SEC (12.0-15.0) H 09/04/16 04:15 INR 1.64 (0.83-1.16) H 09/04/16 04:15 Physical Exam - Physical Exam General Appearance: alert, no apparent distress EENT: normal ENT inspection Neck: normal inspection, other (trach) Respiratory: normal breath sounds Cardiac/Chest: regular rate, rhythm Abdomen: normal bowel sounds, non-tender, soft Skin: warm/dry, cyanosis, No normal color Extremities: other (no change) ICD10 Worksheet Patient Problems: Problems Problem Status Diagnosed Acute blood loss anemia Acute Acute renal failure Acute Arterial occlusion, lower extremity Acute Leukocytosis Acute Respiratory failure with hypoxia Acute S/P CABG x 5 Acute S/P Maze operation for atrial fibrillation Acute Coronary arteriosclerosis Acute
[2016-09-11 09:49] LABS: BICARBONATE 22 mEq/L (22-26); MEASURED OXYGEN SATURATION 89 % (92-95); PCO2 42 mmHg (34-38); PO2 67 mmHg (65-75); TCO2 23 mEq/L (23-27)
[2016-09-11 09:50] LABS: ASSIST CONTROL YES; O2 CONCENTRATIION 60 % (0-100); P/F RATIO 111 RATIO; TOTAL RATE 30
[2016-09-11] MEDS: LANSOPRAZOLE SUSP 30MG/10ML UDSYR (Adult) TUBE SCH (10:03)
[2016-09-11] MEDS: SENNOSIDES 17.6 MG/10 ML UDL TUBE SCH ×2 (10:03→21:23)
[2016-09-11] MEDS: RISPERIDONE 1 MG/1 ML TUBE SCH ×2 (10:04→21:22)
--- NOTE | 2016-09-11 10:15 | SOAPPROG ---
<Mitzy Stevens - Last Filed: 12/21/16 10:05> SOAP Progress Note Assessment/Plan: Assessment: POD#21 CABGx5 (GANN-LCX, EBONY-D1, SVG-LAD, Sequential SVG-PDA-PLR), Padilla-Maze IV Left/Right lesions. POD#7 Tracheostomy, RIJ dialysis cath Nutrition per DHT. IV access per LUE PICC. Sx CAD with ISCM (EF 40-45%) - s/p CABGx5 with bilateral mammaries. Small and diffusely diseased target vessels. Early postop course complicated by cardiogenic shock with multi-organ dysfx, severe MR, and peripheral vasoconstriction. Hemodynamics stabilized on vasoactive support w temporary improvement in hepatorenal and respiratory function as well as transient recovery of foot perfusion as pressor support lightened. Now with MOF secondary to resp arrest on 12/12 precipitated by AF/RVR with hypotension. Condition guarded - vent dependent, on dialysis, unable to bear weight or participate in formal PT. Code status adjusted to no CPR per family wishes. Long-standing persistent atrial fibrillation - SR temporarily restored s/p Padilla- Maze IV. Recurrent PAF/PSVT as of POD#11. Use of antinodals limited by pressor support. Amio stopped after arrest. Surgical antithrombotic prophylaxis w DAPT when appropriate. Postoperative respiratory failure - Reintubated 3x, most recently for arrest post AF treatment. Trach placed. Vent management, Abx and therapeutic bronchs per Pulm. Postoperative renal failure - Secondary to shock and ATN. Nephrology following and directing dialysis. UOP 400-500 ml daily. Postoperative melena - Intermittent w episode of BRBPR following manual disimpaction. GIB vs mesenteric ischemia. GI consulted. Local trauma from disimpaction suspected. Endoscopic eval deferred. No further active bleeding s/ p 2u PRBC. Resumption of SQ hep VTE prophylaxis and DAPT without incident. Post-op moderate-severe MR - Functional. Valve structurally intact by serial echos. Cath neg for compromised parsa flow or RHF. Surg repair deferred. Congestive hepatopathy - Transaminitis, hyperbilirubinemia and coagulopathy +/- met acidosis. Care with anticoagulation/sedation. Acute expected blood loss anemia with thrombocytopenia and coagulopathy - Re- exacerbated by BRBPR. Additional 2u PRBC transfused. Serial H/H monitored. Recurrent fall in H/H and platelets today. AC held. HIT resent and pending. Postoperative pedal ischemia - Vasospasm compl by sm vessel thrombosis below ankle level. Appears to be demarcating rt forefoot and left toes. Contrast imaging as allowed by renal fx. Vasodilator as allowed by BP. IV hep on hold for GI concerns. Gen surg following peripherally. Plan: Supportive care as per multidisciplinary team. Stop SQ hep, ASA and Plavix. Family conference w Dr Thayer at 10am today. Possible downgrade to comfort measures. 09/11/16 09:35 Subjective: Sedated on vent. Unresponsive unless actively engaged. Able to follow simple commands. Objective: Vital Signs Temp Pulse Resp BP Pulse Ox 38.1 C 90 29 H 102/55 L 91 L 09/11/16 08:32 09/11/16 08:32 09/11/16 08:32 09/11/16 08:32 09/11/16 08:32 Microbiology 09/09/16 14:15 - Final Sputum, Induced/Suctioned Laboratory Results 09/11/16 09:47 09/11/16 05:00 09/10/16 09/11/16 09/12/16 05:59 05:59 05:59 Intake Total 2219.7 2866 Output Total 2424 435 Balance -204.3 2431 PT 19.5 SEC (12.0-15.0) H 09/04/16 04:15 INR 1.64 (0.83-1.16) H 09/04/16 04:15 Off levo. TFs @ 45ml/h. Vent FIO2 60%. Daily dialysis. Dramatic drop in plts to 34, Hct to 24. Julee pending. No melanotic stools. Physical Exam - Physical Exam General Appearance: no apparent distress Respiratory: other (vent) Cardiac/Chest: regular rate, rhythm Skin: warm/dry ICD10 Worksheet Patient Problems: Problems Problem Status Diagnosed Acute blood loss anemia Acute Acute renal failure Acute Arterial occlusion, lower extremity Acute Leukocytosis Acute Respiratory failure with hypoxia Acute S/P CABG x 5 Acute S/P Maze operation for atrial fibrillation Acute Coronary arteriosclerosis Acute <Marv Thayer - Last Filed: 09/11/16 11:26> SOAP Progress Note Assessment/Plan: Assessment: Plan: 09/11/16 11:22 d/w and son they wish to continue care unless serious intervening problem occurs. 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 They understand this is a powerful anticoagulant that could precipitate fatal GI or intracranial bleeding. I will be gone 09/14-09/25, intensivists to assume primary and [facility] to cover in my absence Objective: Vital Signs Temp Pulse Resp BP Pulse Ox 38.1 C 86 24 H 93/56 L 94 09/11/16 08:32 09/11/16 10:00 09/11/16 10:00 09/11/16 10:00 09/11/16 10:00 Microbiology 09/09/16 14:15 - Final Sputum, Induced/Suctioned Laboratory Results 09/11/16 05:00 09/10/16 09/11/16 09/12/16 05:59 05:59 05:59 Intake Total 2219.7 2866 Output Total 2424 435 Balance -204.3 2431 PT 19.5 SEC (12.0-15.0) H 09/04/16 04:15 INR 1.64 (0.83-1.16) H 09/04/16 04:15
[2016-09-11 10:42] LABS: HEMATOCRIT 24.9 % (40.0-51.0); HEMOGLOBIN 8.5 g/dL (13.7-17.5); LIPEMIA HEMOLYSIS FLAG 90 (0-99); MEAN CELL HEMOGLOBIN CONCENTR. 34.1 g/dL (32.4-36.7); MEAN CELL VOLUME 93.6 fL (81.5-99.8); PLATELET CLUMPS FLAG 40 (0-99); RED BLOOD CELL COUNT 2.66 10^6/uL (4.40-6.38); RED CELL DISTRIBUTION WIDTH 15.5 % (11.5-15.2)
[2016-09-11 10:52] LABS: PLATELET COUNT 34 10^3/uL (150-400)
[2016-09-11] MEDS ORDERED: ARGATROBAN 100 MG in NS 100 ML IV SCH (11:30)
[2016-09-11 12:09] LABS: PLATELET ESTIMATE DECREASED (ADEQ)
--- NOTE | 2016-09-11 17:32 | SOAPPROG ---
SOAP Progress Note Assessment/Plan: Assessment: 1. ARF. ATN. Borderline oliguric. Azotemia improving. BUN 111. 2. Respiratory fx. CHF/aspiration/ARDS? Supportive cares. Gentle uf with dialysis. 3. Thrombocytopenia. Concern for HIT. PF4 Ab negative but started on empiric argatroban pending f/u studies. Avoid heparin. 4. AF/RVR. Now in NSR, s/p amio loading. 5. s/p CABG/MAZE Plan: Subjective: Dialyzed yesterday, none today. No new issues per RN, family. Objective: Vital Signs Temp Pulse Resp BP Pulse Ox 37.8 C 85 29 H 94/55 L 91 L 09/11/16 17:00 09/11/16 17:00 09/11/16 17:00 09/11/16 17:00 09/11/16 17:00 Microbiology 09/09/16 14:15 - Final Sputum, Induced/Suctioned Sputum Culture - Final Laboratory Results 09/11/16 10:10 09/11/16 05:00 09/10/16 09/11/16 09/12/16 05:59 05:59 05:59 Intake Total 2219.7 2866 Output Total 2424 435 Balance -204.3 2431 PT 19.5 SEC (12.0-15.0) H 09/04/16 04:15 INR 1.64 (0.83-1.16) H 09/04/16 04:15 Cachectic, weak, trached on vent Awake, responsive RRR, no m/g/r Coarse breath sounds throughout Abdom soft, nt 2+ edema. Multiple toes gangrenous ICD10 Worksheet Patient Problems: Problems Problem Status Diagnosed Acute blood loss anemia Acute Acute renal failure Acute Arterial occlusion, lower extremity Acute Leukocytosis Acute Respiratory failure with hypoxia Acute S/P CABG x 5 Acute S/P Maze operation for atrial fibrillation Acute Coronary arteriosclerosis Acute
[2016-09-11] MEDS: ERTAPENEM 0.5 GM in NS 100 ML IV SCH (18:31)
--- NOTE | 2016-09-11 19:15 | GCON ---
[f rep st] CONSULTATION I was asked by Dr. Thayer to evaluate this very ill gentleman in the [facility] ICU. The issue is thrombocytopenia and clotting. To review , the patient underwent coronary artery bypass grafting x5 with a Maze procedure on 08/21. His course has been very complicated, including cardiopulmonary arrest on 09/02, possibly related to rapid atrial fibrillation. He required CPR and intubation at that time. He has had a number of extubation and intubations, and now has a tracheostomy. He also has an acute kidney injury and is on hemodialysis. He has received heparin intermittently throughout this process. His platelets were 136 on 08/22. They did drop to around 71,000 on 08/25. PF4 assay for heparin-induced thrombocytopenia was negative at that time. His thrombocytopenia improved, however, recently he has had clinical deterioration, and he has had significant issues with clotting while on dialysis, and has had small vessel micro emboli with his feet, and very clearly has necrotic issues involving his feet, right greater than left. Platelets were 108,000 on 09/09, however, dropped to 34,000 on 09/11. All heparin was discontinued, and he was started on argatroban today. White count has remained persistently elevated with a leftward shift. He has had an anemia , and has required intermittent packed RBC transfusions. He, unfortunately, has also had a number of episodes of rectal bleeding, felt to be possibly related to trauma from digital disimpaction on at least 1 occasion. He has evaluated by GI, but because of his severe illness, endoscopy has not been performed. PAST MEDICAL HISTORY: Significant for paroxysmal atrial fibrillation, crescendo angina, congestive heart failure, coronary artery disease, depression , hyperlipidemia, hypertension, myocardial infarction, history of prostate cancer. SURGERIES: Included a colonoscopy, coronary stenting, EGD, hernia repair, prostatectomy, and skin grafting. REVIEW OF SYSTEMS: Not obtainable at this time. PHYSICAL EXAMINATION: VITAL SIGNS: Blood pressure 94/55, respiratory rate 29, O2 saturation 91% on 60% FiO2. GENERAL: He is a very ill gentleman. He is trached on the vent. He is responsive. He has coarse breath sounds throughout. ABDOMEN: Soft. EXTREMITIES: He has 2+ edema, and multiple toes are gangrenous. LABORATORY DATA: Current sodium 137, potassium 4.9, chloride 96, creatinine 2.9. White count today is 21,000, hemoglobin 8.5, hematocrit 24.9, platelets 34 ,000. His smear shows polychromasia, hypochromasia, and oval macrocytes. Chest x-ray from 09/09 shows increasing pleural effusions with changes of pulmonary edema and pneumonia. IMPRESSION: Patient with thrombocytopenia and significant coagulopathy. He has had a negative PF4 assay, but this is being repeated, and a serotonin- release assay has also been sent. I think this is certainly suspicious for heparin-induced thrombocytopenia. The other possibility would be a consumptive coagulopathy. I agree with the institution of argatroban, realizing that he remains at significant bleeding risk given his past history. There is no acute bleeding at this point in time. We will check a DIC panel, although its interpretation may be quite difficult in this critically ill patient. Our service will follow with you. /[id number]/MODL MTDD
[2016-09-11 19:23] LABS: HEMATOCRIT 28.1 % (40.0-51.0)
[2016-09-11 19:28] LABS: APTT 61.8 SEC (23.0-38.0)
[2016-09-11 19:41] LABS: INR 3.85 (0.83-1.16); PROTIME(PATIENT) 38.5 SEC (12.0-15.0)
[2016-09-11 19:50] LABS: FIBRINOGEN 480 mg/dL (214-456)
[2016-09-11 19:51] LABS: PLATELET COUNT 33 10^3/uL (150-400)
[2016-09-11] MEDS: MELATONIN 3 MG TAB TUBE SCH (21:22)
[2016-09-12 05:48] LABS: ABSOLUTE NRBC COUNT 0.03 10^3/uL (0-0.01); ADD DIFF? YES; ADD MORPH? NO; ADD SCAN? NO; ATYPICAL LYMPHOCYTE FLAG 30 (0-99); FRAGMENT RBC FLAG 0 (0-99); HEMOGLOBIN 9.1 g/dL (13.7-17.5); LEFT SHIFT FLG 70 (0-99); LIPEMIA HEMOLYSIS FLAG 80 (0-99); MEAN CELL HEMOGLOBIN 31.7 pg (27.9-34.1); MEAN CELL HEMOGLOBIN CONCENTR. 33.7 g/dL (32.4-36.7); MEAN CELL VOLUME 94.1 fL (81.5-99.8); MEAN PLATELET VOLUME 14.2 fL (8.7-11.7); NRBC-AUTO% 0.1 % (0.0-0.2); PLATELET CLUMPS FLAG 0 (0-99); RED BLOOD CELL COUNT 2.87 10^6/uL (4.40-6.38); RED CELL DISTRIBUTION WIDTH 15.5 % (11.5-15.2)
[2016-09-12 05:49] LABS: PLATELET COUNT 30 10^3/uL (150-400)
[2016-09-12 05:52] LABS: BASE EXCESS -5.8 mEq/L (-2.5-2.5); BICARBONATE 20 mEq/L (22-26); MEASURED OXYGEN SATURATION 90 % (92-95); PCO2 43 mmHg (34-38); PO2 68 mmHg (65-75); TCO2 21 mEq/L (23-27)
[2016-09-12 05:54] LABS: ASSIST CONTROL YES; O2 CONCENTRATIION 75 % (0-100); P/F RATIO 90 RATIO
[2016-09-12 05:55] LABS: END TIDAL CO2 22; TOTAL RATE 32
[2016-09-12 06:13] LABS: PLATELET ESTIMATE DECREASED (ADEQ)
[2016-09-12 06:14] LABS: HYPOCHROMIA 1+; POLYCHROMASIA 1+; STOMATOCYTES 1+
[2016-09-12 06:29] LABS: ALANINE AMINOTRANSFERASE 59 IU/L (21-72); ALKALINE PHOSPHATASE 212 IU/L (38-126); ANION GAP 17 mEq/L (8-16); ASPARTATE AMINOTRANSFERASE 46 IU/L (17-59); BILIRUBIN,TOTAL 1.6 mg/dL (0.1-1.4); CALCIUM 7.5 mg/dL (8.5-10.4); CARBON DIOXIDE 23 mEq/l (22-31); CHLORIDE 97 mEq/L (97-110); GLUCOSE 120 mg/dL (70-100); POTASSIUM 5.6 mEq/L (3.5-5.2); SODIUM 137 mEq/L (134-144)
[2016-09-12 06:34] LABS: CREATININE 3.6 mg/dL (0.7-1.3); GLOMERULAR FILTRATION RATE 17
--- NOTE | 2016-09-12 08:19 | SOAPPROG ---
SOAP Progress Note Assessment/Plan: POD#22 CABGx5 (GANN-LCX, EBOYN-D1, SVG-LAD, Sequential SVG-PDA-PLR), Padilla-Maze IV Left/Right lesions. POD#7 Tracheostomy, RIJ dialysis cath Nutrition per [facility]. IV access per LUE PICC. Sx CAD with ISCM (EF 40-45%) - s/p CABGx5 with bilateral mammaries. Small and diffusely diseased target vessels. Early postop course complicated by cardiogenic shock with multi-organ dysfx, severe MR, and peripheral vasoconstriction. Hemodynamics stabilized on vasoactive support w temporary improvement in hepatorenal and respiratory function as well as transient recovery of foot perfusion as pressor support lightened. Now with MOF secondary to resp arrest on 12/12 precipitated by AF/RVR with hypotension. Condition critical. Code status adjusted to no CPR per family wishes. Long-standing persistent atrial fibrillation - SR temporarily restored s/p Padilla- Maze IV. Recurrent PAF/PSVT as of POD#11. Now in SR. Surgical antithrombotic prophylaxis w DAPT when appropriate. Postoperative respiratory failure - Reintubated 3x, most recently for arrest post AF treatment. Trach placed. Vent management, Abx and therapeutic bronchs per Pulm. Postoperative renal failure - Secondary to shock and ATN. Nephrology following and directing dialysis. UOP 600/24H. Postoperative melena - Intermittent w episode of BRBPR following manual disimpaction. GIB vs mesenteric ischemia. GI consulted. Local trauma from disimpaction suspected. Endoscopic eval deferred. Stool dark this AM without significant drop in H/H. Will monitor. Post-op moderate-severe MR - Functional. Valve structurally intact by serial echos. Cath neg for compromised paras flow or RHF. Surg repair deferred. Acute expected blood loss anemia with thrombocytopenia and coagulopathy. Sudden recent dramatic drop in platelets. Today 30. 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 Panel sent and Argatroban started as per protocol. Postoperative pedal ischemia - Vasospasm compl by sm vessel thrombosis below ankle level. Appears to be demarcating rt forefoot and left toes. Contrast imaging as allowed by renal fx. Vasodilator as allowed by BP. Gen surg following peripherally. Subjective: Nods when asked if comfortable. Objective: Vital Signs Temp Pulse Resp BP Pulse Ox 37.7 C 79 41 H 91/52 L 92 09/12/16 07:00 09/12/16 08:03 09/12/16 08:03 09/12/16 07:00 09/12/16 08:03 Microbiology 09/06/16 14:58 Blood Culture - Final Blood 09/06/16 14:25 Blood Culture - Final Blood 09/09/16 14:15 - Final Sputum, Induced/Suctioned Sputum Culture - Final Laboratory Results 09/12/16 05:30 09/12/16 05:30 09/11/16 09/12/16 09/13/16 05:59 05:59 05:59 Intake Total 2866 2099.1 Output Total 435 600 120 Balance 2431 1499.1 -120 PT 38.5 SEC (12.0-15.0) H 09/11/16 19:00 INR 3.85 (0.83-1.16) H 09/11/16 19:00 Physical Exam - Physical Exam General Appearance: mild distress, obtunded, thin Neck: other (Tracheostomy in place ) Respiratory: respiratory distress (Mild) Cardiac/Chest: regular rate, rhythm Abdomen: soft, distended Skin: pallor Extremities: non-tender, other (Necrotic changes B/L feet ) Neuro/Psych: motor weakness, sensory deficit, cognition abnormalities ICD10 Worksheet Patient Problems: Problems Problem Status Diagnosed Acute blood loss anemia Acute Acute renal failure Acute Arterial occlusion, lower extremity Acute Leukocytosis Acute Respiratory failure with hypoxia Acute S/P CABG x 5 Acute S/P Maze operation for atrial fibrillation Acute Coronary arteriosclerosis Acute
[2016-09-12] MEDS: LANSOPRAZOLE SUSP 30MG/10ML UDSYR (Adult) TUBE SCH (08:37)
[2016-09-12] MEDS: SENNOSIDES 17.6 MG/10 ML UDL TUBE SCH ×2 (08:37→21:25)
[2016-09-12] MEDS: RISPERIDONE 1 MG/1 ML TUBE SCH ×2 (08:37→21:25)
--- NOTE | 2016-09-12 09:09 | DX ---
AP Portable Upright Chest September 12, 2016, 0618 Hours Indication: Pneumonia Comparison: September 09, 2016, 1356 hours. Findings: Tracheostomy tube remains unchanged. There is a central line terminating in the upper SVC a nd a PICC terminating in the mid SVC. There is feeding tube terminating in the upper abdomen. Mediast inal wires and clips are unchanged. Diffuse interstitial changes are again present consistent with di ffuse pneumonia. Blunting of the costophrenic angles is seen bilaterally. Impressions 1. Persistent diffuse pneumonia versus CHF. 2. Stable lines and tubes.
--- NOTE | 2016-09-12 10:01 | SOAPPROG ---
SOAP Progress Note Assessment/Plan: Assessment: 1. ARF. ATN. Borderline oliguric. Unable to manage azotemia, hyperkalemia, hyperphos with QOD dialysis. Respiratory status worse with persistent bilateral infiltrates. Discussed with Dr. José/Jeovany. Will give trial of CRRT for several days, see if able to make any progress with resp status. If not, will need to d/w family that we are approaching limits of care. 2. Respiratory fx. CHF/aspiration/ARDS? Supportive cares. 3. Thrombocytopenia. Concern for HIT. PF4 Ab negative but started on empiric argatroban pending f/u studies. Avoid heparin. 4. AF/RVR. Now in NSR, s/p amio loading. 5. s/p CABG/MAZE 6. Hyperphosphatemia. P back up to 10.6. On nepro TFs. Plan: 09/12/16 10:01 09/12/16 10:01 Subjective: Had to increase FiO2 back to 75% over night. Last dialysis was Friday. RN reports he had a slightly dark stool. Objective: Vital Signs Temp Pulse Resp BP Pulse Ox 37.9 C 85 28 H 90/56 L 93 09/12/16 09:00 09/12/16 09:00 09/12/16 09:00 09/12/16 09:00 09/12/16 09:00 Microbiology 09/06/16 14:58 Blood Culture - Final Blood 09/06/16 14:25 Blood Culture - Final Blood 09/09/16 14:15 - Final Sputum, Induced/Suctioned Sputum Culture - Final Laboratory Results 09/12/16 05:30 09/12/16 05:30 09/11/16 09/12/16 09/13/16 05:59 05:59 05:59 Intake Total 2866 2099.1 Output Total 435 600 150 Balance 2431 1499.1 -150 PT 38.5 SEC (12.0-15.0) H 09/11/16 19:00 INR 3.85 (0.83-1.16) H 09/11/16 19:00 Upright in bed, awake but not responding. RRR, no m/g/r; R IJ temp dialysis catheter under trach collar Coarse breath sounds throughout Abdom soft, nontender 2+ sacral edema Bilat toe gangrene ICD10 Worksheet Patient Problems: Problems Problem Status Diagnosed Acute blood loss anemia Acute Acute renal failure Acute Arterial occlusion, lower extremity Acute Leukocytosis Acute Respiratory failure with hypoxia Acute S/P CABG x 5 Acute S/P Maze operation for atrial fibrillation Acute Coronary arteriosclerosis Acute
--- NOTE | 2016-09-12 11:16 | SOAPPROG ---
SOAP Progress Note Assessment/Plan: Assessment: 1. possible hit 2. multi system failure post cabg/maze Plts, hgb reasonably stable. DIC panel not c/w dic. Plan:Continue argatroban, await serotonin release assay. 09/12/16 11:13 Subjective: Intubated, up in chair Objective: Vital Signs Temp Pulse Resp BP Pulse Ox 100.4 F 84 26 H 94/56 L 94 09/12/16 11:00 09/12/16 11:00 09/12/16 11:00 09/12/16 11:00 09/12/16 11:00 Microbiology 09/06/16 14:58 Blood Culture - Final Blood 09/06/16 14:25 Blood Culture - Final Blood 09/09/16 14:15 - Final Sputum, Induced/Suctioned Sputum Culture - Final Laboratory Results 09/12/16 05:30 09/12/16 05:30 09/11/16 09/12/16 09/13/16 05:59 05:59 05:59 Intake Total 2866 2099.1 Output Total 435 600 175 Balance 2431 1499.1 -175 PT 38.5 SEC (12.0-15.0) H 09/11/16 19:00 INR 3.85 (0.83-1.16) H 09/11/16 19:00 ICD10 Worksheet Patient Problems: Problems Problem Status Diagnosed Acute blood loss anemia Acute Acute renal failure Acute Arterial occlusion, lower extremity Acute Leukocytosis Acute Respiratory failure with hypoxia Acute S/P CABG x 5 Acute S/P Maze operation for atrial fibrillation Acute Coronary arteriosclerosis Acute
[2016-09-12] MEDS ORDERED: REPL FLUID TYPE D RXY 1 EA, SODIUM CITRATE 4% 375 ML, SODIUM Cl 3% 519 ML in WATER FOR ... DIAL SCH (11:30)
[2016-09-12] MEDS ORDERED: PRE-DILUTION FILTER SET 100 ****SEND #2 INITIALLY MISC PRN (11:30)
--- NOTE | 2016-09-12 12:55 | PDINTPN ---
Refinish Technician Progress Note Assessment/Plan: Assessment: CABG X 5 and MAZE 08/21 Status post cardiopulmonary arrest 09/02: rapid atrial fibrillation, hypoxia, asystole, CPR, intubation, eventual return of spontaneous circulation. Atrial fibrillation. On amiodarone. In normal sinus rhythm currently. Mitral regurg post op, moderate-severe. Hemodynamics OK. Likely contributes to his acute respiratory failure and infiltrates. RAHEL: On hemodialysis. Respiratory Failure: Extubated, reintubated x 3, now with tracheostomy tube in place. CXR with persistent diffuse infiltrates, oxygen requirement at 60%. ? cardiogenic edema/volume overload vs. pneumonia/aspiration vs. non- cardiogenic edema from SIRS, vs a combination of these. Hypotension: Stable, but borderline. On low-dose Levophed. Elevated WBC: Stable at 20 today, % bands down. On ertapenem for possible aspiration associated with his arrest. Intermittent fevers persist. Right foot ischemia greater than left: Likely due to spasm/embolism/thrombosis at the ankle. On Heparin/ASA/Plavix. Dr. Levy following. Lower GI bleed. Some blood per rectal bleeding intermittently, no evidence of significant bleeding farther up. GI consult duration appreciated. SQ heparin, Plavix and aspirin resumed Anemia: Multifactorial: Acute blood-loss, illness, renal failure, etc. S/P transfusion, now Hgb back down Thrombocytopenia: Platelets dropped significantly today. 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 Continue vent support and supportive care. Continue amiodarone. Follow ABG, lab, chest x-ray. Support pressure with Levophed as needed. Continue ertapenem. Repeat CBC. If platelets low, will hold Heparin, start argatroban, check HIT test again. Prophylactic heparin. Will try to get into chair, increase activity as tolerated No compressions per wishes of the patient's family. THe ywould like to continue current aggressive support. 40 minutes of CC time 09/11/16 15:49 Subjective: Trached, nods to simple questions. Denies pain. Objective: Vital Signs Temp Pulse Resp BP Pulse Ox 38.1 C 82 34 H 81/53 L 97 09/12/16 12:00 09/12/16 12:00 09/12/16 12:00 09/12/16 12:00 09/12/16 12:00 Microbiology 12/16/16 14:58 Blood Culture - Final Blood 09/06/16 14:25 Blood Culture - Final Blood 09/09/16 14:15 - Final Sputum, Induced/Suctioned Sputum Culture - Final Laboratory Results 09/12/16 05:30 09/12/16 05:30 09/11/16 09/12/16 09/13/16 05:59 05:59 05:59 Intake Total 2866 2099.1 Output Total 435 600 195 Balance 2431 1499.1 -195 PT 38.5 SEC (12.0-15.0) H 09/11/16 19:00 INR 3.85 (0.83-1.16) H 09/11/16 19:00 CXR: Stable infiltrates. Images reviewed. Physical Exam - Physical Exam General Appearance: alert, no apparent distress EENT: normal ENT inspection Neck: normal inspection Respiratory: lungs clear, normal breath sounds Cardiac/Chest: regular rate, rhythm, No edema Abdomen: normal bowel sounds, non-tender Skin: cyanosis Extremities: other (no change) Neuro/Psych: No alert, No normal mood/affect (flat), No oriented x 3 ICD10 Worksheet Patient Problems: Problems Problem Status Diagnosed Acute blood loss anemia Acute Acute renal failure Acute Arterial occlusion, lower extremity Acute Leukocytosis Acute Respiratory failure with hypoxia Acute S/P CABG x 5 Acute S/P Maze operation for atrial fibrillation Acute Coronary arteriosclerosis Acute
[2016-09-12 16:10] LABS: HEPARIN INDUCED ANTIBODY Negative (Negative); REACTIVITY 12 % (<20)
[2016-09-12 16:10] LABS: HEPARIN INDUCED ANTIBODY Negative (Negative); REACTIVITY 11 % (<20)
[2016-09-12 17:19] LABS: ABSOLUTE NRBC COUNT 0.05 10^3/uL (0-0.01); ADD DIFF? YES; ADD MORPH? NO; ADD SCAN? NO; ATYPICAL LYMPHOCYTE FLAG 20 (0-99); FRAGMENT RBC FLAG 0 (0-99); HEMOGLOBIN 9.9 g/dL (13.7-17.5); LEFT SHIFT FLG 80 (0-99); LIPEMIA HEMOLYSIS FLAG 80 (0-99); MEAN CELL HEMOGLOBIN 30.8 pg (27.9-34.1); MEAN CELL VOLUME 93.5 fL (81.5-99.8); NRBC-AUTO% 0.2 % (0.0-0.2); PLATELET CLUMPS FLAG 10 (0-99); PLATELET COUNT 67 10^3/uL (150-400); RED BLOOD CELL COUNT 3.21 10^6/uL (4.40-6.38); RED CELL DISTRIBUTION WIDTH 15.7 % (11.5-15.2)
[2016-09-12 17:54] LABS: IONIZED CALCIUM 1.02 MMOL/L (1.12-1.30)
[2016-09-12 18:03] LABS: ANION GAP 21 mEq/L (8-16); CALCIUM 7.4 mg/dL (8.5-10.4); CARBON DIOXIDE 21 mEq/l (22-31); CHLORIDE 93 mEq/L (97-110); GLUCOSE 143 mg/dL (70-100); PLATELET ESTIMATE DECREASED (ADEQ); POTASSIUM 5.8 mEq/L (3.5-5.2); SODIUM 135 mEq/L (134-144)
[2016-09-12 18:12] LABS: LARGE PLATELETS PRESENT; MACROCYTES 1+; MICROCYTES 1+; POLYCHROMASIA 2+
[2016-09-12 18:14] LABS: GLOMERULAR FILTRATION RATE 15; SCHISTOCYTES 1+
[2016-09-12] MEDS: ERTAPENEM 0.5 GM in NS 100 ML IV SCH (18:47)
[2016-09-12] MEDS: CALCIUM GLUCONATE 16.67 GM in NS 1,000 ML IV SCH ×2 (19:37→23:57)
[2016-09-12] MEDS: B22GK4/0 PRISMASATE 5,000 ML DIAL SCH ×3 (19:38→23:40)
[2016-09-12] MEDS: REPL FLUID TYPE D CAPS 1 EA in WATER FOR INJECTION,STERILE 4,000 ML DIAL SCH ×3 (19:38→22:13)
[2016-09-12] MEDS: ACCESSORY DRAIN 1 EA BAG***SEND #2 INITIALLY MISC PRN (19:43)
[2016-09-12] MEDS: NS 1,000 ML MISC SCH ×2 (19:44→21:06)
--- NOTE | 2016-09-12 20:39 | GCON ---
[f rep st] CONSULTATION DATE OF CONSULTATION: 08/28/2016 HISTORY: The patient is a 66-year-old male with severe pedal vasospasm following open heart surgery with coronary artery bypass and pressors. He has been consistently on ventilator hypoxia and pulmon tara issues. He is nondiabetic. He does seem to have full motor function in his feet, but decreased sensation bilaterally. I was asked to consult because of the discoloration and changes in his toes b ilaterally, particularly on the right. Unfortunately, his creatinine is 1.6 and climbing; this limit s our ability to do an angiogram, and he is only 7 days postop, which limits our ability to any throm bolysis. He also cannot tolerate Procardia or Nitro Paste, as it seems to decrease his blood pressur e significantly. PAST HISTORY: Includes coronary artery bypass x5, with a maze procedure. He is also being paced. H is history includes atrial fibrillation, congestive heart failure, coronary artery disease, some depr ession, hyperkalemia, history of myocardial infarction, hypertension, history of prostate cancer, and hypercholesterolemia. REVIEW OF SYSTEMS: Not really significantly obtainable from the patient on the ventilator. PHYSICAL EXAMINATION: GENERAL: Reveals him to be responsive but somewhat confused. HEAD AND NECK: Reveals the ventilator in place. CHEST: Reveals bilateral rales. CARDIAC: Reveals an irregular rh ythm. ABDOMEN: Soft and nontender. EXTREMITIES: Reveal full, good femoral and popliteal pulses bu t absent pedal pulses below the malleoli. He does have dopplerable pulses at the level of the malleo li but nothing in his foot. He has bilateral purple ischemic toes, worse on the right, involving all 5 toes. He can move the toes and has some sensation, although that is decreased. IMPRESSION: Severe bilateral small-vessel disease and toe ischemia, of uncertain etiology. The dise ase is too diffuse and complete to simply be embolic disease. He has excellent popliteal pulses and arterial flow right down to the malleolar level. This more likely is an in situ thrombosis of his sm all vessel microcirculation secondary to hypotension, on pressors and vasospasm. RECOMMENDATIONS: Close observation on heparin anticoagulation; arterial studies to evaluate the infl ow. If he could tolerate Nitro Paste on his toes, it might be of some slight benefit. He may event ually need an angiogram for further delineation of the anatomy, if his kidneys would tolerate that. At the present time, the prognosis for his toes is somewhat guarded. I will follow him with you. /[id number]/MODL
[2016-09-12] MEDS: MELATONIN 3 MG TAB TUBE SCH (21:24)
[2016-09-13 00:24] LABS: IONIZED CALCIUM 0.97 MMOL/L (1.12-1.30)
[2016-09-13 01:01] LABS: ANION GAP 20 mEq/L (8-16); CALCIUM 7.9 mg/dL (8.5-10.4); CARBON DIOXIDE 21 mEq/l (22-31); CHLORIDE 97 mEq/L (97-110); CREATININE 2.6 mg/dL (0.7-1.3); GLOMERULAR FILTRATION RATE 25; GLUCOSE 151 mg/dL (70-100); MAGNESIUM 2.2 mg/dL (1.6-2.3); SODIUM 138 mEq/L (134-144)
[2016-09-13] MEDS: NS 1,000 ML MISC SCH ×3 (01:49→23:13)
[2016-09-13] MEDS: B22GK4/0 PRISMASATE 5,000 ML DIAL SCH ×4 (02:53→22:58)
[2016-09-13] MEDS: REPL FLUID TYPE D CAPS 1 EA in WATER FOR INJECTION,STERILE 4,000 ML DIAL SCH ×4 (03:33→22:07)
[2016-09-13 06:15] LABS: IONIZED CALCIUM 1.04 MMOL/L (1.12-1.30)
[2016-09-13 06:26] LABS: ABSOLUTE NRBC COUNT 0.03 10^3/uL (0-0.01); ADD DIFF? YES; ADD MORPH? NO; ATYPICAL LYMPHOCYTE FLAG 20 (0-99); FRAGMENT RBC FLAG 0 (0-99); HEMATOCRIT 28.8 % (40.0-51.0); HEMOGLOBIN 9.6 g/dL (13.7-17.5); LIPEMIA HEMOLYSIS FLAG 80 (0-99); MEAN CELL HEMOGLOBIN 31.3 pg (27.9-34.1); MEAN CELL HEMOGLOBIN CONCENTR. 33.3 g/dL (32.4-36.7); MEAN CELL VOLUME 93.8 fL (81.5-99.8); NRBC-AUTO% 0.1 % (0.0-0.2); PLATELET CLUMPS FLAG 20 (0-99); RED BLOOD CELL COUNT 3.07 10^6/uL (4.40-6.38); RED CELL DISTRIBUTION WIDTH 15.7 % (11.5-15.2)
[2016-09-13 06:27] LABS: LEFT SHIFT FLG 110 (0-99); PLATELET COUNT 45 10^3/uL (150-400)
[2016-09-13 06:28] LABS: ADD SCAN? NO
[2016-09-13 06:38] LABS: ALANINE AMINOTRANSFERASE 55 IU/L (21-72); ALBUMIN 2.9 g/dL (3.5-5.0); ALKALINE PHOSPHATASE 244 IU/L (38-126); ANION GAP 18 mEq/L (8-16); ASPARTATE AMINOTRANSFERASE 49 IU/L (17-59); BILIRUBIN,TOTAL 1.8 mg/dL (0.1-1.4); CALCIUM 8.2 mg/dL (8.5-10.4); CARBON DIOXIDE 23 mEq/l (22-31); CHLORIDE 97 mEq/L (97-110); CREATININE 2.2 mg/dL (0.7-1.3); GLOMERULAR FILTRATION RATE 30; GLUCOSE 127 mg/dL (70-100); POTASSIUM 4.9 mEq/L (3.5-5.2); SODIUM 138 mEq/L (134-144); TOTAL PROTEIN 6.2 g/dL (6.3-8.2)
[2016-09-13] MEDS: CALCIUM GLUCONATE 16.67 GM in NS 1,000 ML IV SCH (06:57)
[2016-09-13 07:40] LABS: HYPOCHROMIA 1+; PLATELET ESTIMATE DECREASED (ADEQ)
[2016-09-13 07:41] LABS: MACROCYTES 1+; POLYCHROMASIA 1+
--- NOTE | 2016-09-13 09:01 | SOAPPROG ---
SOAP Progress Note Assessment/Plan: Assessment: 1. ARF. ATN. Borderline oliguric. Trial of CRRT for several days. Making progress with resp status, azotemia. Continue 50cc/hr UF. K,P,Ca, HCO3 improving. 2. Respiratory fx. CHF/aspiration/ARDS? FiO2 down. Supportive cares. WBC up. On meropenem. 3. Thrombocytopenia. Concern for HIT. PF4 Ab negative but started on empiric argatroban pending f/u studies. Avoid heparin. Argatroban held d/t GI bleeding. Labs not c/w DIC. RN reports family was concerned about TMA. Has few schistocytes, but this does not seem likely. H/h decreases seem explained by blood losses, plts have been stable. Can chk LDH/haptoglobin. 4. AF/RVR. Now in NSR, s/p amio loading. 5. s/p CABG/MAZE 6. Hyperphosphatemia. P improving on CRRT. 7. Toe ischemia. Plan: 09/12/16 10:01 09/12/16 10:01 09/13/16 08:59 09/13/16 09:01 09/13/16 09:02 09/13/16 09:04 09/13/16 09:07 Subjective: Pt seen and examined on CRRT. Started CRRT yesterday. Has tolerated UF of 50cc/ h well. FiO2 down from 70 to 50%. Had BRBPR yesterday, received 1 U PRBCs. Argatroban held. Objective: Vital Signs Temp Pulse Resp BP Pulse Ox 36.2 C 86 28 H 103/66 95 09/13/16 07:00 09/13/16 07:00 09/13/16 07:00 09/13/16 07:00 09/13/16 07:00 Laboratory Results 09/13/16 06:00 09/13/16 06:00 09/12/16 09/13/16 09/14/16 05:59 05:59 05:59 Intake Total 2099.1 1305 Output Total 600 230 519 Balance 1499.1 1075 -519 PT 38.5 SEC (12.0-15.0) H 09/11/16 19:00 INR 3.85 (0.83-1.16) H 09/11/16 19:00 More alert today. Very interactive. On CRRT. RRR, no m/g/r Coarse breath sounds throughout Abdom soft, nt Bilat toes ischemic 2+ sacral/ankle edema ICD10 Worksheet Patient Problems: Problems Problem Status Diagnosed Acute blood loss anemia Acute Acute renal failure Acute Arterial occlusion, lower extremity Acute Leukocytosis Acute Respiratory failure with hypoxia Acute S/P CABG x 5 Acute S/P Maze operation for atrial fibrillation Acute Coronary arteriosclerosis Acute
--- NOTE | 2016-09-13 09:16 | SOAPPROG ---
SOAP Progress Note Assessment/Plan: POD#23 CABGx5 (GANN-LCX, EBONY-D1, SVG-LAD, Sequential SVG-PDA-PLR), Padilla-Maze IV Left/Right lesions. POD#8 Tracheostomy, RIJ dialysis cath Nutrition per [facility]. IV access per LUE PICC. Sx CAD with ISCM (EF 40-45%) - s/p CABGx5 with bilateral mammaries. Small and diffusely diseased target vessels. Early postop course complicated by cardiogenic shock with multi-organ dysfx, severe MR, and peripheral vasoconstriction. Hemodynamics stabilized on vasoactive support w temporary improvement in hepatorenal and respiratory function as well as transient recovery of foot perfusion as pressor support lightened. Now with MOF secondary to resp arrest on 12/12 precipitated by AF/RVR with hypotension. Condition critical. Code status adjusted to no CPR per family wishes. Long-standing persistent atrial fibrillation s/p Padilla-Maze IV. Recurrent PAF/ PSVT as of POD#11. Now in SR. Surgical antithrombotic prophylaxis w DAPT when appropriate. Postoperative respiratory failure - Reintubated 3x, most recently for arrest post AF treatment. Trach placed. Vent management, Abx and therapeutic bronchs per Pulm. Postoperative renal failure - Secondary to shock and ATN. Nephrology following and directing dialysis. Postoperative melena - Intermittent w episode of BRBPR following manual disimpaction. GIB vs mesenteric ischemia. GI consulted. Local trauma from disimpaction suspected. Endoscopic eval deferred. Bloody stool 08/13 - Argatroban dc/d. Post-op moderate-severe MR - Functional. Valve structurally intact by serial echos. Cath neg for compromised paras flow or RHF. Surg repair deferred. Acute expected blood loss anemia with thrombocytopenia and coagulopathy. Sudden recent dramatic drop in platelets. 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 Panel sent to outside institution and Argatroban started and held 08/13 due to lower GI bleed. Postoperative pedal ischemia - Vasospasm compl by sm vessel thrombosis below ankle level. Demarcating rt forefoot and left toes. Contrast imaging as allowed by renal fx. Dr. Levy following for eventual amputation. Febrile with persistent leukocytosis - No obvious sources of infection. All cultures NTD. Continue Invanz as per cosmetic account coordinator mgmt. Subjective: More awake today. Able to voice concerns. Objective: Vital Signs Temp Pulse Resp BP Pulse Ox 36.2 C 89 23 H 105/65 93 09/13/16 08:00 09/13/16 08:00 09/13/16 08:00 09/13/16 08:00 09/13/16 08:00 Laboratory Results 09/13/16 06:00 09/13/16 06:00 09/12/16 09/13/16 09/14/16 05:59 05:59 05:59 Intake Total 2099.1 1305 Output Total 600 230 519 Balance 1499.1 1075 -519 PT 38.5 SEC (12.0-15.0) H 09/11/16 19:00 INR 3.85 (0.83-1.16) H 09/11/16 19:00 Physical Exam - Physical Exam General Appearance: alert, no apparent distress EENT: No scleral icterus (R), No scleral icterus (L) Neck: other (Trach/RIJ HD catheter in place) Respiratory: other (on 50% ), No respiratory distress Cardiac/Chest: regular rate, rhythm Abdomen: non-tender, soft, distended Skin: warm/dry Extremities: pedal edema (+1 B/L ) Neuro/Psych: alert, other (Moves all 4 extremities ) ICD10 Worksheet Patient Problems: Problems Problem Status Diagnosed Acute blood loss anemia Acute Acute renal failure Acute Arterial occlusion, lower extremity Acute Leukocytosis Acute Respiratory failure with hypoxia Acute S/P CABG x 5 Acute S/P Maze operation for atrial fibrillation Acute Coronary arteriosclerosis Acute
[2016-09-13] MEDS ORDERED: ARGATROBAN 100 MG in NS 100 ML IV SCH (09:30)
--- NOTE | 2016-09-13 09:40 | PDINTPN ---
Field Hauler Progress Note Assessment/Plan: Assessment: CABG X 5 and MAZE 08/21 Status post cardiopulmonary arrest 09/02: rapid atrial fibrillation, hypoxia, asystole, CPR, intubation, eventual return of spontaneous circulation. Atrial fibrillation. On amiodarone. In normal sinus rhythm currently. Mitral regurg post op, moderate-severe. Hemodynamics OK. Likely contributes to his acute respiratory failure and infiltrates. RAHEL: On CVVHD. Respiratory Failure: Extubated, reintubated x 3, now with tracheostomy tube in place. CXR with persistent diffuse infiltrates, oxygen requirement slightly down at 50%. ? cardiogenic edema/volume overload vs. pneumonia/aspiration vs. non- cardiogenic edema from SIRS, vs a combination of these. Hypotension: Stable, but borderline. On low-dose Levophed. Elevated WBC: Stable at 29 today, % bands down. On ertapenem for possible aspiration associated with his arrest. Intermittent fevers persist. Right foot ischemia greater than left: Likely due to spasm/embolism/thrombosis at the ankle. On ASA/Plavix/argatroban. Dr. Levy following. Lower GI bleed. Some blood per rectal bleeding intermittently, no evidence of significant bleeding farther up. Anemia: Multifactorial: Acute blood-loss, illness, renal failure, etc. S/P transfusion, now Hgb back down Thrombocytopenia: Platelets jose on argatroban, which was held last night after APTT went high and he had some rectal bleeding. Platelets are back down a bit. Plan: Cont hemodialysis, increase fluid removal if possible. Continue vent support and supportive care. Continue amiodarone. Follow ABG, lab, chest x-ray. Support pressure with Levophed as needed. Continue ertapenem. Will try to get into chair, increase activity as tolerated No compressions per wishes of the patient's family. They would like to continue current aggressive support. 45 minutes of CC time 09/13/16 09:46 Subjective: Trached, minimally responsive. No complaints. Objective: Vital Signs Temp Pulse Resp BP Pulse Ox 36.2 C 89 23 H 105/65 93 09/13/16 08:00 09/13/16 08:00 09/13/16 08:00 09/13/16 08:00 09/13/16 08:00 Laboratory Results 09/13/16 06:00 09/13/16 06:00 1209/13/16 09/14/16 05:59 05:59 05:59 Intake Total 2099.1 1305 Output Total 600 230 519 Balance 1499.1 1075 -519 PT 38.5 SEC (12.0-15.0) H 09/11/16 19:00 INR 3.85 (0.83-1.16) H 09/11/16 19:00 Physical Exam - Physical Exam General Appearance: no apparent distress, No alert (awake but weakly resonds to questions) EENT: normal ENT inspection Neck: normal inspection Respiratory: rhonchi Cardiac/Chest: regular rate, rhythm, No edema Abdomen: normal bowel sounds, non-tender, soft Skin: No normal color (no change) Extremities: other (no change) Neuro/Psych: No alert, No normal mood/affect, No oriented x 3 ICD10 Worksheet Patient Problems: Problems Problem Status Diagnosed Acute blood loss anemia Acute Acute renal failure Acute Arterial occlusion, lower extremity Acute Leukocytosis Acute Respiratory failure with hypoxia Acute S/P CABG x 5 Acute S/P Maze operation for atrial fibrillation Acute Coronary arteriosclerosis Acute
[2016-09-13] MEDS: SENNOSIDES 17.6 MG/10 ML UDL TUBE SCH ×2 (09:55→21:28)
[2016-09-13] MEDS: LANSOPRAZOLE SUSP 30MG/10ML UDSYR (Adult) TUBE SCH (09:55)
[2016-09-13] MEDS: RISPERIDONE 1 MG/1 ML TUBE SCH ×2 (09:56→21:28)
--- NOTE | 2016-09-13 10:30 | SOAPPROG ---
SOAP Progress Note Assessment/Plan: Assessment: 1. possible hit. Platelets seemed to be improving on Argatroban, but dropped when it was stopped because of rectal bleeding, received 1 unit prbc 2. multi system failure post cabg/maze Plan; now back on argatroban, would try to run ptt 45 to 60 09/12/16 11:13 09/13/16 10:27 09/13/16 10:30 Subjective: More alert per rn, O 2 better Objective: Vital Signs Temp Pulse Resp BP Pulse Ox 97.3 F 90 21 H 93/56 L 93 09/13/16 10:00 09/13/16 10:00 09/13/16 10:00 09/13/16 10:00 09/13/16 10:00 Laboratory Results 09/13/16 06:00 09/13/16 06:00 09/12/16 09/13/16 09/14/16 05:59 05:59 05:59 Intake Total 2099.1 1305 Output Total 600 230 611 Balance 1499.1 1075 -611 PT 38.5 SEC (12.0-15.0) H 09/11/16 19:00 INR 3.85 (0.83-1.16) H 09/11/16 19:00 Physical Exam - Physical Exam General Appearance: other (intubated) ICD10 Worksheet Patient Problems: Problems Problem Status Diagnosed Acute blood loss anemia Acute Acute renal failure Acute Arterial occlusion, lower extremity Acute Leukocytosis Acute Respiratory failure with hypoxia Acute S/P CABG x 5 Acute S/P Maze operation for atrial fibrillation Acute Coronary arteriosclerosis Acute
[2016-09-13 10:43] LABS: LACTATE DEHYDROGENASE 1275 IU/L (313-618)
[2016-09-13 13:36] LABS: IONIZED CALCIUM 1.16 MMOL/L (1.12-1.30)
[2016-09-13 13:42] LABS: ABSOLUTE NRBC COUNT 0.03 10^3/uL (0-0.01); ADD DIFF? YES; ADD MORPH? NO; ADD SCAN? YES; ATYPICAL LYMPHOCYTE FLAG 10 (0-99); FRAGMENT RBC FLAG 0 (0-99); HEMOGLOBIN 9.8 g/dL (13.7-17.5); LIPEMIA HEMOLYSIS FLAG 80 (0-99); MEAN CELL HEMOGLOBIN 31.2 pg (27.9-34.1); MEAN CELL HEMOGLOBIN CONCENTR. 32.7 g/dL (32.4-36.7); MEAN CELL VOLUME 95.5 fL (81.5-99.8); NRBC-AUTO% 0.1 % (0.0-0.2); PLATELET CLUMPS FLAG 20 (0-99); PLATELET COUNT 69 10^3/uL (150-400); RED BLOOD CELL COUNT 3.14 10^6/uL (4.40-6.38); RED CELL DISTRIBUTION WIDTH 15.8 % (11.5-15.2)
[2016-09-13 14:15] LABS: LEFT SHIFT FLG 120 (0-99)
[2016-09-13 14:25] LABS: POLYCHROMASIA 1+
[2016-09-13 14:26] LABS: PLATELET ESTIMATE DECREASED (ADEQ)
[2016-09-13 15:07] LABS: ANION GAP 16 mEq/L (8-16); CALCIUM 9.1 mg/dL (8.5-10.4); CARBON DIOXIDE 22 mEq/l (22-31); CHLORIDE 99 mEq/L (97-110); CREATININE 1.7 mg/dL (0.7-1.3); GLOMERULAR FILTRATION RATE 41; GLUCOSE 157 mg/dL (70-100); POTASSIUM 4.9 mEq/L (3.5-5.2); SODIUM 137 mEq/L (134-144)
[2016-09-13 17:35] LABS: SCAN POSITIVE
[2016-09-13] MEDS: ERTAPENEM 1 GM in NS 100 ML IV SCH (18:39)
[2016-09-13 18:54] LABS: ABSOLUTE NRBC COUNT 0.07 10^3/uL (0-0.01); ADD DIFF? YES; ADD MORPH? NO; ATYPICAL LYMPHOCYTE FLAG 20 (0-99); FRAGMENT RBC FLAG 20 (0-99); HEMATOCRIT 30.7 % (40.0-51.0); LIPEMIA HEMOLYSIS FLAG 80 (0-99); MEAN CELL HEMOGLOBIN 31.3 pg (27.9-34.1); MEAN CELL HEMOGLOBIN CONCENTR. 32.6 g/dL (32.4-36.7); MEAN CELL VOLUME 95.9 fL (81.5-99.8); NRBC-AUTO% 0.2 % (0.0-0.2); PLATELET CLUMPS FLAG 10 (0-99); PLATELET COUNT 97 10^3/uL (150-400); RED CELL DISTRIBUTION WIDTH 15.9 % (11.5-15.2)
[2016-09-13 18:56] LABS: ADD SCAN? NO; LEFT SHIFT FLG 140 (0-99)
[2016-09-13 19:45] LABS: MACROCYTES 1+; MICROCYTES 1+; PLATELET ESTIMATE DECREASED (ADEQ)
[2016-09-13 19:49] LABS: IONIZED CALCIUM 1.09 MMOL/L (1.12-1.30)
[2016-09-13 20:24] LABS: BASE EXCESS -6.6 mEq/L (-2.5-2.5); BICARBONATE 21 mEq/L (22-26); MEASURED OXYGEN SATURATION 94 % (92-95); PCO2 54 mmHg (34-38); PO2 80 mmHg (65-75); TCO2 23 mEq/L (23-27)
[2016-09-13 20:26] LABS: ASSIST CONTROL YES; END TIDAL CO2 33; O2 CONCENTRATIION 45 % (0-100); P/F RATIO 177 RATIO; TOTAL RATE 26
[2016-09-13 20:35] LABS: ANION GAP 17 mEq/L (8-16); CALCIUM 8.8 mg/dL (8.5-10.4); CARBON DIOXIDE 22 mEq/l (22-31); CHLORIDE 97 mEq/L (97-110); CREATININE 1.6 mg/dL (0.7-1.3); GLOMERULAR FILTRATION RATE 44; GLUCOSE 131 mg/dL (70-100); MAGNESIUM 1.8 mg/dL (1.6-2.3); POTASSIUM 4.8 mEq/L (3.5-5.2); SODIUM 136 mEq/L (134-144)
[2016-09-13] MEDS: MELATONIN 3 MG TAB TUBE SCH (21:28)
[2016-09-13 21:54] LABS: BASE EXCESS -6.4 mEq/L (-2.5-2.5); BICARBONATE 20 mEq/L (22-26); MEASURED OXYGEN SATURATION 94 % (92-95); PCO2 45 mmHg (34-38); PO2 73 mmHg (65-75); TCO2 21 mEq/L (23-27)
[2016-09-13 22:00] LABS: ASSIST CONTROL YES; END TIDAL CO2 25; O2 CONCENTRATIION 45 % (0-100); P/F RATIO 162 RATIO; TOTAL RATE 28
[2016-09-14 00:32] LABS: IONIZED CALCIUM 1.08 MMOL/L (1.12-1.30)
[2016-09-14] MEDS: REPL FLUID TYPE D CAPS 1 EA in WATER FOR INJECTION,STERILE 4,000 ML DIAL SCH ×9 (00:45→23:51)
[2016-09-14 00:51] LABS: ANION GAP 14 mEq/L (8-16); CALCIUM 7.9 mg/dL (8.5-10.4); CARBON DIOXIDE 24 mEq/l (22-31); CHLORIDE 98 mEq/L (97-110); CREATININE 1.5 mg/dL (0.7-1.3); GLOMERULAR FILTRATION RATE 47; GLUCOSE 131 mg/dL (70-100); MAGNESIUM 1.8 mg/dL (1.6-2.3); POTASSIUM 4.3 mEq/L (3.5-5.2); SODIUM 136 mEq/L (134-144)
[2016-09-14] MEDS: B22GK4/0 PRISMASATE 5,000 ML DIAL SCH ×6 (02:36→21:05)
[2016-09-14] MEDS: NS 1,000 ML MISC SCH ×3 (03:54→18:06)
[2016-09-14] MEDS: CALCIUM GLUCONATE 16.67 GM in NS 1,000 ML IV SCH ×6 (05:26→21:12)
[2016-09-14 05:58] LABS: IONIZED CALCIUM 1.06 MMOL/L (1.12-1.30)
[2016-09-14 06:09] LABS: ABSOLUTE NRBC COUNT 0.05 10^3/uL (0-0.01); ADD DIFF? YES; ADD MORPH? NO; ATYPICAL LYMPHOCYTE FLAG 20 (0-99); FRAGMENT RBC FLAG 20 (0-99); HEMATOCRIT 27.7 % (40.0-51.0); HEMOGLOBIN 9.2 g/dL (13.7-17.5); LIPEMIA HEMOLYSIS FLAG 80 (0-99); MEAN CELL HEMOGLOBIN 31.5 pg (27.9-34.1); MEAN CELL HEMOGLOBIN CONCENTR. 33.2 g/dL (32.4-36.7); MEAN CELL VOLUME 94.9 fL (81.5-99.8); NRBC-AUTO% 0.2 % (0.0-0.2); PLATELET CLUMPS FLAG 10 (0-99); PLATELET COUNT 67 10^3/uL (150-400); RED BLOOD CELL COUNT 2.92 10^6/uL (4.40-6.38); RED CELL DISTRIBUTION WIDTH 15.7 % (11.5-15.2)
[2016-09-14 06:13] LABS: ADD SCAN? NO; LEFT SHIFT FLG 100 (0-99)
[2016-09-14 06:26] LABS: ALBUMIN 2.9 g/dL (3.5-5.0); ASPARTATE AMINOTRANSFERASE 43 IU/L (17-59); BILIRUBIN,TOTAL 1.6 mg/dL (0.1-1.4); CARBON DIOXIDE 23 mEq/l (22-31); CREATININE 1.3 mg/dL (0.7-1.3); GLOMERULAR FILTRATION RATE 55; GLUCOSE 116 mg/dL (70-100); TOTAL PROTEIN 6.2 g/dL (6.3-8.2)
[2016-09-14 07:45] LABS: MACROCYTES 1+; MICROCYTES 1+; POLYCHROMASIA 1+
[2016-09-14 07:46] LABS: GIANT PLATELETS PRESENT; LARGE PLATELETS PRESENT; PLATELET ESTIMATE DECREASED (ADEQ)
[2016-09-14] MEDS: SENNOSIDES 17.6 MG/10 ML UDL TUBE SCH ×2 (08:19→20:59)
[2016-09-14] MEDS: LANSOPRAZOLE SUSP 30MG/10ML UDSYR (Adult) TUBE SCH (08:19)
[2016-09-14] MEDS: RISPERIDONE 1 MG/1 ML TUBE SCH ×2 (08:19→20:59)
--- NOTE | 2016-09-14 08:54 | PDINTPN ---
Bulk Folder Progress Note Assessment/Plan: Assessment: CABG X 5 and MAZE 08/21 Status post cardiopulmonary arrest 09/02: rapid atrial fibrillation, hypoxia, asystole, CPR, intubation, eventual return of spontaneous circulation. Atrial fibrillation. On amiodarone. In normal sinus rhythm currently. Mitral regurg post op, moderate-severe. Hemodynamics OK. Likely contributes to his acute respiratory failure and infiltrates. RAHEL: On CVVHD. Able to remove 75-100 ml/hour. Respiratory Failure: Extubated, reintubated x 3, now with tracheostomy tube in place. CXR with persistent diffuse infiltrates, oxygen requirement slightly down at 45%, but developed a respiratory acidosis with reduced vent rate. Airway pressures high. ? cardiogenic edema/volume overload vs. pneumonia/aspiration vs. non- cardiogenic edema from SIRS, vs a combination of these. Hypotension: Stable, but borderline. On and off low-dose Levophed. Elevated WBC: Down today, % bands down. On ertapenem for possible aspiration associated with his arrest. Intermittent fevers persist. Right foot ischemia greater than left: Likely due to spasm/embolism/thrombosis at the ankle. On ASA/Plavix/argatroban. Dr. eLvy following. Lower GI bleed. Some blood per rectal bleeding intermittently, no evidence of significant bleeding farther up. Anemia: Multifactorial: Acute blood-loss, illness, renal failure, etc. S/P transfusion, now Hgb back down Thrombocytopenia: Likely due to HIT. Platelets jose on argatroban, which was held after APTT went high and he had some rectal bleeding. Platelets are back down a bit. Plan: Cont hemodialysis, continue fluid removal if possible. Continue vent support and supportive care. Continue amiodarone. Follow ABG, lab, chest x-ray. Support pressure with Levophed as needed. Continue ertapenem. Will try to get into chair, increase activity as tolerated No compressions per wishes of the patient's family. They would like to continue current aggressive support. 35 minutes of CC time 09/14/16 09:08 Subjective: More alert, no complaints. Objective: Vital Signs Temp Pulse Resp BP Pulse Ox 36.1 C 79 28 H 100/61 97 09/14/16 07:00 09/14/16 08:04 09/14/16 08:04 09/14/16 07:00 09/14/16 08:04 Laboratory Results 09/14/16 05:50 09/14/16 05:50 09/13/16 09/14/16 09/15/16 05:59 05:59 05:59 Intake Total 1305 5955.1 Output Total 230 4754 Balance 1075 1201.1 PT 38.5 SEC (12.0-15.0) H 09/11/16 19:00 INR 3.85 (0.83-1.16) H 09/11/16 19:00 Physical Exam - Physical Exam General Appearance: alert, no apparent distress EENT: normal ENT inspection Neck: normal inspection Respiratory: lungs clear, normal breath sounds Cardiac/Chest: regular rate, rhythm, No edema Abdomen: normal bowel sounds, non-tender, soft Skin: cyanosis Extremities: other (unchanged) Neuro/Psych: alert ICD10 Worksheet Patient Problems: Problems Problem Status Diagnosed Acute blood loss anemia Acute Acute renal failure Acute Arterial occlusion, lower extremity Acute Leukocytosis Acute Respiratory failure with hypoxia Acute S/P CABG x 5 Acute S/P Maze operation for atrial fibrillation Acute Coronary arteriosclerosis Acute
[2016-09-14 09:30] LABS: ALANINE AMINOTRANSFERASE 54 IU/L (21-72); ALKALINE PHOSPHATASE 282 IU/L (38-126); ANION GAP 17 mEq/L (8-16); CALCIUM 8.5 mg/dL (8.5-10.4); CHLORIDE 98 mEq/L (97-110); MAGNESIUM 1.7 mg/dL (1.6-2.3); SODIUM 138 mEq/L (134-144)
--- NOTE | 2016-09-14 09:54 | SOAPPROG ---
SOAP Progress Note Assessment/Plan: POD#24 CABGx5 (GANN-LCX, EBONY-D1, SVG-LAD, Sequential SVG-PDA-PLR), Padilla-Maze IV Left/Right lesions. POD#9 Tracheostomy, RIJ dialysis cath Nutrition per [facility]. IV access per LUE PICC. Sx CAD with ISCM (EF 40-45%) - s/p CABGx5 with bilateral mammaries. Small and diffusely diseased target vessels. Early postop course complicated by cardiogenic shock with multi-organ dysfx, severe MR, and peripheral vasoconstriction. Hemodynamics stabilized on vasoactive support w temporary improvement in hepatorenal and respiratory function as well as transient recovery of foot perfusion as pressor support lightened. Resp arrest on 12/12 precipitated by AF/RVR with hypotension with subsequent renal failure requiring HD. Condition critical. Code status adjusted to no CPR per family wishes. Long-standing persistent atrial fibrillation s/p Padilla-Maze IV. Recurrent PAF/ PSVT as of POD#11. Now in SR. Surgical antithrombotic prophylaxis w DAPT when appropriate. Ventilator dependent respiratory failure s/p tracheostomy. Vent management, Abx and therapeutic bronchs per Pulm. Postoperative renal failure - Secondary to shock and ATN. Nephrology managing CVVHD. Intermittent melena/BRBPR - GI consulted. Local trauma from disimpaction suspected. Endoscopic eval deferred. Bloody tinged stool 11/22 without drop in H /H. Argatroban resumed. Acute expected blood loss anemia secondary to critical illness. Transfuse PRN. 1U PRBC today Post-op moderate-severe MR - Functional. Valve structurally intact by serial echos. Cath neg for compromised paras flow or RHF. Surg repair deferred. 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 HIT panel sent to outside facility pending. Postoperative pedal ischemia - Vasospasm compl by sm vessel thrombosis below ankle level. Demarcating rt forefoot and left toes. Contrast imaging as allowed by renal fx. Dr. Levy following for eventual amputation. Persistent leukocytosis - No obvious sources of infection. All cultures NTD. Continue Invanz as per tire builder heavy service mgmt. Culture prn. Consider line replacement. Subjective: Unresponsive to command this AM. Objective: Vital Signs Temp Pulse Resp BP Pulse Ox 36.1 C 79 28 H 96/58 L 97 09/14/16 08:00 09/14/16 08:04 09/14/16 08:04 09/14/16 08:00 09/14/16 08:04 Laboratory Results 09/14/16 05:50 09/14/16 05:50 09/13/16 09/14/16 09/15/16 05:59 05:59 05:59 Intake Total 1305 5955.1 Output Total 230 4754 Balance 1075 1201.1 PT 38.5 SEC (12.0-15.0) H 09/11/16 19:00 INR 3.85 (0.83-1.16) H 09/11/16 19:00 Physical Exam - Physical Exam General Appearance: no apparent distress, obtunded EENT: No scleral icterus (R), No scleral icterus (L) Neck: other (Trach/RIJ HD cath in place) Respiratory: No respiratory distress, No accessory muscle use Cardiac/Chest: regular rate, rhythm Abdomen: non-tender, soft, distended Skin: warm/dry Extremities: No pedal edema Neuro/Psych: motor weakness, sensory deficit ICD10 Worksheet Patient Problems: Problems Problem Status Diagnosed Acute blood loss anemia Acute Acute renal failure Acute Arterial occlusion, lower extremity Acute Leukocytosis Acute Respiratory failure with hypoxia Acute S/P CABG x 5 Acute S/P Maze operation for atrial fibrillation Acute Coronary arteriosclerosis Acute
--- NOTE | 2016-09-14 10:24 | DX ---
AP portal chest Indication: Feeding tube not functioning. Pneumonia and CHF. Findings: The Dobbhoff tube is in the stomach, unchanged in position compared it yesterday.
[2016-09-14 11:43] LABS: ABSOLUTE NRBC COUNT 0.04 10^3/uL (0-0.01); ADD DIFF? YES; ADD MORPH? NO; ADD SCAN? NO; ATYPICAL LYMPHOCYTE FLAG 20 (0-99); FRAGMENT RBC FLAG 0 (0-99); HEMATOCRIT 31.5 % (40.0-51.0); HEMOGLOBIN 10.3 g/dL (13.7-17.5); LEFT SHIFT FLG 80 (0-99); LIPEMIA HEMOLYSIS FLAG 80 (0-99); MEAN CELL HEMOGLOBIN 30.9 pg (27.9-34.1); MEAN CELL HEMOGLOBIN CONCENTR. 32.7 g/dL (32.4-36.7); MEAN CELL VOLUME 94.6 fL (81.5-99.8); NRBC-AUTO% 0.2 % (0.0-0.2); PLATELET CLUMPS FLAG 0 (0-99); PLATELET COUNT 51 10^3/uL (150-400); RED BLOOD CELL COUNT 3.33 10^6/uL (4.40-6.38); RED CELL DISTRIBUTION WIDTH 14.9 % (11.5-15.2)
[2016-09-14 12:28] LABS: ALANINE AMINOTRANSFERASE 48 IU/L (21-72); ALBUMIN 2.6 g/dL (3.5-5.0); ALKALINE PHOSPHATASE 217 IU/L (38-126); ANION GAP 13 mEq/L (8-16); ASPARTATE AMINOTRANSFERASE 38 IU/L (17-59); BILIRUBIN,TOTAL 1.4 mg/dL (0.1-1.4); CALCIUM 7.9 mg/dL (8.5-10.4); CARBON DIOXIDE 22 mEq/l (22-31); CHLORIDE 102 mEq/L (97-110); CREATININE 1.3 mg/dL (0.7-1.3); GLOMERULAR FILTRATION RATE 55; GLUCOSE 113 mg/dL (70-100); POTASSIUM 6.2 mEq/L (3.5-5.2); SODIUM 137 mEq/L (134-144); TOTAL PROTEIN 5.7 g/dL (6.3-8.2)
[2016-09-14] MEDS ORDERED: SODIUM BICARBONATE 50 MEQ/50 ML SYR IVP ONE (12:41)
--- NOTE | 2016-09-14 12:46 | SOAPPROG ---
SOAP Progress Note Assessment/Plan: Assessment: 1. RAHEL -ATN. Borderline oliguric. On CRRT for several days. Making progress with resp status, azotemia. Continue 100cc/hr UF 2. Hyperkalemia - -New development today, possibly from short time off CRRT + getting pRBCs and could have some cell lysis -Resending serum K+ and ABG, giving amp of bicarb now as pulmonary would like to help correct acidosis further and limited effect of high RR thus far -May re-dose bicarb as needed -Cont CRRT -Ionized calcium OK 3. Respiratory failure - -CHF/aspiration/ARDS? 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 Avoid heparin. -Argatroban held d/t GI bleeding but resumed now. Had non-bloody BM 5. s/p CABG/MAZE 6. Hyperphosphatemia - -Phos improved on CRRT 7. Toe ischemia. 8. AF/RVR. Now in NSR, s/p amio loading. Plan: 09/14/16 12:52 09/14/16 12:53 Subjective: Seen and examined on CRRT. He had clotted the filter and was off for ~ 1hr earlier today. Now reset and running without incident. Total effluent dose 42ml/ kg/hr. Net UF goal 100cc/hr. Objective: Vital Signs Temp Pulse Resp BP Pulse Ox 36.7 C 79 31 H 91/57 L 97 09/14/16 12:00 09/14/16 12:00 09/14/16 12:00 09/14/16 12:00 09/14/16 12:00 Laboratory Results 09/14/16 11:15 09/14/16 11:15 09/13/16 09/14/16 09/15/16 05:59 05:59 05:59 Intake Total 1305 5955.1 Output Total 230 4754 Balance 1075 1201.1 PT 38.5 SEC (12.0-15.0) H 09/11/16 19:00 INR 3.85 (0.83-1.16) H 09/11/16 19:00 Physical Exam - Physical Exam General Appearance: other (awake, on vent) Respiratory: normal breath sounds Cardiac/Chest: regular rate, rhythm Abdomen: soft Extremities: swelling (1+ dependent) ICD10 Worksheet Patient Problems: Problems Problem Status Diagnosed Acute blood loss anemia Acute Acute renal failure Acute Arterial occlusion, lower extremity Acute Leukocytosis Acute Respiratory failure with hypoxia Acute S/P CABG x 5 Acute S/P Maze operation for atrial fibrillation Acute Coronary arteriosclerosis Acute
[2016-09-14 12:48] LABS: HYPOCHROMIA 1+; LARGE PLATELETS PRESENT; MACROCYTES 1+; MICROCYTES 1+; PLATELET ESTIMATE DECREASED (ADEQ); POLYCHROMASIA 1+
[2016-09-14 12:49] LABS: ECHINOCYTES 1+; SCHISTOCYTES 1+
[2016-09-14 12:58] LABS: PCO2 VENOUS 46 mmHg (40-44); PH VENOUS BLOOD 7.29 (7.31-7.42); PO2 VENOUS 31 mmHg (35-40); TCO2 VENOUS 23 mEq/L (23-27); VEN MEASURED OXYGEN SATURATION 53 % (65-75)
[2016-09-14] MEDS ORDERED: NA BICARBONATE 50 MEQ/50 ML VIAL IV ONE (13:00)
[2016-09-14 13:30] LABS: POTASSIUM 4.1 mEq/L (3.5-5.2)
--- NOTE | 2016-09-14 14:43 | PDSURGCRDT ---
CardioThoracic Surgery Note - Objective Objective: Vital Signs Temp Pulse Resp BP Pulse Ox 36.3 C 84 30 H 112/80 93 09/14/16 13:00 09/14/16 13:00 09/14/16 13:00 09/14/16 13:00 09/14/16 13:00 Laboratory Results 09/14/16 11:15 09/14/16 12:40 09/13/16 09/14/16 09/15/16 05:59 05:59 05:59 Intake Total 1305 5955.1 Output Total 230 4754 Balance 1075 1201.1 Afebrile. Able to be titrated off Levophed and BP 105 syst Sitting up. Obtunded. On CRRT. Tolerating tube feeds. Lungs diminished bases Cor RRR Chest incision clean Abd +BS Toes with dry gangrene. Hct 31 after blood. wbc up, plt low. Exam Temp Pulse Resp BP Pulse Ox 36.3 C 84 30 H 112/80 93 09/14/16 13:00 09/14/16 13:00 09/14/16 13:00 09/14/16 13:00 09/14/16 13:00 O2 (L/minute) 96 FIO2 (%) 35
[2016-09-14] MEDS: ARGATROBAN 100 MG in NS 100 ML IV SCH (17:00)
[2016-09-14] MEDS: ERTAPENEM 1 GM in NS 100 ML IV SCH (17:31)
[2016-09-14 18:14] LABS: IONIZED CALCIUM 1.06 MMOL/L (1.12-1.30)
[2016-09-14] MEDS: fentaNYL 100 MCG/2 ML INJ IVP PRN ×3 (19:27→23:57)
[2016-09-14] MEDS: HALOPERIDOL LACT 5 MG/ML INJ IVP PRN ×2 (19:27→23:57)
[2016-09-14] MEDS: MELATONIN 3 MG TAB TUBE SCH (20:58)
[2016-09-14] MEDS: ACCESSORY DRAIN 1 EA BAG***SEND #2 INITIALLY MISC PRN ×2 (22:15→23:43)
[2016-09-14] MEDS: NOREPINEPHRINE BITARTRATE 16 MG in D5W 250 ML IV SCH (23:51)
[2016-09-14 23:52] LABS: IONIZED CALCIUM 1.07 MMOL/L (1.12-1.30); PCO2 VENOUS 44 mmHg (40-44); PH VENOUS BLOOD 7.33 (7.31-7.42); PO2 VENOUS 48 mmHg (35-40); TCO2 VENOUS 24 mEq/L (23-27); VEN MEASURED OXYGEN SATURATION 79 % (65-75)
[2016-09-15] MEDS: B22GK4/0 PRISMASATE 5,000 ML DIAL SCH ×6 (00:11→23:57)
[2016-09-15 00:21] LABS: ALBUMIN 2.7 g/dL (3.5-5.0); CARBON DIOXIDE 24 mEq/l (22-31); CREATININE 1.1 mg/dL (0.7-1.3); GLOMERULAR FILTRATION RATE > 60; GLUCOSE 88 mg/dL (70-100)
[2016-09-15 00:32] LABS: ANION GAP 14 mEq/L (8-16); CALCIUM 8.7 mg/dL (8.5-10.4); CHLORIDE 100 mEq/L (97-110); MAGNESIUM 1.5 mg/dL (1.6-2.3); POTASSIUM 3.8 mEq/L (3.5-5.2); SODIUM 138 mEq/L (134-144)
[2016-09-15] MEDS: MAGNESIUM SULF 2 GM/WATER 50 ML IV PRN (00:41)
[2016-09-15] MEDS: REPL FLUID TYPE D CAPS 1 EA in WATER FOR INJECTION,STERILE 4,000 ML DIAL SCH ×6 (01:56→22:59)
[2016-09-15] MEDS: fentaNYL 100 MCG/2 ML INJ IVP PRN ×4 (02:00→23:47)
[2016-09-15] MEDS: HALOPERIDOL LACT 5 MG/ML INJ IVP PRN ×3 (03:52→23:47)
[2016-09-15 04:37] LABS: BASE EXCESS -2.7 mEq/L (-2.5-2.5); BICARBONATE 21 mEq/L (22-26); MEASURED OXYGEN SATURATION 88 % (92-95); PCO2 36 mmHg (34-38); PO2 56 mmHg (65-75); TCO2 22 mEq/L (23-27)
[2016-09-15 04:41] LABS: O2 CONCENTRATIION 40 % (0-100); P/F RATIO 140 RATIO; TOTAL RATE 30
[2016-09-15] MEDS: ALTEPLASE 2 MG VIAL IVP PRN ×2 (04:51→21:12)
[2016-09-15] MEDS: CALCIUM GLUCONATE 16.67 GM in NS 1,000 ML IV SCH ×2 (05:25→23:57)
[2016-09-15 05:49] LABS: IONIZED CALCIUM 1.07 MMOL/L (1.12-1.30); PCO2 VENOUS 44 mmHg (40-44); PH VENOUS BLOOD 7.33 (7.31-7.42); PO2 VENOUS 54 mmHg (35-40); TCO2 VENOUS 24 mEq/L (23-27); VEN MEASURED OXYGEN SATURATION 85 % (65-75)
[2016-09-15 05:56] LABS: ABSOLUTE NRBC COUNT 0.04 10^3/uL (0-0.01); ADD DIFF? YES; ADD MORPH? NO; ATYPICAL LYMPHOCYTE FLAG 10 (0-99); FRAGMENT RBC FLAG 0 (0-99); HEMATOCRIT 29.8 % (40.0-51.0); HEMOGLOBIN 9.8 g/dL (13.7-17.5); LIPEMIA HEMOLYSIS FLAG 80 (0-99); MEAN CELL HEMOGLOBIN 30.8 pg (27.9-34.1); MEAN CELL HEMOGLOBIN CONCENTR. 32.9 g/dL (32.4-36.7); MEAN CELL VOLUME 93.7 fL (81.5-99.8); MEAN PLATELET VOLUME 13.2 fL (8.7-11.7); NRBC-AUTO% 0.1 % (0.0-0.2); PLATELET CLUMPS FLAG 10 (0-99); PLATELET COUNT 63 10^3/uL (150-400); RED BLOOD CELL COUNT 3.18 10^6/uL (4.40-6.38); RED CELL DISTRIBUTION WIDTH 15.5 % (11.5-15.2)
[2016-09-15 06:09] LABS: INR 2.61 (0.83-1.16); PROTIME(PATIENT) 28.2 SEC (12.0-15.0)
[2016-09-15 06:10] LABS: APTT 54.1 SEC (23.0-38.0)
[2016-09-15 06:11] LABS: ADD SCAN? NO; LEFT SHIFT FLG 110 (0-99)
[2016-09-15 06:53] LABS: ALANINE AMINOTRANSFERASE 50 IU/L (21-72); ALBUMIN 2.7 g/dL (3.5-5.0); ALKALINE PHOSPHATASE 207 IU/L (38-126); ANION GAP 13 mEq/L (8-16); ASPARTATE AMINOTRANSFERASE 52 IU/L (17-59); CALCIUM 8.3 mg/dL (8.5-10.4); CARBON DIOXIDE 25 mEq/l (22-31); CHLORIDE 101 mEq/L (97-110); GLOMERULAR FILTRATION RATE > 60; GLUCOSE 98 mg/dL (70-100); MAGNESIUM 1.9 mg/dL (1.6-2.3); POTASSIUM 3.7 mEq/L (3.5-5.2); SODIUM 139 mEq/L (134-144); TOTAL PROTEIN 6.1 g/dL (6.3-8.2)
[2016-09-15 07:11] LABS: HYPOCHROMIA 1+; STOMATOCYTES 1+
[2016-09-15 07:12] LABS: POLYCHROMASIA 1+
[2016-09-15 07:13] LABS: PLATELET ESTIMATE DECREASED (ADEQ)
[2016-09-15] MEDS: NS 1,000 ML MISC SCH ×2 (07:20→20:30)
[2016-09-15] MEDS ORDERED: POTASSIUM Cl (KCl) 20 MEQ/50 ML BAG IV ONE (07:23)
--- NOTE | 2016-09-15 08:27 | DX ---
Portable chest x-ray 0615 hours. History: Followup pneumonia. Findings: Comparison to September 14, 2016. Tracheostomy, central line, PICC line, and NG tube remain in place. Heart size remains upper limits o f normal. Pulmonary vasculature is not significantly engorged. Moderate bilateral consolidation is on ce again seen and stable when compared to the prior study. There are no significant effusions. Postop erative changes are once again noted from previous open-heart surgery. Impression: 1. Stable moderate bilateral consolidation.
[2016-09-15] MEDS: RISPERIDONE 1 MG/1 ML TUBE SCH ×2 (08:29→20:44)
[2016-09-15] MEDS: LANSOPRAZOLE SUSP 30MG/10ML UDSYR (Adult) TUBE SCH (08:29)
[2016-09-15] MEDS: SENNOSIDES 17.6 MG/10 ML UDL TUBE SCH ×2 (08:29→20:42)
--- NOTE | 2016-09-15 08:57 | SOAPPROG ---
SOAP Progress Note Assessment/Plan: Assessment: 1.) HIT on Argatroban 2.) Thrombocytopenia likely multifactorial- due to HIT and consumption with gangrenous changes noted. 3.) ARF on CRRT 4.) Resp. failure 5.) Multifactorial anemia 6.) Recent rectal bleeding -stable since 09/12/16 7.) Ischemic changes - LE distally Plan: 1.) ICU management noted. 2.) Continue Argatroban infusion with therapeutic intent and follow labs. 3.) Follow labs. 4.) Our service will follow. 09/15/16 08:57 Subjective: Pt upright in ICU bed, with his RN at the bedside, he is in NAD Objective: VSS and temp as noted here HEENT- NGT in place, oral mucosa is dry, intact, no bleeding from nostril or oral cavity Neck- trach site looks clean and without bleeding. No blood in Resp. tubing Chest- adequate bilateral air movement, FIO2 is 50 %. CVS- RSR, distant HS, no rub. ABD- mildly distended, BS+, no rebound EXT- bilateral LE show dry gangrene with ischemic toes, bilaterally. Ischemic changes extend proximally up both feet. Hands are warm and well perfused. Labs as noted here: INR 2.61. PLT 63 today and 67 yesterday. WBC 30.23 and Hgb 9.8 Vital Signs Temp Pulse Resp BP Pulse Ox 36.4 C 90 30 H 93/51 L 94 09/15/16 06:00 09/15/16 08:02 09/15/16 08:02 09/15/16 06:00 09/15/16 08:02 Laboratory Results 09/15/16 05:40 09/15/16 05:40 09/14/16 09/15/16 09/16/16 05:59 05:59 05:59 Intake Total 5955.1 3833 Output Total 4754 2514 Balance 1201.1 1319 PT 28.2 SEC (12.0-15.0) H 09/15/16 05:40 INR 2.61 (0.83-1.16) H 09/15/16 05:40 ICD10 Worksheet Patient Problems: Problems Problem Status Diagnosed Acute blood loss anemia Acute Acute renal failure Acute Arterial occlusion, lower extremity Acute Leukocytosis Acute Respiratory failure with hypoxia Acute S/P CABG x 5 Acute S/P Maze operation for atrial fibrillation Acute Coronary arteriosclerosis Acute
[2016-09-15] MEDS: POTASSIUM Cl (KCl) 100 ML IV PRN (09:00)
--- NOTE | 2016-09-15 09:13 | PDINTPN ---
[employer]cher Progress Note Assessment/Plan: Assessment: CABG X 5 and MAZE 08/21 Status post cardiopulmonary arrest 09/02: rapid atrial fibrillation, hypoxia, asystole, CPR, intubation, eventual return of spontaneous circulation. Atrial fibrillation. On amiodarone. In normal sinus rhythm currently. Mitral regurg post op, moderate-severe. Hemodynamics OK. Likely contributes to his acute respiratory failure and infiltrates. RAHEL: On CVVHD. Able to remove 75-100 ml/hour. Respiratory Failure: Extubated, reintubated x 3, now with tracheostomy tube in place. CXR with persistent diffuse infiltrates, oxygen requirement slightly down at 45%, but developed a respiratory acidosis with reduced vent rate. Airway pressures high. ? cardiogenic edema/volume overload vs. pneumonia/ aspiration vs. non-cardiogenic edema from SIRS, vs a combination of these. He has bloody sputum, a component of hemorrhage could be present. Hypotension: Stable, but borderline. On and off low-dose Levophed. Elevated WBC: Back up today, % bands down. Afebrile. On ertapenem for possible aspiration associated with his arrest. Intermittent fevers persist. Right foot ischemia greater than left: Likely due to spasm/embolism/thrombosis at the ankle. On ASA/Plavix/argatroban. Dr. Levy following. Lower GI bleed. Some blood per rectal bleeding intermittently, no evidence of significant bleeding farther up. Anemia: Multifactorial: Acute blood-loss, illness, renal failure, etc. S/P transfusion 09/14, now Hgb slightly down HIT: Platelets jose on argatroban, which was held after APTT went high and he had some rectal bleeding. Platelets are back down a bit. Plan: Cont hemodialysis, continue fluid removal if possible. He's probably euvolemic at this point. Continue vent support and supportive care. Continue amiodarone. Norepinephrine PRN. Follow ABG, lab, chest x-ray. Support pressure with Levophed as needed. Continue ertapenem. Repeat sputum Cx. Will try to get into chair, increase activity as tolerated No compressions per wishes of the patient's family. They would like to continue current aggressive support. 35 minutes of CC time 09/15/16 09:17 09/15/16 09:18 Subjective: Having BM. Pain OK, denies dyspnea. Objective: Vital Signs Temp Pulse Resp BP Pulse Ox 36.4 C 90 30 H 93/51 L 94 09/15/16 06:00 09/15/16 08:02 09/15/16 08:02 09/15/16 06:00 09/15/16 08:02 Laboratory Results 09/15/16 05:40 09/15/16 05:40 09/14/16 09/15/16 09/16/16 05:59 05:59 05:59 Intake Total 5955.1 3833 Output Total 4754 2514 Balance 1201.1 1319 PT 28.2 SEC (12.0-15.0) H 09/15/16 05:40 INR 2.61 (0.83-1.16) H 09/15/16 05:40 Laboratory Tests 09/15/16 05:40 INR 2.61 H APTT 54.1 H VBG pH 7.33 VBG HCO3 23 VBG O2 Saturation 85 H Mixed VBG pCO2 44 CXR: Persistent bilateral infiltrates. Improved right lateral compared to . Images reviewed. Physical Exam - Physical Exam General Appearance: alert, no apparent distress EENT: normal ENT inspection Neck: normal inspection, other (trach OK) Respiratory: lungs clear, normal breath sounds Cardiac/Chest: normal peripheral pulses, regular rate, rhythm, No edema Abdomen: normal bowel sounds, non-tender Skin: cyanosis (unchanged) Extremities: No normal inspection Neuro/Psych: alert, normal mood/affect, oriented x 3 ICD10 Worksheet Patient Problems: Problems Problem Status Diagnosed Acute blood loss anemia Acute Acute renal failure Acute Arterial occlusion, lower extremity Acute Leukocytosis Acute Respiratory failure with hypoxia Acute S/P CABG x 5 Acute S/P Maze operation for atrial fibrillation Acute Coronary arteriosclerosis Acute
--- NOTE | 2016-09-15 09:19 | SOAPPROG ---
SOAP Progress Note Assessment/Plan: POD#25 CABGx5 (GANN-LCX, EBONY-D1, SVG-LAD, Sequential SVG-PDA-PLR), Padilla-Maze IV Left/Right lesions. POD#10 Tracheostomy, RIJ dialysis cath Nutrition per DHT. IV access per LUE PICC. Sx CAD with ISCM (EF 40-45%) - s/p CABGx5 with bilateral mammaries. Small and diffusely diseased target vessels. Early postop course complicated by cardiogenic shock with multi-organ dysfx, severe MR, and peripheral vasoconstriction. Resp arrest on 12/12 precipitated by AF/RVR with hypotension and subsequent renal failure requiring HD. Condition critical. Code status adjusted to no CPR per family wishes. Long-standing persistent atrial fibrillation s/p Padilla-Maze IV. Recurrent PAF/ PSVT as of POD#11. Now in SR. Surgical antithrombotic prophylaxis w DAPT when appropriate. Ventilator dependent respiratory failure s/p tracheostomy. Vent management, Abx and therapeutic bronchs per Pulm. Postoperative renal failure - Secondary to shock and ATN. Nephrology managing CVVHD. Currently pulling 100 cc off/hour. Intermittent melena/BRBPR - GI consulted. Endoscopic eval deferred. Bloody tinged stool 11/ without drop in H/H. Argatroban resumed. Acute expected blood loss anemia secondary to critical illness. Transfuse PRN. 1U PRBC yesterday with adequate response. Post-op moderate-severe MR - Functional. Valve structurally intact by serial echos. Cath neg for compromised paras flow or RHF. Surg repair deferred. 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 HIT panel sent to outside facility pending. Postoperative pedal ischemia - Vasospasm compl by sm vessel thrombosis below ankle level. Demarcating rt forefoot and left toes. Contrast imaging as allowed by renal fx. Dr. Levy following for eventual amputation. Persistent leukocytosis - No obvious sources of infection. All cultures NTD. Continue Invanz as per senior technical project manager mgmt. Culture prn. Consider line replacement. 09/15/16 09:19 09/15/16 09:56 Subjective: Pt denies pain. Objective: Vital Signs Temp Pulse Resp BP Pulse Ox 36.4 C 90 30 H 93/51 L 94 09/15/16 06:00 09/15/16 08:02 09/15/16 08:02 09/15/16 06:00 09/15/16 08:02 Laboratory Results 09/15/16 05:40 09/15/16 05:40 09/14/16 09/15/16 09/16/16 05:59 05:59 05:59 Intake Total 5955.1 3833 Output Total 4754 2514 Balance 1201.1 1319 PT 28.2 SEC (12.0-15.0) H 09/15/16 05:40 INR 2.61 (0.83-1.16) H 09/15/16 05:40 Physical Exam - Physical Exam General Appearance: no apparent distress, obtunded, cachetic EENT: No scleral icterus (R), No scleral icterus (L) Neck: normal inspection Respiratory: No respiratory distress Cardiac/Chest: regular rate, rhythm Abdomen: soft, distended Skin: other (BLE with necrotic changes) Extremities: No pedal edema, No swelling Neuro/Psych: other (Responds to command) ICD10 Worksheet Patient Problems: Problems Problem Status Diagnosed Acute blood loss anemia Acute Acute renal failure Acute Arterial occlusion, lower extremity Acute Leukocytosis Acute Respiratory failure with hypoxia Acute S/P CABG x 5 Acute S/P Maze operation for atrial fibrillation Acute Coronary arteriosclerosis Acute
--- NOTE | 2016-09-15 11:03 | WOCRNPDOC ---
WOCRN Advanced Assessment Note - Skin Integrity Problem, Advanced Assess Nose Dressing Type: Telfa Exudate Amount: None Integumentary Issue Intervention: Visualized Under Dressing Wound Bed Constitution: Stable Eschar Site Measurement - Head-to-Toe Length X Width X Depth (cm): 2x2x0.3 Pressure Injury Stage: Unstageable, Can Dryer Related Pressure Injury Pressure Injury Present on Admit: No Skin Integrity Problem Comment: No change. Stable. Consider initiating autolytic debridement in the future if patient status improves. Coccyx Pressure Injury Dressing Type: Allevyn Life Dressing Description: Clean/Dry, Intact Exudate Amount: Scant Exudate Characteristic(s): Serosanguinous Integumentary Issue Intervention: Dressing Changed Rosa Wound Tissue: Blanching, Erythema Wound Bed Color: Red Wound Bed Constitution: Smooth Tissue Site Measurement - Head-to-Toe Length X Width X Depth (cm): 1.2x2x0.1 Pressure Injury Stage: Stage 2 Pressure Injury Present on Admit: No Skin Integrity Problem Comment: Small smear of stool cleaned. Dressing not contaminated. Cleaned wound with saline and applied skin prep and dressing. Continue side to side offloading. Up in chair with air cushion. Reposition in chair Q1 hour to offload and reperfuse coccyx tissues. Mouth Pressure Injury Dressing Type: Open to Air Site Measurement - Head-to-Toe Length X Width X Depth (cm): 0.7x0.7x0 Pressure Injury Stage: Mucosal Pressure Injury, Can Dryer Related Pressure Injury Pressure Injury Present on Admit: No Skin Integrity Problem Comment: Circular dark brown area on soft palate, likely from multiple intubations/ET tube. Area is no longer loaded as patient has a tracheostomy. No interventions necessary. Will monitor area weekly.
[2016-09-15 12:26] LABS: IONIZED CALCIUM 1.25 MMOL/L (1.12-1.30); PCO2 VENOUS 47 mmHg (40-44); PO2 VENOUS 35 mmHg (35-40); TCO2 VENOUS 24 mEq/L (23-27); VEN MEASURED OXYGEN SATURATION 58 % (65-75)
[2016-09-15 12:36] LABS: ABSOLUTE NRBC COUNT 0.04 10^3/uL (0-0.01); ADD DIFF? YES; ADD MORPH? NO; ATYPICAL LYMPHOCYTE FLAG 20 (0-99); FRAGMENT RBC FLAG 20 (0-99); HEMATOCRIT 30.9 % (40.0-51.0); HEMOGLOBIN 10.2 g/dL (13.7-17.5); LEFT SHIFT FLG 90 (0-99); LIPEMIA HEMOLYSIS FLAG 80 (0-99); MEAN CELL HEMOGLOBIN 31.2 pg (27.9-34.1); MEAN CELL VOLUME 94.5 fL (81.5-99.8); MEAN PLATELET VOLUME 14.4 fL (8.7-11.7); NRBC-AUTO% 0.1 % (0.0-0.2); PLATELET CLUMPS FLAG 20 (0-99); PLATELET COUNT 96 10^3/uL (150-400); RED BLOOD CELL COUNT 3.27 10^6/uL (4.40-6.38); RED CELL DISTRIBUTION WIDTH 15.6 % (11.5-15.2)
[2016-09-15 12:37] LABS: ADD SCAN? NO
[2016-09-15] MEDS: SODIUM CITRATE 4% 5 ML in SYRINGE 0 ML DIAL PRN (12:45)
[2016-09-15 13:13] LABS: ANION GAP 13 mEq/L (8-16); CALCIUM 8.6 mg/dL (8.5-10.4); CARBON DIOXIDE 25 mEq/l (22-31); CHLORIDE 101 mEq/L (97-110); CREATININE 1.3 mg/dL (0.7-1.3); GLOMERULAR FILTRATION RATE 55; GLUCOSE 125 mg/dL (70-100); SODIUM 139 mEq/L (134-144)
--- NOTE | 2016-09-15 13:22 | DX ---
AP chest x-ray 1249 hours. History: Possible subcutaneous gas. Findings: Comparison to exam performed earlier today at 0615 hours. Subcutaneous gas is confirmed right supraclavicular region extending to the right lower neck. Small a mount of gas is also seen left supraclavicular region. There is no pneumothorax. Pneumomediastinum is also suspected. There is stable moderate bilateral consolidation. Tracheostomy, feeding tube, central line, and PICC line remain in place. Osseous structures are unchanged. Impression: 1. Increase in subcutaneous emphysema right supraclavicular region extending to the right lower neck with a small amount also in the left supraclavicular region. Pneumomediastinum is also suspected.
[2016-09-15 13:33] LABS: MACROCYTES 1+; MICROCYTES 1+; PLATELET ESTIMATE DECREASED (ADEQ); POLYCHROMASIA 1+
[2016-09-15 13:34] LABS: LARGE PLATELETS PRESENT; SCHISTOCYTES 1+
[2016-09-15 13:35] LABS: HYPOCHROMIA 1+
[2016-09-15] MEDS ORDERED: NYSTATIN SUSP 500000 UNIT/5 ML UDCUP ONE (13:47)
--- NOTE | 2016-09-15 16:31 | SOAPPROG ---
SOAP Progress Note Assessment/Plan: Assessment: 1. RAHEL -ATN. Borderline oliguric. -On CRRT for several days. Making progress with resp status, azotemia. -Currently off CRRT but will be reset later today, if ongoing access trouble may need to exchange catheter -Continue 100cc/hr UF as tolerated -Ionized calcium OK 2. Hyperkalemia - -Isolated finding yesterday which resolved on repeat, likely was spurious lab result -Cont CRRT 3. Respiratory failure - -CHF/aspiration/ARDS? 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 Avoid heparin. -Argatroban held d/t GI bleeding but resumed now. Had non-bloody BM 5. s/p CABG/MAZE 6. Hyperphosphatemia - -Phos improved on CRRT 7. Toe ischemia. 8. AF/RVR. Now in NSR, s/p amio loading. Plan: 09/15/16 16:29 09/15/16 16:31 09/15/16 16:32 Subjective: CRRT ran overnight, had access difficulty this morning which seemed to be positional but treatment stopped around 10am. Pt seen sitting in chair at bedside. Objective: Vital Signs Temp Pulse Resp BP Pulse Ox 37.3 C 91 30 H 94/60 L 95 09/15/16 15:00 09/15/16 15:00 09/15/16 15:00 09/15/16 15:00 09/15/16 15:00 Microbiology 09/15/16 13:40 - Final Sputum, Induced/Suctioned Laboratory Results 09/15/16 12:10 09/15/16 12:10 09/14/16 09/15/16 09/16/16 05:59 05:59 05:59 Intake Total 5955.1 3833 Output Total 4754 2514 Balance 1201.1 1319 PT 28.2 SEC (12.0-15.0) H 09/15/16 05:40 INR 2.61 (0.83-1.16) H 09/15/16 05:40 Physical Exam - Physical Exam General Appearance: alert Neck: other (TC in place) Respiratory: lungs clear Cardiac/Chest: regular rate, rhythm Abdomen: soft Extremities: swelling (1+ dependent), other (cyanotic R foot) ICD10 Worksheet Patient Problems: Problems Problem Status Diagnosed Acute blood loss anemia Acute Acute renal failure Acute Arterial occlusion, lower extremity Acute Leukocytosis Acute Respiratory failure with hypoxia Acute S/P CABG x 5 Acute S/P Maze operation for atrial fibrillation Acute Coronary arteriosclerosis Acute
[2016-09-15] MEDS: NYSTATIN SUSP 500000 UNIT/5 ML UDCUP PO SCH ×2 (17:02→20:45)
[2016-09-15 17:36] LABS: IONIZED CALCIUM 1.19 MMOL/L (1.12-1.30)
[2016-09-15 17:37] LABS: ABSOLUTE NRBC COUNT 0.03 10^3/uL (0-0.01); ADD DIFF? YES; ADD MORPH? NO; ADD SCAN? NO; ATYPICAL LYMPHOCYTE FLAG 20 (0-99); FRAGMENT RBC FLAG 20 (0-99); HEMATOCRIT 29.8 % (40.0-51.0); HEMOGLOBIN 10.1 g/dL (13.7-17.5); LEFT SHIFT FLG 60 (0-99); LIPEMIA HEMOLYSIS FLAG 90 (0-99); MEAN CELL HEMOGLOBIN 31.6 pg (27.9-34.1); MEAN CELL HEMOGLOBIN CONCENTR. 33.9 g/dL (32.4-36.7); MEAN CELL VOLUME 93.1 fL (81.5-99.8); MEAN PLATELET VOLUME 14.1 fL (8.7-11.7); NRBC-AUTO% 0.1 % (0.0-0.2); PLATELET CLUMPS FLAG 0 (0-99); PLATELET COUNT 96 10^3/uL (150-400); RED CELL DISTRIBUTION WIDTH 15.7 % (11.5-15.2)
[2016-09-15 18:11] LABS: ALANINE AMINOTRANSFERASE 47 IU/L (21-72); ALBUMIN 2.7 g/dL (3.5-5.0); ALKALINE PHOSPHATASE 209 IU/L (38-126); ANION GAP 14 mEq/L (8-16); ASPARTATE AMINOTRANSFERASE 43 IU/L (17-59); BILIRUBIN,TOTAL 1.5 mg/dL (0.1-1.4); CALCIUM 8.6 mg/dL (8.5-10.4); CARBON DIOXIDE 23 mEq/l (22-31); CHLORIDE 101 mEq/L (97-110); CREATININE 1.5 mg/dL (0.7-1.3); GLOMERULAR FILTRATION RATE 47; GLUCOSE 112 mg/dL (70-100); SODIUM 138 mEq/L (134-144); TOTAL PROTEIN 6.3 g/dL (6.3-8.2)
[2016-09-15 18:24] LABS: HYPOCHROMIA 1+; MICROCYTES 2+; POLYCHROMASIA 2+
[2016-09-15 18:25] LABS: KERATOCYTES 1+; LARGE PLATELETS PRESENT; PLATELET ESTIMATE DECREASED (ADEQ); STOMATOCYTES 1+
[2016-09-15] MEDS: ERTAPENEM 1 GM in NS 100 ML IV SCH (18:27)
[2016-09-15] MEDS: ACETAMINOPHEN 650 MG/20.3 ML UDCUP TUBE PRN (20:42)
[2016-09-15] MEDS: MELATONIN 3 MG TAB TUBE SCH (20:43)
[2016-09-15] MEDS: ACCESSORY DRAIN 1 EA BAG***SEND #2 INITIALLY MISC PRN (20:44)
[2016-09-15] MEDS ORDERED: BENZOCAINE UNIT DOSE SPRAY HURRICAINE MM ONE (21:28)
[2016-09-15] MEDS ORDERED: diphenhydrAMINE 25 MG CAP PO ONE (21:29)
[2016-09-16 00:18] LABS: PCO2 VENOUS 37 mmHg (40-44); PH VENOUS BLOOD 7.34 (7.31-7.42); PO2 VENOUS 114 mmHg (35-40); TCO2 VENOUS 21 mEq/L (23-27); VEN MEASURED OXYGEN SATURATION 97 % (65-75)
[2016-09-16 00:19] LABS: INR 2.07 (0.83-1.16); PROTIME(PATIENT) 23.4 SEC (12.0-15.0)
[2016-09-16 00:20] LABS: APTT 47.3 SEC (23.0-38.0)
[2016-09-16] MEDS: REPL FLUID TYPE D CAPS 1 EA in WATER FOR INJECTION,STERILE 4,000 ML DIAL SCH ×12 (00:31→23:42)
[2016-09-16] MEDS: NS 1,000 ML MISC SCH ×8 (00:32→21:21)
[2016-09-16 00:49] LABS: ALBUMIN 2.9 g/dL (3.5-5.0); ANION GAP 15 mEq/L (8-16); CARBON DIOXIDE 24 mEq/l (22-31); CHLORIDE 102 mEq/L (97-110); CREATININE 1.3 mg/dL (0.7-1.3); GLOMERULAR FILTRATION RATE 55; GLUCOSE 106 mg/dL (70-100); MAGNESIUM 1.7 mg/dL (1.6-2.3); POTASSIUM 3.9 mEq/L (3.5-5.2); SODIUM 141 mEq/L (134-144)
[2016-09-16] MEDS: ACCESSORY DRAIN 1 EA BAG***SEND #2 INITIALLY MISC PRN ×2 (02:24→21:21)
[2016-09-16] MEDS: B22GK4/0 PRISMASATE 5,000 ML DIAL SCH ×6 (03:07→23:44)
[2016-09-16] MEDS: fentaNYL 100 MCG/2 ML INJ IVP PRN ×2 (04:19→23:23)
[2016-09-16] MEDS: HALOPERIDOL LACT 5 MG/ML INJ IVP PRN ×2 (04:19→20:58)
[2016-09-16 04:28] LABS: BASE EXCESS -4.5 mEq/L (-2.5-2.5); BICARBONATE 21 mEq/L (22-26); MEASURED OXYGEN SATURATION 96 % (92-95); PCO2 41 mmHg (34-38); PO2 92 mmHg (65-75); TCO2 22 mEq/L (23-27)
[2016-09-16 04:29] LABS: O2 CONCENTRATIION 50 % (0-100); P/F RATIO 184 RATIO; TOTAL RATE 30
[2016-09-16] MEDS: NYSTATIN SUSP 500000 UNIT/5 ML UDCUP PO SCH ×4 (05:11→20:58)
[2016-09-16 05:58] LABS: ADD DIFF? YES; ADD MORPH? NO; ADD SCAN? NO; ATYPICAL LYMPHOCYTE FLAG 20 (0-99); FRAGMENT RBC FLAG 20 (0-99); HEMATOCRIT 27.3 % (40.0-51.0); HEMOGLOBIN 8.9 g/dL (13.7-17.5); LEFT SHIFT FLG 40 (0-99); LIPEMIA HEMOLYSIS FLAG 80 (0-99); MEAN CELL HEMOGLOBIN 30.5 pg (27.9-34.1); MEAN CELL HEMOGLOBIN CONCENTR. 32.6 g/dL (32.4-36.7); MEAN CELL VOLUME 93.5 fL (81.5-99.8); MEAN PLATELET VOLUME 13.7 fL (8.7-11.7); PLATELET CLUMPS FLAG 0 (0-99); PLATELET COUNT 98 10^3/uL (150-400); RED BLOOD CELL COUNT 2.92 10^6/uL (4.40-6.38); RED CELL DISTRIBUTION WIDTH 15.7 % (11.5-15.2)
[2016-09-16 06:04] LABS: IONIZED CALCIUM 1.05 MMOL/L (1.12-1.30)
[2016-09-16 06:05] LABS: INR 2.45 (0.83-1.16); PROTIME(PATIENT) 26.8 SEC (12.0-15.0)
[2016-09-16 06:07] LABS: APTT 53.5 SEC (23.0-38.0)
[2016-09-16 06:33] LABS: ALANINE AMINOTRANSFERASE 48 IU/L (21-72); ALBUMIN 2.6 g/dL (3.5-5.0); ALKALINE PHOSPHATASE 163 IU/L (38-126); ANION GAP 13 mEq/L (8-16); ASPARTATE AMINOTRANSFERASE 36 IU/L (17-59); BILIRUBIN,TOTAL 1.6 mg/dL (0.1-1.4); CALCIUM 7.9 mg/dL (8.5-10.4); CARBON DIOXIDE 24 mEq/l (22-31); CHLORIDE 102 mEq/L (97-110); CREATININE 1.1 mg/dL (0.7-1.3); GLOMERULAR FILTRATION RATE > 60; GLUCOSE 149 mg/dL (70-100); MAGNESIUM 1.5 mg/dL (1.6-2.3); POTASSIUM 3.6 mEq/L (3.5-5.2); SODIUM 139 mEq/L (134-144); TOTAL PROTEIN 5.9 g/dL (6.3-8.2)
[2016-09-16] MEDS ORDERED: POTASSIUM Cl (KCl) 20 MEQ/50 ML BAG IV ONE ×2 (06:37→19:27)
[2016-09-16] MEDS: POTASSIUM Cl (KCl) 100 ML IV PRN ×2 (06:37→19:36)
[2016-09-16] MEDS: MAGNESIUM SULF 2 GM/WATER 50 ML IV PRN ×2 (06:37→19:37)
[2016-09-16 06:56] LABS: LARGE PLATELETS PRESENT; PLATELET ESTIMATE DECREASED (ADEQ)
[2016-09-16 06:57] LABS: HYPOCHROMIA 2+; STOMATOCYTES 1+
--- NOTE | 2016-09-16 09:29 | PDINTPN ---
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 * Atrial fibrillation. On amiodarone. In normal sinus rhythm currently. * Mitral regurg post op, moderate-severe. Hemodynamics OK. Likely contributes to his acute respiratory failure and infiltrates. * RAHEL: On CVVHD. Able to remove 75-100 ml/hour. Catheter is positional. * Respiratory Failure: Extubated, reintubated x 3, now with tracheostomy tube in place. CXR with persistent diffuse infiltrates, oxygen requirement slightly down at 45%, but developed a respiratory acidosis with reduced vent rate. Airway pressures high. ? cardiogenic edema/volume overload vs. pneumonia/ aspiration vs. non-cardiogenic edema from SIRS, vs a combination of these. He has bloody sputum, a component of hemorrhage could be present. * S/P trach * SQ emphysema -recheck CXR today * Hypotension: Stable. On and off low-dose Levophed. * Elevated WBC: Improve. Afebrile. -On ertapenem for possible aspiration associated with his arrest. I * Right foot ischemia greater than left: Likely due to spasm/embolism/ thrombosis at the ankle. On ASA/Plavix/argatroban. Dr. Levy following. * Lower GI bleed. Some blood per rectal bleeding intermittently, no evidence of significant bleeding farther up. * Anemia: Multifactorial: Acute blood-loss, illness, renal failure, etc. S/P transfusion 09/14, now Hgb slightly down * HIT: Platelets jose on argatroban, which was held after APTT went high and he had some rectal bleeding. Platelets are back down a bit. 35 min of critical care time spent with patient Case discussed with RT and nursing. 09/16/16 09:29 Subjective: Awake. Appears comfortable. Objective: Vital Signs Temp Pulse Resp BP Pulse Ox 36.4 C 88 31 H 92/59 L 95 09/16/16 09:00 09/16/16 09:00 09/16/16 09:00 09/16/16 09:00 09/16/16 09:00 Microbiology 09/15/16 13:40 - Final Sputum, Induced/Suctioned Laboratory Results 09/16/16 05:40 09/16/16 05:40 09/15/16 09/16/16 09/17/16 05:59 05:59 05:59 Intake Total 3833 1326 Output Total 3767 1340 Balance 1319 -14 PT 26.8 SEC (12.0-15.0) H 09/16/16 05:40 INR 2.45 (0.83-1.16) H 09/16/16 05:40 Laboratory Results 09/16/16 05:40 09/16/16 05:40 09/16/16 09/16/16 05:40 04:20 INR 2.45 H (0.83 - 1.16) Patient Temperature 36.4 DEGREES pCO2 41 H mmHg (34 - 38) pO2 92 H mmHg (65 - 75) Total CO2 22 L mEq/L (23 - 27) ABG pH 7.32 L (7.35 - 7.45) ABG PO2/FiO2 Ratio 184 RATIO ABG O2 Saturation 96 H % (92 - 95) ABG Base Excess -4.5 L mEq/L (-2.5 - 2.5) O2 Concentration % 50 % Respiration Rate 30 Set Respiration Rate 30 Tidal Volume 600 PEEP 8 Calcium 7.9 L mg/dL (8.5 - 10.4) Ionized Calcium 1.05 L MMOL/L (1.12 - 1.30) Phosphorus 3.9 mg/dL (2.5 - 4.5) Magnesium 1.5 L mg/dL (1.6 - 2.3) Total Bilirubin 1.6 H mg/dL (0.1 - 1.4) AST 36 IU/L (17 - 59) ALT 48 IU/L (21 - 72) Alkaline Phosphatase 163 H IU/L (38 - 126) Total Protein 5.9 L g/dL (6.3 - 8.2) Albumin 2.6 L g/dL (3.5 - 5.0) Physical Exam - Physical Exam General Appearance: WD/WN, alert, thin EENT: PERRL/EOMI Neck: non-tender, full range of motion, subcutaneous emphysema (right), other ( trach clean and dry. ) Respiratory: chest non-tender, crackles (few), No lungs clear, No stridor, No wheezing Cardiac/Chest: normal peripheral pulses, regular rate, rhythm, systolic murmur Abdomen: normal bowel sounds, non-tender, soft Male Genitalia: deferred Rectal: deferred Skin: normal color, warm/dry Extremities: normal range of motion, non-tender Neuro/Psych: alert ICD10 Worksheet Patient Problems: Problems Problem Status Diagnosed Acute blood loss anemia Acute Acute renal failure Acute Arterial occlusion, lower extremity Acute Leukocytosis Acute Respiratory failure with hypoxia Acute S/P CABG x 5 Acute S/P Maze operation for atrial fibrillation Acute Coronary arteriosclerosis Acute
--- NOTE | 2016-09-16 09:45 | SOAPPROG ---
SOAP Progress Note Assessment/Plan: POD#26 CABGx5 (GANN-LCX, EBONY-D1, SVG-LAD, Sequential SVG-PDA-PLR), Padilla-Maze IV Left/Right lesions. POD#11 Tracheostomy, RIJ dialysis cath Nutrition per DHT. IV access per LUE PICC. Sx CAD with ISCM (EF 40-45%) - s/p CABGx5 with bilateral mammaries. Small and diffusely diseased target vessels. Early postop course complicated by cardiogenic shock with multi-organ dysfx, severe MR, and peripheral vasoconstriction. Resp arrest on 12/ precipitated by AF/RVR with hypotension and subsequent renal failure requiring HD. Condition critical. Code status adjusted to no CPR per family wishes. Long-standing persistent atrial fibrillation s/p Padilla-Maze IV. Recurrent PAF/ PSVT as of POD#11. Now in SR. Surgical antithrombotic prophylaxis w DAPT when appropriate. Ventilator dependent respiratory failure s/p tracheostomy. Vent management, Abx and therapeutic bronchs per Pulm. Postoperative renal failure - Secondary to shock and ATN. Nephrology managing CVVHD. Intermittent melena/BRBPR - GI consulted. Endoscopic eval deferred. Last blood in stool 08/13. Anemia secondary to acute blood loss, coagulopathy, chronic illness. Transfuse PRN. Post-op moderate-severe MR - Functional. Valve structurally intact by serial echos. Cath neg for compromised paras flow or RHF. Surg repair deferred. 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 HIT panel sent to outside facility pending. Postoperative pedal ischemia - Vasospasm compl by sm vessel thrombosis below ankle level. Demarcating rt forefoot and left toes. Contrast imaging as allowed by renal fx. Dr. Levy following for eventual amputation. Persistent leukocytosis - No obvious sources of infection. All cultures NTD. Continue Invanz as per wire rigger mgmt. Culture prn. Consider line replacement. Subcutaneous emphysema - Onset 09/15 with crepitus noted right face, right neck , right infra-clavicular. CXR confirmed presence of subcut air, no PTX. Tidal volume on vent decreased. Clinically improved today. Monitor. Subjective: Working with PT on LE mobility. Objective: Vital Signs Temp Pulse Resp BP Pulse Ox 36.4 C 88 31 H 92/59 L 95 09/16/16 09:00 09/16/16 09:00 09/16/16 09:00 09/16/16 09:00 09/16/16 09:00 Microbiology 09/15/16 13:40 - Final Sputum, Induced/Suctioned Laboratory Results 09/16/16 05:40 09/16/16 05:40 09/15/16 09/16/16 09/17/16 05:59 05:59 05:59 Intake Total 3833 1326 Output Total 2514 1340 Balance 1319 -14 PT 26.8 SEC (12.0-15.0) H 09/16/16 05:40 INR 2.45 (0.83-1.16) H 09/16/16 05:40 Physical Exam - Physical Exam General Appearance: alert, no apparent distress, cachetic, thin EENT: No scleral icterus (R), No scleral icterus (L) Neck: non-tender, subcutaneous emphysema (right neck) Respiratory: No respiratory distress Cardiac/Chest: regular rate, rhythm Abdomen: non-tender, soft, distended Skin: warm/dry, pallor Extremities: No pedal edema, No swelling Neuro/Psych: alert, motor weakness ICD10 Worksheet Patient Problems: Problems Problem Status Diagnosed Acute blood loss anemia Acute Acute renal failure Acute Arterial occlusion, lower extremity Acute Leukocytosis Acute Respiratory failure with hypoxia Acute S/P CABG x 5 Acute S/P Maze operation for atrial fibrillation Acute Coronary arteriosclerosis Acute
--- NOTE | 2016-09-16 09:46 | DX ---
Portable chest x-ray 0932 hours. History: Central line placement. Evaluate subcutaneous gas. Findings: Tracheostomy, central line, PICC line, and feeding tube remain in place. Cutaneous gas is o nce again seen supraclavicular region right-side greater than left extending to the lower neck as wel l as over the right chest wall with slight increase of the left chest wall. There may be pneumomedias tinum as well. Heart size and pulmonary vasculature are relatively normal. Moderate bilateral alveolar infiltrates a re stable to slightly worse when compared to the prior study. There is haziness at the left base poss ibly from effusion layering posteriorly. There is no pneumothorax. Impression: 1. Mild increase in subcutaneous emphysema over the upper chest and lower neck right-side greater saw n left. 2. Possible pneumomediastinum. 3. Interventional tubes in stable position. 4. Stable to slight increase in bilateral alveolar infiltrates suggestive of pneumonia. Rule out ARDS . 5. Small left effusion suspected.
[2016-09-16] MEDS: LANSOPRAZOLE SUSP 30MG/10ML UDSYR (Adult) TUBE SCH (09:52)
[2016-09-16] MEDS: RISPERIDONE 1 MG/1 ML TUBE SCH ×2 (09:52→20:58)
[2016-09-16] MEDS: SENNOSIDES 17.6 MG/10 ML UDL TUBE SCH ×2 (09:52→20:58)
--- NOTE | 2016-09-16 11:21 | SOAPPROG ---
SOAP Progress Note Assessment/Plan: Assessment: 1. 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 Bilateral lower extremity gangrene Plts stable. Plan: - continue on argatrobran 09/16/16 11:20 Subjective: not interactive. Objective: exam: Gen: cachectic, chronically ill appearing Lungs: coarse sounds bilaterally CV: RRR no MGR Abd: +BS NT ND Ext: dusky feet/lower legs Neuro: not interactive Vital Signs Temp Pulse Resp BP Pulse Ox 36.5 C 93 30 H 99/64 L 93 09/16/16 11:00 09/16/16 11:00 09/16/16 11:00 09/16/16 11:00 09/16/16 11:00 Microbiology 09/15/16 13:40 - Final Sputum, Induced/Suctioned Laboratory Results 09/16/16 05:40 09/16/16 05:40 09/15/16 09/16/16 09/17/16 05:59 05:59 05:59 Intake Total 3833 1326 Output Total 2514 1340 Balance 1319 -14 PT 26.8 SEC (12.0-15.0) H 09/16/16 05:40 INR 2.45 (0.83-1.16) H 09/16/16 05:40 ICD10 Worksheet Patient Problems: Problems Problem Status Diagnosed Acute blood loss anemia Acute Acute renal failure Acute Arterial occlusion, lower extremity Acute Leukocytosis Acute Respiratory failure with hypoxia Acute S/P CABG x 5 Acute S/P Maze operation for atrial fibrillation Acute Coronary arteriosclerosis Acute
--- NOTE | 2016-09-16 11:25 | SOAPPROG ---
SOAP Progress Note Assessment/Plan: Assessment: 1. RAHEL -ATN. Borderline oliguric. -Remains on CRRT. Good metabolic control. -Catheter has been positional but currently with pt upright and towel positioned to keep catheter in place upright as well, running well -D/W Dr. Adams. will increase UF goal to 150cc/hr, pt was unable to be weaned from levo this morning even before this was increased, but tolerating this UF rate on low-dose levo, wean as tolerated -Ionized calcium OK 2. Hyperkalemia - -Isolated finding 09/14 which resolved on repeat, likely was spurious lab result -Cont CRRT 3. Respiratory failure - -CHF/aspiration/ARDS? 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 Avoiding heparin. -Argatroban held d/t GI bleeding but resumed now. Had non-bloody BM 5. s/p CABG/MAZE 6. Hyperphosphatemia - -Phos improved on CRRT 7. Toe ischemia. 8. AF/RVR. Now in NSR, s/p amio loading. Plan: 09/16/16 11:23 Subjective: Seen and examined on CRRT. Total effluent 36ml/kg/hr. TMP 150. No major events overnight. Objective: Vital Signs Temp Pulse Resp BP Pulse Ox 36.5 C 93 30 H 99/64 L 93 09/16/16 11:00 09/16/16 11:00 09/16/16 11:00 09/16/16 11:00 09/16/16 11:00 Microbiology 09/15/16 13:40 - Final Sputum, Induced/Suctioned Laboratory Results 09/16/16 05:40 09/16/16 05:40 09/15/16 09/16/16 09/17/16 05:59 05:59 05:59 Intake Total 3833 1326 Output Total 2514 1340 Balance 1319 -14 PT 26.8 SEC (12.0-15.0) H 09/16/16 05:40 INR 2.45 (0.83-1.16) H 09/16/16 05:40 Physical Exam - Physical Exam General Appearance: no apparent distress Neck: other (On vent via TC) Respiratory: lungs clear Cardiac/Chest: regular rate, rhythm Abdomen: soft Extremities: other (cyanotic R toes), No swelling ICD10 Worksheet Patient Problems: Problems Problem Status Diagnosed Acute blood loss anemia Acute Acute renal failure Acute Arterial occlusion, lower extremity Acute Leukocytosis Acute Respiratory failure with hypoxia Acute S/P CABG x 5 Acute S/P Maze operation for atrial fibrillation Acute Coronary arteriosclerosis Acute
[2016-09-16 12:01] LABS: IONIZED CALCIUM 1.13 MMOL/L (1.12-1.30); PCO2 VENOUS 45 mmHg (40-44); PH VENOUS BLOOD 7.33 (7.31-7.42); PO2 VENOUS 33 mmHg (35-40); TCO2 VENOUS 24 mEq/L (23-27); VEN MEASURED OXYGEN SATURATION 57 % (65-75)
[2016-09-16 12:02] LABS: HEMATOCRIT 29.5 % (40.0-51.0); HEMOGLOBIN 9.8 g/dL (13.7-17.5)
[2016-09-16 12:04] LABS: IONIZED CALCIUM 1.13 MMOL/L (1.12-1.30)
[2016-09-16 12:25] LABS: ANION GAP 15 mEq/L (8-16); CALCIUM 8.7 mg/dL (8.5-10.4); CARBON DIOXIDE 23 mEq/l (22-31); CHLORIDE 100 mEq/L (97-110); GLOMERULAR FILTRATION RATE > 60; GLUCOSE 134 mg/dL (70-100); POTASSIUM 3.7 mEq/L (3.5-5.2); SODIUM 138 mEq/L (134-144)
[2016-09-16] MEDS: CALCIUM GLUCONATE 16.67 GM in NS 1,000 ML IV SCH ×2 (12:43→21:58)
[2016-09-16] MEDS ORDERED: POTASSIUM Cl (KCl) 50 ML IV ONE ×2 (13:35→14:00)
[2016-09-16] MEDS: ERTAPENEM 1 GM in NS 100 ML IV SCH (17:24)
--- NOTE | 2016-09-16 17:45 | SOAPPROG ---
SOAP Progress Note Assessment/Plan: Assessment: Plan: Subjective: More alert than when I saw him on Sat. On 1ug Levo w/ BP 105 syst Small amt of subQ emphysema. CXR shows no PTX. On large minute vent. FiO2 45% CRRT taking off net 100cc/hr Lungs scattered rhonchi Cor RRR I do not hear m of MR Abd +BS Would consider reg. dialysis now. Suspect he will tolerate it. Objective: Vital Signs Temp Pulse Resp BP Pulse Ox 36.5 C 86 28 H 98/68 L 97 09/16/16 16:00 09/16/16 16:20 09/16/16 16:00 09/16/16 16:00 09/16/16 16:20 Microbiology 09/15/16 13:40 - Final Sputum, Induced/Suctioned Laboratory Results 09/16/16 11:45 09/16/16 11:45 09/15/16 09/16/16 09/17/16 05:59 05:59 05:59 Intake Total 3833 1326 Output Total 2514 1340 Balance 1319 -14 PT 26.8 SEC (12.0-15.0) H 09/16/16 05:40 INR 2.45 (0.83-1.16) H 09/16/16 05:40 ICD10 Worksheet Patient Problems: Problems Problem Status Diagnosed Acute blood loss anemia Acute Acute renal failure Acute Arterial occlusion, lower extremity Acute Leukocytosis Acute Respiratory failure with hypoxia Acute S/P CABG x 5 Acute S/P Maze operation for atrial fibrillation Acute Coronary arteriosclerosis Acute
[2016-09-16 18:34] LABS: ANION GAP 19 mEq/L (8-16); CALCIUM 7.5 mg/dL (8.5-10.4); CARBON DIOXIDE 23 mEq/l (22-31); CHLORIDE 104 mEq/L (97-110); CREATININE 0.8 mg/dL (0.7-1.3); GLOMERULAR FILTRATION RATE > 60; GLUCOSE 97 mg/dL (70-100); MAGNESIUM 1.5 mg/dL (1.6-2.3); POTASSIUM 3.7 mEq/L (3.5-5.2); SODIUM 146 mEq/L (134-144)
[2016-09-16 18:52] LABS: ABG FOR OR NO
[2016-09-16 19:02] LABS: IONIZED CALCIUM 0.97 MMOL/L (1.12-1.30)
[2016-09-16] MEDS: MELATONIN 3 MG TAB TUBE SCH (20:57)
[2016-09-16] MEDS: NOREPINEPHRINE BITARTRATE 16 MG in D5W 250 ML IV SCH (21:58)
[2016-09-17 00:21] LABS: IONIZED CALCIUM 1.12 MMOL/L (1.12-1.30)
[2016-09-17 01:01] LABS: ANION GAP 14 mEq/L (8-16); CALCIUM 8.8 mg/dL (8.5-10.4); CARBON DIOXIDE 23 mEq/l (22-31); CHLORIDE 101 mEq/L (97-110); CREATININE 0.9 mg/dL (0.7-1.3); GLOMERULAR FILTRATION RATE > 60; GLUCOSE 118 mg/dL (70-100); MAGNESIUM 2.1 mg/dL (1.6-2.3); POTASSIUM 3.7 mEq/L (3.5-5.2); SODIUM 138 mEq/L (134-144)
[2016-09-17] MEDS: POTASSIUM Cl (KCl) 100 ML IV PRN ×2 (01:24→02:31)
[2016-09-17] MEDS ORDERED: POTASSIUM Cl (KCl) 20 MEQ/50 ML BAG IV ONE ×2 (01:27→08:31)
[2016-09-17] MEDS: REPL FLUID TYPE D CAPS 1 EA in WATER FOR INJECTION,STERILE 4,000 ML DIAL SCH ×8 (01:43→22:09)
[2016-09-17] MEDS: SODIUM PHOS 20 MM in D5W 250 ML IV PRN (01:44)
[2016-09-17] MEDS: HALOPERIDOL LACT 5 MG/ML INJ IVP PRN (01:55)
[2016-09-17] MEDS: B22GK4/0 PRISMASATE 5,000 ML DIAL SCH ×5 (03:44→21:21)
[2016-09-17] MEDS: NYSTATIN SUSP 500000 UNIT/5 ML UDCUP PO SCH ×4 (05:49→21:33)
[2016-09-17 05:57] LABS: BASE EXCESS -3.7 mEq/L (-2.5-2.5); BICARBONATE 21 mEq/L (22-26); IONIZED CALCIUM 1.12 MMOL/L (1.12-1.30); MEASURED OXYGEN SATURATION 98 % (92-95); PCO2 39 mmHg (34-38); PO2 106 mmHg (65-75); TCO2 22 mEq/L (23-27)
[2016-09-17 05:58] LABS: END TIDAL CO2 24; O2 CONCENTRATIION 45 % (0-100); P/F RATIO 235 RATIO; PATIENT RATE 30; PRESSURE SUPPORT 12; SIMV YES
[2016-09-17 06:00] LABS: ABSOLUTE NRBC COUNT 0.02 10^3/uL (0-0.01); ADD DIFF? YES; ATYPICAL LYMPHOCYTE FLAG 10 (0-99); FRAGMENT RBC FLAG 20 (0-99); HEMATOCRIT 32.5 % (40.0-51.0); HEMOGLOBIN 10.7 g/dL (13.7-17.5); LEFT SHIFT FLG 40 (0-99); LIPEMIA HEMOLYSIS FLAG 80 (0-99); MEAN CELL HEMOGLOBIN 29.5 pg (27.9-34.1); MEAN CELL HEMOGLOBIN CONCENTR. 32.9 g/dL (32.4-36.7); MEAN CELL VOLUME 89.5 fL (81.5-99.8); MEAN PLATELET VOLUME 11.7 fL (8.7-11.7); NRBC-AUTO% 0.1 % (0.0-0.2); PLATELET CLUMPS FLAG 0 (0-99); PLATELET COUNT 113 10^3/uL (150-400); RED BLOOD CELL COUNT 3.63 10^6/uL (4.40-6.38)
[2016-09-17 06:03] LABS: ADD MORPH? NO; ADD SCAN? NO; RED CELL DISTRIBUTION WIDTH 21.4 % (11.5-15.2)
[2016-09-17 06:10] LABS: INR 1.98 (0.83-1.16); PROTIME(PATIENT) 22.6 SEC (12.0-15.0)
[2016-09-17 06:11] LABS: APTT 47.5 SEC (23.0-38.0)
[2016-09-17 06:16] LABS: ALANINE AMINOTRANSFERASE 50 IU/L (21-72); ALBUMIN 2.9 g/dL (3.5-5.0); ALKALINE PHOSPHATASE 204 IU/L (38-126); ANION GAP 14 mEq/L (8-16); ASPARTATE AMINOTRANSFERASE 37 IU/L (17-59); BILIRUBIN,TOTAL 1.3 mg/dL (0.1-1.4); CALCIUM 8.6 mg/dL (8.5-10.4); CARBON DIOXIDE 23 mEq/l (22-31); CHLORIDE 102 mEq/L (97-110); CREATININE 0.9 mg/dL (0.7-1.3); GLOMERULAR FILTRATION RATE > 60; GLUCOSE 113 mg/dL (70-100); POTASSIUM 3.6 mEq/L (3.5-5.2); SODIUM 139 mEq/L (134-144); TOTAL PROTEIN 6.2 g/dL (6.3-8.2)
[2016-09-17 07:10] LABS: PLATELET ESTIMATE DECREASED (ADEQ)
[2016-09-17 07:14] LABS: HYPOCHROMIA 1+; MICROCYTES 2+; POLYCHROMASIA 1+
[2016-09-17] MEDS: SENNOSIDES 17.6 MG/10 ML UDL TUBE SCH ×2 (07:36→20:58)
[2016-09-17] MEDS: RISPERIDONE 1 MG/1 ML TUBE SCH ×2 (07:37→20:58)
[2016-09-17] MEDS: NS 1,000 ML MISC SCH ×3 (08:12→22:09)
[2016-09-17] MEDS ORDERED: POTASSIUM Cl (KCl) 50 ML IV ONE ×2 (08:36→11:23)
--- NOTE | 2016-09-17 08:42 | SOAPPROG ---
SOAP Progress Note Assessment/Plan: Assessment: POD#27 CABGx5 (GANN-LCX, EBONY-D1, SVG-LAD, Sequential SVG-PDA-PLR), Padilla-Maze IV Left/Right lesions. POD#13 Tracheostomy, RIJ dialysis cath Nutrition per DHT. IV access per LUE PICC. Sx CAD with ISCM (EF 40-45%) - s/p CABGx5 with bilateral mammaries. Small and diffusely diseased target vessels. Early postop course complicated by cardiogenic shock with multi-organ dysfx, severe MR, and peripheral vasoconstriction. Hemodynamics stabilized on vasoactive support w temporary improvement in hepatorenal and respiratory function as well as transient recovery of foot perfusion as pressor support lightened. MOF as of 12/12 secondary to resp arrest precipitated by AF/RVR with hypotension. Condition remains guarded - vent and pressor dependent, on CRRT, limited mobility, intermittently agitated. Code status adjusted to no CPR per family wishes. Long-standing persistent atrial fibrillation - SR temporarily restored s/p Padilla- Maze IV. Recurrent PAF/PSVT as of POD#11. Use of antinodals limited by pressor support. Amio stopped after arrest. Surgical antithrombotic prophylaxis w DAPT when appropriate. Postoperative respiratory failure - Reintubated 3x, most recently for arrest post AF treatment. Trach placed. Vent management, Abx and therapeutic bronchs per Pulm. Leukocytosis persists. Tidal volumes adjusted for subcutaneous emphysema upper chest/neck/face. No apparent PTX. Postoperative renal failure - Secondary to shock and ATN. Nephrology following and directing daily CRRT. UOP ~100 ml daily. Postoperative melena - Intermittent w episode of BRBPR following manual disimpaction. GIB vs mesenteric ischemia. GI consulted. Local trauma from disimpaction suspected. Endoscopic eval deferred. Restarted on Argatroban. No active bleeding since 09/12. Post-op moderate-severe MR - Functional. Valve structurally intact by serial echos. Cath neg for compromised paras flow or RHF. Surg repair deferred. Congestive hepatopathy - Resolved. Acute expected blood loss anemia with thrombocytopenia and coagulopathy - Concern for HIT. Heparin avoided. Inc plt counts on Argatroban. Transition to DAPT when appropriate. Transfuse prn. Postoperative pedal ischemia - Vasospasm compl by sm vessel thrombosis below ankle level. Demarcating rt forefoot and left toes. Contrast imaging as allowed by renal fx. Vasodilator as allowed by BP. Antithrombotic therapy w Argatroban. Gen surg following for eventual amputation. Plan: Supportive care as per multidisciplinary team. 09/17/16 08:39 Subjective: Sedated on vent. Unresponsive unless prompted. Eye tracking, head nodding and able to follow simple commands. Objective: Vital Signs Temp Pulse Resp BP Pulse Ox 36.7 C 94 27 H 88/56 L 90 L 09/17/16 07:00 09/17/16 08:00 09/17/16 07:00 09/17/16 07:00 09/17/16 08:00 Microbiology 09/15/16 13:40 - Final Sputum, Induced/Suctioned Laboratory Results 09/17/16 05:40 09/17/16 05:40 09/16/16 09/17/16 09/18/16 05:59 05:59 05:59 Intake Total 1326 Output Total 1340 3426 Balance -14 -3426 PT 22.6 SEC (12.0-15.0) H 09/17/16 05:40 INR 1.98 (0.83-1.16) H 09/17/16 05:40 Levo 3mcg for SBP > 90. TFs at goal. Vent FIO2 40%. CRRT fluid removal at 150ml/h. Recurrent spike in WBC. Physical Exam - Physical Exam General Appearance: obtunded (but responsive) Respiratory: other (paradoxical chest mvmt, ? midline diastasis) Cardiac/Chest: regular rate, rhythm, other (Sternotomy CDI) Abdomen: distended (but soft) Skin: warm/dry, other (dry gangrenous toe) ICD10 Worksheet Patient Problems: Problems Problem Status Diagnosed Acute blood loss anemia Acute Acute renal failure Acute Arterial occlusion, lower extremity Acute Leukocytosis Acute Respiratory failure with hypoxia Acute S/P CABG x 5 Acute S/P Maze operation for atrial fibrillation Acute Coronary arteriosclerosis Acute
--- NOTE | 2016-09-17 09:17 | PDINTPN ---
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 #Respiratory failure with a trach, on SIMV at 600ml TV and rate of 22 #SQ emphysema and pneumomediastinum, no evidence of a PTX on CXR, but he is at high risk of that needing vent support #Agitation, much improved. He is calm and nods and shakes his head. He wants to stand up #RAHEL with creatinine 2.3 to 0.9 on CRRT #Mitral regurg post op, probably from LV dilitation post op, hopefully will resolve #Ischemic toes ? 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 It looks to me like he will lose most or all of his toes and perhaps his right foot. Try to taper levophed, and if possible may be able to move to intermittent dialysis, which would help with movement etc. Will try to lower vent TV and PIP to reduce chance of pneumothorax 09/17/16 09:26 Subjective: He is awake and wants to stand up Objective: Vital Signs Temp Pulse Resp BP Pulse Ox 36.7 C 94 27 H 88/56 L 90 L 09/17/16 07:00 09/17/16 08:00 09/17/16 07:00 09/17/16 07:00 09/17/16 08:00 Microbiology 09/15/16 13:40 - Final Sputum, Induced/Suctioned Laboratory Results 09/17/16 05:40 09/17/16 05:40 09/16/16 09/17/16 09/18/16 05:59 05:59 05:59 Intake Total 1326 Output Total 1340 3426 Balance -14 -3426 PT 22.6 SEC (12.0-15.0) H 09/17/16 05:40 INR 1.98 (0.83-1.16) H 09/17/16 05:40 Physical Exam - Physical Exam General Appearance: moderate distress EENT: normal ENT inspection Neck: non-tender Respiratory: rhonchi Cardiac/Chest: regular rate, rhythm ICD10 Worksheet Patient Problems: Problems Problem Status Diagnosed Acute blood loss anemia Acute Acute renal failure Acute Arterial occlusion, lower extremity Acute Leukocytosis Acute Respiratory failure with hypoxia Acute S/P CABG x 5 Acute S/P Maze operation for atrial fibrillation Acute Coronary arteriosclerosis Acute
--- NOTE | 2016-09-17 10:02 | SOAPPROG ---
SOAP Progress Note Assessment/Plan: Assessment:Plan: ARF-ATN -urine output 100ml -on CRRT tolerating UF of 150/hour -last 24 input only 1326, but in previous 72 hours has had input of 5995 and 3833 -BP in the high 80's to low 90's -I am not optimistic that we can maintain euvolemia with intermittent Hd given his low BP and his prior inputs -If we can maintain his input at less than 2 liters per day with stable BP then I would attempt switch to intermittent daily Hd tomorrow CV-still on levophed -CVP 14 Hypokalemia-replace prn Extremities-digital ischemia 09/17/16 09:59 Subjective: awake on vent Objective: Vital Signs Temp Pulse Resp BP Pulse Ox 36.7 C 94 27 H 88/56 L 90 L 09/17/16 07:00 09/17/16 08:00 09/17/16 07:00 09/17/16 07:00 09/17/16 08:00 Microbiology 09/15/16 13:40 - Final Sputum, Induced/Suctioned Laboratory Results 09/17/16 05:40 09/17/16 05:40 09/16/16 09/17/16 09/18/16 05:59 05:59 05:59 Intake Total 1326 Output Total 1340 3426 Balance -14 -3426 PT 22.6 SEC (12.0-15.0) H 09/17/16 05:40 INR 1.98 (0.83-1.16) H 09/17/16 05:40 Physical Exam - Physical Exam General Appearance: alert, mild distress EENT: normal ENT inspection, other ([place]) Neck: other (Trach) Respiratory: rales, rhonchi, other (paradoxical movement of chest and abdomen) Cardiac/Chest: regular rate, rhythm Abdomen: normal bowel sounds, non-tender, soft Extremities: other (black gangrenous toes bilaterally) ICD10 Worksheet Patient Problems: Problems Problem Status Diagnosed Acute blood loss anemia Acute Acute renal failure Acute Arterial occlusion, lower extremity Acute Leukocytosis Acute Respiratory failure with hypoxia Acute S/P CABG x 5 Acute S/P Maze operation for atrial fibrillation Acute Coronary arteriosclerosis Acute
[2016-09-17 12:49] LABS: CARBON DIOXIDE 23 mEq/l (22-31); CHLORIDE 107 mEq/L (97-110); CREATININE 0.9 mg/dL (0.7-1.3); GLOMERULAR FILTRATION RATE > 60; SODIUM 137 mEq/L (134-144)
[2016-09-17] MEDS: LANSOPRAZOLE SUSP 30MG/10ML UDSYR (Adult) TUBE SCH (13:48)
[2016-09-17 14:22] LABS: ANION GAP 13 mEq/L (8-16); CALCIUM 8.9 mg/dL (8.5-10.4); CARBON DIOXIDE 24 mEq/l (22-31); CHLORIDE 101 mEq/L (97-110); CREATININE 0.9 mg/dL (0.7-1.3); GLOMERULAR FILTRATION RATE > 60; GLUCOSE 111 mg/dL (70-100); MAGNESIUM 1.6 mg/dL (1.6-2.3); SODIUM 138 mEq/L (134-144)
[2016-09-17] MEDS ORDERED: MAGNESIUM SULF 2 GM/WATER 50 ML IV ONE (17:44)
[2016-09-17 17:49] LABS: IONIZED CALCIUM 1.14 MMOL/L (1.12-1.30)
[2016-09-17 18:17] LABS: CARBON DIOXIDE 26 mEq/l (22-31); CHLORIDE 101 mEq/L (97-110); CREATININE 0.9 mg/dL (0.7-1.3); GLOMERULAR FILTRATION RATE > 60; SODIUM 139 mEq/L (134-144)
[2016-09-17 18:26] LABS: ANION GAP 12 mEq/L (8-16); GLUCOSE 114 mg/dL (70-100); MAGNESIUM 1.5 mg/dL (1.6-2.3)
[2016-09-17] MEDS: ACCESSORY DRAIN 1 EA BAG***SEND #2 INITIALLY MISC PRN ×2 (20:51→21:40)
[2016-09-17] MEDS: ARGATROBAN 100 MG in NS 100 ML IV SCH (20:56)
[2016-09-17] MEDS: MELATONIN 3 MG TAB TUBE SCH (20:58)
[2016-09-17] MEDS: CALCIUM CHLORIDE 5.7 GM in NS 1,000 ML IV SCH (21:10)
[2016-09-17] MEDS: NOREPINEPHRINE BITARTRATE 16 MG in D5W 250 ML IV SCH (21:22)
[2016-09-18 00:30] LABS: IONIZED CALCIUM 1.23 MMOL/L (1.12-1.30)
[2016-09-18] MEDS: REPL FLUID TYPE D CAPS 1 EA in WATER FOR INJECTION,STERILE 4,000 ML DIAL SCH ×8 (00:31→22:50)
[2016-09-18] MEDS: B22GK4/0 PRISMASATE 5,000 ML DIAL SCH ×4 (01:02→21:35)
[2016-09-18 01:11] LABS: MAGNESIUM 1.9 mg/dL (1.6-2.3)
[2016-09-18 02:07] LABS: ANION GAP 12 mEq/L (8-16); CALCIUM 9.1 mg/dL (8.5-10.4); CARBON DIOXIDE 22 mEq/l (22-31); CHLORIDE 104 mEq/L (97-110); CREATININE 0.8 mg/dL (0.7-1.3); GLOMERULAR FILTRATION RATE > 60; GLUCOSE 122 mg/dL (70-100); POTASSIUM 3.6 mEq/L (3.5-5.2); SODIUM 138 mEq/L (134-144)
[2016-09-18] MEDS: POTASSIUM Cl (KCl) 100 ML IV PRN ×3 (02:13→17:08)
[2016-09-18] MEDS: NS 1,000 ML MISC SCH ×4 (02:37→20:53)
[2016-09-18] MEDS: CALCIUM CHLORIDE 5.7 GM in NS 1,000 ML IV SCH (04:11)
[2016-09-18 04:40] LABS: BASE EXCESS -3.2 mEq/L (-2.5-2.5); BICARBONATE 21 mEq/L (22-26); END TIDAL CO2 24; IONIZED CALCIUM 1.24 MMOL/L (1.12-1.30); MEASURED OXYGEN SATURATION 93 % (92-95); O2 CONCENTRATIION 40 % (0-100); P/F RATIO 165 RATIO; PATIENT RATE 24; PCO2 37 mmHg (34-38); PO2 66 mmHg (65-75); PRESSURE SUPPORT 12; SIMV YES; TCO2 22 mEq/L (23-27)
[2016-09-18] MEDS: NYSTATIN SUSP 500000 UNIT/5 ML UDCUP PO SCH ×4 (06:21→20:57)
[2016-09-18 06:26] LABS: HEMATOCRIT 34.3 % (40.0-51.0); MEAN CELL HEMOGLOBIN 29.3 pg (27.9-34.1); MEAN CELL HEMOGLOBIN CONCENTR. 32.1 g/dL (32.4-36.7); MEAN CELL VOLUME 91.2 fL (81.5-99.8); RED BLOOD CELL COUNT 3.76 10^6/uL (4.40-6.38)
[2016-09-18 06:27] LABS: RED CELL DISTRIBUTION WIDTH 21.7 % (11.5-15.2)
[2016-09-18 06:33] LABS: APTT 97.1 SEC (23.0-38.0)
[2016-09-18 06:44] LABS: PROTIME(PATIENT) 64.9 SEC (12.0-15.0)
[2016-09-18 06:54] LABS: INR 7.39 (0.83-1.16)
[2016-09-18 06:59] LABS: ANION GAP 10 mEq/L (8-16); CARBON DIOXIDE 23 mEq/l (22-31); CHLORIDE 106 mEq/L (97-110); CREATININE 0.8 mg/dL (0.7-1.3); GLOMERULAR FILTRATION RATE > 60; GLUCOSE 120 mg/dL (70-100); MAGNESIUM 1.7 mg/dL (1.6-2.3); POTASSIUM 4.2 mEq/L (3.5-5.2); SODIUM 139 mEq/L (134-144)
[2016-09-18 07:26] LABS: INR 1.76 (0.83-1.16); PROTIME(PATIENT) 20.6 SEC (12.0-15.0)
[2016-09-18 07:32] LABS: APTT 42.1 SEC (23.0-38.0)
[2016-09-18] MEDS: MAGNESIUM SULF 2 GM/WATER 50 ML IV PRN (07:54)
--- NOTE | 2016-09-18 08:56 | DX ---
AP Portable Chest September 18, 2016 Indication: Subcutaneous emphysema, evaluate for pneumothorax. Comparison: September 16, 2016, 0932 hours. Findings: There is no definite right pneumothorax. Right subcutaneous emphysema has improved slightly . The right IJ central line, PICC, tracheostomy, and feeding tube are unchanged. The tip of the feedi ng tube is not visualized and is off the edge of the film. Bilateral alveolar infiltrates are stable compared to two days prior. The left lung pleural interface is poorly visualized. Impression: 1. Mildly improved subcutaneous emphysema. 2. Lines and tubes in stable position. Tip of the feeding tube not visualized on this film. 3. Unchanged bilateral alveolar infiltrates.
--- NOTE | 2016-09-18 08:56 | PDINTPN ---
Heel Stiffener Progress Note Assessment/Plan: Assessment: #CABG X 5 and MAZE. #Respiratory failure with a trach, on SIMV at 500ml TV and rate of 22 and 45% FI02 #Pneumonia on the right less on the left on today's CXR. Sputum + for enterococcus #SQ emphysema and pneumomediastinum, no evidence of a PTX on CXR, but he is at high risk of that needing vent support #Agitation, much improved. He is calm but much less alert than yesterday #RAHEL with creatinine 2.3 to 0.9 on CRRT #Mitral regurg post op, probably from LV dilitation post op, hopefully will resolve #Ischemic toes ? due to HIT syndrome, with negative HIT antibody, but increase in platelets on argatroban #Hemodynamics borderline with an increase to 5 of levophed Plan: ID consult Bronchoscopy He is very anxious at home according to his , and now is very nervous He wants to stand, will check if surgery will allow him to stand with his ischemic right foot and all toes. It looks to me like he will lose most or all of his toes and perhaps his right foot. Try to taper levophed, and if possible may be able to move to intermittent dialysis, which would help with movement etc. Will try to lower vent TV and PIP to reduce chance of pneumothorax 09/18/16 08:48 Subjective: sleepy Objective: Vital Signs Temp Pulse Resp BP Pulse Ox 36.4 C 96 24 H 87/54 L 99 09/18/16 06:00 09/18/16 06:00 09/18/16 06:00 09/18/16 06:00 09/18/16 06:00 Microbiology 09/15/16 13:40 - Final Sputum, Induced/Suctioned Laboratory Results 09/18/16 06:00 09/18/16 06:00 09/17/16 09/18/16 09/19/16 05:59 05:59 05:59 Intake Total 728.5 Output Total 3428 1944 Balance -3426 -1215.5 PT 20.6 SEC (12.0-15.0) H D 09/18/16 07:10 INR 1.76 (0.83-1.16) H 09/18/16 07:10 Physical Exam - Physical Exam General Appearance: no apparent distress EENT: normal ENT inspection Neck: other (clean trach) Respiratory: rales Cardiac/Chest: regular rate, rhythm Abdomen: non-tender, soft Back: Normal inspection Skin: warm/dry Lymphatic: no adenopathy Extremities: other (stable ischemic left toes and entire right foot) Neuro/Psych: cognition abnormalities ICD10 Worksheet Patient Problems: Problems Problem Status Diagnosed Acute blood loss anemia Acute Acute renal failure Acute Arterial occlusion, lower extremity Acute Leukocytosis Acute Respiratory failure with hypoxia Acute S/P CABG x 5 Acute S/P Maze operation for atrial fibrillation Acute Coronary arteriosclerosis Acute
[2016-09-18] MEDS ORDERED: LIDOCAINE 2% JELLY 5 ML TUBE TP ONE (09:29)
[2016-09-18] MEDS ORDERED: LIDOCAINE 1% 30 ML SDV MISC ONE (09:29)
[2016-09-18] MEDS: RISPERIDONE 1 MG/1 ML TUBE SCH ×2 (09:50→20:58)
[2016-09-18] MEDS: SENNOSIDES 17.6 MG/10 ML UDL TUBE SCH ×2 (09:50→20:58)
[2016-09-18] MEDS: LANSOPRAZOLE SUSP 30MG/10ML UDSYR (Adult) TUBE SCH (09:50)
--- NOTE | 2016-09-18 09:57 | SOAPPROG ---
SOAP Progress Note Assessment/Plan: POD#28 CABGx5 (GANN-LCX, EBONY-D1, SVG-LAD, Sequential SVG-PDA-PLR), Padilla-Maze IV Left/Right lesions. POD#12 Tracheostomy, RIJ dialysis cath Nutrition per [facility]. IV access per LUE PICC. Sx CAD with ISCM (EF 40-45%) - s/p CABGx5 with bilateral mammaries. Early postop course complicated by cardiogenic shock with multi-organ dysfx, severe MR , and peripheral vasoconstriction. Resp arrest on 12/12 precipitated by AF/RVR with hypotension and subsequent renal failure requiring HD. Condition critical. Code status adjusted to no CPR per family wishes. Long-standing persistent atrial fibrillation s/p Padilla-Maze IV. Recurrent PAF/ PSVT as of POD#11. Now in SR. Surgical antithrombotic prophylaxis w DAPT when appropriate. Ventilator dependent respiratory failure s/p tracheostomy with E. faecalis PNA. Vent management, Abx and therapeutic bronchs per Pulm. Bronch today revealed thick secretions in right lung. Cultures re-sent. Postoperative renal failure - Secondary to shock and ATN. Nephrology managing CRRT. Currently on SCUF Intermittent melena/BRBPR - GI consulted. Endoscopic eval deferred. Last blood in stool 08/13. Anemia secondary to acute blood loss, coagulopathy, chronic illness. Transfuse PRN. Post-op moderate-severe MR - Functional. Valve structurally intact by serial echos. Cath neg for compromised paras flow or RHF. Surg repair deferred. 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 HIT panel sent to outside facility pending. Postoperative pedal ischemia - Vasospasm compl by sm vessel thrombosis below ankle level. Demarcating rt forefoot and left toes. Contrast imaging as allowed by renal fx. Dr. Levy following for eventual amputation. Persistent leukocytosis - + E. faecalis PNA. Blood cultures today. Consider line change. Last dose of Invanz Friday. ID consult pending today for ABX choice. Subcutaneous emphysema - Onset 09/15 with crepitus noted right face, right neck , right infra-clavicular. CXR confirmed presence of subcut air, no PTX. Tidal volume on vent decreased. Clinically improved today. Monitor. 09/18/16 10:48 Subjective: Obtunded Objective: Vital Signs Temp Pulse Resp BP Pulse Ox 36.4 C 96 24 H 87/54 L 99 09/18/16 06:00 09/18/16 06:00 09/18/16 06:00 09/18/16 06:00 09/18/16 06:00 Microbiology 09/15/16 13:40 - Final Sputum, Induced/Suctioned Laboratory Results 09/18/16 06:00 09/18/16 06:00 09/17/16 09/18/16 09/19/16 05:59 05:59 05:59 Intake Total 728.5 Output Total 3426 1944 Balance -3426 -1215.5 PT 20.6 SEC (12.0-15.0) H D 09/18/16 07:10 INR 1.76 (0.83-1.16) H 09/18/16 07:10 Physical Exam - Physical Exam General Appearance: no apparent distress, obtunded, cachetic, thin Neck: other (RIJ HD cath / Trachesotomy in place) Respiratory: No respiratory distress Cardiac/Chest: regular rate, rhythm Abdomen: non-tender, soft Skin: warm/dry, pallor Extremities: No pedal edema, No swelling Neuro/Psych: motor weakness, sensory deficit ICD10 Worksheet Patient Problems: Problems Problem Status Diagnosed Acute blood loss anemia Acute Acute renal failure Acute Arterial occlusion, lower extremity Acute Leukocytosis Acute Respiratory failure with hypoxia Acute S/P CABG x 5 Acute S/P Maze operation for atrial fibrillation Acute Coronary arteriosclerosis Acute
[2016-09-18] MEDS: HALOPERIDOL LACT 5 MG/ML INJ IVP PRN ×2 (10:22→19:44)
--- NOTE | 2016-09-18 10:24 | GPN ---
[f rep st] PROCEDURE NOTE DATE OF PROCEDURE: 09/18/2016 PROCEDURE: Fiberoptic bronchoscopy. BRONCHOSCOPIST: Johnny Elliott MD PREOPERATIVE DIAGNOSES: Right pneumonia. POSTOPERATIVE DIAGNOSIS: Right-sided pneumonia. INDICATIONS FOR PROCEDURE: New right-sided pulmonary infiltrate in this patient who is post coronary artery bypass graft. SUMMARY: The entire procedure was done in the Intensive Care Unit, room 250, after determining that there was no need for negative-pressure room. A proper time-out was done prior to the procedure. Th e patient received no supplemental conscious sedation during the procedure. The fiberoptic bronchosc ope was inserted through the existing tracheostomy tube. Immediately on entering the trachea, there were thick, tenacious secretions present. These were suctioned until the trachea was as clear as po ssible. The becky was somewhat swollen and irritated from previous suctioning through the tracheost monika tube. The right lung had a moderate amount of very thick, tenacious secretions, and these were s uctioned and sent for culture and sensitivity. The left lung had a small amount of secretions. No e ndobronchial lesions were seen. There was no bleeding from the procedure. The patient tolerated the procedure well and is being recovered in room 250. /[id number]/MODL
[2016-09-18 11:10] LABS: IONIZED CALCIUM 1.13 MMOL/L (1.12-1.30)
--- NOTE | 2016-09-18 12:58 | SOAPPROG ---
SOAP Progress Note Assessment/Plan: Assessment: 1. RAHEL/MOD Multiple issues. BP lower, and back on Norepi. Feet necrotic, worsening R sided VAP. ID to see. 2. Hypotension Looks fairly dry. Will fluid challenge. 3. RAHEL Remains on CRRT, which is functioning well. Ca levels good. Continue at net even UF. May begin running net positive if he responds to fluids. 4. Continuing tube feeds with H2O flushes Reviewed clinical picture with and son. Subjective: Some deterioration. Objective: Vital Signs Temp Pulse Resp BP Pulse Ox 36.8 C 106 H 25 H 84/54 L 93 09/18/16 11:26 09/18/16 11:26 09/18/16 11:26 09/18/16 11:26 09/18/16 11:26 Microbiology 09/15/16 13:40 - Final Sputum, Induced/Suctioned Laboratory Results 09/18/16 06:00 09/18/16 06:00 09/17/16 09/18/16 09/19/16 05:59 05:59 05:59 Intake Total 728.5 Output Total 3426 1944 Balance -3426 -1215.5 PT 20.6 SEC (12.0-15.0) H D 09/18/16 07:10 INR 1.76 (0.83-1.16) H 09/18/16 07:10 Physical Exam - Physical Exam General Appearance: other (sedated) Neck: other (line site ok) Respiratory: lungs clear Cardiac/Chest: tachycardia Abdomen: normal bowel sounds, soft Male Genitalia: other (fall) Extremities: other (necrotic feet noted) ICD10 Worksheet Patient Problems: Problems Problem Status Diagnosed Acute blood loss anemia Acute Acute renal failure Acute Arterial occlusion, lower extremity Acute Leukocytosis Acute Respiratory failure with hypoxia Acute S/P CABG x 5 Acute S/P Maze operation for atrial fibrillation Acute Coronary arteriosclerosis Acute
[2016-09-18 13:35] LABS: ANION GAP 11 mEq/L (8-16); CALCIUM 9.2 mg/dL (8.5-10.4); CARBON DIOXIDE 26 mEq/l (22-31); CHLORIDE 104 mEq/L (97-110); CREATININE 0.8 mg/dL (0.7-1.3); GLOMERULAR FILTRATION RATE > 60; GLUCOSE 106 mg/dL (70-100); MAGNESIUM 2.3 mg/dL (1.6-2.3); POTASSIUM 3.7 mEq/L (3.5-5.2); SODIUM 141 mEq/L (134-144)
[2016-09-18] MEDS: PIPERACILLIN/TAZO 3.375 GM/DEX 50 ML IV SCH (17:35)
--- NOTE | 2016-09-18 18:31 | GCON ---
[f rep st] CONSULTATION INPATIENT INFECTIOUS DISEASE CONSULTATION REFERRING PHYSICIAN: Johnny Elliott MD REASON FOR CONSULTATION: Pneumonia and leukocytosis. HISTORY OF PRESENT ILLNESS: Patient is a 66-year-old male, who was admitted to [facility] on 08/21/2016 secondary to coronary artery disease. On that date, he underwent a 5-vessel bypa ss and Maze procedure. He recovered initially uneventfully, but began having complications including significant mitral valve regurgitation a few days after surgery. This led to bilateral infiltrates consistent with pulmonary edema. His white blood cell count vacillated over time in the 3 weeks foll owing surgery. Ultimately, it has been running in the 20,000 to 30,000 range. He was begun on ertap enem on 09/12/2016 and this was discontinued on 09/16/2016. There was no clear change in white blood cell count or bilateral infiltrates seen on chest x-ray. Bronchoscopy was performed on 09/18/2016, which revealed purulence in the right side. Culture results from induced sputum on 09/15/2016 are gr owing Enterococcus faecalis. We are consulted to help guide therapy. PAST MEDICAL HISTORY: 1. Coronary artery disease. 2. Atrial fibrillation. 3. Hyperlipidemia. 4. Hypertension. 5. Myocardial infarction. 6. Prostate cancer. 7. Depression. 8. Thrombocytopenia, possibly heparin-induced. 9. Mitral valve regurgitation. PAST SURGICAL HISTORY: 1. Status post 5-vessel coronary artery bypass grafting. 2. Status post previous stent procedures. 3. Status post Maze procedure. ANTIBIOTICS: None currently, recent ertapenem course. ALLERGIES: No known drug allergies. SOCIAL HISTORY: Patient is . Unable to elicit tobacco, alcohol, or drug use. FAMILY HISTORY: Noncontributory. REVIEW OF SYSTEMS: Other than that detailed above in history of present illness, comprehensive 10 sy stem review is negative. PHYSICAL EXAMINATION: VITAL SIGNS: Temperature maximum is 36.9, temperature current is 36.9, heart rate is 99, respiratory rate is 20, blood pressure is 87/57. GENERAL: Patient is a critically ill-a ppearing male, in mild distress. He is toxic in appearance. He is alert, but noncommunicative, uncl ear orientation. HEENT: Normocephalic, atraumatic. No scleral icterus. No oral lesions, although does have a white coating on his tongue and palate area. No drainage from the nares. Eyes: Lids an d conjunctivae within normal limits. Pupils are equally round bilaterally. NECK: Supple without me ningismus. LUNGS: Scattered crackles bilaterally. Good effort. HEART: Regular rate, borderline t achycardia, sinus rhythm with occasional ectopy. Patient with mild systolic murmur. ABDOMEN: Soft, nontender. No masses. SKIN: Warm and dry to the touch. No rash or lesion is seen. NEURO: Crani al nerves 2-12 seem to be intact. Peripheral sensation seems intact as well. LABORATORY DATA: Patient has a CBC dated 09/18/2016 shows white blood cell count of 32.4, hemoglobin of 11.0, hematocrit of 34.3, platelet count of 151. Serum chemistries on 09/18/2016 are all within normal limits, apart from an elevated BUN of 30. Creatinine is 0.8. C difficile toxin PCR is negati ve on 09/05/2016. Hepatitis panels are negative. Microbiologic data: Patient had blood cultures on 08/28/2016, which were negative. The patient had recent blood cultures on 09/18/2016, which are pending. Sputum sample dated 09/15/2016 w as growing mixed oropharyngeal rupa including 3+ Enterococcus faecalis. ASSESSMENT: Leukocytosis with bilateral infiltrates, status post acute mitral valve insufficiency fo llowing 5-vessel bypass and Maze procedure. Patient's white blood cell count around 30,000. Afebril e, although this may be suppressed secondary to CRRT hemodialysis. Would entertain empiric Zosyn cou rse at 3.375 g IV q.6 hours, which is appropriate dosing for CRRT according to Pharmacy. We will see if this changes any appearance in the lung infiltrates or white cell count elevation. Given the ove rall picture, I am more concerned that the bilateral infiltrates are waxing and waning pulmonary adelina a issues. The finding of purulence however, on the bronchoscopy would go against this. The persiste nt elevation in white blood cell count may represent a leukemoid response as opposed to true inflamma tory reactivity. Time will tell. PLAN: 1. Start Zosyn 3.375 g IV q.6 hours, duration of 7 days. 2. Follow respiratory status and vital signs, including laboratory values. 3. Follow his clinical course. /[id number]/MODL
[2016-09-18 18:37] LABS: IONIZED CALCIUM 1.23 MMOL/L (1.12-1.30)
[2016-09-18 20:21] LABS: ANION GAP 10 mEq/L (8-16); CALCIUM 9.2 mg/dL (8.5-10.4); CARBON DIOXIDE 23 mEq/l (22-31); CHLORIDE 106 mEq/L (97-110); CREATININE 0.8 mg/dL (0.7-1.3); GLOMERULAR FILTRATION RATE > 60; GLUCOSE 116 mg/dL (70-100); MAGNESIUM 1.9 mg/dL (1.6-2.3); POTASSIUM 4.3 mEq/L (3.5-5.2); SODIUM 139 mEq/L (134-144)
[2016-09-18] MEDS: MELATONIN 3 MG TAB TUBE SCH (20:57)
[2016-09-19] MEDS: HALOPERIDOL LACT 5 MG/ML INJ IVP PRN ×3 (00:14→20:48)
[2016-09-19] MEDS: PIPERACILLIN/TAZO 3.375 GM/DEX 50 ML IV SCH ×5 (00:14→23:23)
[2016-09-19 00:45] LABS: IONIZED CALCIUM 1.38 MMOL/L (1.12-1.30)
[2016-09-19] MEDS: CALCIUM CHLORIDE 5.7 GM in NS 1,000 ML IV SCH (00:46)
[2016-09-19] MEDS: B22GK4/0 PRISMASATE 5,000 ML DIAL SCH ×4 (00:59→22:14)
[2016-09-19 01:01] LABS: ANION GAP 8 mEq/L (8-16); CALCIUM 9.5 mg/dL (8.5-10.4); CARBON DIOXIDE 23 mEq/l (22-31); CHLORIDE 107 mEq/L (97-110); CREATININE 0.8 mg/dL (0.7-1.3); GLOMERULAR FILTRATION RATE > 60; GLUCOSE 107 mg/dL (70-100); MAGNESIUM 1.7 mg/dL (1.6-2.3); POTASSIUM 3.8 mEq/L (3.5-5.2); SODIUM 138 mEq/L (134-144)
[2016-09-19] MEDS: REPL FLUID TYPE D CAPS 1 EA in WATER FOR INJECTION,STERILE 4,000 ML DIAL SCH ×7 (01:42→23:04)
[2016-09-19] MEDS: NS 1,000 ML MISC SCH ×4 (01:42→23:43)
[2016-09-19] MEDS: MAGNESIUM SULF 2 GM/WATER 50 ML IV PRN ×2 (01:47→13:50)
[2016-09-19 05:20] LABS: BASE EXCESS -2.9 mEq/L (-2.5-2.5); BICARBONATE 22 mEq/L (22-26); IONIZED CALCIUM 1.34 MMOL/L (1.12-1.30); MEASURED OXYGEN SATURATION 92 % (92-95); O2 CONCENTRATIION 40 % (0-100); P/F RATIO 160 RATIO; PCO2 40 mmHg (34-38); PO2 64 mmHg (65-75); SIMV YES; TCO2 23 mEq/L (23-27)
[2016-09-19 05:21] LABS: PATIENT RATE 25; PRESSURE SUPPORT 12
[2016-09-19 05:58] LABS: ADD DIFF? YES; ADD SCAN? NO; ATYPICAL LYMPHOCYTE FLAG 0 (0-99); FRAGMENT RBC FLAG 20 (0-99); HEMATOCRIT 32.1 % (40.0-51.0); LEFT SHIFT FLG 20 (0-99); LIPEMIA HEMOLYSIS FLAG 80 (0-99); MEAN CELL HEMOGLOBIN 29.3 pg (27.9-34.1); MEAN CELL HEMOGLOBIN CONCENTR. 31.2 g/dL (32.4-36.7); MEAN CELL VOLUME 94.1 fL (81.5-99.8); MEAN PLATELET VOLUME 11.7 fL (8.7-11.7); PLATELET CLUMPS FLAG 0 (0-99); PLATELET COUNT 145 10^3/uL (150-400); RED BLOOD CELL COUNT 3.41 10^6/uL (4.40-6.38)
[2016-09-19 06:13] LABS: ANION GAP 7 mEq/L (8-16); CALCIUM 9.6 mg/dL (8.5-10.4); CARBON DIOXIDE 24 mEq/l (22-31); CHLORIDE 106 mEq/L (97-110); CREATININE 0.8 mg/dL (0.7-1.3); GLOMERULAR FILTRATION RATE > 60; GLUCOSE 107 mg/dL (70-100); MAGNESIUM 2.1 mg/dL (1.6-2.3); POTASSIUM 3.7 mEq/L (3.5-5.2); SODIUM 137 mEq/L (134-144)
[2016-09-19] MEDS ORDERED: SODIUM PHOS 20 MM in D5W 250 ML IV ONE (06:30)
[2016-09-19 06:34] LABS: ADD MORPH? NO; RED CELL DISTRIBUTION WIDTH 21.6 % (11.5-15.2)
[2016-09-19] MEDS: NYSTATIN SUSP 500000 UNIT/5 ML UDCUP PO SCH ×4 (06:45→20:48)
[2016-09-19 07:16] LABS: HYPOCHROMIA 1+; LARGE PLATELETS PRESENT; MACROCYTES 1+; MICROCYTES 1+; PLATELET ESTIMATE DECREASED (ADEQ)
[2016-09-19] MEDS ORDERED: LIDOCAINE 1% 30 ML SDV ONE (07:54)
[2016-09-19] MEDS ORDERED: VANCOMYCIN HCL/NORMAL SALINE 250 ML IV ONE (08:00)
--- NOTE | 2016-09-19 08:19 | DX ---
Portable Chest September 19, 2016 0722 hours History: Hypoxia. Multiple tubes and lines. Findings: Moderate-sized left pneumothorax is new, approximately 40%. Left arm PICC in the right atri um. Right internal jugular line in superior vena cava. Nasogastric tube below the diaphragm. Tracheos evaristo tube identified. Bilateral diffuse alveolar opacities suggesting ARDS. Mediastinal clips and med karrie sternotomy wires with atrial appendage clip noted. Impression: Moderate-sized left pneumothorax. ICU nurse was notified and states that they are currently placing a chest tube.
[2016-09-19] MEDS: fentaNYL 100 MCG/2 ML INJ IVP PRN ×3 (08:30→20:48)
--- NOTE | 2016-09-19 09:22 | SOAPPROG ---
SOAP Progress Note Assessment/Plan: POD#29 CABGx5 (GANN-LCX, EBONY-D1, SVG-LAD, Sequential SVG-PDA-PLR), Padilla-Maze IV Left/Right lesions. POD#13 Tracheostomy, RIJ dialysis cath Nutrition per DHT. IV access per LUE PICC. Sx CAD with ISCM (EF 40-45%) - s/p CABGx5 with bilateral mammaries. Early postop course complicated by cardiogenic shock with multi-organ dysfx, severe MR , and peripheral vasoconstriction. Resp arrest on 12/12 precipitated by AF/RVR with hypotension and subsequent renal failure requiring HD. Condition critical. Code status adjusted to no CPR per family wishes. Long-standing persistent atrial fibrillation s/p Padilla-Maze IV. Recurrent PAF/ PSVT as of POD#11. Now in SR. Surgical antithrombotic prophylaxis w DAPT when appropriate. Ventilator dependent respiratory failure s/p tracheostomy with E. faecalis PNA. Vent management, Abx and therapeutic bronchs per Pulm/ID. Zosyn day 2/7 started for 7 days. Postoperative renal failure - Secondary to shock and ATN. Nephrology managing CRRT. Currently on SCUF. Intermittent melena/BRBPR - GI consulted. Endoscopic eval deferred. Last blood in stool 08/13. Anemia secondary to acute blood loss, coagulopathy, chronic illness. Transfuse PRN. Post-op moderate-severe MR - Functional. Valve structurally intact by serial echos. Cath neg for compromised paras flow or RHF. Surg repair deferred. 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 Postoperative pedal ischemia - Vasospasm compl by sm vessel thrombosis below ankle level. Demarcating rt forefoot and left toes. Contrast imaging as allowed by renal fx. Dr. Levy following for eventual amputation. Persistent leukocytosis - + E. faecalis PNA. Blood cultures pending. Consider line change. Last dose of Invanz Friday. ID started Zosyn Q6H with vanco x 1. Subcutaneous emphysema (right face/neck/infra-clavicular) with large left-sided PTX 12/ s/p chest tube by Dr. Elliott. Tidal volume significantly lowered. Monitor. Subjective: Interactive today. Nods when asked if comfortable. Objective: Vital Signs Temp Pulse Resp BP Pulse Ox 36.5 C 101 H 24 H 107/63 98 09/19/16 06:00 09/19/16 08:31 09/19/16 08:31 09/19/16 06:00 09/19/16 08:31 Microbiology 09/15/16 13:40 - Final Sputum, Induced/Suctioned Laboratory Results 09/19/16 05:28 09/19/16 05:28 09/18/16 09/19/16 09/20/16 05:59 05:59 05:59 Intake Total 728.5 342 Output Total 1944 Balance -1215.5 342 PT 20.6 SEC (12.0-15.0) H D 09/18/16 07:10 INR 1.76 (0.83-1.16) H 09/18/16 07:10 Physical Exam - Physical Exam General Appearance: no apparent distress, cachetic, thin EENT: other (Trach intact / RIJ HD cath intact ), No scleral icterus (R), No scleral icterus (L) Respiratory: other (L CT without airleak ), No respiratory distress Cardiac/Chest: regular rate, rhythm, tachycardia Abdomen: non-tender, soft, No distended Skin: warm/dry, pallor Extremities: No pedal edema, No swelling Neuro/Psych: motor weakness, sensory deficit ICD10 Worksheet Patient Problems: Problems Problem Status Diagnosed Acute blood loss anemia Acute Acute renal failure Acute Arterial occlusion, lower extremity Acute Leukocytosis Acute Respiratory failure with hypoxia Acute S/P CABG x 5 Acute S/P Maze operation for atrial fibrillation Acute Coronary arteriosclerosis Acute
--- NOTE | 2016-09-19 09:23 | PCMIDPN ---
Assessment/Plan: 66-year-old male with CAD status post CABG who is postoperative course has been complicated by: # Sepsis secondary to bacteremia, HAP # Bacteremia, suspect enterococcus based on past cultures and gram stain appearance # Resp Failure : CHF + HAP, reviewed chest x-ray infiltrates most consistent with appearance of volume # Renal failure on crrt # Leukocytosis/bandemia Recommendation 1. Give dose of vancomycin today, hold off on scheduled dosing as CRRT may stop , suspect isolate susceptible to Zosyn as prior enterococcus isolate from respiratory sample was penicillin susceptible 2. Continue zosyn Medication Zosyn 3.375 IV Q 6, #1 Vancomycin 1 g x1 dose today Status post course of ertapenem for aspiration pneumonia Microbiology blood cultures 2 sets each day: negative 09/18 blood cultures 1 of 2 sets gram-positive cocci in pairs and chains 09/18 BAL: Gram stain negative for organisms, culture pending 09/15 respiratory aspirate: Enterococcus, penicillin susceptible Subjective: Pneumothorax identified this a.m.. Chest tube was placed Blood cultures positive overnight Objective: Vital Signs Temp Pulse Resp BP Pulse Ox 36.5 C 101 H 24 H 107/63 98 09/19/16 06:00 09/19/16 08:31 09/19/16 08:31 09/19/16 06:00 09/19/16 08:31 Microbiology 09/15/16 13:40 - Final Sputum, Induced/Suctioned 09/18/16 14:20 - Final Sputum, Induced/Suctioned Laboratory Results 09/19/16 05:28 09/19/16 05:28 09/18/16 09/19/16 09/20/16 05:59 05:59 05:59 Intake Total 728.5 342 Output Total 1944 Balance -1215.5 342 - Physical Exam General Appearance: alert Respiratory: accessory muscle use, coarse breath sounds Neck: other (Trach site c/D/I) Cardiac/Chest: tachycardia, systolic murmur, other (Left-sided chest tube placed this morning) Extremities: necrosis (Right greater than left, per nursing report slight increase in necrosis on right foot up almost to ankle), No pedal edema Abdomen: non-tender, soft Neuro/Psych: alert - Line/s LUE PICC Lines: No drainage, No erythema Patterson Lines: other (Right neck), No drainage, No erythema - Time Spent With Patient Time Spent with Patient: greater than 35 minutes Time Spent with Patient: Greater than 35 minutes spent on this patients care, greater than 50% of time spent counseling, educating, and coordinating care regarding the above mentioned plan. ICD10 Worksheet Patient Problems: Problems Problem Status Diagnosed Acute blood loss anemia Acute Acute renal failure Acute Arterial occlusion, lower extremity Acute Leukocytosis Acute Respiratory failure with hypoxia Acute S/P CABG x 5 Acute S/P Maze operation for atrial fibrillation Acute Coronary arteriosclerosis Acute
[2016-09-19] MEDS: LANSOPRAZOLE SUSP 30MG/10ML UDSYR (Adult) TUBE SCH (09:32)
[2016-09-19] MEDS: SENNOSIDES 17.6 MG/10 ML UDL TUBE SCH ×2 (09:32→20:48)
[2016-09-19] MEDS: RISPERIDONE 1 MG/1 ML TUBE SCH (09:32)
[2016-09-19] MEDS: POTASSIUM Cl (KCl) 100 ML IV PRN ×4 (09:32→16:33)
--- NOTE | 2016-09-19 09:37 | DX ---
Portable AP Semiupright Chest September 19, 2016 9:14 a.m. Clinical History: 66-year-old male in the ICU, status post chest tube placement. Comparison Study: Chest radiography from earlier this morning at 7:22 a.m. Findings: In the interim, a left-sided chest tube has been placed, which terminates in the left apex, and there has been near complete reexpansion of the lung and resolution of the previously noted mode rate-sized left-sided pneumothorax. There is a tiny residual component of air in the pleural space in the medial left apex and at the lateral left costophrenic angle. There is some mild left-sided subcu taneous emphysema. The tracheostomy tube, right IJ central venous catheter, left-sided PICC line, Matewan feed tube, median sternotomy wires, mediastinal surgical clips, and left atrial appendage ligature ar e stable in position. Telemetry monitoring lead lines are present. The cardiac silhouette is borderli ne-enlarged with a left ventricular configuration. Diffuse bilateral interstitial alveolar infiltrate s (consistent with ARDS) are once again seen. Impression: Significant interval improvement with near-complete reexpansion of the left lung followin g a left-sided chest tube placement, compared to 7:22 a.m.
--- NOTE | 2016-09-19 09:40 | PDINTPN ---
Family And Consumer Science Professor Progress Note Assessment/Plan: Assessment: #CABG X 5 and MAZE. #Respiratory failure with a trach, on SIMV at 500ml TV and rate of 22 and 45% FI02 #Pneumonia on the right less on the left on today's CXR. Sputum + for enterococcus #SQ emphysema and pneumomediastinum, no evidence of a PTX on CXR, but he is at high risk of that needing vent support #Agitation, much improved. 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 Surgery did say it is OK to allow him to stand with his ischemic right foot and all toes. It looks to me like he will lose most or all of his toes and perhaps his right foot. Try to taper levophed, and if possible may be able to move to intermittent dialysis, which would help with movement etc. Will try to lower vent TV and PIP to reduce chance of pneumothorax 09/19/16 09:38 Subjective: Less responsive today Objective: Vital Signs Temp Pulse Resp BP Pulse Ox 36.5 C 101 H 24 H 107/63 98 09/19/16 06:00 09/19/16 08:31 09/19/16 08:31 09/19/16 06:00 09/19/16 08:31 Microbiology 09/18/16 14:20 - Final Sputum, Induced/Suctioned Sputum Culture - Final 09/18/16 14:20 Gram Stain - Final Lung Right Lower Lobe - Bronchial Washings 09/15/16 13:40 - Final Sputum, Induced/Suctioned Laboratory Results 09/19/16 05:28 09/19/16 05:28 09/18/16 09/19/16 09/20/16 05:59 05:59 05:59 Intake Total 728.5 342 Output Total 1944 Balance -1215.5 342 PT 20.6 SEC (12.0-15.0) H D 09/18/16 07:10 INR 1.76 (0.83-1.16) H 09/18/16 07:10 Physical Exam - Physical Exam General Appearance: no apparent distress EENT: normal ENT inspection Neck: other (trach) Respiratory: rhonchi Cardiac/Chest: regular rate, rhythm Abdomen: non-tender, soft Back: Normal inspection Skin: warm/dry Lymphatic: no adenopathy Extremities: non-tender, No pedal edema Neuro/Psych: cognition abnormalities ICD10 Worksheet Patient Problems: Problems Problem Status Diagnosed Acute blood loss anemia Acute Acute renal failure Acute Arterial occlusion, lower extremity Acute Leukocytosis Acute Respiratory failure with hypoxia Acute S/P CABG x 5 Acute S/P Maze operation for atrial fibrillation Acute Coronary arteriosclerosis Acute
--- NOTE | 2016-09-19 09:56 | GPN ---
[f rep st] PROCEDURE NOTE DATE OF PROCEDURE: 09/19/2016 PROCEDURE: Left chest tube placement. INDICATION FOR PROCEDURE: Large left pneumothorax. POSTOPERATIVE DIAGNOSIS: Resolution of the pneumothorax with good chest tube placement on chest x-ra y. SUMMARY: The entire procedure was done in room 250 of the intensive care unit after a proper time-ou t was performed to identify the side and the patient. The patient is comatose, on the ventilator, an d a consent was implied because of the emergency situation. The left chest was prepped and draped in the usual fashion with sterilized skin. A full body drape was used, and gown, hat, gloves, and mask were used by me. The left 6th rib was identified. 2% lidocaine was instilled superior to the rib. A #11 blade was used to make a small incision next to the rib. Blunt dissection was carried out to the pleural space, and air was obtained to confirm proper location. A 24 chest tube was then placed superior to the rib and advanced to the apex. The chest tube was sutured in place. There was no blo od loss. The patient is to have a chest x-ray to confirm proper position. /[id number]/MODL
--- NOTE | 2016-09-19 10:31 | SOAPPROG ---
SOAP Progress Note Assessment/Plan: Assessment: 1. Multiorgan failure after CABG 2. Thrombocytopenia - ?HIT 3. Bilateral lower extremity gangrene Platelet count has recovered. Unclear if the patient actually has HIT - he had 3 negative antibody tests and a negative serotonin release assay. Clinically this appears to be reactive thrombocytopenia in a critically ill patient rather than HIT. Either way, his platelet count has recovered and the argatroban can be converted to Coumadin if desired. Would be safer to avoid heparin products in the future given the uncertainty about the HIT diagnosis and the history of thrombosis. Plan: - convert argatroban to coumadin -our service will sign off at this point. please reconsult for additional questions or issues. 09/16/16 11:20 09/19/16 10:29 Subjective: intubated, sedated Objective: exam unchanged no stigmata of recent bleeding Vital Signs Temp Pulse Resp BP Pulse Ox 36.5 C 101 H 24 H 107/63 98 09/19/16 06:00 09/19/16 08:31 09/19/16 08:31 09/19/16 06:00 09/19/16 08:31 Microbiology 09/18/16 14:20 - Final Sputum, Induced/Suctioned Sputum Culture - Final 09/18/16 14:20 Gram Stain - Final Lung Right Lower Lobe - Bronchial Washings 09/15/16 13:40 - Final Sputum, Induced/Suctioned Laboratory Results 09/19/16 05:28 09/19/16 05:28 09/18/16 09/19/16 09/20/16 05:59 05:59 05:59 Intake Total 728.5 342 Output Total 1944 Balance -1215.5 342 PT 20.6 SEC (12.0-15.0) H D 09/18/16 07:10 INR 1.76 (0.83-1.16) H 09/18/16 07:10 ICD10 Worksheet Patient Problems: Problems Problem Status Diagnosed Acute blood loss anemia Acute Acute renal failure Acute Arterial occlusion, lower extremity Acute Leukocytosis Acute Respiratory failure with hypoxia Acute S/P CABG x 5 Acute S/P Maze operation for atrial fibrillation Acute Coronary arteriosclerosis Acute
[2016-09-19 12:23] LABS: IONIZED CALCIUM 1.29 MMOL/L (1.12-1.30)
[2016-09-19 12:57] LABS: ANION GAP 10 mEq/L (8-16); CARBON DIOXIDE 24 mEq/l (22-31); CHLORIDE 106 mEq/L (97-110); CREATININE 0.8 mg/dL (0.7-1.3); GLOMERULAR FILTRATION RATE > 60; GLUCOSE 117 mg/dL (70-100); MAGNESIUM 1.7 mg/dL (1.6-2.3); POTASSIUM 3.7 mEq/L (3.5-5.2); SODIUM 140 mEq/L (134-144)
--- NOTE | 2016-09-19 13:48 | WOCRNPDOC ---
WON Advanced Assessment Note - Skin Integrity Problem, Advanced Assess Nose Dressing Type: Open to Air Exudate Amount: None Wound Bed Constitution: Stable Eschar Pressure Injury Stage: Unstageable Skin Integrity Problem Comment: Stable/unchanged. Coccyx Pressure Injury Dressing Type: Allevyn Life Dressing Description: Clean/Dry, Intact Integumentary Issue Intervention: Visualized Under Dressing Rosa Wound Tissue: Erythema Wound Bed Color: Hershey, Yellow Wound Bed Constitution: Smooth Tissue Site Measurement - Head-to-Toe Length X Width X Depth (cm): 1.2x1.2x0.3 Pressure Injury Stage: Stage 3 Pressure Injury Present on Admit: No Skin Integrity Problem Comment: Wound is worsening since assessment on Friday. Must consistently turn patient side to side. Due to respritory status patient's head of bed is kept round 45 degrees which is contributing to the shearing forces on the tissue. Will order clinitron mattress for patient. Located a non recalled TAPS system to help with offloading. Wound care will round again Saturday 09/23. Reported findings to Pranav RN, Pam RN, Trinidad Jones RN, Priscila DE. Mouth Pressure Injury Dressing Type: Open to Air Exudate Amount: None Wound Bed Color: Black, Brown, Yellow Pressure Injury Stage: Mucosal Pressure Injury, Insurance Account Specialist Related Pressure Injury Skin Integrity Problem Comment: Wound bed with moist eschar with a center of yellow slough. Dimensions unchanged since assessment friday.
--- NOTE | 2016-09-19 14:59 | SOAPPROG ---
SOAP Progress Note Assessment/Plan: Assessment/Plan: RAHEL: likely 2/2 ATN. - Will continue CRRT. - Ok to continue to give fluids while on CRRT. Hypovolemia: giving fluid while on CRRT. Shock: pt remains on Levophed, getting fluids. Subjective: This am, pt with large pneumothorax, had CT placed with air and 1800ml fluid removed. He is now stable, remains on same dose of Levophed. Getting 100ml/hr fluid while on CRRT. Objective: Vital Signs Temp Pulse Resp BP Pulse Ox 36.5 C 100 26 H 107/63 94 09/19/16 06:00 09/19/16 11:37 09/19/16 11:37 09/19/16 06:00 09/19/16 11:37 Microbiology 09/18/16 14:20 Gram Stain - Final Lung Right Lower Lobe - Bronchial Washings 09/18/16 14:20 - Final Sputum, Induced/Suctioned Sputum Culture - Final 09/15/16 13:40 - Final Sputum, Induced/Suctioned Laboratory Results 09/19/16 05:28 09/19/16 12:04 09/18/16 09/19/16 09/20/16 05:59 05:59 05:59 Intake Total 728.5 342 Output Total 1944 Balance -1215.5 342 PT 20.6 SEC (12.0-15.0) H D 09/18/16 07:10 INR 1.76 (0.83-1.16) H 09/18/16 07:10 General: awake, alert, no acute distress Eyes: EOMI, PERRL Neck: trached CV: RRR Resp: trached on vent Abd: Soft, NT/ND Ext: no edema Skin: dusky toes bilaterally Access: R IJ temp cath Neuro: CN II-XII grossly intact ICD10 Worksheet Patient Problems: Problems Problem Status Diagnosed Acute blood loss anemia Acute Acute renal failure Acute Arterial occlusion, lower extremity Acute Leukocytosis Acute Respiratory failure with hypoxia Acute S/P CABG x 5 Acute S/P Maze operation for atrial fibrillation Acute Coronary arteriosclerosis Acute
[2016-09-19] MEDS ORDERED: ALBUMIN 5% 250 ML IV ONE (15:46)
[2016-09-19] MEDS: ARGATROBAN 100 MG in NS 100 ML IV SCH (16:33)
[2016-09-19 18:16] LABS: IONIZED CALCIUM 1.25 MMOL/L (1.12-1.30)
[2016-09-19 18:57] LABS: ANION GAP 10 mEq/L (8-16); CALCIUM 9.1 mg/dL (8.5-10.4); CARBON DIOXIDE 25 mEq/l (22-31); CHLORIDE 104 mEq/L (97-110); CREATININE 0.8 mg/dL (0.7-1.3); GLOMERULAR FILTRATION RATE > 60; GLUCOSE 105 mg/dL (70-100); MAGNESIUM 2.2 mg/dL (1.6-2.3); POTASSIUM 4.6 mEq/L (3.5-5.2); SODIUM 139 mEq/L (134-144)
[2016-09-19] MEDS ORDERED: ALBUMIN 5% 500 ML BOTTLE IV ONE (19:12)
[2016-09-19 19:34] LABS: BASE EXCESS -5.5 mEq/L (-2.5-2.5); BICARBONATE 21 mEq/L (22-26); MEASURED OXYGEN SATURATION 95 % (92-95); PCO2 52 mmHg (34-38); PO2 82 mmHg (65-75); TCO2 23 mEq/L (23-27)
[2016-09-19 19:35] LABS: PATIENT RATE 24; PRESSURE SUPPORT 12; SIMV YES
[2016-09-19 19:36] LABS: O2 CONCENTRATIION 50 % (0-100); P/F RATIO 164 RATIO
[2016-09-19] MEDS: NOREPINEPHRINE BITARTRATE 16 MG in D5W 250 ML IV SCH (20:30)
[2016-09-19] MEDS: MELATONIN 3 MG TAB TUBE SCH (20:49)
[2016-09-19] MEDS: risperiDONE 1 MG TAB PO SCH (20:49)
[2016-09-19 20:59] LABS: PCO2 VENOUS 50 mmHg (40-44); PH VENOUS BLOOD 7.26 (7.31-7.42); PO2 VENOUS 75 mmHg (35-40); TCO2 VENOUS 23 mEq/L (23-27); VEN MEASURED OXYGEN SATURATION 94 % (65-75)
[2016-09-19] MEDS ORDERED: ALBUMIN 5% 500 ML IV ONE (21:00)
[2016-09-19 21:39] LABS: BASE EXCESS -2.1 mEq/L (-2.5-2.5); BICARBONATE 24 mEq/L (22-26); MEASURED OXYGEN SATURATION 97 % (92-95); PCO2 48 mmHg (34-38); PO2 92 mmHg (65-75); TCO2 25 mEq/L (23-27)
[2016-09-19 21:40] LABS: END TIDAL CO2 29; PATIENT RATE 30; SIMV YES
[2016-09-19 21:41] LABS: PRESSURE SUPPORT 12
--- NOTE | 2016-09-19 22:17 | DX ---
Portable Chest September 19, 2016 at 2146 hours History: ICU patient, with chest tube and pneumothorax. Comparison: Portable chest the same day at 0914 hours. Findings: Right internal jugular central venous catheter, left PICC, and left chest tube tips are in stable position. Endotracheal tube and feeding tube are in stable position. A small left apical pn eumothorax is not significantly changed. Diffuse bilateral pulmonary opacities, most prominent in th e lateral right lung and right lung base and left lung base, are stable. Borderline cardiomegaly is stable. Left atrial appendage clip is noted. Sternotomy wires, with fracture of the superior-most s ternotomy wire again noted. Subcutaneous emphysema is stable. Impressions 1. Stable small left apical pneumothorax, with a left chest tube in stable position. 2. Stable diffuse consolidation suggesting ARDS.
[2016-09-20] MEDS: CALCIUM CHLORIDE 5.7 GM in NS 1,000 ML IV SCH ×3 (00:06→18:57)
[2016-09-20 00:18] LABS: IONIZED CALCIUM 1.23 MMOL/L (1.12-1.30)
[2016-09-20 00:50] LABS: CALCIUM 8.9 mg/dL (8.5-10.4); CARBON DIOXIDE 26 mEq/l (22-31); CREATININE 0.8 mg/dL (0.7-1.3); GLOMERULAR FILTRATION RATE > 60; GLUCOSE 118 mg/dL (70-100); MAGNESIUM 1.8 mg/dL (1.6-2.3); POTASSIUM 4.3 mEq/L (3.5-5.2); SODIUM 142 mEq/L (134-144)
[2016-09-20 00:59] LABS: ANION GAP 9 mEq/L (8-16); CHLORIDE 107 mEq/L (97-110)
[2016-09-20] MEDS: B22GK4/0 PRISMASATE 5,000 ML DIAL SCH ×6 (01:37→23:37)
[2016-09-20] MEDS: REPL FLUID TYPE D CAPS 1 EA in WATER FOR INJECTION,STERILE 4,000 ML DIAL SCH ×7 (01:37→22:08)
[2016-09-20] MEDS: HALOPERIDOL LACT 5 MG/ML INJ IVP PRN ×3 (03:51→20:47)
[2016-09-20 04:44] LABS: BASE EXCESS -3.6 mEq/L (-2.5-2.5); BICARBONATE 22 mEq/L (22-26); IONIZED CALCIUM 1.25 MMOL/L (1.12-1.30); MEASURED OXYGEN SATURATION 95 % (92-95); TCO2 24 mEq/L (23-27)
[2016-09-20 04:49] LABS: END TIDAL CO2 26; PCO2 45 mmHg (34-38); PO2 74 mmHg (65-75); SIMV YES
[2016-09-20 04:50] LABS: O2 CONCENTRATIION 50 % (0-100); P/F RATIO 148 RATIO; PATIENT RATE 32; PRESSURE SUPPORT 12
[2016-09-20] MEDS: PIPERACILLIN/TAZO 3.375 GM/DEX 50 ML IV SCH ×3 (05:25→17:21)
[2016-09-20] MEDS: NYSTATIN SUSP 500000 UNIT/5 ML UDCUP PO SCH ×4 (05:25→20:28)
[2016-09-20 05:48] LABS: % IMMATURE GRANULYOCYTES 0.9 % (0.0-1.1); HEMATOCRIT 27.5 % (40.0-51.0); HEMOGLOBIN 8.9 g/dL (13.7-17.5); MEAN CELL HEMOGLOBIN 30.2 pg (27.9-34.1); MEAN CELL HEMOGLOBIN CONCENTR. 32.4 g/dL (32.4-36.7); MEAN CELL VOLUME 93.2 fL (81.5-99.8); MEAN PLATELET VOLUME 11.1 fL (8.7-11.7); PLATELET COUNT 146 10^3/uL (150-400); RED BLOOD CELL COUNT 2.95 10^6/uL (4.40-6.38)
[2016-09-20 05:49] LABS: ABSOLUTE IMMATURE GRANULOCYTES 0.19 10^3/uL (0.00-0.10); ADD DIFF? NO; ADD MORPH? YES; ADD SCAN? NO; ATYPICAL LYMPHOCYTE FLAG 0 (0-99); FRAGMENT RBC FLAG 20 (0-99); LEFT SHIFT FLG 10 (0-99); LIPEMIA HEMOLYSIS FLAG 80 (0-99); PLATELET CLUMPS FLAG 10 (0-99); RED CELL DISTRIBUTION WIDTH 21.5 % (11.5-15.2)
[2016-09-20 05:54] LABS: INR 3.77 (0.83-1.16); PROTIME(PATIENT) 37.9 SEC (12.0-15.0)
[2016-09-20 05:55] LABS: APTT 71.9 SEC (23.0-38.0)
[2016-09-20 06:16] LABS: CARBON DIOXIDE 25 mEq/l (22-31); CHLORIDE 105 mEq/L (97-110); CREATININE 0.9 mg/dL (0.7-1.3); GLOMERULAR FILTRATION RATE > 60; PLATELET ESTIMATE ADEQUATE (ADEQ)
[2016-09-20 06:18] LABS: LARGE PLATELETS PRESENT; MICROCYTES 1+
[2016-09-20 06:19] LABS: HYPOCHROMIA 1+
[2016-09-20 06:28] LABS: ANION GAP 10 mEq/L (8-16); CALCIUM 9.1 mg/dL (8.5-10.4); GLUCOSE 144 mg/dL (70-100); MAGNESIUM 1.7 mg/dL (1.6-2.3); POTASSIUM 4.2 mEq/L (3.5-5.2); SODIUM 140 mEq/L (134-144)
[2016-09-20] MEDS: MAGNESIUM SULF 2 GM/WATER 50 ML IV PRN (06:37)
--- NOTE | 2016-09-20 07:59 | PDINTPN ---
Table Runner Progress Note Assessment/Plan: Assessment: #CABG X 5 and MAZE. #Respiratory failure with a trach, on SIMV at 500ml TV and rate of 32 and 45% FI02 #Pneumonia on the right is stable on CXR. Sputum + for enterococcus. #Blood culture positive 1/2 for gram + cocci through the PICC line, should be identified today. #Agitation, much improved. 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 His BP did respond briefly to IV albumin. Will repeat albumin Check thyroid, testosterone, and cortisol Left chest tube He is very anxious at home according to his , and now is very nervous He wants to stand, but has been too weak to do it. Surgery did say it is OK to allow him to stand with his ischemic right foot and all toes. It looks to me like he will lose most or all of his toes and perhaps his right foot. Will try to lower vent TV and PIP to reduce chance of pneumothorax 09/20/16 08:04 Subjective: More awake Objective: Vital Signs Temp Pulse Resp BP Pulse Ox 36.4 C 101 H 27 H 91/53 L 94 09/20/16 07:00 09/20/16 07:00 09/20/16 07:00 09/20/16 07:00 09/20/16 07:00 Microbiology 09/15/16 13:40 - Final Sputum, Induced/Suctioned Sputum Culture - Final Enterococcus Faecalis 09/18/16 14:20 Gram Stain - Final Lung Right Lower Lobe - Bronchial Washings 09/18/16 14:20 - Final Sputum, Induced/Suctioned Sputum Culture - Final Laboratory Results 09/20/16 05:35 09/20/16 05:35 09/19/16 09/20/16 09/21/16 05:59 05:59 05:59 Intake Total 342 1790 Output Total 1950 Balance 342 -160 PT 37.9 SEC (12.0-15.0) H D 09/20/16 05:35 INR 3.77 (0.83-1.16) H 09/20/16 05:35 Physical Exam - Physical Exam General Appearance: mild distress EENT: normal ENT inspection Neck: other (trach clean) Respiratory: rales, rhonchi Cardiac/Chest: regular rate, rhythm Abdomen: non-tender, soft Back: Normal inspection Skin: warm/dry Lymphatic: no adenopathy Extremities: non-tender, other (ischemic toes and right foot unchanged), No pedal edema Neuro/Psych: alert ICD10 Worksheet Patient Problems: Problems Problem Status Diagnosed Acute blood loss anemia Acute Acute renal failure Acute Arterial occlusion, lower extremity Acute Leukocytosis Acute Respiratory failure with hypoxia Acute S/P CABG x 5 Acute S/P Maze operation for atrial fibrillation Acute Coronary arteriosclerosis Acute
[2016-09-20] MEDS ORDERED: ALBUMIN 5% 250 ML IV ONE (08:00)
--- NOTE | 2016-09-20 08:41 | DX ---
Single Frontal Chest September 20, 2016 Indication: follow up pneumothorax. Comparison: September 19, 2016. Findings: Small left apical pneumothorax and left chest tube are in stable position. The PICC, right IJ central line, tracheostomy tube, and feeding tube are unchanged and stable. Mediastinal wires and clips are unchanged and stable. Diffuse interstitial disease and right-sided effusion are unchanged. Impression: 1. Multiple lines and tubes in stable position. 2. Unchanged diffuse infiltrates.
[2016-09-20] MEDS: LANSOPRAZOLE SUSP 30MG/10ML UDSYR (Adult) TUBE SCH (09:34)
--- NOTE | 2016-09-20 09:57 | SOAPPROG ---
SOAP Progress Note Assessment/Plan: Assessment: POD#30 CABGx5 (GANN-LCX, EBONY-D1, SVG-LAD, Sequential SVG-PDA-PLR), Padilla-Maze IV Left/Right lesions. POD#16 Tracheostomy, RIJ dialysis cath. POD#1 Left chest tube. Nutrition per DHT. IV access per LUE PICC. Sx CAD with ISCM (EF 40-45%) - s/p CABGx5 with bilateral mammaries. Small and diffusely diseased target vessels. Early postop course complicated by cardiogenic shock with multi-organ dysfx, severe MR, and peripheral vasoconstriction. Hemodynamics stabilized on vasoactive support w temporary improvement in hepatorenal and respiratory function as well as transient recovery of foot perfusion as pressor support lightened. MOF as of 12/12 secondary to resp arrest precipitated by AF/RVR with hypotension. Now w HAP/ bacteremia and inc pressor needs. Condition critical. Code status: no CPR per family wishes. Long-standing persistent atrial fibrillation - SR temporarily restored s/p Padilla- Maze IV. Recurrent PAF/PSVT as of POD#11. Use of antinodals limited by pressor support. Amio stopped after arrest. Predominant rhythm since = sinus tach. [id number] score of 3. Surgical antithrombotic prophylaxis w DAPT when appropriate. Postoperative respiratory failure - Reintubated 3x, most recently for arrest post AF treatment. Trach placed. Several therapeutic bronchoscopies. Vent management and empiric Abx per Pulm. Now w left PTX and rt sided PNA/ enterococcal bacteremia. Stable subQ emphysema w reduced tidal volumes. Left lung re-expanded s/p chest tube placement. Abx per ID. Hemodynamics sugg sepsis. Postoperative renal failure - Secondary to shock and ATN. Nephrology following and directing CRRT/fluid management. Postoperative melena - Intermittent w episode of BRBPR following manual disimpaction. GI consulted. Local trauma from disimpaction suspected. Endoscopic eval deferred. Restarted on Argatroban. No active bleeding since . Post-op moderate-severe MR - Functional. Valve structurally intact by serial echos. Cath neg for compromised paras flow or RHF. Surg repair deferred. Acute expected blood loss anemia with thrombocytopenia and coagulopathy - Clinical concern for HIT despite negative antibody assays. Heparin avoided. Inc plt counts on Argatroban. Transition to DAPT when appropriate. Transfuse prn. Postoperative pedal ischemia - Vasospasm compl by sm vessel thrombosis below ankle level. Demarcating rt forefoot and left toes. Contrast imaging as allowed by renal fx. Vasodilator as allowed by BP. Antithrombotic therapy w Argatroban. Gen surg following for eventual amputation. Plan: Supportive care as per multidisciplinary team. Line change per ICU. Stop argatroban. 09/20/16 09:22 Subjective: Arousable, responsive to verbal stim. Able to follow simple commands. Objective: Vital Signs Temp Pulse Resp BP Pulse Ox 36.0 C 102 H 28 H 100/69 94 09/20/16 09:00 09/20/16 09:00 09/20/16 09:00 09/20/16 09:00 09/20/16 09:00 Microbiology 09/15/16 13:40 - Final Sputum, Induced/Suctioned Sputum Culture - Final Enterococcus Faecalis 09/18/16 14:20 Gram Stain - Final Lung Right Lower Lobe - Bronchial Washings 09/18/16 14:20 - Final Sputum, Induced/Suctioned Sputum Culture - Final Laboratory Results 09/20/16 05:35 09/20/16 05:35 09/19/16 09/20/16 09/21/16 05:59 05:59 05:59 Intake Total 342 1790 Output Total 1950 Balance 342 -160 PT 37.9 SEC (12.0-15.0) H D 09/20/16 05:35 INR 3.77 (0.83-1.16) H 09/20/16 05:35 HAP by BAL. Bacteremia via PICC draw. Net positve IVF thru CRRT last 48hrs. Inc levo support. Up to 15 mcg for MAP > 65. Vent FIO2 50%. CTOP thin. Physical Exam - Physical Exam General Appearance: no apparent distress, obtunded Respiratory: other (trace periclavicular subq emphysema; left chest tube to pleurovac, thin serosang drainage.) Cardiac/Chest: tachycardia, other (Sternotomy and LLE venotomy CDI) Abdomen: soft Skin: other (dry gangrenous toes) Extremities: other (no visible swelling) ICD10 Worksheet Patient Problems: Problems Problem Status Diagnosed Acute blood loss anemia Acute Acute renal failure Acute Arterial occlusion, lower extremity Acute Leukocytosis Acute Respiratory failure with hypoxia Acute S/P CABG x 5 Acute S/P Maze operation for atrial fibrillation Acute Coronary arteriosclerosis Acute
--- NOTE | 2016-09-20 10:21 | SOAPPROG ---
SOAP Progress Note Assessment/Plan: Assessment/Plan: RAHEL: likely 2/2 ATN. - Will continue CRRT. - Ok to continue to give fluids while on CRRT, currently keeping 100ml/hr net positive. Shock: pt on increasing levophed requirements, also getting fluids through CRRT. Access: would recommend changing dialysis catheter to another temporary catheter for now. Subjective: Pt with increasing pressor requirements overnight, now up to levo at 15, also getting albumin today. Noted that 2/4 blood cultures from 09/18 are growing enterococcus. Objective: Vital Signs Temp Pulse Resp BP Pulse Ox 36.0 C 102 H 28 H 100/69 94 09/20/16 09:00 09/20/16 09:00 09/20/16 09:00 09/20/16 09:00 09/20/16 09:00 Microbiology 09/15/16 13:40 - Final Sputum, Induced/Suctioned Sputum Culture - Final Enterococcus Faecalis 09/18/16 14:20 Gram Stain - Final Lung Right Lower Lobe - Bronchial Washings 09/18/16 14:20 - Final Sputum, Induced/Suctioned Sputum Culture - Final Laboratory Results 09/20/16 05:35 09/20/16 05:35 09/19/16 09/20/16 09/21/16 05:59 05:59 05:59 Intake Total 342 1790 Output Total 1950 Balance 342 -160 PT 37.9 SEC (12.0-15.0) H D 09/20/16 05:35 INR 3.77 (0.83-1.16) H 09/20/16 05:35 General: awake, mild distress Eyes: EOMI CV: RRR Resp: trached and on vent Abd: Soft, NT/ND Ext: trace edema BLE Skin: black toes bilaterally Access: R IJ temp cath ICD10 Worksheet Patient Problems: Problems Problem Status Diagnosed Acute blood loss anemia Acute Acute renal failure Acute Arterial occlusion, lower extremity Acute Leukocytosis Acute Respiratory failure with hypoxia Acute S/P CABG x 5 Acute S/P Maze operation for atrial fibrillation Acute Coronary arteriosclerosis Acute
[2016-09-20] MEDS ORDERED: ALTEPLASE 2 MG VIAL IVP PRN (11:05)
--- NOTE | 2016-09-20 11:11 | PCMIDPN ---
Assessment/Plan: Assessment: bacteremia from enterococcus -- matches the isolate from sputum. Taken with the temporal relation to his relative worsening with the blood culture and change in CXR, then enterococcal infection may indeed be at the base of the recent negative trend clinically. He was started on Zosyn empirically two days ago which should cover the enterococcal isolate. Will continue this treatment and observe. Line changes discussed with Dr. Elliott - complicated by ongoing need for pressor support. Plan: 1) Line changes where timing is practical. 2) COntinue IV zosyn. 3) Follow trend in labs and clinical status. 09/20/16 22:32 Subjective: Bonnie remains criticcaly ill on pressor support in the ICU. No new issues. Blood culture recently positive. Objective: zosyn #2 Vital Signs Temp Pulse Resp BP Pulse Ox 35.4 C L 100 28 H 96/61 L 94 09/20/16 11:00 09/20/16 11:00 09/20/16 11:00 09/20/16 11:00 09/20/16 11:00 Microbiology 09/15/16 13:40 - Final Sputum, Induced/Suctioned Sputum Culture - Final Enterococcus Faecalis 09/18/16 14:20 Gram Stain - Final Lung Right Lower Lobe - Bronchial Washings 09/18/16 14:20 - Final Sputum, Induced/Suctioned Sputum Culture - Final Laboratory Results 09/20/16 05:35 09/20/16 05:35 09/19/16 09/20/16 09/21/16 05:59 05:59 05:59 Intake Total 342 1790 Output Total 1950 Balance 342 -160 - Physical Exam General Appearance: WD/WN, alert, toxic, other (criotically ill) Respiratory: crackles, No lungs clear, No normal breath sounds Cardiac/Chest: regular rate, rhythm, No tachycardia Extremities: non-tender, necrosis, No normal inspection Skin: normal color, warm/dry, No rash ICD10 Worksheet Patient Problems: Problems Problem Status Diagnosed Acute blood loss anemia Acute Acute renal failure Acute Arterial occlusion, lower extremity Acute Leukocytosis Acute Respiratory failure with hypoxia Acute S/P CABG x 5 Acute S/P Maze operation for atrial fibrillation Acute Coronary arteriosclerosis Acute
[2016-09-20 11:31] LABS: CORTISOL-AM > 123.2 ug/dL (4.5-22.7)
[2016-09-20] MEDS: SENNOSIDES 17.6 MG/10 ML UDL TUBE SCH ×2 (12:18→20:28)
[2016-09-20 12:46] LABS: IONIZED CALCIUM 1.29 MMOL/L (1.12-1.30)
[2016-09-20 14:08] LABS: ANION GAP 12 mEq/L (8-16); CALCIUM 9.3 mg/dL (8.5-10.4); CARBON DIOXIDE 24 mEq/l (22-31); CHLORIDE 105 mEq/L (97-110); CREATININE 0.9 mg/dL (0.7-1.3); GLOMERULAR FILTRATION RATE > 60; GLUCOSE 167 mg/dL (70-100); MAGNESIUM 2.2 mg/dL (1.6-2.3); POTASSIUM 3.8 mEq/L (3.5-5.2); SODIUM 141 mEq/L (134-144)
[2016-09-20] MEDS: SODIUM CITRATE 4% 5 ML in SYRINGE 0 ML DIAL PRN (14:50)
--- NOTE | 2016-09-20 16:36 | IR ---
Imaging Guided Peripherally Inserted Central Catheter History: Multiple tubes needed. Prophylactic Antibiotic: Cefazolin was not ordered and administered for antimicrobial prophylaxis be cause it was not medically necessary for this procedure. VTE Prophylaxis: There is not an order for VTE prophylaxis to be given within 24 hours after procedu re end time because it was not medically necessary for this procedure. Crosscutting Measure: Patient's current list of medications including all known prescriptions, over- the-counters, herbals, and vitamin/mineral/dietary supplements are reviewed. Medications' name, dosa ge, frequency, and route of administration are confirmed. patient is a non-smoker. Technique: This procedure is performed at patient's bedside. No fluoroscopy was utilized. Following i nformed consent, the right arm was prepped and draped in sterile fashion. 1% Xylocaine was used for l ocal anesthetic. All elements of maximal sterile barrier technique including cap, mask, sterile yunior n, sterile gloves, large sterile sheet, hand hygiene, and 2% chlorhexidine for cutaneous antisepsis, followed. Ultrasound evaluation of potential access site was performed. After successfully identifying a patent vessel, ultrasound guidance was used to puncture the vein. A permanent recording was created for the patient's record. Ultrasound transducer was placed in sterile sleeve and used for real-time imaging guidance over steri le gel to enter the basilic vein. 0.018 measuring wire was passed centrally. A skin mara with scalpel blade was followed by removing the access needle. A 5 [place] peel-away sheath was followed by a 5 F rench double-lumen central catheter, trimmed to 41 cm length. The tip of the catheter was positioned centrally and the guidewire removed. The hub of the catheter was fixed to the skin using a sterile S tatLock adhesive device, and a sterile dressing was applied. The catheter was irrigated. Fluoroscopy: 0 min Dose: 0 mGy Exposures: 0 images Impression: 5 [place] double lumen peripherally inserted central catheter. Chest x-ray to follow to e valuate tip placement.
--- NOTE | 2016-09-20 16:53 | ECHO ---
[id number] + + [address] : : [facility] [address] : : [phone] + + Adult Echocardiographic Report + + :Name: SANIA SCOTT PStudy Date: 09/20/2016 04:32 PM : : Hospital Admission Number: [id number] L ocation: 250: :: 1950 Gender: Male : :Age: 66 yrs Race: WH : :Reason For Study: Eval for pericardial effusion/tampanade : + + Doppler Measurements & Calculations TR max myah: 301.3 cm/sec TR max P.3 mmHg RAP systole: 10.0 mmHg RVSP(TR): 46.3 mmHg Left Ventricle Left ventricular systolic function is mild to moderately reduced. Ejection Fraction = 40-45%%. Pericardium/Pleural trivial pericardial effusion. Conclusion Limited 2-D echo. Left ventricular systolic function is mild to moderately reduced. Ejection Fraction = 40-45%%. trivial pericardial effusion. Final Reading Physician: Meryl Tyson signed on 09/20/2016 04:51 PM Ordering Physician: DMITRY KAM Performed By: Jessie Boyce, NOE
--- NOTE | 2016-09-20 17:02 | DX ---
AP Portable Chest September 20, 2016 Indication: Evaluate line placement. Findings: Right-sided PICC terminates in the SVC. Diffuse pulmonary infiltrates and multiple lines and tubes are otherwise unchanged. Impression: Right-sided PICC terminating in SVC.
[2016-09-20 18:23] LABS: IONIZED CALCIUM 1.19 MMOL/L (1.12-1.30)
[2016-09-20 18:48] LABS: ANION GAP 10 mEq/L (8-16); CALCIUM 8.6 mg/dL (8.5-10.4); CARBON DIOXIDE 24 mEq/l (22-31); CHLORIDE 102 mEq/L (97-110); GLOMERULAR FILTRATION RATE > 60; GLUCOSE 173 mg/dL (70-100); MAGNESIUM 1.8 mg/dL (1.6-2.3); POTASSIUM 3.5 mEq/L (3.5-5.2); SODIUM 136 mEq/L (134-144)
[2016-09-20] MEDS: POTASSIUM Cl (KCl) 100 ML IV PRN ×2 (18:55→18:56)
[2016-09-20] MEDS: risperiDONE 1 MG TAB PO SCH (20:28)
[2016-09-20] MEDS: MELATONIN 3 MG TAB TUBE SCH (20:28)
[2016-09-20] MEDS: NS 1,000 ML MISC SCH (21:01)
[2016-09-20 23:13] LABS: IONIZED CALCIUM 1.15 MMOL/L (1.12-1.30)
[2016-09-20 23:29] LABS: ANION GAP 12 mEq/L (8-16); CALCIUM 8.8 mg/dL (8.5-10.4); CARBON DIOXIDE 21 mEq/l (22-31); CHLORIDE 105 mEq/L (97-110); CREATININE 0.9 mg/dL (0.7-1.3); GLOMERULAR FILTRATION RATE > 60; GLUCOSE 130 mg/dL (70-100); POTASSIUM 4.3 mEq/L (3.5-5.2); SODIUM 138 mEq/L (134-144)
[2016-09-21] MEDS: REPL FLUID TYPE D CAPS 1 EA in WATER FOR INJECTION,STERILE 4,000 ML DIAL SCH ×9 (01:04→23:14)
[2016-09-21] MEDS: NS 1,000 ML MISC SCH ×5 (02:30→21:14)
[2016-09-21] MEDS: NOREPINEPHRINE BITARTRATE 16 MG in D5W 250 ML IV SCH ×2 (02:31→20:15)
[2016-09-21] MEDS: CALCIUM CHLORIDE 5.7 GM in NS 1,000 ML IV SCH ×3 (02:31→18:47)
[2016-09-21] MEDS: HALOPERIDOL LACT 5 MG/ML INJ IVP PRN ×2 (02:39→20:16)
[2016-09-21] MEDS: B22GK4/0 PRISMASATE 5,000 ML DIAL SCH ×6 (03:42→21:14)
[2016-09-21 04:12] LABS: BASE EXCESS -6.9 mEq/L (-2.5-2.5); BICARBONATE 21 mEq/L (22-26); IONIZED CALCIUM 1.25 MMOL/L (1.12-1.30); MEASURED OXYGEN SATURATION 91 % (92-95); PCO2 53 mmHg (34-38); PO2 62 mmHg (65-75); TCO2 23 mEq/L (23-27)
[2016-09-21 04:13] LABS: END TIDAL CO2 28; O2 CONCENTRATIION 60 % (0-100); P/F RATIO 103 RATIO; PATIENT RATE 28; PRESSURE SUPPORT 12; SIMV YES
[2016-09-21 05:00] LABS: ABSOLUTE NRBC COUNT 0.02 10^3/uL (0-0.01); ADD DIFF? YES; ADD SCAN? NO; ATYPICAL LYMPHOCYTE FLAG 0 (0-99); FRAGMENT RBC FLAG 20 (0-99); HEMATOCRIT 29.3 % (40.0-51.0); LEFT SHIFT FLG 10 (0-99); LIPEMIA HEMOLYSIS FLAG 80 (0-99); MEAN CELL HEMOGLOBIN 29.8 pg (27.9-34.1); MEAN CELL HEMOGLOBIN CONCENTR. 30.7 g/dL (32.4-36.7); MEAN PLATELET VOLUME 11.2 fL (8.7-11.7); NRBC-AUTO% 0.1 % (0.0-0.2); PLATELET CLUMPS FLAG 0 (0-99); PLATELET COUNT 192 10^3/uL (150-400); RED BLOOD CELL COUNT 3.02 10^6/uL (4.40-6.38)
[2016-09-21 05:23] LABS: ANION GAP 11 mEq/L (8-16); CALCIUM 8.7 mg/dL (8.5-10.4); CARBON DIOXIDE 23 mEq/l (22-31); CHLORIDE 107 mEq/L (97-110); CREATININE 0.9 mg/dL (0.7-1.3); GLOMERULAR FILTRATION RATE > 60; GLUCOSE 126 mg/dL (70-100); INR 1.75 (0.83-1.16); PROTIME(PATIENT) 20.5 SEC (12.0-15.0); SODIUM 141 mEq/L (134-144)
[2016-09-21 05:25] LABS: ADD MORPH? NO; RED CELL DISTRIBUTION WIDTH 21.7 % (11.5-15.2)
[2016-09-21] MEDS: NYSTATIN SUSP 500000 UNIT/5 ML UDCUP PO SCH ×4 (05:29→20:15)
[2016-09-21] MEDS: PIPERACILLIN/TAZO 3.375 GM/DEX 50 ML IV SCH ×5 (05:29→23:42)
[2016-09-21 06:26] LABS: MAGNESIUM 1.6 mg/dL (1.6-2.3)
[2016-09-21 06:28] LABS: PLATELET ESTIMATE ADEQUATE (ADEQ)
[2016-09-21 06:30] LABS: HYPOCHROMIA 1+; MACROCYTES 1+; MICROCYTES 1+
--- NOTE | 2016-09-21 08:16 | PDINTPN ---
Seat Joiner Chainstitch Progress Note Assessment/Plan: Assessment: #CABG X 5 and MAZE. #Respiratory failure with a trach, on SIMV at 500ml TV and rate of 32 and 45% FI02 #Pneumonia on the right is stable on CXR. Sputum + for enterococcus. #Blood culture positive through the PICC line for enterococcus. #Agitation, much improved. 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 His BP did respond briefly to IV albumin. Will repeat albumin Check thyroid, testosterone, and cortisol ASA and Plavix Left chest tube He is very anxious at home according to his , and now is very nervous He wants to stand, but has been too weak to do it. Surgery did say it is OK to allow him to stand with his ischemic right foot and all toes. It looks to me like he will lose most or all of his toes and perhaps his right foot. Cannot lower minute volume on vent due to acidosis. 09/20/16 08:04 09/21/16 08:12 09/21/16 08:16 Subjective: sleepy Objective: Vital Signs Temp Pulse Resp BP Pulse Ox 35.8 C L 94 32 H 100/55 L 97 09/21/16 06:00 09/21/16 06:00 09/21/16 06:00 09/21/16 06:00 09/21/16 06:00 Microbiology 09/18/16 14:20 Gram Stain - Final Lung Right Lower Lobe - Bronchial Washings Laboratory Results 09/21/16 04:50 09/21/16 04:50 09/20/16 09/21/16 09/22/16 05:59 05:59 05:59 Intake Total 1790 895 Output Total 1950 Balance -160 895 PT 20.5 SEC (12.0-15.0) H D 09/21/16 04:50 INR 1.75 (0.83-1.16) H 09/21/16 04:50 Physical Exam - Physical Exam General Appearance: no apparent distress EENT: normal ENT inspection Neck: other (trach) Respiratory: rales, rhonchi Cardiac/Chest: regular rate, rhythm Abdomen: non-tender, soft Back: Normal inspection Lymphatic: no adenopathy Extremities: non-tender, other (No change in ischemic toes and right foot) ICD10 Worksheet Patient Problems: Problems Problem Status Diagnosed Acute blood loss anemia Acute Acute renal failure Acute Arterial occlusion, lower extremity Acute Leukocytosis Acute Respiratory failure with hypoxia Acute S/P CABG x 5 Acute S/P Maze operation for atrial fibrillation Acute Coronary arteriosclerosis Acute
[2016-09-21] MEDS: SENNOSIDES 17.6 MG/10 ML UDL TUBE SCH ×2 (08:56→20:15)
[2016-09-21] MEDS: LANSOPRAZOLE SUSP 30MG/10ML UDSYR (Adult) TUBE SCH (08:56)
[2016-09-21 09:03] LABS: BASE EXCESS -4.7 mEq/L (-2.5-2.5); BICARBONATE 22 mEq/L (22-26); MEASURED OXYGEN SATURATION 96 % (92-95); PCO2 51 mmHg (34-38); PO2 81 mmHg (65-75); TCO2 24 mEq/L (23-27)
--- NOTE | 2016-09-21 09:03 | DX ---
Portable Chest September 21, 2016 at 0625 Hours History: ARDS. Left pneumothorax. Multiple tubes and lines. Comparison: September 20, 2016. Findings: Tracheostomy tube, right internal jugular line, feeding tube, right arm PIC line, and left chest tube are unchanged in position. Left chest tube is curled in the left lung apex with the distal tip along the medial left apical region. No evidence of the significant residual pneumothorax. Worsening bilateral diffuse alveolar opacities. Median sternotomy wires, mediastinal clips, and atria l appendage clip noted. Heart is normal in size. Moderate right pleural effusion appears similar. Impressions: 1. Multiple tubes and lines without pneumothorax. 2. Worsening bilateral alveolar opacities representing diffuse pulmonary edema versus ARDS. 3. Moderate right pleural effusion.
[2016-09-21 09:07] LABS: END TIDAL CO2 28; O2 CONCENTRATIION 70 % (0-100); P/F RATIO 116 RATIO; PATIENT RATE 33; PRESSURE SUPPORT 12; SIMV YES
--- NOTE | 2016-09-21 09:30 | SOAPPROG ---
SOAP Progress Note Assessment/Plan: Assessment: 1. RAHEL/MOD Still requiring pressors. Allowing to run at net positive 100ml/hr. Issues include MR, VAP, ischemic/necrotic feet. 2. Hypotension Allowing to gain volume. On pressors. Will allow him to cool slightly. 3. RAHEL Remains on CRRT, which is functioning well. Ca levels good. Continue at positive 100ml/hr. May begin running net positive if he responds to fluids. 4. Continuing tube feeds with H2O flushes. Has BS and flatus. 5. Resp acidosis Vent changes made, repeat ABG pending. 09/21/16 09:27 09/21/16 09:30 Subjective: Remains critical Objective: Vital Signs Temp Pulse Resp BP Pulse Ox 36.6 C 103 H 32 H 91/58 L 98 09/21/16 09:00 09/21/16 09:00 09/21/16 09:00 09/21/16 09:00 09/21/16 09:00 Microbiology 09/18/16 14:20 Gram Stain - Final Lung Right Lower Lobe - Bronchial Washings Laboratory Results 09/21/16 04:50 09/21/16 04:50 09/20/16 09/21/16 09/22/16 05:59 05:59 05:59 Intake Total 1790 895 Output Total 1950 Balance -160 895 PT 20.5 SEC (12.0-15.0) H D 09/21/16 04:50 INR 1.75 (0.83-1.16) H 09/21/16 04:50 Physical Exam - Physical Exam General Appearance: other (awake) Neck: other (Catheter site looks ok) Respiratory: rales, rhonchi (on right) Cardiac/Chest: regular rate, rhythm Abdomen: soft Extremities: other (no edema, necrotic feet) ICD10 Worksheet Patient Problems: Problems Problem Status Diagnosed Acute blood loss anemia Acute Acute renal failure Acute Arterial occlusion, lower extremity Acute Leukocytosis Acute Respiratory failure with hypoxia Acute S/P CABG x 5 Acute S/P Maze operation for atrial fibrillation Acute Coronary arteriosclerosis Acute
[2016-09-21] MEDS: ASPIRIN 81 MG CHEWABLE TAB TUBE SCH (09:55)
[2016-09-21] MEDS: CLOPIDOGREL BISULFATE 75 MG TAB TUBE SCH (09:55)
--- NOTE | 2016-09-21 10:24 | SOAPPROG ---
SOAP Progress Note Assessment/Plan: Assessment: POD#31 CABGx5 (GANN-LCX, EBONY-D1, SVG-LAD, Sequential SVG-PDA-PLR), Padilla-Maze IV Left/Right lesions. POD#17 Tracheostomy, RIJ dialysis cath. POD#2 Left chest tube. Nutrition per DHT. IV access per RUE PICC. Sx CAD with ISCM (EF 40-45%) - s/p CABGx5 with bilateral mammaries. Small and diffusely diseased target vessels. Early postop course complicated by cardiogenic shock with multi-organ dysfx, severe MR, and peripheral vasoconstriction. Hemodynamics stabilized on vasoactive support w temporary improvement in hepatorenal and respiratory function as well as transient recovery of foot perfusion as pressor support lightened. MOF as of 12/12 secondary to resp arrest precipitated by AF/RVR with hypotension. Now w HAP/ bacteremia and inc pressor needs c/w sepsis. Condition critical. Code status: no CPR per family wishes. Long-standing persistent atrial fibrillation - SR temporarily restored s/p Padilla- Maze IV. Recurrent PAF/PSVT as of POD#11. Use of antinodals limited by pressor support. Amio stopped after arrest. Predominant rhythm since = sinus tach. [id number] score of 3. Surgical antithrombotic prophylaxis w DAPT. Postoperative respiratory failure - Reintubated 3x, most recently for arrest post AF treatment. Trach placed. Several therapeutic bronchoscopies. Vent management and empiric Abx per Pulm. Now w left PTX and rt sided enterococcal PNA/?ARDS. Stable subQ emphysema w reduced tidal volumes. Left lung re-expanded s/p chest tube placement. Abx per ID. Postoperative renal failure - Secondary to shock and ATN. Nephrology following and directing CRRT/fluid management. Postoperative melena - Intermittent w episode of BRBPR following manual disimpaction. GI consulted. Local trauma from disimpaction suspected. Endoscopic eval deferred. Restarted on Argatroban. No active bleeding since . Post-op moderate-severe MR - Functional. Valve structurally intact by serial echos. Cath neg for compromised paras flow or RHF. Surg repair deferred. Acute expected blood loss anemia with thrombocytopenia and coagulopathy - Clinical concern for HIT despite negative antibody assays. Heparin avoided. Inc plt counts on Argatroban. Transition to DAPT in progress. Transfuse prn. Postoperative pedal ischemia - Vasospasm compl by sm vessel thrombosis below ankle level. Demarcating rt forefoot and left toes. Contrast imaging as allowed by renal fx. Vasodilator as allowed by BP. Antithrombotic therapy w DAPT. Gen surg following for eventual amputation. Plan: Supportive care as per multidisciplinary team. Retrial DAPT. Titrate levo to MAP > 60. 09/21/16 10:01 Subjective: More alert. Eyes open. Nodding head. MAEE. Objective: Vital Signs Temp Pulse Resp BP Pulse Ox 36.6 C 103 H 32 H 91/58 L 98 09/21/16 09:00 09/21/16 09:00 09/21/16 09:00 09/21/16 09:00 09/21/16 09:00 Microbiology 09/18/16 14:20 Gram Stain - Final Lung Right Lower Lobe - Bronchial Washings Laboratory Results 09/21/16 04:50 09/21/16 04:50 09/20/16 09/21/16 09/22/16 05:59 05:59 05:59 Intake Total 1790 895 Output Total 1950 Balance -160 895 PT 20.5 SEC (12.0-15.0) H D 09/21/16 04:50 INR 1.75 (0.83-1.16) H 09/21/16 04:50 PICC switched to RUE. IVF @ 100ml/h thru CRRT. Anuric. Levo as high as 20mcg for MAP > 60. CXR-> worsened bilat opacities. Vent FIO2 up to 70%. Pleurovac no air leak. 2L CTOP yest. Physical Exam - Physical Exam General Appearance: no apparent distress Respiratory: other (coarse BS; left chest tube to pleurovac, thin serosang drainage, no AL) Cardiac/Chest: tachycardia, other (Sternotomy, chest tube sites, LLE venotomy ok ) Abdomen: non-tender Skin: other (dry gangrenous toes) ICD10 Worksheet Patient Problems: Problems Problem Status Diagnosed Acute blood loss anemia Acute Acute renal failure Acute Arterial occlusion, lower extremity Acute Leukocytosis Acute Respiratory failure with hypoxia Acute S/P CABG x 5 Acute S/P Maze operation for atrial fibrillation Acute Coronary arteriosclerosis Acute
[2016-09-21] MEDS: fentaNYL 100 MCG/2 ML INJ IVP PRN ×3 (10:26→22:38)
[2016-09-21 10:35] LABS: IONIZED CALCIUM 1.16 MMOL/L (1.12-1.30)
[2016-09-21 11:06] LABS: ALBUMIN 2.8 g/dL (3.5-5.0); ANION GAP 11 mEq/L (8-16); CALCIUM 8.8 mg/dL (8.5-10.4); CARBON DIOXIDE 24 mEq/l (22-31); CHLORIDE 103 mEq/L (97-110); CREATININE 0.9 mg/dL (0.7-1.3); GLOMERULAR FILTRATION RATE > 60; GLUCOSE 153 mg/dL (70-100); MAGNESIUM 1.6 mg/dL (1.6-2.3); POTASSIUM 3.7 mEq/L (3.5-5.2); SODIUM 138 mEq/L (134-144)
[2016-09-21] MEDS: POTASSIUM Cl (KCl) 100 ML IV PRN (11:27)
[2016-09-21] MEDS: MAGNESIUM SULF 2 GM/WATER 50 ML IV PRN (11:27)
[2016-09-21] MEDS: SODIUM PHOS 20 MM in D5W 250 ML IV PRN (12:13)
[2016-09-21 16:06] LABS: IONIZED CALCIUM 1.22 MMOL/L (1.12-1.30)
[2016-09-21 16:19] LABS: ANION GAP 12 mEq/L (8-16); CALCIUM 9.3 mg/dL (8.5-10.4); CARBON DIOXIDE 25 mEq/l (22-31); CHLORIDE 103 mEq/L (97-110); GLOMERULAR FILTRATION RATE > 60; GLUCOSE 144 mg/dL (70-100); POTASSIUM 3.8 mEq/L (3.5-5.2); SODIUM 140 mEq/L (134-144)
[2016-09-21] MEDS: MELATONIN 3 MG TAB TUBE SCH (20:16)
[2016-09-21] MEDS: risperiDONE 1 MG TAB PO SCH (20:16)
--- NOTE | 2016-09-21 20:27 | PCMIDPN ---
Assessment/Plan: Assessment: bacteremia from enterococcus -- matches the isolate from sputum. Now on zosyn for the past 4 days -- no clinical improvement as of yet. Will continue this treatment and observe. Continue to monitor cultures. Plan: 1) Continue IV zosyn. 2) Follow trend in labs and clinical status. 09/20/16 22:32 09/21/16 20:23 Subjective: Patient remains alert and fairly cogent. Family remains at bedside. Hemodynamic parameters remain poor -- required increased amounts of levophed overnight. Now tapered back somewhat but still high. Objective: Zosyn #3 Vital Signs Temp Pulse Resp BP Pulse Ox 36.3 C 96 32 H 98/50 L 96 09/21/16 15:59 09/21/16 19:00 09/21/16 19:00 09/21/16 19:00 09/21/16 19:00 Microbiology 09/18/16 14:20 - Final Sputum, Induced/Suctioned Sputum Culture - Final 09/18/16 14:20 Gram Stain - Final Lung Right Lower Lobe - Bronchial Washings 09/18/16 10:59 Blood Culture - Final Blood Enterococcus Faecalis Laboratory Results 09/21/16 04:50 09/21/16 15:50 09/20/16 09/21/16 09/22/16 05:59 05:59 05:59 Intake Total 1790 895 Output Total 1950 819 Balance -160 895 -819 - Physical Exam General Appearance: WD/WN, alert, toxic (moderately) Respiratory: crackles (at bases), No lungs clear, No normal breath sounds Cardiac/Chest: regular rate, rhythm, No tachycardia Extremities: non-tender, other (mottled ) Skin: normal color Neuro/Psych: alert ICD10 Worksheet Patient Problems: Problems Problem Status Diagnosed Acute blood loss anemia Acute Acute renal failure Acute Arterial occlusion, lower extremity Acute Leukocytosis Acute Respiratory failure with hypoxia Acute S/P CABG x 5 Acute S/P Maze operation for atrial fibrillation Acute Coronary arteriosclerosis Acute
[2016-09-21 21:51] LABS: IONIZED CALCIUM 1.14 MMOL/L (1.12-1.30)
[2016-09-21 22:03] LABS: ANION GAP 11 mEq/L (8-16); CARBON DIOXIDE 22 mEq/l (22-31); CHLORIDE 105 mEq/L (97-110); CREATININE 0.9 mg/dL (0.7-1.3); GLOMERULAR FILTRATION RATE > 60; GLUCOSE 119 mg/dL (70-100); MAGNESIUM 1.7 mg/dL (1.6-2.3); POTASSIUM 3.8 mEq/L (3.5-5.2); SODIUM 138 mEq/L (134-144)
[2016-09-22] MEDS: B22GK4/0 PRISMASATE 5,000 ML DIAL SCH ×7 (00:23→21:48)
[2016-09-22] MEDS: REPL FLUID TYPE D CAPS 1 EA in WATER FOR INJECTION,STERILE 4,000 ML DIAL SCH ×8 (01:39→23:37)
[2016-09-22] MEDS: NS 1,000 ML MISC SCH ×6 (01:47→23:37)
[2016-09-22] MEDS: CALCIUM CHLORIDE 5.7 GM in NS 1,000 ML IV SCH ×3 (02:02→19:29)
[2016-09-22] MEDS: HALOPERIDOL LACT 5 MG/ML INJ IVP PRN ×2 (02:31→20:52)
[2016-09-22 04:09] LABS: HEMATOCRIT 28.4 % (40.0-51.0); HEMOGLOBIN 8.9 g/dL (13.7-17.5); MEAN CELL HEMOGLOBIN 30.1 pg (27.9-34.1); MEAN CELL HEMOGLOBIN CONCENTR. 31.3 g/dL (32.4-36.7); MEAN CELL VOLUME 95.9 fL (81.5-99.8); RED BLOOD CELL COUNT 2.96 10^6/uL (4.40-6.38)
[2016-09-22 04:10] LABS: IONIZED CALCIUM 1.17 MMOL/L (1.12-1.30)
[2016-09-22 04:14] LABS: RED CELL DISTRIBUTION WIDTH 21.5 % (11.5-15.2)
[2016-09-22 04:18] LABS: INR 1.46 (0.83-1.16); PROTIME(PATIENT) 17.7 SEC (12.0-15.0)
[2016-09-22 04:20] LABS: BASE EXCESS -5.2 mEq/L (-2.5-2.5); BICARBONATE 21 mEq/L (22-26); MEASURED OXYGEN SATURATION 96 % (92-95); PCO2 50 mmHg (34-38); PO2 82 mmHg (65-75); TCO2 23 mEq/L (23-27)
[2016-09-22 04:20] LABS: ANION GAP 12 mEq/L (8-16); CALCIUM 8.7 mg/dL (8.5-10.4); CARBON DIOXIDE 23 mEq/l (22-31); CHLORIDE 105 mEq/L (97-110); CREATININE 0.9 mg/dL (0.7-1.3); GLOMERULAR FILTRATION RATE > 60; GLUCOSE 105 mg/dL (70-100); MAGNESIUM 1.6 mg/dL (1.6-2.3); POTASSIUM 3.7 mEq/L (3.5-5.2); SODIUM 140 mEq/L (134-144)
[2016-09-22 04:21] LABS: SIMV YES
[2016-09-22 04:22] LABS: END TIDAL CO2 27; O2 CONCENTRATIION 60 % (0-100); P/F RATIO 137 RATIO; PATIENT RATE 32; PRESSURE SUPPORT 12
[2016-09-22] MEDS: POTASSIUM Cl (KCl) 100 ML IV PRN ×4 (04:36→19:30)
[2016-09-22] MEDS: MAGNESIUM SULF 2 GM/WATER 50 ML IV PRN ×2 (04:37→18:29)
[2016-09-22] MEDS: PIPERACILLIN/TAZO 3.375 GM/DEX 50 ML IV SCH ×4 (06:07→23:37)
[2016-09-22] MEDS: NYSTATIN SUSP 500000 UNIT/5 ML UDCUP PO SCH ×4 (06:07→20:52)
[2016-09-22] MEDS: CLOPIDOGREL BISULFATE 75 MG TAB TUBE SCH (08:45)
[2016-09-22] MEDS: LANSOPRAZOLE SUSP 30MG/10ML UDSYR (Adult) TUBE SCH (08:45)
[2016-09-22] MEDS: ASPIRIN 81 MG CHEWABLE TAB TUBE SCH (08:45)
[2016-09-22] MEDS: SENNOSIDES 17.6 MG/10 ML UDL TUBE SCH ×2 (08:45→20:52)
--- NOTE | 2016-09-22 09:09 | SOAPPROG ---
SOAP Progress Note Assessment/Plan: Assessment: 1. RAHEL/MOD Targeting MAP 60. Remains on Norepi. Cooling and increasing volume may have helped some. WBC better, but remains elevated. 2. Hypotension As above. 3. RAHEL Remains on CRRT, which is functioning well. Ca levels good. Will go back to net even UF. 4. Continuing tube feeds with H2O flushes. 5. Resp acidosis Now with increased Vent rate 6. VAP ID following. On Zosyn for cultured enterococcus Plan of care Dr. Francois has spoken with family. Reassess in 48 hours, and family may choose different course. Objective: Vital Signs Temp Pulse Resp BP Pulse Ox 36.8 C 96 32 H 93/56 L 97 09/22/16 04:00 09/22/16 07:00 09/22/16 07:00 09/22/16 07:00 09/22/16 07:00 Microbiology 09/18/16 14:20 Gram Stain - Final Lung Right Lower Lobe - Bronchial Washings Bronchial Washings Culture - Final Enterococcus Faecalis 09/18/16 14:20 - Final Sputum, Induced/Suctioned Sputum Culture - Final 09/18/16 10:59 Blood Culture - Final Blood Enterococcus Faecalis Laboratory Results 09/22/16 03:55 09/22/16 03:55 09/21/16 09/22/16 09/23/16 05:59 05:59 05:59 Intake Total 2081 1155 Output Total 819 Balance 2081 336 PT 17.7 SEC (12.0-15.0) H 09/22/16 03:55 INR 1.46 (0.83-1.16) H 09/22/16 03:55 Physical Exam - Physical Exam General Appearance: mild distress Respiratory: other (coarse bs) Cardiac/Chest: tachycardia Abdomen: soft, distended Extremities: other (Trace LE ) ICD10 Worksheet Patient Problems: Problems Problem Status Diagnosed Acute blood loss anemia Acute Acute renal failure Acute Arterial occlusion, lower extremity Acute Leukocytosis Acute Respiratory failure with hypoxia Acute S/P CABG x 5 Acute S/P Maze operation for atrial fibrillation Acute Coronary arteriosclerosis Acute
--- NOTE | 2016-09-22 09:55 | SOAPPROG ---
SOAP Progress Note Assessment/Plan: Assessment: POD#32 CABGx5 (GANN-LCX, EBONY-D1, SVG-LAD, Sequential SVG-PDA-PLR), Padilla-Maze IV Left/Right lesions. POD#18 Tracheostomy, RIJ dialysis cath. POD#3 Left chest tube. Nutrition per DHT. IV access per RUE PICC. Day 6 Zosyn. Sx CAD with ISCM (EF 40-45%) - s/p CABGx5 with bilateral mammaries. Small and diffusely diseased target vessels. Early postop course complicated by cardiogenic shock with multi-organ dysfx, severe MR, and peripheral vasoconstriction. Hemodynamics stabilized on vasoactive support w temporary improvement in hepatorenal and respiratory function as well as transient recovery of foot perfusion as pressor support lightened. MOF as of 12/12 secondary to resp arrest precipitated by AF/RVR with hypotension. Now w HAP/ bacteremia and inc pressor needs c/w sepsis. Condition critical. Code status: no CPR per family wishes. Long-standing persistent atrial fibrillation - SR temporarily restored s/p Padilla- Maze IV. Recurrent PAF/PSVT as of POD#11. Use of antinodals limited by pressor support. Amio stopped after arrest. Predominant rhythm since = sinus tach. [id number] score of 3. Surgical antithrombotic prophylaxis w DAPT. Postoperative respiratory failure - Reintubated 3x, most recently for arrest post AF treatment. Trach placed. Several therapeutic bronchoscopies. Vent management and empiric Abx per Pulm. Vent related left PTX/subq air controlled w chest tube and adjusted settings. Now w rt sided enterococcal PNA/?ARDS w moderate sized pleural effusion. Abx per ID. No sig clinical response. Postoperative renal failure - Secondary to shock and ATN. Nephrology following and directing CRRT/fluid management. Postoperative melena - Intermittent w episode of BRBPR following manual disimpaction. GI consulted. Local trauma from disimpaction suspected. Endoscopic eval deferred. Restarted on Argatroban. No active bleeding since . Post-op moderate-severe MR - Functional. Valve structurally intact by serial echos. Cath neg for compromised paras flow or RHF. Surg repair deferred. Acute expected blood loss anemia with thrombocytopenia and coagulopathy - Clinical concern for HIT despite negative antibody assays. Heparin avoided. Inc plt counts on Argatroban. Now back on DAPT. Transfuse prn. Postoperative pedal ischemia - Vasospasm compl by sm vessel thrombosis below ankle level. Demarcating rt forefoot and left toes. Contrast imaging as allowed by renal fx. Vasodilator as allowed by BP. Antithrombotic therapy w DAPT. Gen surg following for eventual amputation. Plan: Supportive care as per multidisciplinary team. Rt chest tube per Dr Arroyo. Titrate levo to MAP > 60. Cont DAPT so long as plt count > 100. 09/22/16 09:42 Subjective: Awake. Responsive to simple questions/commands. Objective: Vital Signs Temp Pulse Resp BP Pulse Ox 36.8 C 90 32 H 93/56 L 98 09/22/16 04:00 09/22/16 08:58 09/22/16 08:58 09/22/16 07:00 09/22/16 08:58 Microbiology 09/18/16 14:20 Gram Stain - Final Lung Right Lower Lobe - Bronchial Washings Bronchial Washings Culture - Final Enterococcus Faecalis 09/18/16 14:20 - Final Sputum, Induced/Suctioned Sputum Culture - Final 09/18/16 10:59 Blood Culture - Final Blood Enterococcus Faecalis Laboratory Results 09/22/16 03:55 09/22/16 03:55 09/21/16 09/22/16 09/23/16 05:59 05:59 05:59 Intake Total 2081 1155 Output Total 819 Balance 2081 336 PT 17.7 SEC (12.0-15.0) H 09/22/16 03:55 INR 1.46 (0.83-1.16) H 09/22/16 03:55 Holding MAP 60-65 on levo 9-12 mcg, IVF thru CRRT. CXR-> ?enlarging rt pl effusion. PEEP 8, PS 12. Left sided CTOP remains elev. Physical Exam - Physical Exam General Appearance: no apparent distress Respiratory: rhonchi (diffuse), other (left chest tube to pleurovac, serosang drainage) Abdomen: soft Skin: warm/dry, other (dry gangrenous toes) ICD10 Worksheet Patient Problems: Problems Problem Status Diagnosed Acute blood loss anemia Acute Acute renal failure Acute Arterial occlusion, lower extremity Acute Leukocytosis Acute Respiratory failure with hypoxia Acute S/P CABG x 5 Acute S/P Maze operation for atrial fibrillation Acute Coronary arteriosclerosis Acute
[2016-09-22 09:58] LABS: IONIZED CALCIUM 1.16 MMOL/L (1.12-1.30)
[2016-09-22] MEDS: fentaNYL 100 MCG/2 ML INJ IVP PRN ×3 (10:08→23:45)
[2016-09-22 10:18] LABS: ANION GAP 9 mEq/L (8-16); CALCIUM 8.7 mg/dL (8.5-10.4); CARBON DIOXIDE 25 mEq/l (22-31); CHLORIDE 104 mEq/L (97-110); CREATININE 0.9 mg/dL (0.7-1.3); GLOMERULAR FILTRATION RATE > 60; GLUCOSE 138 mg/dL (70-100); SODIUM 138 mEq/L (134-144)
--- NOTE | 2016-09-22 10:21 | DX ---
Portal AP Semiupright Chest, 2 Views - September 22, 2016, at 6:21 a.m. Clinical History: 66-year-old male in the ICU with a history of a left pneumothorax and ARDS. Comparison Study: Chest, dated September 21, 2016, at 6:25 a.m. Findings: The patient is slightly rotated to the left. The tracheostomy tube is stable in position, terminating at the medial clavicular head level. There is a right IJ central venous catheter terminat ing over the SVC. There is a right-sided PICC line, which terminates at the SVC/right atrial junctio n. There is a Dobbhoff feeding tube extending inferiorly off the edge of the radiograph, however, fol lowing a normal anatomic course to the stomach. Telemetry monitoring lead lines are present. Median s ternotomy wires, CABG markers, and the left atrial appendage ligature are seen. The cardiac silhouett e remains enlarged. There are diffuse bilateral interstitial/alveolar infiltrates. Moderate to large amount of pleural fluid tracks along the right lateral hemithorax to the right apex. The left-sided c hest tube may have been slightly proximally withdrawn, however, still terminates over the medial apex . There is a small residual left apical pneumothorax. Impression: Findings very similar to the study yesterday morning.
[2016-09-22] MEDS ORDERED: LIDOCAINE 1% 30 ML SDV ONE (10:51)
--- NOTE | 2016-09-22 11:35 | POSTOPPROG ---
Post Op Note Date of Operation: 09/22/16 Surgeon: Shital Arroyo Grip Boss: Mitzy Stevens PA-C Anesthesiologist: None Anesthesia: Local (Specify) (1% Lidocaine, 15ml) Pre-op Diagnosis: Large right pleural effusion Post-op Diagnosis: Large right pleural effusion Indication: 66 yo M, s/p cardiac surgery with large right pleural effusion Procedure: Placement of Right 24 Fr chest tube Findings: Successful placement with evacuation of approx. 3L of serous fluid. Inf/Abcess present in the surg proc area at time of surgery?: No EBL: Minimal Complications: None Specimen(s): None JOEY Operative Report - Surgery Informed consent obtained from spouse as patient is on vent and sedated. Right chest prepped and draped in standard surgical fashion after confirming side based on CXR. At about the 5th intercostal space in the mid-axillary line, local anesthetic infiltrated for pain control. Small incision made, about 1 cm in size and blunt dissection carried out to the chest wall. The right pleural space was entered bluntly with immediate gush of serous fluid under pressure. A 24 Fr chest tube was placed and connected to a Pleur-evac suction canister. Skin around the chest tube was reapproximated with silk suture and the chest tube secured in place with silk suture as well. Sterile dressings were applied. A total of about 3L of serous fluid was immediately evacuated. CXR for post-procedure evaluation is pending.
[2016-09-22 12:04] LABS: HEMATOCRIT 30.3 % (40.0-51.0); HEMOGLOBIN 9.4 g/dL (13.7-17.5)
[2016-09-22] MEDS ORDERED: SODIUM PHOS 20 MM in D5W 250 ML IV ONE (12:30)
--- NOTE | 2016-09-22 12:32 | DX ---
Portable AP Chest, 2 Views - September 22, 2016, at 11:37 a.m. Clinical History: 66-year-old male for followup after placement of a right-sided chest tube to drain a right pleural effusion with 3 liters of pleural fluid removed. Comparison Study: Chest from early this morning at 6:21 a.m. Findings: In the interim, a right-sided chest tube has been placed, the large right pleural effusion has been evacuated, and there is a small right lateral and apical pneumothorax now present. The left -sided chest tube is stable in position, terminating near the apex and it is challenging to appreciat e residual air in the left pleural space. The numerous interventional monitoring devices are otherwis e unchanged. The cardiac size remains enlarged, and there are diffuse bilateral interstitial alveolar infiltrates, consistent with ARDS. Impression: Interim placement of a right-sided chest tube and evacuation of a large right pleural ef fusion with a small right-sided pneumothorax now evident in this patient with ARDS.
[2016-09-22] MEDS ORDERED: ALBUMIN 5% 250 ML BOTTLE IV ONE (14:41)
--- NOTE | 2016-09-22 15:01 | PDINTPN ---
Fitness Supervisor Progress Note Assessment/Plan: Assessment: #CABG X 5 and MAZE. #Respiratory failure with a trach, on SIMV at 500ml TV and rate of 32 and 45% FI02 #Pneumonia on the right is stable on CXR. Sputum + for enterococcus. #Blood culture positive through the PICC line for enterococcus. #Agitation, much improved. 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 His BP did respond briefly to IV albumin. Will repeat albumin today Check thyroid, testosterone, and cortisol ASA and Plavix Left and right chest tubes He is very anxious at home according to his , and now is very nervous He wants to stand, but has been too weak to do it and the [facility] bed does not lend itself to standing. Surgery did say it is OK to allow him to stand with his ischemic right foot and all toes. It looks to me like he will lose most or all of his toes and perhaps his right foot. Increase TV to 600ml to try to correct his metabolic and respiratory acidosis 09/22/16 14:57 Subjective: He does awaken and has asked to get in a chair which I think is not a good idea with all of his tubes, especially the CRRT Objective: Vital Signs Temp Pulse Resp BP Pulse Ox 36 C 96 32 H 91/56 L 97 09/22/16 12:00 09/22/16 14:00 09/22/16 14:00 09/22/16 14:00 09/22/16 14:00 Microbiology 09/18/16 14:20 Gram Stain - Final Lung Right Lower Lobe - Bronchial Washings Bronchial Washings Culture - Final Enterococcus Faecalis 09/18/16 14:20 - Final Sputum, Induced/Suctioned Sputum Culture - Final 12/28/16 10:59 Blood Culture - Final Blood Enterococcus Faecalis Laboratory Results 09/22/16 11:45 09/22/16 09:50 09/21/16 09/22/16 09/23/16 05:59 05:59 05:59 Intake Total 2081 1155 Output Total 819 Balance 2081 336 PT 17.7 SEC (12.0-15.0) H 09/22/16 03:55 INR 1.46 (0.83-1.16) H 09/22/16 03:55 Physical Exam - Physical Exam General Appearance: mild distress EENT: normal ENT inspection Neck: other (trach) Respiratory: rhonchi Cardiac/Chest: regular rate, rhythm Abdomen: non-tender, soft Skin: warm/dry Lymphatic: no adenopathy Extremities: other (no change in ischemic feet) Neuro/Psych: alert ICD10 Worksheet Patient Problems: Problems Problem Status Diagnosed Acute blood loss anemia Acute Acute renal failure Acute Arterial occlusion, lower extremity Acute Leukocytosis Acute Respiratory failure with hypoxia Acute S/P CABG x 5 Acute S/P Maze operation for atrial fibrillation Acute Coronary arteriosclerosis Acute
[2016-09-22] MEDS ORDERED: ALBUMIN 5% 250 ML IV ONE (15:30)
[2016-09-22 16:40] LABS: IONIZED CALCIUM 1.17 MMOL/L (1.12-1.30)
--- NOTE | 2016-09-22 16:51 | PCMIDPN ---
Assessment/Plan: Assessment: bacteremia from enterococcus -- matches the isolate from sputum. Now on zosyn for the past 4 days -- no clear clinical improvement as of yet although he continues to be much less toxic appearing and more alert than expected for such a potential degree of septic shock. Will continue this treatment and observe. Continue to monitor cultures. Large R pleural fluid collection drained. Will monitor the studies from that fluid. Plan: 1) Continue IV zosyn. 2) Follow trend in labs and clinical status. Subjective: Patient awake and alert. Resting in his bed. Wants to sit up in a chair. No new issues. Pressor remain. Objective: Zosyn #4 Vital Signs Temp Pulse Resp BP Pulse Ox 35 C L 94 32 H 91/47 L 90 L 09/22/16 16:00 09/22/16 16:00 09/22/16 16:00 09/22/16 16:00 09/22/16 16:00 Microbiology 09/18/16 14:20 Gram Stain - Final Lung Right Lower Lobe - Bronchial Washings Bronchial Washings Culture - Final Enterococcus Faecalis 09/18/16 14:20 - Final Sputum, Induced/Suctioned Sputum Culture - Final 09/18/16 10:59 Blood Culture - Final Blood Enterococcus Faecalis Laboratory Results 09/22/16 11:45 09/21/16 09/22/16 09/23/16 05:59 05:59 05:59 Intake Total 2081 1155 Output Total 819 Balance 2081 336 - Physical Exam General Appearance: WD/WN, thin, other (ill-appearing) Respiratory: crackles, other (chest tubes B), No lungs clear, No normal breath sounds, No respiratory distress Cardiac/Chest: regular rate, rhythm, No tachycardia Extremities: non-tender, No normal inspection Skin: normal color, warm/dry, No rash Neuro/Psych: alert ICD10 Worksheet Patient Problems: Problems Problem Status Diagnosed Acute blood loss anemia Acute Acute renal failure Acute Arterial occlusion, lower extremity Acute Leukocytosis Acute Respiratory failure with hypoxia Acute S/P CABG x 5 Acute S/P Maze operation for atrial fibrillation Acute Coronary arteriosclerosis Acute
[2016-09-22] MEDS: NOREPINEPHRINE BITARTRATE 16 MG in D5W 250 ML IV SCH ×2 (17:01→17:22)
[2016-09-22 17:09] LABS: ALBUMIN 2.4 g/dL (3.5-5.0); ANION GAP 10 mEq/L (8-16); CALCIUM 8.5 mg/dL (8.5-10.4); CARBON DIOXIDE 24 mEq/l (22-31); CHLORIDE 103 mEq/L (97-110); CREATININE 0.9 mg/dL (0.7-1.3); GLOMERULAR FILTRATION RATE > 60; GLUCOSE 149 mg/dL (70-100); MAGNESIUM 1.7 mg/dL (1.6-2.3); POTASSIUM 3.6 mEq/L (3.5-5.2); SODIUM 137 mEq/L (134-144)
[2016-09-22] MEDS: ACCESSORY DRAIN 1 EA BAG***SEND #2 INITIALLY MISC PRN ×2 (17:44→19:28)
[2016-09-22 17:51] LABS: BASE EXCESS -4.6 mEq/L (-2.5-2.5); BICARBONATE 22 mEq/L (22-26); MEASURED OXYGEN SATURATION 93 % (92-95); PCO2 51 mmHg (34-38); PO2 69 mmHg (65-75); TCO2 24 mEq/L (23-27)
[2016-09-22 17:52] LABS: END TIDAL CO2 26; O2 CONCENTRATIION 50 % (0-100); P/F RATIO 138 RATIO; PATIENT RATE 32; PRESSURE SUPPORT 12; SIMV YES
[2016-09-22] MEDS ORDERED: NS 500 ML IV SCH (18:00)
[2016-09-22] MEDS: MELATONIN 3 MG TAB TUBE SCH (20:52)
[2016-09-22] MEDS: risperiDONE 1 MG TAB PO SCH (20:52)
[2016-09-22 22:39] LABS: IONIZED CALCIUM 1.06 MMOL/L (1.12-1.30)
[2016-09-22 22:51] LABS: ANION GAP 10 mEq/L (8-16); CALCIUM 8.4 mg/dL (8.5-10.4); CARBON DIOXIDE 23 mEq/l (22-31); CHLORIDE 105 mEq/L (97-110); CREATININE 0.9 mg/dL (0.7-1.3); GLOMERULAR FILTRATION RATE > 60; GLUCOSE 106 mg/dL (70-100); MAGNESIUM 2.1 mg/dL (1.6-2.3); POTASSIUM 4.2 mEq/L (3.5-5.2); SODIUM 138 mEq/L (134-144)
[2016-09-23] MEDS: B22GK4/0 PRISMASATE 5,000 ML DIAL SCH ×6 (01:01→22:19)
[2016-09-23] MEDS: REPL FLUID TYPE D CAPS 1 EA in WATER FOR INJECTION,STERILE 4,000 ML DIAL SCH ×8 (02:10→21:37)
[2016-09-23] MEDS: HALOPERIDOL LACT 5 MG/ML INJ IVP PRN ×3 (02:10→23:24)
[2016-09-23] MEDS: CALCIUM CHLORIDE 5.7 GM in NS 1,000 ML IV SCH ×2 (02:58→19:41)
[2016-09-23] MEDS: NOREPINEPHRINE BITARTRATE 16 MG in D5W 250 ML IV SCH ×3 (02:58→18:24)
--- NOTE | 2016-09-23 03:30 | CPEKG ---
Heart Rate: 118 RR Interval: 508 P-R Interval: 162 QRSD Interval: 156 QT Interval: 412 QTC Interval: 578 P [place]: 0 QRS [place]: -78 T Wave [place]: 104 EKG Severity - ABNORMAL ECG - EKG Impression: ATRIAL FIBRILLATION EKG Impression: PAIRED VENTRICULAR PREMATURE COMPLEXES EKG Impression: NONSPECIFIC IVCD WITH LAD Electronically Signed By: Shree Brantley 24-Sep-2016 21:31:31
[2016-09-23] MEDS: NS 1,000 ML MISC SCH ×5 (04:11→21:36)
[2016-09-23 04:28] LABS: HEMATOCRIT 21.3 % (40.0-51.0); MEAN CELL HEMOGLOBIN 30.1 pg (27.9-34.1); MEAN CELL HEMOGLOBIN CONCENTR. 31.9 g/dL (32.4-36.7); MEAN CELL VOLUME 94.2 fL (81.5-99.8); RED BLOOD CELL COUNT 2.26 10^6/uL (4.40-6.38)
[2016-09-23 04:36] LABS: BASE EXCESS -2.6 mEq/L (-2.5-2.5); BICARBONATE 23 mEq/L (22-26); IONIZED CALCIUM 1.23 MMOL/L (1.12-1.30); MEASURED OXYGEN SATURATION 97 % (92-95); O2 CONCENTRATIION 50 % (0-100); P/F RATIO 170 RATIO; PCO2 43 mmHg (34-38); PO2 85 mmHg (65-75); SIMV YES; TCO2 24 mEq/L (23-27)
[2016-09-23 04:37] LABS: PATIENT RATE 32; PRESSURE SUPPORT 12
[2016-09-23 04:43] LABS: INR 1.57 (0.83-1.16); PROTIME(PATIENT) 18.8 SEC (12.0-15.0)
[2016-09-23 04:45] LABS: HEMOGLOBIN 6.8 g/dL (13.7-17.5); RED CELL DISTRIBUTION WIDTH 21.3 % (11.5-15.2)
[2016-09-23 04:46] LABS: ANION GAP 11 mEq/L (8-16); CALCIUM 8.7 mg/dL (8.5-10.4); CARBON DIOXIDE 23 mEq/l (22-31); CHLORIDE 105 mEq/L (97-110); CREATININE 0.8 mg/dL (0.7-1.3); GLOMERULAR FILTRATION RATE > 60; GLUCOSE 105 mg/dL (70-100); MAGNESIUM 1.8 mg/dL (1.6-2.3); POTASSIUM 3.6 mEq/L (3.5-5.2); SODIUM 139 mEq/L (134-144)
[2016-09-23] MEDS: POTASSIUM Cl (KCl) 100 ML IV PRN ×2 (05:01→06:42)
[2016-09-23] MEDS: NYSTATIN SUSP 500000 UNIT/5 ML UDCUP PO SCH ×4 (05:14→20:08)
[2016-09-23] MEDS: PIPERACILLIN/TAZO 3.375 GM/DEX 50 ML IV SCH ×3 (05:14→17:22)
[2016-09-23] MEDS ORDERED: SODIUM PHOS 20 MM in D5W 250 ML IV ONE (05:30)
--- NOTE | 2016-09-23 08:07 | SOAPPROG ---
SOAP Progress Note Assessment/Plan: Assessment: 1. RAHEL/MOD Targeting MAP 60. Remains on Norepi. Cooling and increasing volume may have helped some. WBC falling. Replacing phos. 2. Hypotension BP a bit better. 3. RAHEL Remains on CRRT, which is functioning well. Ca levels good. He is running positive 100ml/hr. 4. Continuing tube feeds with H2O flushes. 5. Resp acidosis Now with increased Vent rate 6. VAP ID following. On Zosyn for cultured enterococcus. CT placed with 3L drained. 7. Anemia Getting 2u today. Plan of care Family meeting and reassessment this week. 09/23/16 08:04 Subjective: Awakens Objective: Vital Signs Temp Pulse Resp BP Pulse Ox 35.7 C L 102 H 32 H 102/58 L 100 09/23/16 02:00 09/23/16 07:00 09/23/16 07:00 09/23/16 07:00 09/23/16 07:00 Microbiology 09/18/16 14:20 Gram Stain - Final Lung Right Lower Lobe - Bronchial Washings Bronchial Washings Culture - Final Enterococcus Faecalis Laboratory Results 09/23/16 04:03 09/23/16 04:03 09/22/16 09/23/16 09/24/16 05:59 05:59 05:59 Intake Total 1155 1963 Output Total 819 Balance 336 1963 PT 18.8 SEC (12.0-15.0) H 09/23/16 04:03 INR 1.57 (0.83-1.16) H 09/23/16 04:03 Physical Exam - Physical Exam General Appearance: mild distress, cachetic Respiratory: lungs clear (anteriorly) Cardiac/Chest: regular rate, rhythm Abdomen: soft Male Genitalia: other (fall) Extremities: other (trace to 1+ hip edema now, necrotic feeet) ICD10 Worksheet Patient Problems: Problems Problem Status Diagnosed Acute blood loss anemia Acute Acute renal failure Acute Arterial occlusion, lower extremity Acute Leukocytosis Acute Respiratory failure with hypoxia Acute S/P CABG x 5 Acute S/P Maze operation for atrial fibrillation Acute Coronary arteriosclerosis Acute
--- NOTE | 2016-09-23 08:59 | DX ---
Portable Chest, Single View September 23, 2016 5:19 am Indication: Follow up pneumothorax. In-patient. Findings: The small to moderate right apical pneumothorax has minimally increased in size since one d ay prior. The right chest tube, right PICC, feeding tube, tracheostomy, and midline sternal wires are all unchanged. Diffuse bilateral groundglass pulmonary opacities are minimally worse. Impression: 1. Small to moderate right apical pneumothorax has minimally increased in size. 2. Support devices remain in good position. 3. Worsening confluent airspace consolidation (acute alveolar injury, pulmonary edema, versus evolvin g bronchopneumonia).
--- NOTE | 2016-09-23 09:16 | DX ---
Portable Chest, Single View September 23, 2016 at 8:57 a.m. Indication: In-patient. Change in pulmonary status Findings: Since 3 hours earlier, the small to moderate right apical pneumothorax, position of bilater al chest tubes, position of the tracheostomy tube, midline sternal wires and right PICC are all uncha nged. Diffuse airspace consolidation has not significantly changed. Impression: No significant change since 3 hours prior.
--- NOTE | 2016-09-23 09:19 | SOAPPROG ---
SOAP Progress Note Assessment/Plan: Assessment: POD#33 CABGx5 (GANN-LCX, EBONY-D1, SVG-LAD, Sequential SVG-PDA-PLR), Padilla-Maze IV Left/Right lesions. POD#19 Tracheostomy, RIJ dialysis cath. POD#4 Left chest tube. POD#1 Right chest tube. Nutrition per DHT. IV access per RUE PICC. Day 5 Zosyn. Sx CAD with ISCM (EF 40-45%) - s/p CABGx5 with bilateral mammaries. Small and diffusely diseased target vessels. Early postop course complicated by cardiogenic shock with multi-organ dysfx, severe MR, and peripheral vasoconstriction. Hemodynamics stabilized on vasoactive support w temporary improvement in hepatorenal and respiratory function as well as transient recovery of foot perfusion as pressor support lightened. MOF as of 12/12 secondary to resp arrest precipitated by AF/RVR with hypotension. Further exacerbation by HAP/ARDS w inc pressor needs and effusive process req bilat chest tubes. Condition critical. Code status: no CPR per family wishes. Long-standing persistent atrial fibrillation - SR temporarily restored s/p Padilla- Maze IV. Recurrent PAF/PSVT as of POD#11. Use of antinodals limited by pressor support. Amio stopped after arrest. Predominant rhythm since = sinus tach. [id number] score of 3. Surgical antithrombotic prophylaxis w DAPT when appropriate. Postoperative respiratory failure - Reintubated 3x, most recently for arrest post AF treatment. Trach placed. Several therapeutic bronchoscopies. Eventual enterococcal HAP w bacteremia and bilateral effusions. Abx per ID with no sig clinical response. Vent related left PTX/subq air controlled w chest tube and adjusted settings. Rt sided effusion evacuated yest. Incomplete expansion d/t small PTX w/near arrest this am d/t clotted tube/tension PTX. New larger bore chest tube inserted with good effect. Postoperative renal failure - Secondary to shock and ATN. Nephrology following and directing CRRT/fluid management. Postoperative melena - Intermittent w episode of BRBPR following manual disimpaction. GI consulted. Local trauma from disimpaction suspected. Endoscopic eval deferred. Restarted on anticoags without recurrent bleeding since 09/12. Post-op moderate-severe MR - Functional. Valve structurally intact by serial echos. Cath neg for compromised paras flow or RHF. Surg repair deferred. Acute expected blood loss anemia with thrombocytopenia and coagulopathy - Clinical concern for HIT despite negative antibody assays. Heparin avoided. Inc plt counts on Argatroban. Transitioned to DAPT w recurrent coagulopathy despite adeq plt count. All AC on hold. Transfuse prn. Postoperative pedal ischemia - Vasospasm compl by sm vessel thrombosis below ankle level. Demarcating rt forefoot and left toes. Contrast imaging as allowed by renal fx. Vasodilator as allowed by BP. Antithrombotic therapy w DAPT. Gen surg following peripherally for eventual amputation. Plan: Supportive care as per multidisciplinary team. Transfuse 2u PRBC. 2nd rt chest tube per Dr Thayer. Cont levo titration to MAP > 60. Stop plavix and ASA. 09/23/16 09:15 Objective: Vital Signs Temp Pulse Resp BP Pulse Ox 35.7 C L 102 H 32 H 102/58 L 100 09/23/16 02:00 09/23/16 07:00 09/23/16 07:00 09/23/16 07:00 09/23/16 07:00 Microbiology 09/18/16 14:20 Gram Stain - Final Lung Right Lower Lobe - Bronchial Washings Bronchial Washings Culture - Final Enterococcus Faecalis Laboratory Results 09/23/16 04:03 09/23/16 04:03 09/22/16 09/23/16 09/24/16 05:59 05:59 05:59 Intake Total 1155 1963 Output Total 819 Balance 336 1963 PT 18.8 SEC (12.0-15.0) H 09/23/16 04:03 INR 1.57 (0.83-1.16) H 09/23/16 04:03 Improved ABG w PEEP down to 5, levo down from 20 to 15 s/p rt CT insertion. Sudden deterioration this am - decr mental status, tachy/IVCD, hypotensive w inc airway pressures. CXR w inc rt PTX and chest tube visibly clotted and no longer tidalling. Patency restored with suction and irrigation. New lg bore chest tube inserted as old tube suspected to be in the fissure. Marked drop in H/H, presumably chest wall bleed. Physical Exam - Physical Exam General Appearance: other ICD10 Worksheet Patient Problems: Problems Problem Status Diagnosed Acute blood loss anemia Acute Acute renal failure Acute Arterial occlusion, lower extremity Acute Leukocytosis Acute Respiratory failure with hypoxia Acute S/P CABG x 5 Acute S/P Maze operation for atrial fibrillation Acute Coronary arteriosclerosis Acute
[2016-09-23] MEDS ORDERED: LIDOCAINE 1% 30 ML SDV ONE (09:41)
--- NOTE | 2016-09-23 09:42 | PDINTPN ---
[facility] Progress Note Assessment/Plan: Assessment: #Right hemothorax this AM with the right chest tube clotted and not functioning. Patient became unresponsive with hypoxia and hypotension. Clot suctioned out with some new air leak and bubbles, but repeat CXR still with a PTX. Flushed with warm saline, and CXR still with an apical PTX. Dr Thayer here and is to place a new chest tube. #CABG X 5 and MAZE. #Respiratory failure with a trach, on SIMV at 500ml TV and rate of 32 and 45% FI02 #Pneumonia on the right is stable on CXR. Sputum + for enterococcus. #Blood culture positive through the PICC line for enterococcus. #Agitation, much improved. He is calm and more alert than yesterday #RAHEL with creatinine 2.3 to 0.9 on CRRT #Mitral regurg post op, probably from LV dilitation post op, hopefully will resolve #Ischemic toes ? due to HIT syndrome, with negative HIT antibody, but increase in platelets on argatroban which is now stopped #Hemodynamics borderline with an increase to 20 of levophed #Left pneumothorax with a small air leak in chest tube #Enlarging right pleural effusion #FEN: on goal tube feedings Plan: New right chest tube Most worrisome issue is the increase in the need for levophed, now at 20 in spite of 100ml positive on CRRT, and his metabolic acidosis. His BP did respond briefly to IV albumin. Will repeat albumin today Check thyroid, testosterone, and cortisol ASA and Plavix Left and right chest tubes He is very anxious at home according to his , and now is very nervous He wants to stand, but has been too weak to do it and the [facility] hospital bed does not lend itself to standing. Surgery did say it is OK to allow him to stand with his ischemic right foot and all toes. It looks to me like he will lose most or all of his toes and perhaps his right foot. Increase TV to 600ml to try to correct his metabolic and respiratory acidosis 09/23/16 09:39 Subjective: alert, then unresponsive, now responsive again. Objective: Vital Signs Temp Pulse Resp BP Pulse Ox 35.7 C L 102 H 32 H 102/58 L 100 09/23/16 02:00 09/23/16 07:00 09/23/16 07:00 09/23/16 07:00 09/23/16 07:00 Microbiology 09/18/16 14:20 Gram Stain - Final Lung Right Lower Lobe - Bronchial Washings Bronchial Washings Culture - Final Enterococcus Faecalis Laboratory Results 09/23/16 04:03 09/23/16 04:03 09/22/16 09/23/16 09/24/16 05:59 05:59 05:59 Intake Total 1155 1963 Output Total 819 Balance 336 1963 PT 18.8 SEC (12.0-15.0) H 09/23/16 04:03 INR 1.57 (0.83-1.16) H 09/23/16 04:03 Physical Exam - Physical Exam General Appearance: moderate distress EENT: normal ENT inspection Neck: other (trach) Respiratory: rhonchi Cardiac/Chest: regular rate, rhythm Abdomen: non-tender, soft Back: Normal inspection Skin: warm/dry Lymphatic: no adenopathy Extremities: non-tender, pedal edema Neuro/Psych: alert ICD10 Worksheet Patient Problems: Problems Problem Status Diagnosed Acute blood loss anemia Acute Acute renal failure Acute Arterial occlusion, lower extremity Acute Leukocytosis Acute Respiratory failure with hypoxia Acute S/P CABG x 5 Acute S/P Maze operation for atrial fibrillation Acute Coronary arteriosclerosis Acute
--- NOTE | 2016-09-23 10:18 | POSTOPPROG ---
Post Op Note Date of Operation: 09/23/16 Surgeon: Marv Thayer Trackmobile Operator: none Anesthesiologist: none Anesthesia: Local (Specify) (1% lidocaine) Pre-op Diagnosis: R hemothorax Procedure: #36 CT,right Findings: 2L serosanguinous Inf/Abcess present in the surg proc area at time of surgery?: No EBL: Minimal
--- NOTE | 2016-09-23 10:19 | DX ---
Portable Chest, Single View September 23, 2016 at 9:57 am Indication: Chest tube reposition. Comparison: Portable chest radiographs from 8:57 a.m. today Findings: Since one hour prior, the configuration of the right chest tube and size of the small or mo derate right apical pneumothorax have not significantly changed. Diffuse airspace consolidation, configuration of the feeding tube, left chest tube, tracheostomy tube , and midline sternal wires are unchanged. Impression: Configuration of right chest tube and small to moderate right apical pneumothorax have no t significantly changed since one hour prior.
--- NOTE | 2016-09-23 10:38 | GOP ---
[f rep st] OPERATIVE REPORT DATE OF OPERATION: 09/23/2016 SURGEON: Marv Thayer DO ANESTHESIA: 1% local. PREOPERATIVE DIAGNOSIS: Right hemothorax with pneumothorax. POSTOPERATIVE DIAGNOSIS: Right hemothorax with pneumothorax. PROCEDURE PERFORMED: Right-sided chest tube, #36. FINDINGS: DESCRIPTION OF PROCEDURE: The patient had a chest tube placed the day prior and had a significant dr op in his hemoglobin and was noted to have a clotted chest tube. For that reason, a chest x-ray reve aled persistent right pneumo and right fluid retention, and he had a bradycardic episode with hypoten haylee. I therefore prepped and draped the right chest. I used 1% lidocaine to infiltrate for interco stal spaces. I tunneled above the 4th rib, placing my finger in the pleural cavity away from the antolin g. I then entered a chest tube with approximately 1800 cc of serosanguineous fluid return. No air l eak was encountered. The chest tube was secured. Chest x-ray was reviewed. /[id number]/MODL
--- NOTE | 2016-09-23 10:43 | DX ---
Portable Chest, Single View September 23, 2016 History: Chest tube placement. Comparison: September 23, 2016. Findings: There has been placement of the second chest tube on the right with its tip directed toward the medial right upper lobe. The other chest tube on the right is in stable position. There remains a small right apical pneumothorax. There is a tiny left apical pneumothorax with a left chest tube in stable position. Heart size is enlarged and stable. Pulmonary vascularity is mildly prominent. Inter stitial prominence and airspace consolidation are seen bilaterally with stable aeration. Tracheostomy tube and feeding tube are visualized. Postsurgical changes are seen of prior heart surgery stable in appearance. Impression: Placement of a second right chest tube with slight diminished right apical pneumothorax. Other life support tubes and lines are stable. Stable aeration with airspace consolidation that could represent pulmonary edema or pneumonia and atelectasis.
--- NOTE | 2016-09-23 10:46 | DX ---
Portable Chest, Single View September 23, 2016 History: Left chest tube fell out. Comparison: September 23, 2016, 1006 hours. Findings: The left chest tube is now absent. There is a minimal left apical pneumothorax stable in ap pearance. Two chest tubes are seen on the right stable in position with stable right pneumothorax. Ot her life support tubes and lines are stable. Stable postsurgical change of open heart surgery and sta ble mild cardiomegaly. Stable airspace consolidation bilaterally. Impression: The left chest tube is now absent with minimal stable left apical pneumothorax. No other significant interval change.
[2016-09-23] MEDS: ACCESSORY DRAIN 1 EA BAG***SEND #2 INITIALLY MISC PRN ×2 (11:18→23:25)
[2016-09-23 11:28] LABS: IONIZED CALCIUM 1.12 MMOL/L (1.12-1.30)
[2016-09-23 11:45] LABS: ANION GAP 11 mEq/L (8-16); CARBON DIOXIDE 24 mEq/l (22-31); CHLORIDE 103 mEq/L (97-110); CREATININE 0.9 mg/dL (0.7-1.3); GLOMERULAR FILTRATION RATE > 60; GLUCOSE 145 mg/dL (70-100); MAGNESIUM 1.7 mg/dL (1.6-2.3); SODIUM 138 mEq/L (134-144)
[2016-09-23] MEDS ORDERED: MAGNESIUM SULF 2 GM/WATER 50 ML BAG IV ONE (12:12)
[2016-09-23] MEDS: MAGNESIUM SULF 2 GM/WATER 50 ML IV PRN (12:14)
[2016-09-23] MEDS: LANSOPRAZOLE SUSP 30MG/10ML UDSYR (Adult) TUBE SCH (12:26)
[2016-09-23] MEDS ORDERED: NS 500 ML IV SCH (13:30)
[2016-09-23] MEDS: SENNOSIDES 17.6 MG/10 ML UDL TUBE SCH ×2 (13:42→20:07)
[2016-09-23 15:07] LABS: BASE EXCESS -4.7 mEq/L (-2.5-2.5); BICARBONATE 21 mEq/L (22-26); MEASURED OXYGEN SATURATION 99 % (92-95); PCO2 48 mmHg (34-38); PO2 145 mmHg (65-75); TCO2 23 mEq/L (23-27)
[2016-09-23 15:10] LABS: O2 CONCENTRATIION 60 % (0-100); P/F RATIO 242 RATIO; PATIENT RATE 32; PRESSURE SUPPORT 12; SIMV YES
[2016-09-23 15:11] LABS: END TIDAL CO2 25
[2016-09-23 16:22] LABS: IONIZED CALCIUM 1.14 MMOL/L (1.12-1.30)
[2016-09-23 16:38] LABS: ALBUMIN 2.3 g/dL (3.5-5.0); ANION GAP 9 mEq/L (8-16); CALCIUM 8.7 mg/dL (8.5-10.4); CARBON DIOXIDE 25 mEq/l (22-31); CHLORIDE 103 mEq/L (97-110); CREATININE 0.9 mg/dL (0.7-1.3); GLOMERULAR FILTRATION RATE > 60; GLUCOSE 100 mg/dL (70-100); MAGNESIUM 2.5 mg/dL (1.6-2.3); POTASSIUM 3.9 mEq/L (3.5-5.2); SODIUM 137 mEq/L (134-144)
[2016-09-23] MEDS ORDERED: EPINEPHrine 1 MG/10 ML SYR IVP ONE (16:42)
[2016-09-23] MEDS: fentaNYL 100 MCG/2 ML INJ IVP PRN ×2 (17:21→19:46)
--- NOTE | 2016-09-23 17:23 | PCMIDPN ---
Assessment/Plan: Assessment/Plan: 1. Enterococcal bacteremia and pneumonia: -currently on zosyn -i ordered f/u blood cx to be done today. positive cx from 09/18/16. -new pneumothorax s/p chest. -tenuous hemodynamic status. still on pressors.-not clear if all infectious related vs other. -continue therapy for now. meds zosysn Subjective: afebrile. new pneumothorax found today, s/p chest tube. hypotensive. still on pressors. on vent Objective: Vital Signs Temp Pulse Resp BP Pulse Ox 35 C L 97 34 H 96/54 L 100 09/23/16 16:00 09/23/16 17:00 09/23/16 17:00 09/23/16 17:00 09/23/16 17:00 Laboratory Results 09/23/16 11:45 09/23/16 16:00 09/22/16 09/23/16 09/24/16 05:59 05:59 05:59 Intake Total 1155 1963 Output Total 819 Balance 336 1962 - Physical Exam General Appearance: other (intubated, lightly sedated in icu. opens eyes to verbal stimuli) EENT: ET Tube Respiratory: coarse breath sounds Cardiac/Chest: regular rate, rhythm Extremities: No swelling Abdomen: normal bowel sounds, non-tender, soft, No distended Male Genitalia: fall Skin: No erythema ICD10 Worksheet Patient Problems: Problems Problem Status Diagnosed Acute blood loss anemia Acute Acute renal failure Acute Arterial occlusion, lower extremity Acute Leukocytosis Acute Respiratory failure with hypoxia Acute S/P CABG x 5 Acute S/P Maze operation for atrial fibrillation Acute Coronary arteriosclerosis Acute
[2016-09-23 18:02] LABS: HEMATOCRIT 27.8 % (40.0-51.0); HEMOGLOBIN 9.2 g/dL (13.7-17.5)
--- NOTE | 2016-09-23 18:14 | DX ---
Supine portable abdomen 1800 hours. History: Check feeding tube placement. Findings: Feeding tube tip is within the gastric body. This could be advanced. Bowel gas pattern in t he upper abdomen is relatively normal. Bilateral alveolar infiltrates are once again noted at the antolin g bases. Impression: 1. Feeding tube tip in the gastric body. This could be advanced.
[2016-09-23] MEDS: MELATONIN 3 MG TAB TUBE SCH (20:08)
[2016-09-23] MEDS: risperiDONE 1 MG TAB PO SCH (20:08)
[2016-09-23 21:48] LABS: IONIZED CALCIUM 1.11 MMOL/L (1.12-1.30)
[2016-09-23 21:50] LABS: HEMATOCRIT 27.4 % (40.0-51.0); HEMOGLOBIN 8.8 g/dL (13.7-17.5)
[2016-09-23 22:14] LABS: ANION GAP 10 mEq/L (8-16); CALCIUM 8.6 mg/dL (8.5-10.4); CARBON DIOXIDE 23 mEq/l (22-31); CHLORIDE 105 mEq/L (97-110); CREATININE 0.8 mg/dL (0.7-1.3); GLOMERULAR FILTRATION RATE > 60; GLUCOSE 92 mg/dL (70-100); MAGNESIUM 1.8 mg/dL (1.6-2.3); POTASSIUM 3.9 mEq/L (3.5-5.2); SODIUM 138 mEq/L (134-144)
[2016-09-24] MEDS: PIPERACILLIN/TAZO 3.375 GM/DEX 50 ML IV SCH ×4 (00:02→18:08)
[2016-09-24] MEDS: CALCIUM CHLORIDE 5.7 GM in NS 1,000 ML IV SCH (00:07)
[2016-09-24] MEDS: REPL FLUID TYPE D CAPS 1 EA in WATER FOR INJECTION,STERILE 4,000 ML DIAL SCH ×4 (00:07→21:11)
[2016-09-24] MEDS: NS 1,000 ML MISC SCH ×2 (02:03→19:56)
[2016-09-24] MEDS: B22GK4/0 PRISMASATE 5,000 ML DIAL SCH ×2 (02:03→05:33)
[2016-09-24 03:18] LABS: HEMATOCRIT 26.5 % (40.0-51.0); HEMOGLOBIN 8.7 g/dL (13.7-17.5); MEAN CELL HEMOGLOBIN 30.2 pg (27.9-34.1); MEAN CELL HEMOGLOBIN CONCENTR. 32.8 g/dL (32.4-36.7); RED BLOOD CELL COUNT 2.88 10^6/uL (4.40-6.38); RED CELL DISTRIBUTION WIDTH 19.6 % (11.5-15.2)
[2016-09-24] MEDS: HALOPERIDOL LACT 5 MG/ML INJ IVP PRN (03:31)
[2016-09-24 03:40] LABS: ANION GAP 11 mEq/L (8-16); CALCIUM 8.6 mg/dL (8.5-10.4); CARBON DIOXIDE 23 mEq/l (22-31); CHLORIDE 105 mEq/L (97-110); CREATININE 0.8 mg/dL (0.7-1.3); GLOMERULAR FILTRATION RATE > 60; GLUCOSE 105 mg/dL (70-100); MAGNESIUM 1.6 mg/dL (1.6-2.3); POTASSIUM 3.8 mEq/L (3.5-5.2); SODIUM 139 mEq/L (134-144)
[2016-09-24] MEDS: MAGNESIUM SULF 2 GM/WATER 50 ML IV PRN ×2 (03:51→22:30)
[2016-09-24] MEDS: NOREPINEPHRINE BITARTRATE 16 MG in D5W 250 ML IV SCH (05:33)
[2016-09-24 05:50] LABS: BASE EXCESS -4.1 mEq/L (-2.5-2.5); BICARBONATE 22 mEq/L (22-26); IONIZED CALCIUM 1.17 MMOL/L (1.12-1.30); MEASURED OXYGEN SATURATION 99 % (92-95); PCO2 43 mmHg (34-38); PO2 114 mmHg (65-75); TCO2 23 mEq/L (23-27)
[2016-09-24 05:52] LABS: END TIDAL CO2 21; TOTAL RATE 36
--- NOTE | 2016-09-24 08:29 | DX ---
Portable chest x-ray 0627 hours. History: Followup pneumothorax. ARDS. Findings: Comparison to September 23, 2016. Tracheostomy, feeding tube, central line, PICC line, and right-sided chest tubes remain in place. The re is decrease in right-sided pneumothorax that now measures about 8 mm at the right lung apex (previ ously 12 mm). There is increase in subcutaneous gas over the right hemithorax extending to the right lower neck. Mild left-sided pneumothorax is stable measuring about 12 mm at the left apex. There is n o evidence of chest tube on the left. Heart size remains borderline enlarged. Pulmonary vasculature is not significantly engorged. Moderate patchy bilateral alveolar infiltrates are stable. There is no effusion. Osseous structures are uncha nged. Impression: 1. Interventional tubes in stable position. 2. Stable small left-sided pneumothorax and slight decrease in small right-sided pneumothorax. 3. Mild increase in subcutaneous emphysema over the right hemithorax and right lower neck. 4. Stable ARDS pattern.
[2016-09-24] MEDS: SENNOSIDES 17.6 MG/10 ML UDL TUBE SCH ×2 (08:35→21:11)
[2016-09-24] MEDS: NYSTATIN SUSP 500000 UNIT/5 ML UDCUP PO SCH ×4 (08:35→21:11)
[2016-09-24] MEDS: LANSOPRAZOLE SUSP 30MG/10ML UDSYR (Adult) TUBE SCH (08:35)
--- NOTE | 2016-09-24 08:37 | SOAPPROG ---
SOAP Progress Note Assessment/Plan: POD#34 CABGx5 (GANN-LCX, EBONY-D1, SVG-LAD, Sequential SVG-PDA-PLR), Padilla-Maze IV Left/Right lesions. POD#20 Tracheostomy, RIJ dialysis cath. POD#5 Left chest tube - dc'd 1/2 POD#2 Right chest tube. POD#1 Right chest tube Nutrition per DHT. IV access per RUE PICC. Day 6 Zosyn. Sx CAD with ISCM (EF 40-45%) - s/p CABGx5 with bilateral mammaries. Small and diffusely diseased target vessels. Early postop course complicated by cardiogenic shock with multi-organ dysfx, severe MR, and peripheral vasoconstriction. Hemodynamics stabilized on vasoactive support w temporary improvement in hepatorenal and respiratory function as well as transient recovery of foot perfusion as pressor support lightened. MOF as of 12/12 secondary to resp arrest precipitated by AF/RVR with hypotension. Further exacerbation by HAP/ARDS w inc pressor needs and effusive process req bilat chest tubes. Condition critical. Code status: no CPR per family wishes. Long-standing persistent atrial fibrillation - s/p Padilla-Maze IV. Recurrent PAF/ PSVT as of POD#11. Use of antinodals limited by pressor support. Amio stopped after arrest. [id number] score of 3. Surgical antithrombotic prophylaxis w DAPT when appropriate. Postoperative respiratory failure - Reintubated 3x, most recently for arrest post AF treatment. Trach placed. Several therapeutic bronchoscopies. Eventual enterococcal HAP w bacteremia and bilateral effusions. Abx per ID. Vent related left PTX/subq air controlled w chest tube and adjusted settings. Rt sided effusion s/p CT. Incomplete expansion d/t small PTX w/near arrest d/t clotted tube/tension PTX. New larger bore chest tube inserted 1/2 with good effect. Postoperative renal failure - Secondary to shock and ATN. Nephrology following and directing CRRT/fluid management. Postoperative melena - Intermittent w episode of BRBPR following manual disimpaction. GI consulted. Local trauma from disimpaction suspected. Endoscopic eval deferred. Stable. Post-op moderate-severe MR - Functional. Valve structurally intact by serial echos. Cath neg for compromised paras flow or RHF. Surg repair deferred. 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 Heparin avoided. Inc plt counts on Argatroban. Transitioned to DAPT w recurrent coagulopathy despite adeq plt count. All AC on hold. Transfuse prn. Postoperative pedal ischemia - Vasospasm compl by sm vessel thrombosis below ankle level. Demarcating rt forefoot and left toes. Contrast imaging as allowed by renal fx. Vasodilator as allowed by BP. Antithrombotic therapy w DAPT when appropriate. Gen surg following peripherally for eventual amputation. Subjective: Trying to communicate on vent. Objective: Vital Signs Temp Pulse Resp BP Pulse Ox 35.7 C L 89 35 H 93/46 L 100 09/24/16 04:00 09/24/16 06:00 09/24/16 06:00 09/24/16 06:00 09/24/16 06:00 Microbiology 09/18/16 10:59 Blood Culture - Final Blood Laboratory Results 09/24/16 03:10 09/24/16 03:10 09/23/16 09/24/16 09/25/16 05:59 05:59 05:59 Intake Total 1963 1928 Output Total 1400 Balance 1963 528 PT 18.8 SEC (12.0-15.0) H 09/23/16 04:03 INR 1.57 (0.83-1.16) H 09/23/16 04:03 Physical Exam - Physical Exam General Appearance: alert, mild distress, anxiety, cachetic, thin EENT: No scleral icterus (R), No scleral icterus (L) Neck: normal inspection Respiratory: No respiratory distress Cardiac/Chest: regular rate, rhythm Abdomen: non-tender, soft, No distended Skin: pallor Extremities: No pedal edema, No swelling Neuro/Psych: alert, motor weakness ICD10 Worksheet Patient Problems: Problems Problem Status Diagnosed Acute blood loss anemia Acute Acute renal failure Acute Arterial occlusion, lower extremity Acute Leukocytosis Acute Respiratory failure with hypoxia Acute S/P CABG x 5 Acute S/P Maze operation for atrial fibrillation Acute Coronary arteriosclerosis Acute
--- NOTE | 2016-09-24 09:35 | PDINTPN ---
[facility] Progress Note Assessment/Plan: Assessment/Plan: * CABG X 5 and MAZE 08/21 * Status post cardiopulmonary arrest 09/02: rapid atrial fibrillation, hypoxia, asystole, CPR, intubation, eventual return of spontaneous circulation. * Atrial fibrillation. On amiodarone. In normal sinus rhythm currently. * Barotrauma with bilat PTX -CT on right, left out -CXR today with small apical Pneumothoraces * Mitral regurg post op, moderate-severe. Hemodynamics OK. Likely contributes to his acute respiratory failure and infiltrates. * RAHEL: On CVVHD. Able to remove 75-100 ml/hour. Catheter is positional. * Respiratory Failure: tracheostomy tube in place. CXR with persistent diffuse infiltrates, * S/P trach * SQ emphysema -recheck CXR today * Hypotension: Stable. On and off low-dose Levophed. * Elevated WBC: Improve. Afebrile. * Right foot ischemia greater than left: Likely due to spasm/embolism/ thrombosis at the ankle. On ASA/Plavix/argatroban. Dr. Levy following. * Lower GI bleed. Some blood per rectal bleeding intermittently, no evidence of significant bleeding farther up. * Anemia: Multifactorial: Acute blood-loss, illness, renal failure, etc. S/P transfusion 09/14, now Hgb slightly down * HIT: on argatroban, which was held after APTT went high and he had some rectal bleeding. Platelets are back down a bit. 40 min of critical care time spent with patient Case discussed with RT and nursing. Subjective: Awake. Objective: Vital Signs Temp Pulse Resp BP Pulse Ox 35.7 C L 82 35 H 93/46 L 100 09/24/16 04:00 09/24/16 08:20 09/24/16 06:00 09/24/16 06:00 09/24/16 08:20 Microbiology 09/18/16 10:59 Blood Culture - Final Blood Laboratory Results 09/24/16 03:10 09/24/16 03:10 09/23/16 09/24/16 09/25/16 05:59 05:59 05:59 Intake Total 1962 1928 Output Total 1400 Balance 1962 528 PT 18.8 SEC (12.0-15.0) H 09/23/16 04:03 INR 1.57 (0.83-1.16) H 09/23/16 04:03 Laboratory Results 09/24/16 03:10 09/24/16 03:10 09/24/16 05:35 Patient Temperature 35.9 DEGREES pCO2 43 H mmHg (34 - 38) pO2 114 H mmHg (65 - 75) Total CO2 23 mEq/L (23 - 27) ABG pH 7.32 L (7.35 - 7.45) ABG O2 Saturation 99 H % (92 - 95) ABG Base Excess -4.1 L mEq/L (-2.5 - 2.5) Total O2 Concentration 50.0 LITERS Respiration Rate 36 Set Respiration Rate 34 Tidal Volume 600 End Tidal CO2 21 PEEP 8 CXR-lines, trach okay. small bilat apical pneumothoraces - Time Spent With Patient Time Spent With Patient: 40 Physical Exam - Physical Exam General Appearance: alert, mild distress EENT: PERRL/EOMI Neck: non-tender, full range of motion, other (trach okay) Respiratory: crackles (scattered), No respiratory distress, No wheezing Cardiac/Chest: normal peripheral pulses, regular rate, rhythm, systolic murmur Abdomen: normal bowel sounds, non-tender, soft Male Genitalia: deferred Rectal: deferred Skin: normal color, warm/dry Extremities: normal range of motion, non-tender, normal inspection, normal capillary refill Neuro/Psych: alert ICD10 Worksheet Patient Problems: Problems Problem Status Diagnosed Acute blood loss anemia Acute Acute renal failure Acute Arterial occlusion, lower extremity Acute Leukocytosis Acute Respiratory failure with hypoxia Acute S/P CABG x 5 Acute S/P Maze operation for atrial fibrillation Acute Coronary arteriosclerosis Acute
[2016-09-24 10:15] LABS: IONIZED CALCIUM 1.12 MMOL/L (1.12-1.30)
[2016-09-24 10:33] LABS: ANION GAP 11 mEq/L (8-16); CALCIUM 8.6 mg/dL (8.5-10.4); CARBON DIOXIDE 24 mEq/l (22-31); CHLORIDE 105 mEq/L (97-110); CREATININE 0.8 mg/dL (0.7-1.3); GLOMERULAR FILTRATION RATE > 60; GLUCOSE 117 mg/dL (70-100); POTASSIUM 3.7 mEq/L (3.5-5.2); SODIUM 140 mEq/L (134-144)
[2016-09-24] MEDS: POTASSIUM Cl (KCl) 100 ML IV PRN (11:49)
--- NOTE | 2016-09-24 12:09 | SOAPPROG ---
SOAP Progress Note Assessment/Plan: Assessment:Plan: ARF-ATN -I/0 = 1928/1400 -on CRRT requiring net plus of 100/hour -weight stable at 77.9 in spite of CRRT settings -BP in the high 80's to low 90's -he likely will remain dialysis dependent while he remains on pressors with this range of BP CV-still on levophed -CVP 14 Hypokalemia-replace prn Extremities-digital ischemia Access -stable -Temp R IJ Pulmonary-trach -oxygen saturations of 100% on 40% 09/24/16 12:06 Subjective: awake on vent and pressors Objective: Vital Signs Temp Pulse Resp BP Pulse Ox 36.4 C 70 22 H 72/40 L 100 09/24/16 08:00 09/24/16 11:40 09/24/16 11:00 09/24/16 11:00 09/24/16 11:40 Microbiology 09/18/16 10:59 Blood Culture - Final Blood Laboratory Results 09/24/16 03:10 09/24/16 10:05 09/23/16 09/24/16 09/25/16 05:59 05:59 05:59 Intake Total 1962 1928 Output Total 1400 Balance 1962 528 PT 18.8 SEC (12.0-15.0) H 09/23/16 04:03 INR 1.57 (0.83-1.16) H 09/23/16 04:03 Physical Exam - Physical Exam General Appearance: alert, thin EENT: normal ENT inspection (dobhoff), other Neck: other (trach, R IJ) Respiratory: rales, rhonchi Cardiac/Chest: regular rate, rhythm, systolic murmur Abdomen: normal bowel sounds Extremities: other (ischemia to feet bilaterally) ICD10 Worksheet Patient Problems: Problems Problem Status Diagnosed Acute blood loss anemia Acute Acute renal failure Acute Arterial occlusion, lower extremity Acute Leukocytosis Acute Respiratory failure with hypoxia Acute S/P CABG x 5 Acute S/P Maze operation for atrial fibrillation Acute Coronary arteriosclerosis Acute
--- NOTE | 2016-09-24 13:13 | WOCRNPDOC ---
WOCRN Advanced Assessment Note - Skin Integrity Problem, Advanced Assess Nose Dressing Type: Open to Air Exudate Amount: None Exudate Characteristic(s): None Rosa Wound Tissue: Intact Rosa Wound Swelling: None Wound Bed Color: Black Wound Bed Constitution: Stable Eschar Site Odor: None Site Measurement - Head-to-Toe Length X Width X Depth (cm): 2.5cmx1.5cmx eschar Pressure Injury Stage: Unstageable Pressure Injury Present on Admit: No Skin Integrity Problem Comment: Wound on bridge of nose unchanged since previous assessment, still 100% satble, dry eschar. Surrounding tissue intact. Continue w/ povidone-iodine application and Transfer per order. Will consider debridement of site when patient's condition more stable. Mouth Pressure Injury Dressing Type: Open to Air Wound Bed Color: Black, Yellow Wound Bed Constitution: Mixed Loose & Adhered Slough/Eschar Wound Edges: Well Defined Site Measurement - Head-to-Toe Length X Width X Depth (cm): 0.5cmx0.5cmx slough/ eschar Pressure Injury Stage: Unstageable Pressure Injury Present on Admit: No Skin Integrity Problem Comment: Small, discrete pressure injury noted on roof of patient's mouth. Previously documented as slough-filled, now turning to eschar, dark estrella/black in appearance. Rosa-wound tissue remains intact. Wound care will continue to monitor site.
[2016-09-24] MEDS: fentaNYL 100 MCG/2 ML INJ IVP PRN (14:52)
[2016-09-24 16:50] LABS: IONIZED CALCIUM 1.11 MMOL/L (1.12-1.30)
[2016-09-24 16:54] LABS: ALBUMIN 2.3 g/dL (3.5-5.0); ANION GAP 13 mEq/L (8-16); CALCIUM 9.5 mg/dL (8.5-10.4); CARBON DIOXIDE 20 mEq/l (22-31); CHLORIDE 106 mEq/L (97-110); CREATININE 0.8 mg/dL (0.7-1.3); GLOMERULAR FILTRATION RATE > 60; GLUCOSE 128 mg/dL (70-100); MAGNESIUM 1.8 mg/dL (1.6-2.3); POTASSIUM 4.5 mEq/L (3.5-5.2); SODIUM 139 mEq/L (134-144)
--- NOTE | 2016-09-24 18:24 | PCMIDPN ---
Assessment/Plan: Assessment/Plan: * Enterococcus faecalis bacteremia likely due to pneumonia: Atypical pathogen for pneumonia but sputum and BAL both show growth of E faecalis. Repeat blood cultures are pending to assess clearing of bacteremia. Continue Zosyn which provides activity against Enterococcus as well as other respiratory pathogens. 09/24/16 18:21 Subjective: Patient remains on CRRT. History and clinical findings reviewed. Objective: Vital Signs Temp Pulse Resp BP Pulse Ox 36.3 C 69 20 90/68 L 97 09/24/16 16:00 09/24/16 17:00 09/24/16 17:00 09/24/16 17:00 09/24/16 17:00 Microbiology 09/18/16 10:59 Blood Culture - Final Blood Laboratory Results 09/24/16 03:10 09/24/16 16:16 09/23/16 09/24/16 09/25/16 05:59 05:59 05:59 Intake Total 1963 1928 Output Total 1400 Balance 1963 528 Zosyn # 6 Blood culture 09/23 and 09/24/2016 pending Chest x-ray with bilateral infiltrates - Physical Exam General Appearance: no apparent distress EENT: No scleral icterus, No conjunctival petechiae Respiratory: coarse breath sounds, No respiratory distress Neck: other (Dialysis catheter in place) Cardiac/Chest: regular rate, rhythm Extremities: other (Dry gangrene of both feet) Abdomen: non-tender, No distended Skin: No embolic lesions ICD10 Worksheet Patient Problems: Problems Problem Status Diagnosed Acute blood loss anemia Acute Acute renal failure Acute Arterial occlusion, lower extremity Acute Leukocytosis Acute Respiratory failure with hypoxia Acute S/P CABG x 5 Acute S/P Maze operation for atrial fibrillation Acute Coronary arteriosclerosis Acute
[2016-09-24] MEDS: MELATONIN 3 MG TAB TUBE SCH (21:11)
[2016-09-24] MEDS: risperiDONE 1 MG TAB PO SCH (21:11)
[2016-09-24] MEDS ORDERED: HEPARIN 10,000 UNIT/10 ML MDV ONE (21:56)
[2016-09-24 22:12] LABS: IONIZED CALCIUM 1.17 MMOL/L (1.12-1.30)
[2016-09-24 22:26] LABS: ANION GAP 12 mEq/L (8-16); CALCIUM 8.6 mg/dL (8.5-10.4); CARBON DIOXIDE 22 mEq/l (22-31); CHLORIDE 101 mEq/L (97-110); CREATININE 0.8 mg/dL (0.7-1.3); GLOMERULAR FILTRATION RATE > 60; GLUCOSE 178 mg/dL (70-100); MAGNESIUM 1.6 mg/dL (1.6-2.3); POTASSIUM 3.9 mEq/L (3.5-5.2); SODIUM 135 mEq/L (134-144)
[2016-09-24] MEDS ORDERED: HEPARIN 10,000 UNIT/10 ML MDV **** PRN (23:50)
[2016-09-25] MEDS: ACCESSORY DRAIN 1 EA BAG***SEND #2 INITIALLY MISC PRN (00:38)
[2016-09-25] MEDS: B22GK4/0 PRISMASATE 5,000 ML DIAL SCH ×4 (00:39→10:02)
[2016-09-25] MEDS: NS 1,000 ML MISC SCH ×4 (00:39→12:54)
[2016-09-25] MEDS: REPL FLUID TYPE D CAPS 1 EA in WATER FOR INJECTION,STERILE 4,000 ML DIAL SCH ×6 (00:39→13:05)
[2016-09-25] MEDS: PIPERACILLIN/TAZO 3.375 GM/DEX 50 ML IV SCH ×3 (00:43→12:06)
[2016-09-25] MEDS: CALCIUM CHLORIDE 5.7 GM in NS 1,000 ML IV SCH (02:49)
[2016-09-25] MEDS: NOREPINEPHRINE BITARTRATE 16 MG in D5W 250 ML IV SCH (03:20)
[2016-09-25 04:05] LABS: BASE EXCESS -8.3 mEq/L (-2.5-2.5); BICARBONATE 18 mEq/L (22-26); MEASURED OXYGEN SATURATION 97 % (92-95); PCO2 44 mmHg (34-38); PO2 96 mmHg (65-75); TCO2 20 mEq/L (23-27)
[2016-09-25 04:07] LABS: END TIDAL CO2 21
[2016-09-25 04:08] LABS: SIMV YES; TOTAL RATE 35
[2016-09-25 04:11] LABS: IONIZED CALCIUM 1.13 MMOL/L (1.12-1.30)
[2016-09-25 04:13] LABS: ANION GAP 12 mEq/L (8-16); CALCIUM 8.8 mg/dL (8.5-10.4); CARBON DIOXIDE 21 mEq/l (22-31); CHLORIDE 106 mEq/L (97-110); CREATININE 0.8 mg/dL (0.7-1.3); GLOMERULAR FILTRATION RATE > 60; GLUCOSE 129 mg/dL (70-100); MAGNESIUM 1.9 mg/dL (1.6-2.3); POTASSIUM 3.6 mEq/L (3.5-5.2); SODIUM 139 mEq/L (134-144)
[2016-09-25] MEDS: POTASSIUM Cl (KCl) 100 ML IV PRN ×2 (04:27→12:14)
[2016-09-25] MEDS: SODIUM PHOS 20 MM in D5W 250 ML IV PRN (05:01)
[2016-09-25] MEDS: NYSTATIN SUSP 500000 UNIT/5 ML UDCUP PO SCH ×2 (06:47→12:20)
[2016-09-25 08:04] LABS: BASE EXCESS -7.6 mEq/L (-2.5-2.5); BICARBONATE 19 mEq/L (22-26); MEASURED OXYGEN SATURATION 98 % (92-95); PCO2 45 mmHg (34-38); PO2 110 mmHg (65-75); TCO2 20 mEq/L (23-27)
[2016-09-25 08:06] LABS: ASSIST CONTROL YES; O2 CONCENTRATIION 50 % (0-100); P/F RATIO 220 RATIO; TOTAL RATE 37
[2016-09-25 08:14] LABS: HEMATOCRIT 29.9 % (40.0-51.0); HEMOGLOBIN 9.7 g/dL (13.7-17.5); MEAN CELL HEMOGLOBIN 29.8 pg (27.9-34.1); MEAN CELL HEMOGLOBIN CONCENTR. 32.4 g/dL (32.4-36.7); RED BLOOD CELL COUNT 3.25 10^6/uL (4.40-6.38); RED CELL DISTRIBUTION WIDTH 19.2 % (11.5-15.2)
[2016-09-25] MEDS ORDERED: ALBUMIN 5% 500 ML BOTTLE IV ONE (08:35)
--- NOTE | 2016-09-25 08:38 | SOAPPROG ---
SOAP Progress Note Assessment/Plan: POD#35 CABGx5 (GANN-LCX, EBONY-D1, SVG-LAD, Sequential SVG-PDA-PLR), Padilla-Maze IV Left/Right lesions. POD#21 Tracheostomy, RIJ dialysis cath. POD#6 Left chest tube - removed 1/2 POD#3 Right chest tube - removed 1/3 POD#2 Right chest tube Nutrition per DHT. IV access per RUE PICC. Day 7 Zosyn. Sx CAD with ISCM (EF 40-45%) - s/p CABGx5 with bilateral mammaries. Small and diffusely diseased target vessels. Early postop course complicated by cardiogenic shock with multi-organ dysfx, severe MR, and peripheral vasoconstriction. Hemodynamics stabilized on vasoactive support w temporary improvement in hepatorenal and respiratory function as well as transient recovery of foot perfusion as pressor support lightened. MOF as of 12/12 secondary to resp arrest precipitated by AF/RVR with hypotension. Further exacerbation by HAP/ARDS w inc pressor needs and effusive process req bilat chest tubes. Condition critical. Code status: no CPR per family wishes. Long-standing persistent atrial fibrillation - s/p Padilla-Maze IV. Recurrent PAF/ PSVT as of POD#11. Use of antinodals limited by pressor support. Amio stopped after arrest. [id number] score of 3. Surgical antithrombotic prophylaxis w DAPT when appropriate. Postoperative respiratory failure - Reintubated 3x, most recently for arrest post AF treatment. Trach placed. Several therapeutic bronchoscopies. Eventual enterococcal HAP w bacteremia and bilateral effusions. Abx per ID. Vent related left PTX/subq air controlled w chest tube and adjusted settings. Rt sided effusion s/p CT. Incomplete expansion d/t small PTX w/near arrest d/t clotted tube/tension PTX. New larger bore chest tube inserted 1/2 with good effect. Postoperative renal failure - Secondary to shock and ATN. Nephrology following and directing CRRT/fluid management. Postoperative melena - Intermittent w episode of BRBPR following manual disimpaction. GI consulted. Local trauma from disimpaction suspected. Endoscopic eval deferred. Stable. Post-op moderate-severe MR - Functional. Valve structurally intact by serial echos. Cath neg for compromised paras flow or RHF. Surg repair deferred. 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 Heparin avoided. Inc plt counts on Argatroban. Transitioned to DAPT w recurrent coagulopathy. All AC on hold. Transfuse prn. Postoperative B/L pedal ischemia - Vasospasm compl by sm vessel thrombosis below ankle level. Demarcating rt forefoot and left toes. Contrast imaging as allowed by renal fx. Vasodilator as allowed by BP. Antithrombotic therapy w DAPT when appropriate. Gen surg following peripherally for eventual amputation. 09/25/16 08:37 09/25/16 09:17 Subjective: Denies pain. Objective: Vital Signs Temp Pulse Resp BP Pulse Ox 35.4 C L 94 37 H 93/56 L 99 09/25/16 08:00 09/25/16 08:34 09/25/16 08:01 09/25/16 08:00 09/25/16 08:34 Laboratory Results 09/25/16 08:09 09/25/16 03:50 09/24/16 09/25/16 09/26/16 05:59 05:59 05:59 Intake Total 1928 457 Output Total 1400 1546 Balance 528 -1089 PT 18.8 SEC (12.0-15.0) H 09/23/16 04:03 INR 1.57 (0.83-1.16) H 09/23/16 04:03 Physical Exam - Physical Exam General Appearance: alert, no apparent distress, cachetic, thin EENT: No scleral icterus (R), No scleral icterus (L) Neck: normal inspection Respiratory: No respiratory distress Cardiac/Chest: regular rate, rhythm, extra beats, irregularly irregular Abdomen: non-tender, soft Skin: mottled, pallor Extremities: other (Dry gangrene B/L LE), No pedal edema, No swelling Neuro/Psych: alert, motor weakness, sensory deficit ICD10 Worksheet Patient Problems: Problems Problem Status Diagnosed Acute blood loss anemia Acute Acute renal failure Acute Arterial occlusion, lower extremity Acute Leukocytosis Acute Respiratory failure with hypoxia Acute S/P CABG x 5 Acute S/P Maze operation for atrial fibrillation Acute Coronary arteriosclerosis Acute
--- NOTE | 2016-09-25 08:59 | PDINTPN ---
Rn Internship Progress Note Assessment/Plan: Assessment/Plan: * CABG X 5 and MAZE 08/21 * Status post cardiopulmonary arrest 09/02: rapid atrial fibrillation, hypoxia, asystole, CPR, intubation, eventual return of spontaneous circulation. * Atrial fibrillation. On amiodarone. In normal sinus rhythm currently. * Barotrauma with bilat PTX -CT on right, left out -CXR today with small apical Pneumothoraces * Mitral regurg post op, moderate-severe. Hemodynamics OK. Likely contributes to his acute respiratory failure and infiltrates. * RAHEL: On CVVHD. Able to remove 75-100 ml/hour. Catheter is positional. * Respiratory Failure: tracheostomy tube in place. CXR with persistent diffuse infiltrates. -not weanable * S/P trach * SQ emphysema -recheck CXR today * Hypotension: worse. On levophed -increase fluids -hold second pressor for now * Elevated WBC: * Right foot ischemia greater than left: Likely due to spasm/embolism/ thrombosis at the ankle. On ASA/Plavix Dr. Levy following. * Lower GI bleed. Some blood per rectal bleeding intermittently, no evidence of significant bleeding farther up. * Anemia: Multifactorial: Acute blood-loss, illness, renal failure, etc. 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 * VTE proph-none currently 35 min of critical care time spent with patient Case discussed with RT and nursing and surgeon 09/25/16 08:58 Subjective: Awake Objective: Vital Signs Temp Pulse Resp BP Pulse Ox 35.4 C L 94 37 H 93/56 L 99 09/25/16 08:00 09/25/16 08:34 09/25/16 08:01 09/25/16 08:00 09/25/16 08:34 Laboratory Results 09/25/16 08:09 09/25/16 03:50 09/24/16 09/25/16 09/26/16 05:59 05:59 05:59 Intake Total 1928 457 Output Total 1400 1546 Balance 528 -1089 PT 18.8 SEC (12.0-15.0) H 09/23/16 04:03 INR 1.57 (0.83-1.16) H 09/23/16 04:03 Laboratory Results 09/25/16 08:09 09/25/16 03:50 09/25/16 08:00 Patient Temperature 37.0 DEGREES pCO2 45 H mmHg (34 - 38) pO2 110 H mmHg (65 - 75) Total CO2 20 L mEq/L (23 - 27) ABG pH 7.24 L (7.35 - 7.45) ABG PO2/FiO2 Ratio 220 RATIO ABG O2 Saturation 98 H % (92 - 95) ABG Base Excess -7.6 L mEq/L (-2.5 - 2.5) O2 Concentration % 50 % Respiration Rate 37 Set Respiration Rate 34 Assist Control YES Tidal Volume 550 PEEP 5 - Time Spent With Patient Time Spent With Patient: 35 Physical Exam - Physical Exam General Appearance: alert, other (awake) EENT: PERRL/EOMI, normal ENT inspection Neck: non-tender, full range of motion Respiratory: crackles (few), No respiratory distress, No stridor, No wheezing Cardiac/Chest: normal peripheral pulses, regular rate, rhythm Abdomen: normal bowel sounds, non-tender, soft Male Genitalia: deferred Rectal: deferred Skin: normal color, warm/dry Extremities: non-tender Neuro/Psych: alert ICD10 Worksheet Patient Problems: Problems Problem Status Diagnosed Acute blood loss anemia Acute Acute renal failure Acute Arterial occlusion, lower extremity Acute Leukocytosis Acute Respiratory failure with hypoxia Acute S/P CABG x 5 Acute S/P Maze operation for atrial fibrillation Acute Coronary arteriosclerosis Acute
[2016-09-25 11:08] LABS: IONIZED CALCIUM 0.95 MMOL/L (1.12-1.30)
[2016-09-25 11:25] VITALS: TEMP 94.6
[2016-09-25 11:27] LABS: ANION GAP 13 mEq/L (8-16); CALCIUM 8.4 mg/dL (8.5-10.4); CARBON DIOXIDE 22 mEq/l (22-31); CHLORIDE 106 mEq/L (97-110); CREATININE 0.7 mg/dL (0.7-1.3); GLOMERULAR FILTRATION RATE > 60; GLUCOSE 133 mg/dL (70-100); MAGNESIUM 1.7 mg/dL (1.6-2.3); POTASSIUM 3.7 mEq/L (3.5-5.2); SODIUM 141 mEq/L (134-144)
[2016-09-25] MEDS: MAGNESIUM SULF 2 GM/WATER 50 ML IV PRN (12:03)
[2016-09-25] MEDS: LANSOPRAZOLE SUSP 30MG/10ML UDSYR (Adult) TUBE SCH (12:15)
[2016-09-25] MEDS: SENNOSIDES 17.6 MG/10 ML UDL TUBE SCH (12:19)
[2016-09-25 13:19] VITALS: PULSE 84
--- NOTE | 2016-09-25 13:45 | PDINTPN ---
Head Cook Progress Note Assessment/Plan: Assessment/Plan: * CABG X 5 and MAZE 08/21 * Status post cardiopulmonary arrest 09/02: rapid atrial fibrillation, hypoxia, asystole, CPR, intubation, eventual return of spontaneous circulation. * Atrial fibrillation. On amiodarone. In normal sinus rhythm currently. * Barotrauma with bilat PTX -CT on right, left out -CXR today with small apical Pneumothoraces * Mitral regurg post op, moderate-severe. Hemodynamics OK. Likely contributes to his acute respiratory failure and infiltrates. * RAHEL: On CVVHD. Able to remove 75-100 ml/hour. Catheter is positional. * Respiratory Failure: tracheostomy tube in place. CXR with persistent diffuse infiltrates. -not weanable * S/P trach * SQ emphysema -recheck CXR today * Hypotension: worse. On levophed -increase fluids -hold second pressor for now * Elevated WBC: * Right foot ischemia greater than left: Likely due to spasm/embolism/ thrombosis at the ankle. On ASA/Plavix Dr. Levy following. * Lower GI bleed. Some blood per rectal bleeding intermittently, no evidence of significant bleeding farther up. * Anemia: Multifactorial: Acute blood-loss, illness, renal failure, etc. 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 It is her wish that all support be withdrawn and patient be made comfortable. We will abide by her wishes. Objective: Vital Signs Temp Pulse Resp BP Pulse Ox 34.8 C L 84 27 H 86/56 L 100 09/25/16 11:00 09/25/16 13:00 09/25/16 13:00 09/25/16 13:00 09/25/16 13:00 Laboratory Results 09/25/16 08:09 09/25/16 10:50 09/24/16 09/25/16 09/26/16 05:59 05:59 05:59 Intake Total 1928 457 Output Total 1400 1546 Balance 528 -1089 PT 18.8 SEC (12.0-15.0) H 09/23/16 04:03 INR 1.57 (0.83-1.16) H 09/23/16 04:03 ICD10 Worksheet Patient Problems: Problems Problem Status Diagnosed Acute blood loss anemia Acute Acute renal failure Acute Arterial occlusion, lower extremity Acute Leukocytosis Acute Respiratory failure with hypoxia Acute S/P CABG x 5 Acute S/P Maze operation for atrial fibrillation Acute Coronary arteriosclerosis Acute
[2016-09-25] MEDS ORDERED: LORazepam 2 MG/ML INJ IVP SCH (14:00)
[2016-09-25 14:14] VITALS: BP 91/66; RESP 29; O2SAT 99
[2016-09-26 14:47] LABS: TESTOSTERONE TOTAL <7.0 ng/dL (240-950)
== END 2016-09-25 14:43 | disposition expired | DRG 3 ==
LOC: F2N 05:50
PROVIDERS: ADMIT Thoracic Surgery (Cardiothoracic Vascular Surgery); ATTEND Thoracic Surgery (Cardiothoracic Vascular Surgery)
PROC: 5A1935Z Respiratory Ventilation, Less than 24 Consecutive Hours (ICD-10-PCS; 2016-08-21)
PROC: 06BQ4ZZ Excision of Left Saphenous Vein, Percutaneous Endoscopic Approach (ICD-10-PCS; 2016-08-21 07:26)
PROC: 02580ZZ Destruction of Conduction Mechanism, Open Approach (ICD-10-PCS; 2016-08-21 07:26)
PROC: 02100Z8 Bypass Coronary Artery, One Artery from Right Internal Mammary, Open Approach (ICD-10-PCS; 2016-08-21 07:26)
PROC: 5A1221Z Performance of Cardiac Output, Continuous (ICD-10-PCS; 2016-08-21 07:26)
PROC: 021209W Bypass Coronary Artery, Three Arteries from Aorta with Autologous Venous Tissue, Open Approach (ICD-10-PCS; 2016-08-21 07:26)
PROC: 02100Z9 Bypass Coronary Artery, One Artery from Left Internal Mammary, Open Approach (ICD-10-PCS; 2016-08-21 07:26)
PROC: 0BH18EZ Insertion of Endotracheal Airway into Trachea, Via Natural or Artificial Opening Endoscopic (ICD-10-PCS; 2016-08-21 07:26)
PROC: 02HV33Z Insertion of Infusion Device into Superior Vena Cava, Percutaneous Approach (ICD-10-PCS; 2016-08-21 07:26)
PROC: 0BH18EZ Insertion of Endotracheal Airway into Trachea, Via Natural or Artificial Opening Endoscopic (ICD-10-PCS; 2016-08-26)
PROC: B245ZZ4 Ultrasonography of Left Heart, Transesophageal (ICD-10-PCS; 2016-08-26)
PROC: B2111ZZ Fluoroscopy of Multiple Coronary Arteries using Low Osmolar Contrast (ICD-10-PCS; 2016-08-26)
PROC: 4A023N8 Measurement of Cardiac Sampling and Pressure, Bilateral, Percutaneous Approach (ICD-10-PCS; 2016-08-26)
PROC: 5A1945Z Respiratory Ventilation, 24-96 Consecutive Hours (ICD-10-PCS; 2016-08-26)
PROC: 3E0G76Z Introduction of Nutritional Substance into Upper GI, Via Natural or Artificial Opening (ICD-10-PCS; 2016-08-28)
PROC: 0DH67UZ Insertion of Feeding Device into Stomach, Via Natural or Artificial Opening (ICD-10-PCS; 2016-08-28)
PROC: 02HV33Z Insertion of Infusion Device into Superior Vena Cava, Percutaneous Approach (ICD-10-PCS; 2016-08-28)
PROC: 02HV33Z Insertion of Infusion Device into Superior Vena Cava, Percutaneous Approach (ICD-10-PCS; 2016-08-29)
PROC: 0BH18EZ Insertion of Endotracheal Airway into Trachea, Via Natural or Artificial Opening Endoscopic (ICD-10-PCS; 2016-09-02)
PROC: 5A02215 Assistance with Cardiac Output using Pulsatile Compression, Continuous (ICD-10-PCS; 2016-09-02)
PROC: 5A1955Z Respiratory Ventilation, Greater than 96 Consecutive Hours (ICD-10-PCS; 2016-09-02)
PROC: 02HV33Z Insertion of Infusion Device into Superior Vena Cava, Percutaneous Approach (ICD-10-PCS; principal; 2016-09-04 10:45)
PROC: 0B110F4 Bypass Trachea to Cutaneous with Tracheostomy Device, Open Approach (ICD-10-PCS; principal; 2016-09-04 10:45)
PROC: 5A1D60Z (ICD-10-PCS; 2016-09-05)
PROC: 0B968ZZ Drainage of Right Lower Lobe Bronchus, Via Natural or Artificial Opening Endoscopic (ICD-10-PCS; 2016-09-09)
PROC: 0B958ZZ Drainage of Right Middle Lobe Bronchus, Via Natural or Artificial Opening Endoscopic (ICD-10-PCS; 2016-09-09)
PROC: 0B988ZZ Drainage of Left Upper Lobe Bronchus, Via Natural or Artificial Opening Endoscopic (ICD-10-PCS; 2016-09-09)
PROC: 0B9B8ZZ Drainage of Left Lower Lobe Bronchus, Via Natural or Artificial Opening Endoscopic (ICD-10-PCS; 2016-09-09)
PROC: 0B9K8ZZ Drainage of Right Lung, Via Natural or Artificial Opening Endoscopic (ICD-10-PCS; 2016-09-18)
PROC: 0B918ZZ Drainage of Trachea, Via Natural or Artificial Opening Endoscopic (ICD-10-PCS; 2016-09-18)
PROC: 0W9B30Z Drainage of Left Pleural Cavity with Drainage Device, Percutaneous Approach (ICD-10-PCS; 2016-09-19)
PROC: 02HV33Z Insertion of Infusion Device into Superior Vena Cava, Percutaneous Approach (ICD-10-PCS; 2016-09-19)
PROC: 0W9930Z Drainage of Right Pleural Cavity with Drainage Device, Percutaneous Approach (ICD-10-PCS; 2016-09-22)
PROC: 0W9930Z Drainage of Right Pleural Cavity with Drainage Device, Percutaneous Approach (ICD-10-PCS; 2016-09-23)
PROC: 30243N1 Transfusion of Nonautologous Red Blood Cells into Central Vein, Percutaneous Approach (ICD-10-PCS; 2016-09-23)
DX: I25.110 Atherosclerotic heart disease of native coronary artery with unstable angina pectoris (principal); I34.0 Nonrheumatic mitral (valve) insufficiency; J96.01 Acute respiratory failure with hypoxia; I48.1 Persistent atrial fibrillation; N17.0 Acute kidney failure with tubular necrosis; D62 Acute posthemorrhagic anemia; E87.2 Acidosis; J15.4 Pneumonia due to other streptococci; I74.3 Embolism and thrombosis of arteries of the lower extremities; K92.1 Melena; E87.0 Hyperosmolality and hypernatremia; J93.9 Pneumothorax, unspecified; I46.9 Cardiac arrest, cause unspecified; L89.153 Pressure ulcer of sacral region, stage 3; L89.819 Pressure ulcer of head, unspecified stage; R45.1 Restlessness and agitation; I25.5 Ischemic cardiomyopathy; F41.9 Anxiety disorder, unspecified; R57.0 Cardiogenic shock; D69.6 Thrombocytopenia, unspecified; R13.10 Dysphagia, unspecified; K76.1 Chronic passive congestion of liver; I73.9 Peripheral vascular disease, unspecified; E87.6 Hypokalemia; D75.82 Heparin induced thrombocytopenia (HIT); J98.2 Interstitial emphysema
CPT/HCPCS: 82947-QW; 83010-90; 84402-90; 85520-90; 86022-90; 86704-90; 97001-GP; 97002-GP; 97003-GO; 97004-GO; 97110-GO; 97110-GP; 97116-GP; 97530-GO; 97530-GP; 97535-GO; C1751; C9121; G0477; G8978-GP-CI; G8978-GP-CM; G8979-GP-CK; G8979-GP-CL; G8987-GO-CM; G8987-GO-CN; G8988-GO-CJ; G8988-GO-CL; J0153; J0171; J0282; J0330; J0610; J0690; J1170; J1265; J1335; J1644; J1815; J2001; J2150; J2250; J2260; J2370; J2405; J2440; J2543; J2597; J2704; J2720; J2765; J2930; J2997; J3010; J3370; J7060; P9016; P9041; P9047; Q9967